=== PATIENT | female | born 1955 | race Caucasian/White ===

== ENCOUNTER 2016-03-05 13:23 | Observation (INO) | payer OTHER ==
[2016-03-05] VITALS (10 sets, daily range): BP systolic 104–128; BP diastolic 64–79; PULSE 105–120; RESP 16–25; TEMP 96.6–98.2; O2SAT 78–98
[~2016-03-05 13:23] MED LIST: ADVA250A INH; ALBU.5I NEB; ALBUAER3 INH; PRED10 PO; SPIRCAP INH; ZITHTAB PO
[2016-03-05] MEDS ORDERED: MAGNESIUM SULFATE 1 GM PREMIX 100 ML IV STA (13:33)
--- NOTE | 2016-03-05 13:37 | PD ---
HPI Chief Complaint: Respiratory Distress Time Seen by Provider: 13:37 Travel History International Travel<30 days: No Contact w/Intl Traveler<30days: No History of Present Illness HPI Patient comes in a COPD exacerbation. Patient struggling to speak and H&P is primary obtained through her . reports that patient began having difficulty breathing last night however did not want to come to the hospital awoke today noted she was struggling more with her breathing and decided to bring her to the emergency department. did try giving a dose nebulizer treatment prior to coming to the emergency department. PFSH Past Medical History Arthritis: No Asthma: Yes Autoimmune Disease: No Anxiety: Yes Depression: No Heart Rhythm Problems: No Cancer: No Cardiovascular Problems: No High Cholesterol: No Chest Pain: No Congestive Heart Failure: No COPD: Yes Cerebrovascular Accident: No Coronary Artery Disease: No Diabetes: No Diminished Hearing: No Endocrine: No Gastrointestinal Disorders: Yes GERD: No Genitourinary: No Headaches: No Hiatal Hernia: No Hypertension: No Immune Disorder: No Implanted Vascular Access Dvce: No Kidney Stones: No Musculoskeletal: Yes Neurologic: Yes Psychiatric: Yes (PTSD) Reproductive: No Respiratory: Yes (copd) Immunizations Current: Yes Renal Failure: No Seizures: Yes Sleep Apnea: No Thyroid Disease: No Ulcer: No Menopausal: Yes : 2 Para: 2 Past Surgical History Abdominal Surgery: Yes () Section: Yes (X1) Thoracic Surgery: Yes (BILATERAL BREAST BIOPSY) Other Surgery: Yes Social History Alcohol Use: Yes (1-2 BEERS/DAY) Tobacco Use: Yes (1/2-1 PPD) Substance Use: Yes (MARIJUANA OCCASIONALLY) Allergies-Medications (Allergen,Severity, Reaction): Coded Allergies: Penicillin (Verified Allergy, Severe, CHILDHOOD, 12/16/15) Reported Meds & Prescriptions Reported Meds & Active Scripts Active Prednisone 10 Mg Tab 10 Mg PO DIRECTED Take 4 tablets daily for 1 week Didn't take 3 tablets daily for 1 week And take 2 tablets daily for 1 week And take 1 tablet daily for one week Zithromax Z-Lake (Azithromycin) 250 Mg Dspk 250 Mg PO DIRECTED 500 MG (2 tabs) day 1, then 1 tab days 2-5. Proair Hfa 8.5 GM Inh (Albuterol Sulfate) 90 Mcg/Act Aer 2 Puff INH Q6H PRN 108 mcg/actuation Advair Diskus Inh (Fluticasone-Salmeterol Inh) 250-50 Mcg/Blist Aer 1 Puff INH BID Rinse mouth after use. Prednisone 10 Mg Tab 10 Mg PO DIRECTED Take 4 tablets daily for 1 week, 3 tablets daily for 1 week, 2 tablets daily for 1 week, 1 tablet daily for one week. Albuterol Neb (Albuterol Sulfate) 2.5 Mg/0.5 Ml Neb 2.5 Mg NEB QID NEB Note: The Albuterol Sulfate Inhalation Solution is concentrated and must be diluted. Read complete instructions carefully before using. Spiriva Handihaler (Tiotropium Inh) 18 Mcg Cap 18 Mcg INH DAILY 1 capsule = 18 mcg Review of Systems Except as stated in HPI: all other systems reviewed are Neg Physical Exam Narrative GENERAL: Well-developed, under nourished, in respiratory distress, and non-ill appearing. SKIN: Warm and dry. HEAD: Atraumatic. Normocephalic. EYES: Pupils equal and round. EOMI. No scleral icterus. No injection or drainage. ENT: No nasal bleeding or discharge. Mucous membranes pink and moist. NECK: Trachea midline. Supple. No nuclear rigidity. CARDIOVASCULAR: Tachycardia rate and regular rhythm. No murmur appreciated. RESPIRATORY: Accessory muscle use. Respiratory distress. Decreased breath sounds throughout and wheezing noted. Not able speak in full sentences. MUSCULOSKELETAL: No obvious deformities. No clubbing. No cyanosis. No edema. Full range of motion. NEUROLOGICAL: Awake and alert. No obvious cranial nerve deficits. Motor grossly within normal limits. PSYCHIATRIC: Appropriate mood and affect; insight and judgment normal. Data Data Last Documented VS Vital Signs Date Time Temp Pulse Resp B/P Pulse Ox O2 Delivery O2 Flow Rate FiO2 03/05/16 13:49 98 45 03/05/16 13:42 25 Nasal Cannula 6 03/05/16 13:32 98.2 105 118/68 Orders Complete Blood Count With Diff (03/05/16 13:32) Comprehensive Metabolic Panel (03/05/16 13:32) Magnesium (Mg) (03/05/16 13:32) Ckmb (Isoenzyme) Profile (03/05/16 13:32) Troponin I (03/05/16 13:32) Iv Access Insert/Monitor (03/05/16 13:32) Electrocardiogram (03/05/16 13:32) Ecg Monitoring (03/05/16 13:32) Oximetry (03/05/16 13:32) Oxygen Administration (03/05/16 13:32) Chest, Single Ap (03/05/16 13:32) Sodium Chloride 0.9% Flush (Ns Flush) (03/05/16 13:45) Methylprednisolone So Succ Inj (Solumedr (03/05/16 13:45) Albuterol-Ipratropium Neb (Duoneb Neb) (03/05/16 13:45) Magnesium Sulfate 1 Gm Premix (Magnesium (03/05/16 13:33) Lactic Acid (03/05/16 13:33) Arterial Blood Gas (Abg) (03/05/16 13:45) Resp Bipap / Cpap Non Invas Vt (03/05/16 13:45) CKMB (03/05/16 13:14) CKMB% (03/05/16 13:14) Sodium Chlor 0.9% 1000 Ml Inj (Ns 1000 M (03/05/16 14:45) Lorazepam Inj (Ativan Inj) (03/05/16 16:30) Admit Order (Ed Use Only) (03/05/16 16:48) Labs Laboratory Tests Test 03/05/16 03/05/16 03/05/16 13:14 13:54 13:55 White Blood Count 7.6 TH/MM3 Red Blood Count 2.93 MIL/MM3 Hemoglobin 9.5 GM/DL Hematocrit 28.2 % Mean Corpuscular Volume 96.0 FL Mean Corpuscular Hemoglobin 32.5 PG Mean Corpuscular Hemoglobin 33.9 % Concent Red Cell Distribution Width 19.2 % Platelet Count 369 TH/MM3 Mean Platelet Volume 7.6 FL Neutrophils (%) (Auto) 74.5 % Lymphocytes (%) (Auto) 13.2 % Monocytes (%) (Auto) 9.0 % Eosinophils (%) (Auto) 2.2 % Basophils (%) (Auto) 1.1 % Neutrophils # (Auto) 5.7 TH/MM3 Lymphocytes # (Auto) 1.0 TH/MM3 Monocytes # (Auto) 0.7 TH/MM3 Eosinophils # (Auto) 0.2 TH/MM3 Basophils # (Auto) 0.1 TH/MM3 CBC Comment DIFF FINAL Differential Comment Sodium Level 131 MEQ/L Potassium Level 4.6 MEQ/L Chloride Level 85 MEQ/L Carbon Dioxide Level 34.5 MEQ/L Anion Gap 12 MEQ/L Blood Urea Nitrogen 4 MG/DL Creatinine 0.31 MG/DL Estimat Glomerular Filtration 218 ML/MIN Rate Random Glucose 130 MG/DL Calcium Level 7.8 MG/DL Magnesium Level 1.7 MG/DL Total Bilirubin 0.3 MG/DL Aspartate Amino Transf 61 U/L (AST/SGOT) Alanine Aminotransferase 36 U/L (ALT/SGPT) Alkaline Phosphatase 142 U/L Total Creatine Kinase 106 U/L Creatine Kinase MB 1.9 NG/ML Troponin I LESS THAN 0.02 NG/ML Total Protein 6.7 GM/DL Albumin 3.3 GM/DL Blood Gas Puncture Site LT RADIAL Blood Gas Patient Temperature 98.6 Blood Gas HCO3 38 mmol/L Blood Gas Base Excess 12.6 mmol/L Blood Gas Oxygen Saturation 90 % Arterial Blood pH 7.42 Arterial Blood Partial 59 mmHg Pressure CO2 Arterial Blood Partial 86 mmHG Pressure O2 Arterial Blood Oxygen Content 11.2 Vol % Arterial Blood 6.4 % Carboxyhemoglobin Arterial Blood Methemoglobin 1.7 % Blood Gas Hemoglobin 8.8 G/DL Oxygen Delivery Device BIPAP Blood Gas Ventilator Setting IPAP 10/EPAP 5 Blood Gas Inspired Oxygen 30 % Lactic Acid Level 3.5 mmol/L MDM Medical Decision Making Medical Screen Exam Complete: Yes Emergency Medical Condition: Yes Interpretation(s) EKG reviewed by Dr. Pena shows sinus tachycardia ventricular rate of 104. No STEMI. Differential Diagnosis COPD exacerbation, pneumonia, respiratory acidosis, respiratory alkalosis, acute respiratory failure, chronic respiratory failure, other Narrative Course 1400 patient appears to be improving on BiPAP. Patient reports she's feeling little bit better since being on BiPAP. 1423 patient continues to improve on BiPAP. No longer using accessory muscle use. Speaking in full sentences. Reports continued improvement of symptoms. 1500 patient on the BiPAP feeling better requesting something to eat. Patient is agreeable for admission. 1615 patient reassessed. Mr. be tremulous. Patient reports she last drank this morning around 8:00 had one beer. Physician Communication Physician Communication [address] Norris, who is agreeable to admit patient. Diagnosis Primary Impression: COPD exacerbation Additional Impression: Alcohol abuse Zen Thorne Mar 05, 2016 13:37
[2016-03-05] MEDS ORDERED: methylPREDNISolone SOD SUCC 125 MG/2 ML VIAL IVP ONE (13:45)
[2016-03-05] MEDS ORDERED: SODIUM CHLORIDE 0.9% FLUSH 5 ML FLUSH IVF PRN ×2 (13:45→17:30)
[2016-03-05] MEDS: RESP: ALBUTEROL 2.5 MG/IPRATROPIUM 0.5 MG NEB (SCH) INH ×4 (13:48→23:45)
[2016-03-05 13:56] LABS: AUTOMATED NEUTROPHIL # 5.7 TH/MM3 (1.8-7.7); BASOPHIL # 0.1 TH/MM3 (0-0.2); BASOPHIL % 1.1 % (0.0-2.0); EOSINOPHIL # 0.2 TH/MM3 (0-0.4); EOSINOPHIL % 2.2 % (0.0-4.0); HEMATOCRIT 28.2 % (35.0-46.0); HEMO FLAGS DIFF FINAL; LYMPH % 13.2 % (9.0-44.0); MEAN CORPUSCULAR HEMOGLOBIN 32.5 PG (27.0-34.0); MEAN CORPUSCULAR HGB CONC 33.9 % (32.0-36.0); NEUT % 74.5 % (16.0-70.0); PLATELET COUNT 369 TH/MM3 (150-450); RED BLOOD COUNT 2.93 MIL/MM3 (4.00-5.30); RED CELL DISTRIBUTION WIDTH 19.2 % (11.6-17.2); WHITE BLOOD COUNT 7.6 TH/MM3 (4.0-11.0)
[2016-03-05 14:10] LABS: BLOOD GAS BASE EXCESS 12.6 mmol/L (-2-2); BLOOD GAS CARBOXYHEMOGLOBIN 6.4 % (0-4); BLOOD GAS HCO3 38 mmol/L (22-26); BLOOD GAS METHEMOGLOBIN 1.7 % (0-2); BLOOD GAS O2 HGB SATURATION 90 % (90-100); BLOOD GAS OXYGEN CONTENT 11.2 Vol % (12.0-20.0); BLOOD GAS PCO2 59 mmHg (38-42); BLOOD GAS PO2 86 mmHG (61-120); BLOOD GAS TOTAL HGB 8.8 G/DL (12.0-16.0); TEMP CORR TO 98.6
[2016-03-05 14:11] LABS: CRITICAL VALUE YES; DRAW SITE LT RADIAL; FIO2 30 %; NUMBER OF ARTERIAL PUNCTURES 1; OXYGEN DEVICE BIPAP; STAT YES; ULNAR PULSE PRESENT; VENT SETTINGS IPAP 10/EPAP 5
[2016-03-05 14:29] LABS: ALKALINE PHOSPHATASE 142 U/L (45-117); ALT (GPT) 36 U/L (10-53); ANION GAP 12 MEQ/L (5-15); BICARBONATE 34.5 MEQ/L (21.0-32.0); BLOOD UREA NITROGEN 4 MG/DL (7-18); CHLORIDE 85 MEQ/L (98-107); CREATINE KINASE 106 U/L (26-192); GLOMERULAR FILTRATION RATE 218 ML/MIN (>89); MAGNESIUM 1.7 MG/DL (1.5-2.5); SODIUM (NA) 131 MEQ/L (136-145); TOTAL BILIRUBIN ADULT 0.3 MG/DL (0.2-1.0)
[2016-03-05 14:33] LABS: AST (GOT) 61 U/L (15-37); POTASSIUM 4.6 MEQ/L (3.5-5.1)
[2016-03-05] MEDS ORDERED: SODIUM CHLOR 0.9% 1000 ML INJ 1,000 ML IV ONE (14:45)
[2016-03-05 14:47] LABS: CKMB 1.9 NG/ML (0.5-3.6)
--- NOTE | 2016-03-05 14:59 | RADRPT ---
EXAM DATE/TIME: 03/05/2016 13:50 [facility] COMPARISON: CHEST SINGLE AP, February 07, 2016, 9:11. INDICATIONS : Short of breath MEDICAL HISTORY : Chronic obstructive pulmonary disease. SURGICAL HISTORY : None. ENCOUNTER: Initial ACUITY: 1 day PAIN SCORE: Non-responsive. LOCATION: Bilateral chest FINDINGS: Lungs are hyperinflated. Significant peripheral of edematous changes are identified. There is no loss of acute airspace disease, suspicious metastases or effusions. Heart and mediastinal structures are stable. CONCLUSION: COPD No evidence of acute airspace disease or congestion. Mario Choudhary MD on March 05, 2016 at 14:56 Board Certified Radiologist. This report was verified electronically.
[2016-03-05] MEDS ORDERED: LORazepam 2 MG/ML VIAL IV PUSH ONE (16:30)
--- NOTE | 2016-03-05 17:19 | PD ---
Data Data Last Documented VS Vital Signs Date Time Temp Pulse Resp B/P Pulse Ox O2 Delivery O2 Flow Rate FiO2 03/05/16 13:49 98 45 03/05/16 13:42 25 Nasal Cannula 6 03/05/16 13:32 98.2 105 118/68 Orders Complete Blood Count With Diff (03/05/16 13:32) Comprehensive Metabolic Panel (03/05/16 13:32) Magnesium (Mg) (03/05/16 13:32) Ckmb (Isoenzyme) Profile (03/05/16 13:32) Troponin I (03/05/16 13:32) Iv Access Insert/Monitor (03/05/16 13:32) Electrocardiogram (03/05/16 13:32) Ecg Monitoring (03/05/16 13:32) Oximetry (03/05/16 13:32) Oxygen Administration (03/05/16 13:32) Chest, Single Ap (03/05/16 13:32) Sodium Chloride 0.9% Flush (Ns Flush) (03/05/16 13:45) Methylprednisolone So Succ Inj (Solumedr (03/05/16 13:45) Albuterol-Ipratropium Neb (Duoneb Neb) (03/05/16 13:45) Magnesium Sulfate 1 Gm Premix (Magnesium (03/05/16 13:33) Lactic Acid (03/05/16 13:33) Arterial Blood Gas (Abg) (03/05/16 13:45) Resp Bipap / Cpap Non Invas Vt (03/05/16 13:45) CKMB (03/05/16 13:14) CKMB% (03/05/16 13:14) Sodium Chlor 0.9% 1000 Ml Inj (Ns 1000 M (03/05/16 14:45) Lorazepam Inj (Ativan Inj) (03/05/16 16:30) Admit Order (Ed Use Only) (03/05/16 16:48) Labs Laboratory Tests Test 03/05/16 03/05/16 03/05/16 13:14 13:54 13:55 White Blood Count 7.6 TH/MM3 Red Blood Count 2.93 MIL/MM3 Hemoglobin 9.5 GM/DL Hematocrit 28.2 % Mean Corpuscular Volume 96.0 FL Mean Corpuscular Hemoglobin 32.5 PG Mean Corpuscular Hemoglobin 33.9 % Concent Red Cell Distribution Width 19.2 % Platelet Count 369 TH/MM3 Mean Platelet Volume 7.6 FL Neutrophils (%) (Auto) 74.5 % Lymphocytes (%) (Auto) 13.2 % Monocytes (%) (Auto) 9.0 % Eosinophils (%) (Auto) 2.2 % Basophils (%) (Auto) 1.1 % Neutrophils # (Auto) 5.7 TH/MM3 Lymphocytes # (Auto) 1.0 TH/MM3 Monocytes # (Auto) 0.7 TH/MM3 Eosinophils # (Auto) 0.2 TH/MM3 Basophils # (Auto) 0.1 TH/MM3 CBC Comment DIFF FINAL Differential Comment Sodium Level 131 MEQ/L Potassium Level 4.6 MEQ/L Chloride Level 85 MEQ/L Carbon Dioxide Level 34.5 MEQ/L Anion Gap 12 MEQ/L Blood Urea Nitrogen 4 MG/DL Creatinine 0.31 MG/DL Estimat Glomerular Filtration 218 ML/MIN Rate Random Glucose 130 MG/DL Calcium Level 7.8 MG/DL Magnesium Level 1.7 MG/DL Total Bilirubin 0.3 MG/DL Aspartate Amino Transf 61 U/L (AST/SGOT) Alanine Aminotransferase 36 U/L (ALT/SGPT) Alkaline Phosphatase 142 U/L Total Creatine Kinase 106 U/L Creatine Kinase MB 1.9 NG/ML Troponin I LESS THAN 0.02 NG/ML Total Protein 6.7 GM/DL Albumin 3.3 GM/DL Blood Gas Puncture Site LT RADIAL Blood Gas Patient Temperature 98.6 Blood Gas HCO3 38 mmol/L Blood Gas Base Excess 12.6 mmol/L Blood Gas Oxygen Saturation 90 % Arterial Blood pH 7.42 Arterial Blood Partial 59 mmHg Pressure CO2 Arterial Blood Partial 86 mmHG Pressure O2 Arterial Blood Oxygen Content 11.2 Vol % Arterial Blood 6.4 % Carboxyhemoglobin Arterial Blood Methemoglobin 1.7 % Blood Gas Hemoglobin 8.8 G/DL Oxygen Delivery Device BIPAP Blood Gas Ventilator Setting IPAP 10/EPAP 5 Blood Gas Inspired Oxygen 30 % Lactic Acid Level 3.5 mmol/L [facility] Supervised Visit with ADY: Yes Narrative Course The history, exam, and medical decision-making in the associated mid-level provider note were completed with my assistance. I reviewed and agree with the findings presented. I attest that I had a [id number] encounter with the patient on the same day, and personally performed and documented my assessment and findings in the medical record. *My assessment and Findings: 6-year-old woman, COPD exacerbation, history of severe COPD. She has a lot of medication noncompliance, doesn't take any of her controlled medications, still smokes. She's improved after BiPAP treatments and steroids. She didn't really want to stay but I encouraged her to stay overnight. Respiratory family and they're in encourage her to quit smoking and take her medications as prescribed. Much improved. Diagnosis Primary Impression: COPD exacerbation Additional Impression: Alcohol abuse Manuel Pena MD Mar 05, 2016 17:19
[2016-03-05] MEDS ORDERED: LORazepam 1 MG TAB PO PRN (17:30)
[2016-03-05] MEDS ORDERED: LORazepam 2 MG/ML VIAL IV PUSH PRN ×3 (17:30)
[2016-03-05] MEDS ORDERED: RESP: ALBUTEROL 2.5 MG/3 ML NEB (PRN) INH (17:30)
[2016-03-05] MEDS ORDERED: FLUMAZENIL 0.5 MG/5 ML VIAL IV PUSH PRN (17:30)
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
[2016-03-05] MEDS: REMOVE OLD NICODERM (NICOTINE) PATCH TD SCH (18:00)
[2016-03-05] MEDS: THIAMINE HCL 100 MG TAB PO SCH (18:38)
[2016-03-05] MEDS: PANTOPRAZOLE SOD 40 MG DELAYED RELEASE TAB PO SCH (18:38)
[2016-03-05] MEDS: SODIUM CHLOR 0.9% 1000 ML INJ 1,000 ML IV SCH (18:39)
[2016-03-05] MEDS: NICOTINE 21 MG/24 HR PATCH TD SCH (18:39)
[2016-03-05] MEDS: MULTIVITAMIN TAB PO SCH (18:39)
[2016-03-05] MEDS: LORazepam 2 MG/ML VIAL IV PUSH PRN (19:45)
[2016-03-05] MEDS: BUDESONIDE-FORMOTEROL 160/4.5 MCG INHALER INH SCH (21:00)
[2016-03-05] MEDS ORDERED: NON-FORMULARY DRUG (Fluticasone-Salmeterol Inh (Advair Diskus Inh) 1 PUFF) INH SCH (21:00)
[2016-03-05] MEDS: SODIUM CHLORIDE 0.9% FLUSH 5 ML FLUSH IVF SCH (21:38)
[2016-03-05] MEDS: LORazepam 2 MG TAB PO PRN (21:38)
[2016-03-05] MEDS: methylPREDNISolone SOD SUCC 40 MG/1 ML VIAL IV PUSH SCH (21:39)
[2016-03-06] VITALS (10 sets, daily range): BP systolic 116–144; BP diastolic 66–79; PULSE 98–116; RESP 16–20; TEMP 96–98.8; O2SAT 95–100
[2016-03-06] MEDS: methylPREDNISolone SOD SUCC 40 MG/1 ML VIAL IV PUSH SCH ×4 (01:25→17:53)
[2016-03-06] MEDS: LORazepam 2 MG/ML VIAL IV PUSH PRN (01:26)
[2016-03-06] MEDS: RESP: ALBUTEROL 2.5 MG/IPRATROPIUM 0.5 MG NEB (SCH) INH ×5 (03:35→20:13)
[2016-03-06 06:02] LABS: AUTOMATED NEUTROPHIL # 3.4 TH/MM3 (1.8-7.7); BASOPHIL % 0.3 % (0.0-2.0); HEMATOCRIT 23.4 % (35.0-46.0); HEMO FLAGS DIFF FINAL; LYMPH % 5.8 % (9.0-44.0); LYMPHOCYTE # 0.2 TH/MM3 (1.0-4.8); MEAN CELL VOLUME 96.9 FL (80.0-100.0); MEAN CORPUSCULAR HEMOGLOBIN 32.4 PG (27.0-34.0); MEAN CORPUSCULAR HGB CONC 33.5 % (32.0-36.0); MONO % 3.3 % (0.0-8.0); NEUT % 90.6 % (16.0-70.0); PLATELET COUNT 242 TH/MM3 (150-450); RED BLOOD COUNT 2.42 MIL/MM3 (4.00-5.30); RED CELL DISTRIBUTION WIDTH 19.4 % (11.6-17.2); WHITE BLOOD COUNT 3.7 TH/MM3 (4.0-11.0)
[2016-03-06] MEDS: PANTOPRAZOLE SOD 40 MG DELAYED RELEASE TAB PO SCH (06:21)
[2016-03-06 06:45] LABS: POTASSIUM 3.4 MEQ/L (3.5-5.1)
[2016-03-06] MEDS: SODIUM CHLORIDE 0.9% FLUSH 5 ML FLUSH IVF SCH ×2 (08:40→20:43)
[2016-03-06] MEDS: BUDESONIDE-FORMOTEROL 160/4.5 MCG INHALER INH SCH ×2 (08:40→20:42)
[2016-03-06] MEDS: THIAMINE HCL 100 MG TAB PO SCH (08:42)
[2016-03-06] MEDS: MULTIVITAMIN TAB PO SCH (08:42)
[2016-03-06] MEDS: FOLIC ACID 1 MG TAB PO SCH (08:42)
[2016-03-06] MEDS: NICOTINE 21 MG/24 HR PATCH TD SCH (08:44)
[2016-03-06] MEDS: REMOVE OLD NICODERM (NICOTINE) PATCH TD SCH (09:00)
--- NOTE | 2016-03-06 10:23 | PD.PN.STU ---
Subjective Remarks This morning, pt reports feeling a generalized sense of weakness, wonders if she 's "getting worse." Denies increase in shortness of breath, chest pain, focal weakness. On 3 L nasal cannula. Objective Vitals Vital Signs Date Time Temp Pulse Resp B/P Pulse Ox O2 Delivery O2 Flow Rate FiO2 03/06/16 07:34 99 Nasal Cannula 3.00 03/06/16 07:27 98.1 103 18 116/75 99 03/06/16 04:38 97.8 99 20 125/66 100 03/06/16 00:05 96.0 116 16 129/75 98 03/05/16 21:16 96.6 120 16 127/78 96 03/05/16 20:55 96 Nasal Cannula 3.00 03/05/16 19:48 112 22 116/71 96 Nasal Cannula 2 03/05/16 19:16 115 24 122/70 95 Nasal Cannula 2 03/05/16 18:46 114 22 128/79 96 Nasal Cannula 6 03/05/16 16:30 96 Nasal Cannula 2.00 03/05/16 13:49 98 45 03/05/16 13:42 25 96 Nasal Cannula 6 03/05/16 13:42 96 Nasal Cannula 6 03/05/16 13:32 25 73 Room Air 03/05/16 13:32 98.2 105 25 118/68 96 Nasal Cannula 6 03/05/16 13:26 98.1 110 22 104/64 78 Room Air Result Diagram: 03/06/16 0531 03/06/16 0531 Other Results Laboratory Tests Test 03/05/16 03/05/16 03/05/16 03/06/16 13:14 13:54 13:55 05:31 White Blood Count 7.6 TH/MM3 3.7 TH/MM3 Red Blood Count 2.93 MIL/MM3 2.42 MIL/MM3 Hemoglobin 9.5 GM/DL 7.8 GM/DL Hematocrit 28.2 % 23.4 % Mean Corpuscular Volume 96.0 FL 96.9 FL Mean Corpuscular Hemoglobin 32.5 PG 32.4 PG Mean Corpuscular Hemoglobin 33.9 % 33.5 % Concent Red Cell Distribution Width 19.2 % 19.4 % Platelet Count 369 TH/MM3 242 TH/MM3 Mean Platelet Volume 7.6 FL 6.9 FL Neutrophils (%) (Auto) 74.5 % 90.6 % Lymphocytes (%) (Auto) 13.2 % 5.8 % Monocytes (%) (Auto) 9.0 % 3.3 % Eosinophils (%) (Auto) 2.2 % 0.0 % Basophils (%) (Auto) 1.1 % 0.3 % Neutrophils # (Auto) 5.7 TH/MM3 3.4 TH/MM3 Lymphocytes # (Auto) 1.0 TH/MM3 0.2 TH/MM3 Monocytes # (Auto) 0.7 TH/MM3 0.1 TH/MM3 Eosinophils # (Auto) 0.2 TH/MM3 0.0 TH/MM3 Basophils # (Auto) 0.1 TH/MM3 0.0 TH/MM3 CBC Comment DIFF FINAL DIFF FINAL Differential Comment Sodium Level 131 MEQ/L 135 MEQ/L Potassium Level 4.6 MEQ/L 3.4 MEQ/L Chloride Level 85 MEQ/L 93 MEQ/L Carbon Dioxide Level 34.5 MEQ/L 36.0 MEQ/L Anion Gap 12 MEQ/L 6 MEQ/L Blood Urea Nitrogen 4 MG/DL 5 MG/DL Creatinine 0.31 MG/DL 0.22 MG/DL Estimat Glomerular Filtration 218 ML/MIN 325 ML/MIN Rate Random Glucose 130 MG/DL 177 MG/DL Calcium Level 7.8 MG/DL 7.9 MG/DL Magnesium Level 1.7 MG/DL Total Bilirubin 0.3 MG/DL Aspartate Amino Transf 61 U/L (AST/SGOT) Alanine Aminotransferase 36 U/L (ALT/SGPT) Alkaline Phosphatase 142 U/L Total Creatine Kinase 106 U/L Creatine Kinase MB 1.9 NG/ML Troponin I LESS THAN 0.02 NG/ML Total Protein 6.7 GM/DL Albumin 3.3 GM/DL Blood Gas Puncture Site LT RADIAL Blood Gas Patient Temperature 98.6 Blood Gas HCO3 38 mmol/L Blood Gas Base Excess 12.6 mmol/L Blood Gas Oxygen Saturation 90 % Arterial Blood pH 7.42 Arterial Blood Partial 59 mmHg Pressure CO2 Arterial Blood Partial 86 mmHG Pressure O2 Arterial Blood Oxygen Content 11.2 Vol % Arterial Blood 6.4 % Carboxyhemoglobin Arterial Blood Methemoglobin 1.7 % Blood Gas Hemoglobin 8.8 G/DL Oxygen Delivery Device BIPAP Blood Gas Ventilator Setting IPAP 10/EPAP 5 Blood Gas Inspired Oxygen 30 % Lactic Acid Level 3.5 mmol/L Imaging Last 24 hours Impressions Chest X-Ray 03/05/16 5632 Signed Impressions: Service Date/Time: Saturday, March 05, 2016 13:50 - CONCLUSION: COPD No evidence of acute airspace disease or congestion. Mario Choudhary MD Objective Remarks GENERAL: Sitting upright in bed eating breakfast, conversant, noticeable tremor in hands SKIN: Warm and dry. HEAD: Normocephalic. EYES: No scleral icterus. No injection or drainage. NECK: Supple, trachea midline. No JVD or lymphadenopathy. CARDIOVASCULAR: Regular rate and rhythm without murmurs, gallops, or rubs. RESPIRATORY: Poor air movement bilaterally, faint wheezing on expiration GASTROINTESTINAL: Abdomen soft, non-tender, nondistended. MUSCULOSKELETAL: No cyanosis, or edema. Medications and IVs Administered Medications Medications (Trade) Dose Ordered Sig/Lemuel Route PRN Reason Start Time Stop Time Status Last Admin Dose Admin Sodium Chloride (NS 1000 ml Inj) 1,000 ml @ 75 mls/hr [id number] IV 03/05/16 18:00 03/05/16 18:39 IV Flush (NS Flush) 2 ml BID IVF 03/05/16 21:00 03/06/16 08:40 Nicotine (Habitrol 21 Mg Patch.24 Hr) 1 patch DAILY TD 03/05/16 18:00 03/06/16 08:44 Lorazepam (Ativan Inj) 1 mg Q4H PRN IV PUSH CIWA 8 - 10 03/05/16 17:30 03/06/16 01:26 Lorazepam (Ativan) 2 mg Q2H PRN PO CIWA 11-14 03/05/16 17:30 03/05/16 21:38 Methylprednisolone Sodium Succinate (SoluMEDROL INJ) 40 mg Q6HR IV PUSH 03/05/16 22:00 03/06/16 06:21 Miscellaneous Information 1 DAILY TD 03/05/16 18:00 03/05/16 18:00 Budesonide/ Formoterol Fumarate (Symbicort 160-4.5 Inh) 2 puff BID INH 03/05/16 21:00 03/06/16 08:40 Pantoprazole Sodium (Protonix) 40 mg DAILY@06 PO 03/05/16 17:49 03/06/16 06:21 Thiamine HCl (Vitamin B1) 100 mg DAILY PO 03/05/16 17:53 1/18/17 08:42 Folic Acid (Folate) 1 mg DAILY PO 03/06/16 09:00 03/06/16 08:42 Multivitamins (Theragran) 1 tab DAILY PO 03/05/16 17:55 03/06/16 08:42 A/P Assessment and Plan 60 yo F w/long-time tobacco use presenting with COPD exacerbation - COPD Exacerbation - secondary to long time tobacco use, counseled on smoking cessation. Nicotine patch - On 3L n/c, O2 sat 99% - IV solumedrol 40mg Q6h, symbicort BID, Duoneb Q4h - Albuterol Q2h PRN - Alcohol dependence - monitor closely, tremor noted this morning - CIWA protocol, thiamine, folic acid, IVF - counseled to cease alcohol use, consider inpatient rehabilitation - PTSD - Psych consulted, was coming to see patient as I left the room - Hypovolemia - Tachycardia improving, now in low 100's initially 110's - continue nl saline IVF, 75ml/hr - Hyponatremia: resolving - likely due to alcohol/beer intake-->beer potomania - 131-->135, improving with IVF. Goal to correct <10 mEq/L in 24h - Anemia - Hgb initially 9.5, now 7.8 - likely dilutional decrease due to IVF administration Discharge Planning Consulting CM for possible rehabilitation for alcohol dependence. Evangelina Myers M3 Mar 06, 2016 10:23
[2016-03-06] MEDS: LORazepam 2 MG TAB PO PRN ×2 (11:24→16:34)
[2016-03-06] MEDS: SODIUM CHLOR 0.9% 1000 ML INJ 1,000 ML IV SCH (11:48)
[2016-03-06] MEDS ORDERED: ONDANSETRON HCL 4 MG/2 ML VIAL IV PRN (12:00)
[2016-03-06] MEDS ORDERED: POTASSIUM CHLORIDE 10 MEQ CONTROLLED RELEASE TAB PO ONE (12:00)
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
--- NOTE | 2016-03-06 13:45 | HHI.PR ---
Subjective Remarks Patient endorsed generalized weakness with difficulty walking. Unsteady gait. Breathing is okay. Patient is still visibly shaky. Objective Vitals Vital Signs Date Time Temp Pulse Resp B/P Pulse Ox O2 Delivery O2 Flow Rate FiO2 03/06/16 11:08 98.1 114 18 144/79 100 03/06/16 07:34 99 Nasal Cannula 3.00 03/06/16 07:27 98.1 103 18 116/75 99 03/06/16 04:38 97.8 99 20 125/66 100 03/06/16 00:05 96.0 116 16 129/75 98 03/05/16 21:16 96.6 120 16 127/78 96 03/05/16 20:55 96 Nasal Cannula 3.00 03/05/16 19:48 112 22 116/71 96 Nasal Cannula 2 03/05/16 19:16 115 24 122/70 95 Nasal Cannula 2 03/05/16 18:46 114 22 128/79 96 Nasal Cannula 6 03/05/16 16:30 96 Nasal Cannula 2.00 03/05/16 13:49 98 45 Result Diagram: 03/06/16 0531 03/06/16 0531 Imaging Last Impressions Chest X-Ray 03/05/16 1332 Signed Impressions: Service Date/Time: Saturday, March 05, 2016 13:50 - CONCLUSION: COPD No evidence of acute airspace disease or congestion. Mario Choudhary MD Objective Remarks GENERAL: Frail and cachectic female patient. Very shaky. SKIN: Multiple bruises over bilateral upper and lower extremities. CARDIOVASCULAR: Normal rate and regular rhythm without murmurs, gallops, or rubs. RESPIRATORY: Poor air movement. Faint expiratory wheezing. GASTROINTESTINAL: Abdomen soft, non-tender, non-distended. Normal active bowel sounds MUSCULOSKELETAL: Extremities without cyanosis, or edema. Generally weak. NEURO: Patient is very tremulous PSYCH: Appropriate mood and affect. A/P Assessment and Plan 60-year-old female noncompliant patient with severe oxygen dependent COPD/ emphysema being admitted for COPD exacerbation: COPD exacerbation: Unfortunately patient is noncompliant, ongoing alcohol dependence. Does not follow-up. Chest x-ray image reviewed. No evidence of an infectious process at this point. She continues to smoke at least 15 cigarettes a day. - Treated with IV Solu-Medrol. Scheduled breathing treatments, continue Advair. Alcohol dependence/withdrawal: Patient continues to drink heavily despite the detrimental effects on her health. Her is very concerned about her health and hope she would go to inpatient rehabilitation. However the patient is reluctant. She was counseled in a direct way and it was made clear to her that she will continue to go downhill if she does not quit drinking alcohol and was strongly counseled to seek inpatient rehabilitation. - CIWA protocol - Rally pack - Scheduled Librium added per psychiatry. Unsteady gait: Probably related to above. Will ask PT to evaluate. PTSD and Anxiety: Symptoms are more pronounced in the setting of ongoing alcohol abuse. - Appreciate psychiatrist's assistance. Also advised inpatient detox and long- term in patient alcohol rehabilitation. - Patient on scheduled Librium as above. Tobacco abuse: Patient again counseled on the detrimental effects of tobacco on her health. She states that she is trying to quit. She was advised about complete cessation. Hyponatremia: Mild. Secondary to chronic alcohol use. IVF. GI prophylaxis: PPI. Stool softener PRN constipation. DVT PPx: SCDs Discharge Planning Ideally patient should be discharged to an inpatient detox unit. However she is reluctant. She does not even appear to be strong enough to walk on her own. In addition she is oxygen dependent which may complicate placement to detox facility if she agrees to go to one. Will ask physical therapy to evaluate. Case management consulted for assistance with placement. Meggan Norris MD Mar 06, 2016 13:45
[2016-03-06] MEDS: chlordiazePOXIDE 25 MG CAP PO SCH ×2 (14:27→20:42)
[2016-03-06] MEDS: D5-1/2 NS + KCL 20 MEQ INJ 1,000 ML IV SCH (15:40)
--- NOTE | 2016-03-06 20:40 | EKG ---
Date Performed: 03/05/2016 Time Performed: 13:56:04 PTAGE: 60 years EKG: SINUS TACHYCARDIA RIGHT ATRIAL ENLARGEMENT ABNORMAL ECG PREVIOUS TRACING : 02/07/2016 08.57 Compared to prior tracing no significant change DOCTOR: Santi Barr Interpretating Date/Time 03/06/2016 20:39:25
[2016-03-07] VITALS (7 sets, daily range): BP systolic 92–130; BP diastolic 57–73; PULSE 66–102; RESP 16–24; TEMP 97.6–98.4; O2SAT 99–100
[2016-03-07] MEDS: RESP: ALBUTEROL 2.5 MG/IPRATROPIUM 0.5 MG NEB (SCH) INH ×5 (00:09→15:41)
[2016-03-07] MEDS: LORazepam 2 MG TAB PO PRN ×2 (00:36→16:13)
[2016-03-07] MEDS: methylPREDNISolone SOD SUCC 40 MG/1 ML VIAL IV PUSH SCH ×2 (00:36→06:09)
[2016-03-07] MEDS: D5-1/2 NS + KCL 20 MEQ INJ 1,000 ML IV SCH (03:25)
[2016-03-07] MEDS: PANTOPRAZOLE SOD 40 MG DELAYED RELEASE TAB PO SCH (06:09)
[2016-03-07] MEDS: chlordiazePOXIDE 25 MG CAP PO SCH ×2 (06:09→14:08)
[2016-03-07 08:23] LABS: HEMATOCRIT 22.2 % (35.0-46.0); MEAN CELL VOLUME 98.2 FL (80.0-100.0); MEAN CORPUSCULAR HEMOGLOBIN 32.4 PG (27.0-34.0); PLATELET COUNT 228 TH/MM3 (150-450); RED BLOOD COUNT 2.26 MIL/MM3 (4.00-5.30); RED CELL DISTRIBUTION WIDTH 20.3 % (11.6-17.2); REVIEW FLAG FINAL; WHITE BLOOD COUNT 7.7 TH/MM3 (4.0-11.0)
[2016-03-07] MEDS: BUDESONIDE-FORMOTEROL 160/4.5 MCG INHALER INH SCH (08:51)
[2016-03-07] MEDS: SODIUM CHLORIDE 0.9% FLUSH 5 ML FLUSH IVF SCH (08:51)
[2016-03-07] MEDS: THIAMINE HCL 100 MG TAB PO SCH (08:52)
[2016-03-07] MEDS: MULTIVITAMIN TAB PO SCH (08:52)
[2016-03-07] MEDS: FOLIC ACID 1 MG TAB PO SCH (08:52)
[2016-03-07 08:53] LABS: BICARBONATE 34.5 MEQ/L (21.0-32.0); MAGNESIUM 1.8 MG/DL (1.5-2.5); POTASSIUM 4.5 MEQ/L (3.5-5.1)
[2016-03-07] MEDS: NICOTINE 21 MG/24 HR PATCH TD SCH (08:54)
[2016-03-07] MEDS: REMOVE OLD NICODERM (NICOTINE) PATCH TD SCH (08:54)
--- NOTE | 2016-03-07 09:25 | HHI.PR ---
Subjective Remarks Follow up for COPD exacerbation, alcohol dependence/withdrawal. The patient reports her breathing is back to normal, denies any worsening SOB. O2 sat stable at 100% on 3L NC. Patient wears 2-3L at home. She currently has a tremor but she states this is because she is upset from being in the hospital. She wants to be discharged. Denies any worsening withdrawal. Significant other Claude at bedside, plans to care for the patient at home if unable to get her to alcohol rehab at [facility]. The patient only has a cane at home, no walker. Objective Vitals Vital Signs Date Time Temp Pulse Resp B/P Pulse Ox O2 Delivery O2 Flow Rate FiO2 03/07/16 07:37 97.6 66 16 92/62 100 03/07/16 07:30 96 03/07/16 04:25 98.3 94 20 94/57 99 03/07/16 00:32 98.4 99 20 110/59 100 03/07/16 00:10 99 Nasal Cannula 3.00 03/06/16 22:21 104 03/06/16 20:14 95 Nasal Cannula 4.00 03/06/16 19:59 97.6 109 20 123/76 100 03/06/16 15:20 98.8 98 18 128/72 98 03/06/16 11:08 98.1 114 18 144/79 100 Result Diagram: 03/07/16 0812 03/07/16 0812 Imaging Last Impressions Chest X-Ray 03/05/16 1332 Signed Impressions: Service Date/Time: Saturday, March 05, 2016 13:50 - CONCLUSION: COPD No evidence of acute airspace disease or congestion. Mario Choudhary MD Objective Remarks GENERAL: Well-nourished, well-developed thin female patient in [facility]. SKIN: Warm and dry. No rash. HEAD: Normocephalic. Atraumatic. EYES: Pupils equal and round. No scleral icterus. No injection or drainage. ENT: No nasal bleeding or discharge. Mucous membranes pink and moist. NECK: Supple. Trachea midline. CARDIOVASCULAR: Regular rate and rhythm. S1, S2 noted. No murmur appreciated. RESPIRATORY: No accessory muscle use. Decreased breath sounds bilaterally, otherwise clear to auscultation. Breath sounds equal bilaterally. GASTROINTESTINAL: Abdomen soft, non-tender, nondistended. Normoactive bowel sounds x4. MUSCULOSKELETAL: No obvious deformities. Extremities without clubbing, cyanosis , or edema. NEUROLOGICAL: AAOx4. No obvious cranial nerve deficits. Motor grossly within normal limits. Generalized weakness with upper extremity tremor/shaking. Normal speech. PSYCHIATRIC: Anxious mood; insight and judgment normal. Medications and IVs Current Medications Medications (Trade) Dose Ordered Sig/Lemuel Route Start Time Stop Time Status Last Admin (NS Flush) 2 ml BID IVF 03/05/16 21:00 03/06/16 20:43 (NS Flush) 2 ml UNSCH PRN IVF 03/05/16 17:30 (Habitrol 21 Mg Patch.24 Hr) 1 patch DAILY TD 03/05/16 18:00 03/07/16 08:54 (Ativan) 1 mg Q4H PRN PO 03/05/16 17:30 (Ativan Inj) 1 mg Q4H PRN IV PUSH 03/05/16 17:30 03/06/16 01:26 (Ativan) 2 mg Q2H PRN PO 03/05/16 17:30 03/07/16 00:36 (Ativan Inj) 2 mg Q2H PRN IV PUSH 03/05/16 17:30 03/06/16 20:42 (Ativan Inj) 2 mg Q1H PRN IV PUSH 03/05/16 17:30 (Ativan Inj) 2 mg Q15M PRN IV PUSH 03/05/16 17:30 Miscellaneous Information 1 DAILY TD 03/05/16 18:00 03/07/16 08:54 (Symbicort 160-4.5 Inh) 2 puff BID INH 03/05/16 21:00 03/07/16 08:51 (Protonix) 40 mg DAILY@06 PO 03/05/16 17:49 03/07/16 06:09 (Vitamin B1) 100 mg DAILY PO 03/05/16 17:53 03/07/16 08:52 (Folate) 1 mg DAILY PO 03/06/16 09:00 03/07/16 08:52 (Theragran) 1 tab DAILY PO 03/05/16 17:55 03/07/16 08:52 (Zofran Inj) 4 mg Q6H PRN IV 03/06/16 12:00 03/06/16 11:49 (Librium) 50 mg Q8HR PO 03/06/16 14:00 03/07/16 06:09 (Deltasone) 40 mg Q12H PO 03/07/16 18:00 Urinary Catheter: No Vascular Central Line Catheter: No A/P Problem List: (1) COPD exacerbation ICD Code: J44.1 Status: Acute (2) Alcohol abuse ICD Code: F10.10 Status: Acute (3) Hyponatremia ICD Code: E87.1 Status: Resolved Assessment and Plan 60-year-old female noncompliant patient with severe oxygen dependent COPD/ emphysema being admitted for COPD exacerbation: Acute on Chronic Respiratory Failure secondary to COPD exacerbation, O2 dependent: Unfortunately patient is noncompliant, ongoing alcohol dependence, does not follow-up. CXR image reviewed, consistent with COPD. No evidence of an infectious process. Continues to smoke at least 15 cigarettes a day. Treated with IV Solu-Medrol. Scheduled breathing treatments, continue Advair. Taper steroids to prednisone 40mg bid. Alcohol dependence/withdrawal: Patient continues to drink heavily despite the detrimental effects on her health. Her is very concerned about her health and hope she would go to inpatient rehabilitation. However the patient is reluctant. She was counseled in a direct way and it was made clear to her that she will continue to go downhill if she does not quit drinking alcohol and was strongly counseled to seek inpatient rehabilitation. [place] protocol. Rally pack. Scheduled Librium added per psychiatry. Unsteady gait: Probably related to above. Asked PT to evaluate, recommends HHC and walker. Case management to assist with arrangements. PTSD and Anxiety: Symptoms are more pronounced in the setting of ongoing alcohol abuse. Appreciate psychiatrist's assistance. Also advised inpatient detox and long-term in patient alcohol rehabilitation. Patient on scheduled Librium as above. Tobacco abuse: Patient again counseled on the detrimental effects of tobacco on her health. She states that she is trying to quit. She was advised about complete cessation. Hyponatremia: Mild. Secondary to chronic alcohol use. IVF given, Na 136 now. D/ c IVF. Normocytic Anemia: Hgb 7.3 today, previously 9.5 on admission. Likely chronic anemia and dilutional secondary to being on IVF during hospitalization. Check stool hemoccult and iron studies/ferritin. Repeat H&H this afternoon. Glucose intolerance secondary to steroids. Monitor fingerstick with sliding scale coverage. Obtain A1c. GI prophylaxis: PPI. Stool softener PRN constipation. DVT PPx: SCDs Written by Lory Rudolph, acting as scribe for Dr. Roberts on 03/07/16 at 09: 20. The documentation accurately reflects the work performed [id number] by me on at 0920 Discharge Planning Work up anemia and repeat H&H this afternoon, if stable, then likely discharge today after arrangements made by case management. Lory Rudolph PA-C Mar 07, 2016 09:25 Bertrand Roberts MD Mar 07, 2016 15:16
[2016-03-07] MEDS ORDERED: WALKER WHEELS/F1 MIS (10:26)
[2016-03-07] MEDS ORDERED: CHLO25CA2 PO (10:56)
[2016-03-07] MEDS: LORazepam 2 MG/ML VIAL IV PUSH PRN (12:31)
[2016-03-07 15:00] LABS: HEMATOCRIT 26.8 % (35.0-46.0); REVIEW FLAG FINAL
[2016-03-07] MEDS ORDERED: DEXTROSE 50% IN WATER 50 ML VIAL(D50) IV PUSH PRN (15:15)
[2016-03-07] MEDS ORDERED: GLUCAGON 1 MG/ML VIAL OTHER PRN (15:15)
[2016-03-07 15:23] LABS: TRANSFERRIN IRON PROFILE 258 MG/DL (200-360)
[2016-03-07 15:25] LABS: FERRITIN 43 NG/ML (8-252)
[2016-03-07] MEDS ORDERED: INSULIN ASPART SUPPLEMENTAL SCALE SQ SCH (16:00)
[2016-03-07] MEDS ORDERED: VITA100T2 PO (17:36)
[2016-03-07] MEDS ORDERED: PRED20 PO (17:36)
[2016-03-07] MEDS ORDERED: PANT40TA3 PO (17:36)
[2016-03-07] MEDS ORDERED: FERR325T PO (17:36)
--- NOTE | 2016-03-07 17:37 | HHI.FF ---
Face to Face Verification Diagnosis: (1) COPD exacerbation (2) Generalized weakness (3) Alcohol abuse Physical Therapy Order: Evaluate and Treat, Improve ambulation, Strength and gait training Home Health Nursing Order: Medical education Signs/symptoms of disease process Medication education-adverse effect Nursing assessment with vital signs I have seen patient Chelly Latif on 03/07/16. My clinical findings support the need for the requested home health care services because: Patient has SOB I certify that my clinical findings support that this patient is homebound because: Hx COPD- exertion dyspnea/weakness Bertrand Roberts MD Mar 07, 2016 17:37
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
[2016-03-07] MEDS ORDERED: predniSONE 20 MG TAB PO SCH (18:00)
[2016-03-07] MEDS ORDERED: FERROUS SULFATE 325 MG (65 MG ELEMENTAL IRON) TAB PO SCH (21:00)
[2016-03-08] MEDS ORDERED: predniSONE 20 MG TAB PO SCH (09:00)
== END 2016-03-07 18:41 | disposition left against medical advice (07) ==
LOC: NEPE 13:23 → NEDA 16:55 → NEPHCDU 21:13
PROVIDERS: ADMIT Internal Medicine; ATTEND Internal Medicine
DX: J44.1 Chronic obstructive pulmonary disease with (acute) exacerbation (principal); F10.20 Alcohol dependence, uncomplicated; E87.1 Hypo-osmolality and hyponatremia; F17.210 Nicotine dependence, cigarettes, uncomplicated; J45.909 Unspecified asthma, uncomplicated; J43.9 Emphysema, unspecified; F41.9 Anxiety disorder, unspecified; F43.10 Post-traumatic stress disorder, unspecified; G25.2 Other specified forms of tremor; R53.1 Weakness; R06.02 Shortness of breath; Z91.81 History of falling; Z91.14 Patient's other noncompliance with medication regimen; Z99.81 Dependence on supplemental oxygen
CPT/HCPCS: 36600; 71010; 80048; 80053; 82550; 82552; 82728; 82805; 83540; 83550; 83605; 83735; 84100; 84484; 85014; 85018; 85025; 85027; 93005; 94002; 94150; 94640; 94664; 96374; 96375; 97162; 99285; G0378; G8987; G8988; J2060; J2405; J2920; J2930; J3475; J3480; J7030

== ENCOUNTER 2016-03-28 20:46 | Inpatient (IN) | payer OTHER ==
[~2016-03-28] VITALS: Ht 170.2 cm; Wt 47.3 kg
[~2016-03-28 20:46] MED LIST changes: +CHLO25CA2 PO; +FERR325T PO; +PANT40TA3 PO; +PRED20 PO; +VITA100T2 PO; +WALKER WHEELS/F1 MIS
[2016-03-28] MEDS ORDERED: methylPREDNISolone SOD SUCC 125 MG/2 ML VIAL IVP ONE (21:00)
[2016-03-28] MEDS ORDERED: SODIUM CHLOR 0.9% 1000 ML INJ 1,000 ML IV SCH ×2 (21:04→22:30)
[2016-03-28 21:12] VITALS: PULSE 108; RESP 26; TEMP 98.9; O2SAT 99
[2016-03-28 21:13] VITALS: BP 93/63; PULSE 110; RESP 26; TEMP 98.9; O2SAT 98
[2016-03-28] MEDS ORDERED: THIAMINE INJ 100 MG in SODIUM CHLORIDE 0.9% INJ 100 ML IV ONE (21:15)
--- NOTE | 2016-03-28 21:34 | PD ---
HPI Chief Complaint: Respiratory Symptoms Time Seen by Provider: 21:17 Travel History International Travel<30 days: No Contact w/Intl Traveler<30days: No Traveled to known affect area: No History of Present Illness HPI 60-year-old female that presents to the ED for evaluation of shortness of breath. Patient was brought here by ambulance for this. Patient does have a chronic history of COPD and smoking as well as alcohol abuse. Patient apparently is noncompliant with medications and has been here multiple times and was just admitted just a week ago. Patient uses oxygen at home and she's been doing well with oxygen but for the past 3 weeks she's been feeling bad. Per patient and significant other she's also been having multiple falls secondary to her chronic alcohol abuse. Per ambulance report patient drinks heavily every day and per medical records as well. She states that she ran of social breath but denies any chest pain. She does have multiple bruises on her arms and legs. Per patient she injured her left foot and is possibly broken. Patient does have an Star wrap on it has swelling and bruising on the toes. She denies any other medical, this time. History somewhat limited from the patient as she does appear to be heavily intoxicated at this time. Most of the history is obtained from the ambulance as well as the family. PFSH Past Medical History Arthritis: No Asthma: Yes Autoimmune Disease: No Anxiety: Yes Depression: Yes Heart Rhythm Problems: No Cancer: No Cardiovascular Problems: No High Cholesterol: No Chest Pain: No Congestive Heart Failure: No COPD: Yes Cerebrovascular Accident: No Coronary Artery Disease: No Diabetes: No Diminished Hearing: No Endocrine: No Gastrointestinal Disorders: Yes GERD: No Genitourinary: No Headaches: No Hiatal Hernia: No Hypertension: No Immune Disorder: No Implanted Vascular Access Dvce: No Kidney Stones: No Musculoskeletal: Yes Neurologic: Yes Psychiatric: Yes (PTSD) Reproductive: No Respiratory: Yes (copd) Immunizations Current: Yes Renal Failure: No Seizures: Yes Sleep Apnea: No Thyroid Disease: No Ulcer: No ?: Not Menopausal: Yes : 2 Para: 2 Past Surgical History Abdominal Surgery: Yes () Section: Yes (X1) Thoracic Surgery: Yes (BILATERAL BREAST BIOPSY) Other Surgery: Yes Social History Alcohol Use: Yes (4 BEERS/DAY) Tobacco Use: Yes (1/2-1 PPD) Substance Use: Yes (MARIJUANA OCCASIONALLY) Allergies-Medications (Allergen,Severity, Reaction): Coded Allergies: Penicillin (Verified Allergy, Severe, CHILDHOOD, 03/28/16) Reported Meds & Prescriptions Reported Meds & Active Scripts Active Chlordiazepoxide (Chlordiazepoxide HCl) 25 Mg Cap 50 Mg PO TID PRN Take 2 pills 3 times a day for 3 days then 1 pill 3 times a day for 3 days then 1 pill twice a day for 3 days then 1 pill daily for 3 days then stop Walker with Front Wheels (Device) 1 Mis Mis 1 Ea .ROUTE DIRECTED Proair Hfa 8.5 GM Inh (Albuterol Sulfate) 90 Mcg/Act Aer 2 Puff INH Q6H PRN 108 mcg/actuation Advair Diskus Inh (Fluticasone-Salmeterol Inh) 250-50 Mcg/Blist Aer 1 Puff INH BID Rinse mouth after use. Albuterol Neb (Albuterol Sulfate) 2.5 Mg/0.5 Ml Neb 2.5 Mg NEB QID NEB Note: The Albuterol Sulfate Inhalation Solution is concentrated and must be diluted. Read complete instructions carefully before using. Spiriva Handihaler (Tiotropium Inh) 18 Mcg Cap 18 Mcg INH DAILY 1 capsule = 18 mcg Review of Systems ROS Limitations: Intoxication General / Constitutional: No: Fever, Chills, Weight Gain, Weight Loss, Other Eyes: No: Diploplia, Blurred Vision, Photophobia, Drainage, Redness, Foreign Body Sensation, Pain, Tearing, Blind Spots, Visual changes, Blindness, Other HENT: No: Headaches, Vertigo, Lightheadedness, Sore Throat, Rhinitis, Rhinorrhea, Congestion, Nosebleed, Neck Stiffness, Neck Pain, Masses, Gingival Bleeding, Dental Difficulties, Ear Discharge, Earache, Other Cardiovascular: No: Chest Pain or Discomfort, Palpitations, Irregular Rhythm, Tachycardia, Diaphoresis, Syncope, Dyspnea on exertion, Varicosities, Edema, Cyanosis, Varicosities, Phlebitis, Claudication, Other Respiratory: Positive: Cough, Shortness of Breath, Wheezing Gastrointestinal: No: Nausea, Vomiting, Diarrhea, Abdominal Pain, Hematemesis, Hematochezia, Constipation, Changes in Bowel Habits, Indigestion, Dysphagia, Loss of Appetite, Other Genitourinary: No: Urgency, Frequency, Dysuria, Nocturia, Hematuria, Decreased Urinary Output, Oliguria, Hesitancy, Dribbling, Incontinence, Pelvic Pain, Flank Pain, Dyspareunia, Discharge, Dysmenorrhea, Menorrhagia, Metorrhagia, Vaginal Bleeding, Other Musculoskeletal: No: Myalgias, Arthralgias, Limited ROM, Weakness, Cramping, Edema, Pain, Atrophy, Other Skin: Positive Lesions, No Rash, No Itching, No Dryness, No Lumps, No Hives, No Change in Pigmentation, No Change in nails, No Alopecia, No Breast Lumps, No Breast Tenderness, No Breast Swelling, No Other Neurologic: No: Weakness, Dizziness, Syncope, Focal Abnormalities, Coordination Problem, Tremor, Ataxia, Headache, Change in Mentation, Slurred Speech, Paresthesia, Incontinence, Seizures, Sensory Disturbance, Other Psychiatric: No: Anxiety, Depression, Suicidal Ideations, Disorder of Thought, Mood Disorder, Substance Abuse, Homicidal Ideation, Other Endocrine: No: Heat Intolerance, Cold Intolerance, Polyuria, Polydipsia, Other Hematologic/Lymphatic: Positive: Easy Bruising, No: Lymph Node Enlargement, Other Physical Exam Exam Limitations: Intoxication Narrative GENERAL: SKIN: Warm and dry. HEAD: Atraumatic. Normocephalic. EYES: Pupils equal and round. No scleral icterus. No injection or drainage. ENT: No nasal bleeding or discharge. Mucous membranes pink and moist. Tongue is midline. No blood deviation. NECK: Trachea midline. No JVD. CARDIOVASCULAR: Regular rate and rhythm. No murmurs, S3, S4. RESPIRATORY: No accessory muscle use. Wheezings heard in all lung roberts. Breath sounds equal bilaterally. GASTROINTESTINAL: Abdomen soft, non-tender, nondistended. Hepatic and splenic margins not palpable. MUSCULOSKELETAL: Extremities without clubbing, cyanosis, or edema. No obvious deformities. Full range of motion of the upper and lower extremities bilaterally. 2+ pulses bilaterally. NEUROLOGICAL: Awake and alert. No obvious cranial nerve deficits. Motor grossly within normal limits. Five out of 5 muscle strength in the arms and legs. Normal speech. PSYCHIATRIC: Appropriate mood and affect; insight and judgment normal. Data Data Last Documented VS Vital Signs Date Time Temp Pulse Resp B/P Pulse Ox O2 Delivery O2 Flow Rate FiO2 03/28/16 21:13 98.9 110 26 93/63 98 03/28/16 21:12 Simple Mask 5 Orders Complete Blood Count With Diff (03/28/16 20:51) Chest, Single Ap (03/28/16 20:51) Ecg Monitoring (03/28/16 20:51) Iv Access Insert/Monitor (03/28/16 20:51) Oximetry (03/28/16 20:51) Methylprednisolone So Succ Inj (Solumedr (03/28/16 21:00) Alcohol (Ethanol) (03/28/16 20:53) Foot, Complete (Hrc9oth) (03/28/16 ) Ankle, Complete ([id number]) (03/28/16 ) Ct Brain W/O Iv Contrast(Rout) (03/28/16 ) Sodium Chlor 0.9% 1000 Ml Inj (Ns 1000 M (03/28/16 21:04) Thiamine Inj (Thiamine Inj) (03/28/16 21:15) Alcohol Withdrawal Asmt-Ciwa ONCE (03/28/16 22:20) Ondansetron Inj (Zofran Inj) (03/28/16 22:30) Flumazenil Inj (Romazicon Inj) (03/28/16 22:30) Lorazepam (Ativan) (03/28/16 22:30) Lorazepam Inj (Ativan Inj) (03/28/16 22:30) Lorazepam (Ativan) (03/28/16 22:30) Lorazepam Inj (Ativan Inj) (03/28/16 22:30) Lorazepam Inj (Ativan Inj) (03/28/16 22:30) Lorazepam Inj (Ativan Inj) (03/28/16 22:30) Albuterol Neb (Albuterol Neb) (03/28/16 22:30) Resp Bipap / Cpap Non Invas Vt (03/28/16 ) Sodium Chlor 0.9% 1000 Ml Inj (Ns 1000 M (03/28/16 22:30) Comprehensive Metabolic Panel (03/28/16 22:25) Blood Culture (03/28/16 22:25) Urinalysis - C+S If Indicated (03/28/16 22:25) Lactic Acid (03/28/16 22:25) Arterial Blood Gas (Abg) (03/28/16 ) Labs Laboratory Tests Test 03/28/16 22:00 White Blood Count 22.6 TH/MM3 Red Blood Count 2.32 MIL/MM3 Hemoglobin 7.1 GM/DL Hematocrit 21.7 % Mean Corpuscular Volume 93.3 FL Mean Corpuscular Hemoglobin 30.7 PG Mean Corpuscular Hemoglobin 32.9 % Concent Red Cell Distribution Width 19.7 % Platelet Count 216 TH/MM3 Mean Platelet Volume 6.8 FL Neutrophils (%) (Auto) 93.8 % Lymphocytes (%) (Auto) 3.0 % Monocytes (%) (Auto) 3.0 % Eosinophils (%) (Auto) 0.0 % Basophils (%) (Auto) 0.2 % Neutrophils # (Auto) 21.2 TH/MM3 Lymphocytes # (Auto) 0.7 TH/MM3 Monocytes # (Auto) 0.7 TH/MM3 Eosinophils # (Auto) 0.0 TH/MM3 Basophils # (Auto) 0.0 TH/MM3 CBC Comment DIFF FINAL Differential Comment MDM Medical Decision Making Medical Screen Exam Complete: Yes Emergency Medical Condition: Yes Medical Record Reviewed: Yes Interpretation(s) Last Impressions Chest X-Ray 03/28/162050 Signed Impressions: Service Date/Time: March 21:03 - CONCLUSION: 1. Basilar lung consolidation, left greater than right most characteristic of bronchopneumonia. There is also underlying emphysema. Dutch Fernandez MD Head CT 03/28/16 0000 Signed Impressions: Service Date/Time: March 21:35 - CONCLUSION: Normal examination for a patient of this age. No significant change has occurred. Dutch Fernandez MD Foot X-Ray 03/28/16 0000 Signed Impressions: Service Date/Time: March 21:23 - CONCLUSION: 1. Osteopenia. No acute fracture identified. Dutch Fernandez MD CBC Diagram 03/28/16 22:00 Differential Diagnosis COPD exacerbation versus asthma versus respiratory distress versus alcohol abuse versus false versus fractures versus acute on chronic fracture versus chronic fracture versus noncompliance Narrative Course 60-year-old female that presents to the ED for evaluation of COPD exacerbation. Patient was properly examined and was found to have signs and symptoms consistent with alcoholism and COPD exacerbation. Patient does have multiple bruises noted. Recommendation at this time is for labs and imaging. Patient was given IV Solu-Medrol. Patient was given breathing treatments here. Case discussed in my attending Dr. Mitchell who evaluated the patient and recommends sepsis workup as well. Patient was put on a BiPAP. Patient will be signed out to my attending pending lab report and likely admission. Zelalem Pino Mar 28, 2016 21:34
[2016-03-28 22:00] VITALS: BP 124/67; PULSE 110; RESP 24; O2SAT 98
--- NOTE | 2016-03-28 22:07 | RADRPT ---
EXAM DATE/TIME: 03/28/2016 21:35 [facility] COMPARISON: CT BRAIN W/O CONTRAST, February 25, 2015, 12:19. INDICATIONS : Altered mental status; possible fall. RADIATION DOSE: 36.24 CTDIvol (mGy) MEDICAL HISTORY : Seizures. SURGICAL HISTORY : None. ENCOUNTER: Initial ACUITY: 1 day PAIN SCALE: Non-responsive LOCATION: cranial TECHNIQUE: Multiple contiguous axial images were obtained of the head. Using automated exposure control and adj ustment of the mA and/or kV according to patient size, radiation dose was kept as low as reasonably a chievable to obtain optimal diagnostic quality images. FINDINGS: CEREBRUM: The ventricles are normal for age. No evidence of midline shift, mass lesion, hemorrhage or acute in farction. No extra-axial fluid collections are seen. POSTERIOR FOSSA: The cerebellum and brainstem are intact. The 4th ventricle is midline. The cerebellopontine angle i s unremarkable. EXTRACRANIAL: The visualized portion of the orbits is intact. SKULL: The calvaria is intact. No evidence of skull fracture. CONCLUSION: Normal examination for a patient of this age. No significant change has occurred. Dutch Fernandez MD on March 28, 2016 at 22:05 Board Certified Radiologist. This report was verified electronically.
[2016-03-28] MEDS ORDERED: LORazepam 2 MG/ML VIAL IV PUSH PRN ×4 (22:30)
[2016-03-28] MEDS ORDERED: FLUMAZENIL 0.5 MG/5 ML VIAL IV PUSH PRN (22:30)
[2016-03-28] MEDS ORDERED: ONDANSETRON HCL 4 MG/2 ML VIAL IV PUSH PRN (22:30)
[2016-03-28] MEDS ORDERED: LORazepam 1 MG TAB PO PRN (22:30)
[2016-03-28 22:31] LABS: AUTOMATED NEUTROPHIL # 21.2 TH/MM3 (1.8-7.7); BASOPHIL % 0.2 % (0.0-2.0); HEMATOCRIT 21.7 % (35.0-46.0); HEMO FLAGS DIFF FINAL; LYMPHOCYTE # 0.7 TH/MM3 (1.0-4.8); MEAN CELL VOLUME 93.3 FL (80.0-100.0); MEAN CORPUSCULAR HEMOGLOBIN 30.7 PG (27.0-34.0); MEAN CORPUSCULAR HGB CONC 32.9 % (32.0-36.0); NEUT % 93.8 % (16.0-70.0); PLATELET COUNT 216 TH/MM3 (150-450); RED BLOOD COUNT 2.32 MIL/MM3 (4.00-5.30); RED CELL DISTRIBUTION WIDTH 19.7 % (11.6-17.2); WHITE BLOOD COUNT 22.6 TH/MM3 (4.0-11.0)
--- NOTE | 2016-03-28 22:33 | RADRPT ---
EXAM DATE/TIME: 03/28/2016 21:03 [facility] COMPARISON: CHEST SINGLE AP, March 05, 2016, 13:50. INDICATIONS : Wheezing MEDICAL HISTORY : Chronic obstructive pulmonary disease. SURGICAL HISTORY : None. ENCOUNTER: Initial ACUITY: 1 day PAIN SCORE: 0/10 LOCATION: Bilateral chest FINDINGS: A single view of the chest demonstrates development of basilar lung consolidation, left greater than right most characteristic of bronchopneumonia. No significant effusion. No pneumothorax. Heart size n ormal. Emphysema. CONCLUSION: 1. Basilar lung consolidation, left greater than right most characteristic of bronchopneumonia. There is also underlying emphysema. Dutch Fernandez MD on March 28, 2016 at 22:30 Board Certified Radiologist. This report was verified electronically.
--- NOTE | 2016-03-28 22:39 | RADRPT ---
EXAM DATE/TIME: 03/28/2016 21:23 [facility] COMPARISON: FOOT LEFT COMPLETE ([id number]), July 24, 2015, 21:36. INDICATIONS : Left foot pain, fell MEDICAL HISTORY : Chronic obstructive pulmonary disease. SURGICAL HISTORY : None. ENCOUNTER: Initial ACUITY: 1 day PAIN SCORE: 10/10 LOCATION: Left Foot FINDINGS: The bones are osteopenic. No displaced fracture is identified. No dislocation. CONCLUSION: 1. Osteopenia. No acute fracture identified. Dutch Fernandez MD on March 28, 2016 at 22:34 Board Certified Radiologist. This report was verified electronically.
[2016-03-28 22:40] VITALS: O2SAT 97
--- NOTE | 2016-03-28 22:41 | RADRPT ---
EXAM DATE/TIME: 03/28/2016 21:25 [facility] COMPARISON: No previous studies available for comparison. INDICATIONS : Left ankle pain MEDICAL HISTORY : Chronic obstructive pulmonary disease. SURGICAL HISTORY : None. ENCOUNTER: Initial ACUITY: 1 day PAIN SCORE: 10/10 LOCATION: Left Foot FINDINGS: Three view exam was performed of the left ankle. The bony structures are in normal alignment. No ev idence of fracture, dislocation, or soft tissue swelling. The ankle mortise is intact. No radiopaqu e foreign bodies are seen. Bony mineralization is decreased. CONCLUSION: 1. Osteopenia. No acute findings. Dutch Fernandez MD on March 28, 2016 at 22:37 Board Certified Radiologist. This report was verified electronically.
[2016-03-28] MEDS: RESP: ALBUTEROL 2.5 MG/3 ML NEB (SCH) INH ×3 (22:42→23:59)
[2016-03-28 23:00] VITALS: BP 116/87; PULSE 114; RESP 22; O2SAT 100
[2016-03-28] MEDS ORDERED: AZITHROMYCIN INJ 500 MG in SODIUM CHLOR 0.9% 250 ML INJ 250 ML IV ONE (23:00)
[2016-03-28] MEDS ORDERED: SODIUM CHLORIDE 0.9% FLUSH 5 ML FLUSH IVF PRN (23:00)
[2016-03-28] MEDS ORDERED: CEFEPIME INJ 2,000 MG in SODIUM CHLORIDE 0.9% INJ 100 ML IV ONE (23:00)
[2016-03-28] MEDS: LORazepam 2 MG TAB PO PRN (23:02)
[2016-03-28 23:11] LABS: BLOOD GAS BASE EXCESS 8.7 mmol/L (-2-2); BLOOD GAS CARBOXYHEMOGLOBIN 4.6 % (0-4); BLOOD GAS HCO3 33 mmol/L (22-26); BLOOD GAS METHEMOGLOBIN 1.5 % (0-2); BLOOD GAS O2 HGB SATURATION 93 % (90-100); BLOOD GAS OXYGEN CONTENT 9.9 Vol % (12.0-20.0); BLOOD GAS PCO2 50 mmHg (38-42); BLOOD GAS PO2 110 mmHG (61-120); BLOOD GAS TOTAL HGB 7.5 G/DL (12.0-16.0); CRITICAL VALUE NO; DRAW SITE RT RADIAL; FIO2 40 %; NUMBER OF ARTERIAL PUNCTURES 1; OXYGEN DEVICE BiPAP; STAT YES; TEMP CORR TO 98.6; ULNAR PULSE PRESENT; VENT SETTINGS 10IPAP/5EPAP
[2016-03-28 23:16] LABS: ALKALINE PHOSPHATASE 205 U/L (45-117); ALT (GPT) 21 U/L (10-53); ANION GAP 10 MEQ/L (5-15); AST (GOT) 40 U/L (15-37); BICARBONATE 34.1 MEQ/L (21.0-32.0); BLOOD UREA NITROGEN 9 MG/DL (7-18); CHLORIDE 80 MEQ/L (98-107); GLOMERULAR FILTRATION RATE 362 ML/MIN (>89); POTASSIUM 4.7 MEQ/L (3.5-5.1); TOTAL BILIRUBIN ADULT 0.3 MG/DL (0.2-1.0)
[2016-03-28 23:33] LABS: SODIUM (NA) 124 MEQ/L (136-145)
--- NOTE | 2016-03-28 23:44 | HHI.HP ---
[facility] Service Critical Care Medicine Primary Care Physician Padmini Chapa MD Admission Diagnosis Diagnosis: (1) Alcohol abuse Diagnosis: Principal (2) COPD exacerbation Diagnosis: Principal (3) Severe chronic obstructive pulmonary disease Diagnosis: Principal (4) Chronic respiratory failure Diagnosis: Principal (5) Lactic acidosis Diagnosis: Principal (6) Anemia Diagnosis: Principal (7) Leukocytosis Diagnosis: Principal (8) Pneumonia Diagnosis: Principal (9) Acute hypoxemic respiratory failure Diagnosis: Principal (10) Severe sepsis Diagnosis: Principal (11) Hyponatremia Diagnosis: Principal (12) Generalized weakness Diagnosis: Principal (13) Acute alcohol intoxication Diagnosis: Principal Chief Complaint: Shortness of breath Travel History International Travel<30 Days: No Contact w/Intl Traveler <30 Da: No Traveled to Known Affected Are: No Sepsis Criteria SIRS Criteria (2 or more): RR > 20 or PaCO2 < 32, WBC > 38856, < 4000 or > 10 % bands Sepsis Criteria (SIRS+source): Infect source susp/known Severe Sepsis (+one): Lactate >2 Criteria Outcome: Meets severe sepsis criteria History of Present Illness 60-year-old female. Date of admission 03/28/2016. Past medical history includes EtOH, THC. Originally from [place]. She has been hospitalized 9 times since January 2015 mostly for COPD exacerbations. She presents to [facility] after receiving been discharged from the hospital week ago with shortness of breath she's had multiple falls including multiple bruises the bilateral upper lobe series. Per ambulance report patient drinks heavily every day and per medical records as well. She states that she ran of social breath but denies any chest pain. She does have multiple bruises on her arms and legs. Per patient she injured her left foot and is possibly broken. Patient does have an Star wrap on it has swelling and bruising on the toes. History somewhat limited from the patient is an elevated EtOH level of 200. She received a 2 L normal saline bolus in ED. Chest x-ray revealed bilateral pulmonary infiltrate. She has a leukocytosis of 22,000, and anemia 7. Sodium is 124 which is close to her baseline and low chloride of 80.. She received 3 albuterol nebulizers in the ED, 125 mg Solu- Medrol IV and 2 g of cefepime 500 mg azithromycin. She has been pancultured. She is placed on BiPAP in the ED. We are asked to admit. She states she is less dyspneic at the resident time. Review of Systems Constitutional: COMPLAINS OF: Fatigue, DENIES: Fever, Weight gain Endocrine: DENIES: Heat/cold intolerance Eyes: DENIES: Blurred vision, Double Vision Ears, nose, mouth, throat: DENIES: Tinnitus Respiratory: COMPLAINS OF: Wheezing, Sputum production, Shortness of breath, DENIES: Apneas, Hemoptysis Cardiovascular: DENIES: Chest pain, Claudication Gastrointestinal: DENIES: Abdominal pain, Nausea, Vomiting Musculoskeletal: DENIES: Joint pain Integumentary: DENIES: Abnormal pigmentation Hematologic/lymphatic: DENIES: Bruising Immunologic/allergic: DENIES: Eczema Neurologic: DENIES: Headache Psychiatric: COMPLAINS OF: Confusion Past Family Social History Allergies: Coded Allergies: Penicillin (Verified Allergy, Severe, CHILDHOOD, 03/28/16) Past Medical History EtOH COPD home O2 Seizure disorder Posttraumatic stress disorder Past Surgical History Breast biopsy bilaterally Reported Medications Spiriva 18 mg inhalation daily Active Ordered Medications Reviewed in EMR Family History Father with COPD. Social History 1 pack per day tobacco 20 years 4 beers daily Denies IV drug use Physical Exam Vital Signs Vital Signs Date Time Temp Pulse Resp B/P Pulse Ox O2 Delivery O2 Flow Rate FiO2 03/28/16 22:40 97 40 03/28/16 21:13 98.9 110 26 93/63 98 03/28/16 21:12 98.9 108 26 99 Simple Mask 5 Physical Exam GENERAL: 60-year-old female, critically ill currently resting in bed in mild respiratory distress SKIN: Warm and dry. Multiple ecchymoses bilateral upper x-rays. Ecchymoses below eyes bilaterally. HEAD: Atraumatic. Normocephalic. EYES: Pupils equal and round about 3 mm bilaterally and reactive. No scleral icterus. No injection or drainage. ENT: No nasal bleeding or discharge. Mucous membranes pink and moist. NECK: Trachea midline. No JVD. CARDIOVASCULAR: Tachycardic, RR. S1, S2. No S4. Without murmur RESPIRATORY: Miss breath sounds bilateral. Positive expiratory wheeze. Crackles appreciated the bases. Breath sounds equal bilaterally. GASTROINTESTINAL: Abdomen soft, non-tender, nondistended. Hypoactive bowel sounds MUSCULOSKELETAL: Extremities without drift and peripheral edema. No obvious deformities. NEUROLOGICAL: Awake and alert. No obvious cranial nerve deficits. Motor grossly within normal limits. Five out of 5 muscle strength in the arms and legs. Slurred speech. Laboratory Laboratory Tests Test 03/28/16 03/28/16 22:00 23:00 White Blood Count 22.6 Red Blood Count 2.32 Hemoglobin 7.1 Hematocrit 21.7 Mean Corpuscular Volume 93.3 Mean Corpuscular Hemoglobin 30.7 Mean Corpuscular Hemoglobin 32.9 Concent Red Cell Distribution Width 19.7 Platelet Count 216 Mean Platelet Volume 6.8 Neutrophils (%) (Auto) 93.8 Lymphocytes (%) (Auto) 3.0 Monocytes (%) (Auto) 3.0 Eosinophils (%) (Auto) 0.0 Basophils (%) (Auto) 0.2 Neutrophils # (Auto) 21.2 Lymphocytes # (Auto) 0.7 Monocytes # (Auto) 0.7 Eosinophils # (Auto) 0.0 Basophils # (Auto) 0.0 CBC Comment DIFF FINAL Differential Comment Sodium Level 124 Potassium Level 4.7 Chloride Level 80 Carbon Dioxide Level 34.1 Anion Gap 10 Blood Urea Nitrogen 9 Creatinine 0.20 Estimat Glomerular Filtration 362 Rate Random Glucose 103 Calcium Level 7.9 Total Bilirubin 0.3 Aspartate Amino Transf 40 (AST/SGOT) Alanine Aminotransferase 21 (ALT/SGPT) Alkaline Phosphatase 205 Total Protein 5.6 Albumin 2.5 Ethyl Alcohol Level 201 Blood Gas Puncture Site RT RADIAL Blood Gas Patient Temperature 98.6 Blood Gas HCO3 33 Blood Gas Base Excess 8.7 Blood Gas Oxygen Saturation 93 Arterial Blood pH 7.44 Arterial Blood Partial 50 Pressure CO2 Arterial Blood Partial 110 Pressure O2 Arterial Blood Oxygen Content 9.9 Arterial Blood 4.6 Carboxyhemoglobin Arterial Blood Methemoglobin 1.5 Blood Gas Hemoglobin 7.5 Oxygen Delivery Device BiPAP Blood Gas Ventilator Setting 10IPAP/5EPAP Blood Gas Inspired Oxygen 40 Date/Time Procedure Status Source Growth 03/28/16 22:44 Aerobic Blood Culture Received Blood Peripheral Pending 03/28/16 22:44 Anaerobic Blood Culture Received Blood Peripheral Pending Result Diagram: 03/28/16219903/28/162199 Imaging Last Impressions Chest X-Ray 03/28/162050 Signed Impressions: Service Date/Time: March 21:03 - CONCLUSION: 1. Basilar lung consolidation, left greater than right most characteristic of bronchopneumonia. There is also underlying emphysema. Dutch Fernandez MD Head CT 03/28/16 0000 Signed Impressions: Service Date/Time: March 21:35 - CONCLUSION: Normal examination for a patient of this age. No significant change has occurred. Dutch Fernandez MD Foot X-Ray 03/28/16 0000 Signed Impressions: Service Date/Time: March 21:23 - CONCLUSION: 1. Osteopenia. No acute fracture identified. Dutch Fernandez MD Ankle X-Ray 03/28/16 Signed Impressions: Service Date/Time: March 21:25 - CONCLUSION: 1. Osteopenia. No acute findings. Dutch eFrnandez MD Assessment and Plan Assessment and Plan Neuro/Psych: EtOH Seizures with EtOH withdrawal Posttraumatic stress disorder Toxic metabolic encephalopathy Currently not on any medications for seizures or posttraumatic stress disorder. Thiamine, folate and multivitamin daily for EtOH. Monitor for DTs CT head on admission revealed no acute intracranial findings CIWA protocol initiated CV: Sinus tachycardia Lactic acidosis Patient currently is on normal saline at 84 cc an hour. Currently not requiring vasopressors and/or anti-hypertensives. Status post 2 L normal saline. Recheck lactate in a.m. Monitor until cleared Resp: Acute on chronic hypoxemic respiratory failure Community-acquired pneumonia COPD/2 L O2 dependent at home Nasal cannula to maintain saturations greater than equal to 92% Incentive spirometry while awake Be able to wean off BiPAP currently 10/5 and 40% Duo nebs every 4 hours and as needed Currently on Symbicort 160/4.5 twice a day Strict pulmonary dose Solu-Medrol 40 IV every 8. At home on Advair 250/50 one inhalation twice a day and Spiriva 1818 daily and albuterol nebs 4 times a day Follow-up checks x-ray in a.m. GI: Patient is on regular diet with ensure 3 times a day Protonix for GI prophylaxis Colace/as needed Senokot for bowel regimen : Diop if indicated for accurate I's and O's in a critically ill patient Endo: Sliding-scale insulin with Accu-Cheks to maintain euglycemia. While on steroids Renal: Creatinine currently 0.2. Accurate I's and O's Monitor urine output Heme: Leukocytosis Normocytic anemia Will transfuse 1 unit of PRBCs Monitor CBC/coags. Follow trends ID: Pneumonia Day #1 cefepime/azithromycin for community-acquired pneumonia Blood cultures 2, sputum, urine, Legionella and pneumococcal urinary antigens and influenza ordered FEN: Hyponatremia Hypochloremia Repeat sodium in a.m. Currently normal saline at 84 cc an hour. Extensive workup past hospitalizations. We'll repeat if sodium remains low MSK: Left foot pain negative x-ray imaging of left ankle and foot. Osteopenia. PT evaluate and treat. Check CT of pain persists. Access - Utilize peripheral IV. Central line if indicated Prophylaxis - GI - Protonix - DVT - SCD/heparin Critical Care: The total critical care time was 55 minutes. Time to perform other separately billable procedures was not included in the critical care time. Code Status Full code Discussed Condition With Patient and . Care plan discussed and all questions answered Problem Qualifiers (1) Chronic respiratory failure: Qualified Code: J96.11 - Chronic respiratory failure with hypoxia (2) Anemia: Qualified Code: D64.9 - Anemia, unspecified type (3) Leukocytosis: Qualified Code: D72.829 - Leukocytosis, unspecified type (4) Pneumonia: Qualified Code: J18.9 - Pneumonia of both lungs due to infectious organism, unspecified part of lung (5) Acute alcohol intoxication: Qualified Code: F10.121 - Acute alcohol intoxication, with delirium Miguel Lazcano MD Mar 28, 2016 23:44
[2016-03-29] VITALS (16 sets, daily range): BP systolic 118–152; BP diastolic 67–101; PULSE 102–125; RESP 22–36; TEMP 97.6–100.5; O2SAT 92–98
[2016-03-29] MEDS ORDERED: SODIUM CHLOR 0.9% 1000 ML INJ 1,000 ML IV SCH (00:02)
[2016-03-29] MEDS ORDERED: MISCELLANEOUS NURSING INFORMATION XX SCH (00:15)
[2016-03-29] MEDS ORDERED: SODIUM CHLORIDE 0.9% FLUSH 5 ML FLUSH IV FLUSH PRN (00:15)
[2016-03-29] MEDS ORDERED: CHLORHEXIDINE GLUCONATE 2 % 1 PACK (2 CLOTHS) TOP PRN (00:15)
[2016-03-29] MEDS ORDERED: ACETAMINOPHEN 325 MG TAB PO PRN (00:15)
[2016-03-29] MEDS ORDERED: SENNOSIDES 8.6 MG TAB PO PRN (00:15)
[2016-03-29] MEDS ORDERED: MORPHINE SULFATE 4 MG/ML INJ IV PRN (00:15)
[2016-03-29] MEDS ORDERED: ONDANSETRON HCL 4 MG/2 ML VIAL IV PRN (00:15)
[2016-03-29] MEDS ORDERED: DEXTROSE 50% IN WATER 50 ML VIAL(D50) IV PUSH PRN ×2 (00:30→04:45)
[2016-03-29] MEDS ORDERED: GLUCAGON 1 MG/ML VIAL OTHER PRN ×2 (00:30→04:45)
[2016-03-29] MEDS: LORazepam 2 MG TAB PO PRN ×2 (01:33→04:54)
--- NOTE | 2016-03-29 02:13 | PD ---
HPI Chief Complaint: Respiratory Symptoms Time Seen by Provider: 20:54 Travel History International Travel<30 days: No Contact w/Intl Traveler<30days: No Traveled to known affect area: No History of Present Illness HPI This is a 60-year-old female who has a history of alcoholism and COPD who presents the emergency department with increasing shortness of breath, constant , worsening over the past several days, moderate severity. She also reports that she fell 2 weeks ago and ever since then she's had pain in her left ankle and foot. Patient does drink alcohol. Last drink she had was at 8 PM. PFSH Past Medical History Arthritis: No Asthma: Yes Autoimmune Disease: No Anxiety: Yes Depression: Yes Heart Rhythm Problems: No Cancer: No Cardiovascular Problems: No High Cholesterol: No Chest Pain: No Congestive Heart Failure: No COPD: Yes Cerebrovascular Accident: No Coronary Artery Disease: No Diabetes: No Diminished Hearing: No Endocrine: No Gastrointestinal Disorders: Yes GERD: No Genitourinary: No Headaches: No Hiatal Hernia: No Hypertension: No Immune Disorder: No Implanted Vascular Access Dvce: No Kidney Stones: No Musculoskeletal: Yes Neurologic: Yes Psychiatric: Yes (PTSD) Reproductive: No Respiratory: Yes (copd) Immunizations Current: Yes Renal Failure: No Seizures: Yes Sleep Apnea: No Thyroid Disease: No Ulcer: No ?: Not Menopausal: Yes : 2 Para: 2 Past Surgical History Abdominal Surgery: Yes () Section: Yes (X1) Thoracic Surgery: Yes (BILATERAL BREAST BIOPSY) Other Surgery: Yes Social History Alcohol Use: Yes (4 BEERS/DAY) Tobacco Use: Yes (1/2-1 PPD) Substance Use: Yes (MARIJUANA OCCASIONALLY) Allergies-Medications (Allergen,Severity, Reaction): Coded Allergies: Penicillin (Verified Allergy, Severe, CHILDHOOD, 03/28/16) Reported Meds & Prescriptions Reported Meds & Active Scripts Active Chlordiazepoxide (Chlordiazepoxide HCl) 25 Mg Cap 50 Mg PO TID PRN Take 2 pills 3 times a day for 3 days then 1 pill 3 times a day for 3 days then 1 pill twice a day for 3 days then 1 pill daily for 3 days then stop Walker with Front Wheels (Device) 1 Mis Mis 1 Ea .ROUTE DIRECTED Proair Hfa 8.5 GM Inh (Albuterol Sulfate) 90 Mcg/Act Aer 2 Puff INH Q6H PRN 108 mcg/actuation Advair Diskus Inh (Fluticasone-Salmeterol Inh) 250-50 Mcg/Blist Aer 1 Puff INH BID Rinse mouth after use. Albuterol Neb (Albuterol Sulfate) 2.5 Mg/0.5 Ml Neb 2.5 Mg NEB QID NEB Note: The Albuterol Sulfate Inhalation Solution is concentrated and must be diluted. Read complete instructions carefully before using. Spiriva Handihaler (Tiotropium Inh) 18 Mcg Cap 18 Mcg INH DAILY 1 capsule = 18 mcg Review of Systems Except as stated in HPI: all other systems reviewed are Neg Physical Exam Narrative GENERAL: Unwell-appearing, anxious SKIN: Old periorbital ecchymoses. Old ecchymoses along the posterior aspect of the left ankle HEAD: Atraumatic. Normocephalic. EYES: Pupils equal and round. No injection or drainage. ENT: Moist mucous membranes NECK: Trachea midline. CARDIOVASCULAR: Tachycardic No murmur appreciated. RESPIRATORY: Poor air movement with diffuse wheezing, tachypnea, increased work of breathing with accessory muscle use GASTROINTESTINAL: Abdomen soft, non-tender, nondistended. MUSCULOSKELETAL: No obvious deformities. Tender to palpation over the left lateral malleolus with some swelling. NEUROLOGICAL: Awake and alert. No obvious cranial nerve deficits. Moving all extremities. PSYCHIATRIC: Appropriate mood and affect; insight and judgment normal. Data Data Last Documented VS Vital Signs Date Time Temp Pulse Resp B/P Pulse Ox O2 Delivery O2 Flow Rate FiO2 03/28/16 23:00 114 22 116/87 100 BiPAP 100 03/28/16 22:00 5 03/28/16 21:13 98.9 Orders Complete Blood Count With Diff (03/28/16 20:51) Chest, Single Ap (03/28/16 20:51) Ecg Monitoring (03/28/16 20:51) Iv Access Insert/Monitor (03/28/16 20:51) Oximetry (03/28/16 20:51) Methylprednisolone So Succ Inj (Solumedr (03/28/16 21:00) Alcohol (Ethanol) (03/28/16 20:53) Foot, Complete ([id number]) (03/28/16 ) Ankle, Complete ([id number]) (03/28/16 ) Ct Brain W/O Iv Contrast(Rout) (03/28/16 ) Sodium Chlor 0.9% 1000 Ml Inj (Ns 1000 M (03/28/16 21:04) Thiamine Inj (Thiamine Inj) (03/28/16 21:15) Alcohol Withdrawal Asmt-Ciwa ONCE (03/28/16 22:20) Ondansetron Inj (Zofran Inj) (03/28/16 22:30) Flumazenil Inj (Romazicon Inj) (03/28/16 22:30) Lorazepam (Ativan) (03/28/16 22:30) Lorazepam Inj (Ativan Inj) (03/28/16 22:30) Lorazepam (Ativan) (03/28/16 22:30) Lorazepam Inj (Ativan Inj) (03/28/16 22:30) Lorazepam Inj (Ativan Inj) (03/28/16 22:30) Lorazepam Inj (Ativan Inj) (03/28/16 22:30) Albuterol Neb (Albuterol Neb) (03/28/16 22:30) Resp Bipap / Cpap Non Invas Vt (03/28/16 ) Sodium Chlor 0.9% 1000 Ml Inj (Ns 1000 M (03/28/16 22:30) Comprehensive Metabolic Panel (03/28/16 22:25) Blood Culture (03/28/16 22:25) Urinalysis - C+S If Indicated (03/28/16 22:25) Lactic Acid (03/28/16 22:25) Arterial Blood Gas (Abg) (03/28/16 ) Sodium Chloride 0.9% Flush (Ns Flush) (03/28/16 23:00) Cefepime Inj (Maxipime Inj) (03/28/16 23:00) Azithromycin Inj (Zithromax Inj) (03/28/16 23:00) Admit Order (Ed Use Only) (03/28/16 23:43) Albuterol Neb (Albuterol Neb) (03/28/16 23:45) Labs Laboratory Tests Test 03/28/16 03/28/16 03/28/16 22:00 22:45 23:00 White Blood Count 22.6 TH/MM3 Red Blood Count 2.32 MIL/MM3 Hemoglobin 7.1 GM/DL Hematocrit 21.7 % Mean Corpuscular Volume 93.3 FL Mean Corpuscular Hemoglobin 30.7 PG Mean Corpuscular Hemoglobin 32.9 % Concent Red Cell Distribution Width 19.7 % Platelet Count 216 TH/MM3 Mean Platelet Volume 6.8 FL Neutrophils (%) (Auto) 93.8 % Lymphocytes (%) (Auto) 3.0 % Monocytes (%) (Auto) 3.0 % Eosinophils (%) (Auto) 0.0 % Basophils (%) (Auto) 0.2 % Neutrophils # (Auto) 21.2 TH/MM3 Lymphocytes # (Auto) 0.7 TH/MM3 Monocytes # (Auto) 0.7 TH/MM3 Eosinophils # (Auto) 0.0 TH/MM3 Basophils # (Auto) 0.0 TH/MM3 CBC Comment DIFF FINAL Differential Comment Sodium Level 124 MEQ/L Potassium Level 4.7 MEQ/L Chloride Level 80 MEQ/L Carbon Dioxide Level 34.1 MEQ/L Anion Gap 10 MEQ/L Blood Urea Nitrogen 9 MG/DL Creatinine 0.20 MG/DL Estimat Glomerular Filtration 362 ML/MIN Rate Random Glucose 103 MG/DL Calcium Level 7.9 MG/DL Total Bilirubin 0.3 MG/DL Aspartate Amino Transf 40 U/L (AST/SGOT) Alanine Aminotransferase 21 U/L (ALT/SGPT) Alkaline Phosphatase 205 U/L Total Protein 5.6 GM/DL Albumin 2.5 GM/DL Ethyl Alcohol Level 201 MG/DL Lactic Acid Level 2.9 mmol/L Blood Gas Puncture Site RT RADIAL Blood Gas Patient Temperature 98.6 Blood Gas HCO3 33 mmol/L Blood Gas Base Excess 8.7 mmol/L Blood Gas Oxygen Saturation 93 % Arterial Blood pH 7.44 Arterial Blood Partial 50 mmHg Pressure CO2 Arterial Blood Partial 110 mmHG Pressure O2 Arterial Blood Oxygen Content 9.9 Vol % Arterial Blood 4.6 % Carboxyhemoglobin Arterial Blood Methemoglobin 1.5 % Blood Gas Hemoglobin 7.5 G/DL Oxygen Delivery Device BiPAP Blood Gas Ventilator Setting 10IPAP/5EPAP Blood Gas Inspired Oxygen 40 % [facility] Medical Decision Making Medical Screen Exam Complete: Yes Emergency Medical Condition: Yes Interpretation(s) Afebrile, tachycardic, tachypneic, blood pressure is low Leukocytosis with left shift Hyponatremia Lactic acid is 2.9 Alcohols 201 Last 24 hours Impressions Chest X-Ray 03/28/162050 Signed Impressions: Service Date/Time: March 21:03 - CONCLUSION: 1. Basilar lung consolidation, left greater than right most characteristic of bronchopneumonia. There is also underlying emphysema. Dutch Fernandez MD Head CT 03/28/16 Signed Impressions: Service Date/Time: March 21:35 - CONCLUSION: Normal examination for a patient of this age. No significant change has occurred. Dutch Fernandez MD Foot X-Ray 03/28/16 Signed Impressions: Service Date/Time: March 21:23 - CONCLUSION: 1. Osteopenia. No acute fracture identified. Dutch Fernandez MD Ankle X-Ray 03/28/16 Signed Impressions: Service Date/Time: March 21:25 - CONCLUSION: 1. Osteopenia. No acute findings. Dutch Fernandez MD Differential Diagnosis COPD exacerbation, acute alcohol withdrawal, pneumonia, sepsis Narrative Course This is a 60-year-old female who is an alcoholic and has a history of bad COPD who presents to the emergency department with shortness of breath. She is placed on a monitor and an IV was established. She was in respiratory distress upon arrival and placed on BiPAP. She was given methylprednisolone and serial bronchodilator treatments. She was tachycardic and tremulous so she was started on IV Ativan and placed on a CIWA protocol for acute alcohol withdrawal. Patient had a white count of 22 and probable pneumonia on chest x- ray. She was covered empirically with cefepime and azithromycin in the setting of sepsis. She'll be admitted to the intensive care unit for further management. Critical Care Narrative Aggregate critical care time was 50 minutes. Time to perform other separately billable procedures was not included in the critical care time. My time did not include minutes spent treating any other patients simultaneously or on activities that did not directly contribute to the patient's treatment. The services I provided to this patient were to treat and/or prevent clinically significant deterioration that could result in: Disability, I provided critical care services requiring my management, as noted below: Chart data review, documentation time, medication orders and management, vital sign assessments/reviewing monitor data, ordering and reviewing lab tests, ordering and interpreting/reviewing x-rays and diagnostic studies, care of the patient and discussion of the patient with the admitting physicians. Diagnosis Primary Impression: Sepsis due to pneumonia Admitting Information Admitting Physician Requests: it Radha Mitchell MD Mar 29, 2016 02:13
[2016-03-29] MEDS: RESP: ALBUTEROL 2.5 MG/IPRATROPIUM 0.5 MG NEB (SCH) INH ×6 (03:46→23:14)
[2016-03-29] MEDS: CHLORHEXIDINE GLUCONATE 2 % 1 PACK (2 CLOTHS) TOP SCH (04:00)
[2016-03-29] MEDS ORDERED: LORazepam 2 MG/ML VIAL IV PUSH PRN (04:30)
[2016-03-29] MEDS ORDERED: FLUMAZENIL 0.5 MG/5 ML VIAL IV PUSH PRN (04:30)
[2016-03-29 06:00] LABS: HEMATOCRIT 25.8 % (35.0-46.0); MEAN CELL VOLUME 94.1 FL (80.0-100.0); MEAN CORPUSCULAR HEMOGLOBIN 31.1 PG (27.0-34.0); PLATELET COUNT 231 TH/MM3 (150-450); RED BLOOD COUNT 2.75 MIL/MM3 (4.00-5.30); RED CELL DISTRIBUTION WIDTH 20.4 % (11.6-17.2); REVIEW FLAG FINAL; WHITE BLOOD COUNT 13.8 TH/MM3 (4.0-11.0)
[2016-03-29 06:16] LABS: APTT (PATIENT) 35.4 SEC (24.3-30.1); INTERNATIONAL NORMALIZED RATIO 0.9 RATIO; PROTHROMBIN TIME - PATIENT 9.5 SEC (9.8-11.6)
[2016-03-29] MEDS: methylPREDNISolone SOD SUCC 40 MG/1 ML VIAL IV PUSH SCH ×3 (06:22→22:00)
[2016-03-29 06:33] LABS: BICARBONATE 32.5 MEQ/L (21.0-32.0); MAGNESIUM 1.5 MG/DL (1.5-2.5); POTASSIUM 4.3 MEQ/L (3.5-5.1)
[2016-03-29] MEDS: INSULIN NovoLIN REGULAR SUPPLEMENTAL SCALE SQ SCH ×4 (07:00→20:56)
[2016-03-29] MEDS ORDERED: INSULIN NovoLIN REGULAR SUPPLEMENTAL SCALE SQ SCH (07:00)
[2016-03-29] MEDS: LORazepam 2 MG/ML VIAL IV PUSH PRN ×4 (08:20→23:22)
[2016-03-29] MEDS: DOCUSATE SODIUM 100 MG CAP PO SCH ×2 (08:21→20:55)
[2016-03-29] MEDS: ARTIFICIAL TEARS OPTH SOLN 15 ML BTL EACH EYE SCH ×3 (08:21→17:46)
[2016-03-29] MEDS: PANTOPRAZOLE SODIUM 40 MG VIAL IV SCH (08:21)
[2016-03-29] MEDS: TIOTROPIUM BROMIDE 18 MCG INH INH SCH (08:21)
[2016-03-29] MEDS: HEPARIN SODIUM - SQ 10,000 UNITS/ML VIAL SQ SCH ×2 (08:21→20:55)
[2016-03-29] MEDS: CEFEPIME INJ 2,000 MG in SODIUM CHLORIDE 0.9% INJ 100 ML IV SCH ×2 (08:22→14:40)
[2016-03-29] MEDS: NICOTINE 14 MG/24 HR PATCH TD SCH (08:22)
--- NOTE | 2016-03-29 08:41 | HHI.CCPN ---
Subjective Remarks/Hospital Course 60-year-old female. Date of admission 03/28/2016. Past medical history includes EtOH, THC. Originally from [place]. She has been hospitalized 9 times since January 2015 mostly for COPD exacerbations. She presents to [place] ED after receiving been discharged from the hospital week ago with shortness of breath she's had multiple falls including multiple bruises the bilateral upper lobe series. Per ambulance report patient drinks heavily every day and per medical records as well. She states that she ran of social breath but denies any chest pain. She does have multiple bruises on her arms and legs. Per patient she injured her left foot and is possibly broken. Patient does have an Star wrap on it has swelling and bruising on the toes. History somewhat limited from the patient is an elevated EtOH level of 200. She received a 2 L normal saline bolus in ED. Chest x-ray revealed bilateral pulmonary infiltrate. She has a leukocytosis of 22,000, and anemia 7. Sodium is 124 which is close to her baseline and low chloride of 80.. She received 3 albuterol nebulizers in the ED, 125 mg Solu- Medrol IV and 2 g of cefepime 500 mg azithromycin. She has been pancultured. She is placed on BiPAP in the ED. We are asked to admit. She states she is less dyspneic at the resident time. 03/29 Patient is on 4L oxygen with good sats. Afebrile. Objective Vital Signs Date Time Temp Pulse Resp B/P Pulse Ox O2 Delivery O2 Flow Rate FiO2 03/29/16 06:00 114 03/29/16 04:00 97.8 22 135/72 96 03/29/16 00:38 Nasal Cannula 4.00 03/28/16 23:00 100 Result Diagram: 03/29/16 0504 03/29/16 0504 Other Results Laboratory Tests Test 03/28/16 03/28/16 03/28/16 03/29/16 22:00 22:45 23:00 02:00 White Blood Count 22.6 TH/MM3 Red Blood Count 2.32 MIL/MM3 Hemoglobin 7.1 GM/DL Hematocrit 21.7 % Mean Corpuscular Volume 93.3 FL Mean Corpuscular Hemoglobin 30.7 PG Mean Corpuscular Hemoglobin 32.9 % Concent Red Cell Distribution Width 19.7 % Platelet Count 216 TH/MM3 Mean Platelet Volume 6.8 FL Neutrophils (%) (Auto) 93.8 % Lymphocytes (%) (Auto) 3.0 % Monocytes (%) (Auto) 3.0 % Eosinophils (%) (Auto) 0.0 % Basophils (%) (Auto) 0.2 % Neutrophils # (Auto) 21.2 TH/MM3 Lymphocytes # (Auto) 0.7 TH/MM3 Monocytes # (Auto) 0.7 TH/MM3 Eosinophils # (Auto) 0.0 TH/MM3 Basophils # (Auto) 0.0 TH/MM3 CBC Comment DIFF FINAL Differential Comment Sodium Level 124 MEQ/L Potassium Level 4.7 MEQ/L Chloride Level 80 MEQ/L Carbon Dioxide Level 34.1 MEQ/L Anion Gap 10 MEQ/L Blood Urea Nitrogen 9 MG/DL Creatinine 0.20 MG/DL Estimat Glomerular Filtration 362 ML/MIN Rate Random Glucose 103 MG/DL Calcium Level 7.9 MG/DL Total Bilirubin 0.3 MG/DL Aspartate Amino Transf 40 U/L (AST/SGOT) Alanine Aminotransferase 21 U/L (ALT/SGPT) Alkaline Phosphatase 205 U/L Total Protein 5.6 GM/DL Albumin 2.5 GM/DL Ethyl Alcohol Level 201 MG/DL Lactic Acid Level 2.9 mmol/L Blood Gas Puncture Site RT RADIAL Blood Gas Patient Temperature 98.6 Blood Gas HCO3 33 mmol/L Blood Gas Base Excess 8.7 mmol/L Blood Gas Oxygen Saturation 93 % Arterial Blood pH 7.44 Arterial Blood Partial 50 mmHg Pressure CO2 Arterial Blood Partial 110 mmHG Pressure O2 Arterial Blood Oxygen Content 9.9 Vol % Arterial Blood 4.6 % Carboxyhemoglobin Arterial Blood Methemoglobin 1.5 % Blood Gas Hemoglobin 7.5 G/DL Oxygen Delivery Device BiPAP Blood Gas Ventilator Setting 10IPAP/5EPAP Blood Gas Inspired Oxygen 40 % Nasal Screen MRSA (PCR) NEGATIVE Test 03/29/16 03/29/16 03/29/16 04:00 05:04 06:04 Blood Type A POSITIVE A POSITIVE Antibody Screen NEGATIVE Crossmatch Leukocyte-Reduced Red Blood Cells Blood Bank Comment White Blood Count 13.8 TH/MM3 Red Blood Count 2.75 MIL/MM3 Hemoglobin 8.5 GM/DL Hematocrit 25.8 % Mean Corpuscular Volume 94.1 FL Mean Corpuscular Hemoglobin 31.1 PG Mean Corpuscular Hemoglobin 33.0 % Concent Red Cell Distribution Width 20.4 % Platelet Count 231 TH/MM3 Mean Platelet Volume 7.6 FL Prothrombin Time 9.5 SEC Prothromb Time International 0.9 RATIO Ratio Activated Partial 35.4 SEC Thromboplast Time Fibrinogen 560 mg/dL Sodium Level 131 MEQ/L Potassium Level 4.3 MEQ/L Chloride Level 88 MEQ/L Carbon Dioxide Level 32.5 MEQ/L Anion Gap 11 MEQ/L Blood Urea Nitrogen 6 MG/DL Creatinine 0.19 MG/DL Estimat Glomerular Filtration 384 ML/MIN Rate Random Glucose 94 MG/DL Calcium Level 7.9 MG/DL Phosphorus Level 2.8 MG/DL Magnesium Level 1.5 MG/DL Troponin I 0.02 NG/ML Thyroid Stimulating Hormone 0.589 uIU/ML 3rd Gen Lactic Acid Level 1.1 mmol/L Ammonia LESS THAN 10 MCMOL/L Imaging Last Impressions Chest X-Ray 03/28/162050 Signed Impressions: Service Date/Time: March 21:03 - CONCLUSION: 1. Basilar lung consolidation, left greater than right most characteristic of bronchopneumonia. There is also underlying emphysema. Dutch Fernandez MD Head CT 03/28/16 Signed Impressions: Service Date/Time: March 21:35 - CONCLUSION: Normal examination for a patient of this age. No significant change has occurred. Dutch Fernandez MD Foot X-Ray 03/28/16 Signed Impressions: Service Date/Time: March 21:23 - CONCLUSION: 1. Osteopenia. No acute fracture identified. Dutch Fernandez MD Ankle X-Ray 03/28/16 Signed Impressions: Service Date/Time: March 21:25 - CONCLUSION: 1. Osteopenia. No acute findings. Dutch Fernandez MD Objective Remarks GENERAL: 60-year-old female, critically ill currently resting in bed in mild respiratory distress SKIN: Warm and dry. Multiple ecchymoses bilateral upper x-rays. Ecchymoses below eyes bilaterally. HEAD: Atraumatic. Normocephalic. EYES: Pupils equal and round about 3 mm bilaterally and reactive. No scleral icterus. No injection or drainage. ENT: No nasal bleeding or discharge. Mucous membranes pink and moist. NECK: Trachea midline. No JVD. CARDIOVASCULAR: Tachycardic, RR. S1, S2. No S4. Without murmur RESPIRATORY: Miss breath sounds bilateral. Positive expiratory wheeze. Crackles appreciated the bases. Breath sounds equal bilaterally. GASTROINTESTINAL: Abdomen soft, non-tender, nondistended. Hypoactive bowel sounds MUSCULOSKELETAL: Extremities without drift and peripheral edema. No obvious deformities. NEUROLOGICAL: Awake and alert. No obvious cranial nerve deficits. Motor grossly within normal limits. Five out of 5 muscle strength in the arms and legs. Slurred speech. A/P Assessment and Plan Neuro/Psych: EtOH Seizures with EtOH withdrawal Posttraumatic stress disorder Toxic metabolic encephalopathy Monitor neuro status. Thiamine, folate and multivitamin daily for EtOH. Monitor for DTs CT head on admission revealed no acute intracranial findings CIME protocol CV: Sinus tachycardia Lactic acidosis- resolved Monitor HR and BP keep MAP>65mmHg Status post 2 L normal saline. Resp: Acute on chronic hypoxemic respiratory failure Community-acquired pneumonia COPD/2 L O2 dependent at home Wean down oxygen as cassie keep sat > 92% Incentive spirometry while awake Duo nebs every 4 hours and as needed Currently on Symbicort 160/4.5 twice a day Solu-Medrol 40 IV every 8. NIPPV PRN for resp. distress At home on Advair 250/50 one inhalation twice a day and Spiriva 1818 daily and albuterol nebs 4 times a day GI: Speech eval diet per speech Protonix for GI prophylaxis Colace/as needed Senokot for bowel regimen : Monitor renal function, I/O's, electrolytes replacement as needed d/c IVF, monitor sodium level. Endo: Sliding-scale insulin with Accu-Cheks to maintain euglycemia while on steroids Heme: Leukocytosis.. trending down Normocytic anemia s/p transfuse 1 unit of PRBCs 03/28 Monitor CBC/coags. ID: Pneumonia Continue abx(cefepime/azithromycin) for community-acquired pneumonia Blood cultures 2, sputum, urine, Legionella and pneumococcal urinary antigens ordered Nasal washing for Influenza Negative. MSK: Left foot pain negative x-ray imaging of left ankle and foot. Osteopenia. PT evaluate and treat. Access - Utilize peripheral IV. Central line if indicated Prophylaxis - GI - Protonix - DVT - SCD/heparin Level 3 Marisol Bunch MD Mar 29, 2016 08:40
[2016-03-29 08:50] LABS: BLOOD, URINE NEG (NEG); GLUCOSE,URINE NEG (NEG); KETONE, URINE 10 mg/dL (NEG); NITRITE,URINE NEG (NEG); PH, URINE 6.5 (5.0-8.5); SQUAMOUS EPITHELIAL CELL URINE 1 /hpf (0-5); URINE COLOR LIGHT-YELLOW (YELLW/STRAW)
[2016-03-29 08:52] LABS: COMMENT (UR) CULT NOT INDICATED; CULTURE IF INDICATED CULT NOT INDICATED
[2016-03-29] MEDS: MULTIVITAMIN TAB PO SCH (09:00)
[2016-03-29] MEDS: FOLIC ACID 1 MG TAB PO SCH (09:00)
[2016-03-29] MEDS: THIAMINE HCL 100 MG TAB PO SCH (09:00)
[2016-03-29] MEDS: SODIUM CHLORIDE 0.9% FLUSH 5 ML FLUSH IV FLUSH SCH ×2 (09:00→20:55)
[2016-03-29] MEDS: ACETAMINOPHEN/HYDROcodone 325 MG/5 MG TAB PO PRN (13:40)
[2016-03-29] MEDS: AZITHROMYCIN INJ 500 MG in SODIUM CHLOR 0.9% 250 ML INJ 250 ML IV SCH (22:01)
[2016-03-30] VITALS (12 sets, daily range): BP systolic 115–133; BP diastolic 64–74; PULSE 94–125; RESP 20–26; TEMP 98.2–98.9; O2SAT 92–100
[2016-03-30] MEDS: CEFEPIME INJ 2,000 MG in SODIUM CHLORIDE 0.9% INJ 100 ML IV SCH ×4 (01:09→23:56)
[2016-03-30] MEDS: LORazepam 2 MG/ML VIAL IV PUSH PRN ×5 (01:10→20:39)
[2016-03-30] MEDS: RESP: ALBUTEROL 2.5 MG/IPRATROPIUM 0.5 MG NEB (SCH) INH ×6 (03:30→23:49)
[2016-03-30] MEDS: CHLORHEXIDINE GLUCONATE 2 % 1 PACK (2 CLOTHS) TOP SCH (04:00)
[2016-03-30 04:29] LABS: AUTOMATED NEUTROPHIL # 4.2 TH/MM3 (1.8-7.7); BASOPHIL % 0.2 % (0.0-2.0); LYMPH % 2.7 % (9.0-44.0); LYMPHOCYTE # 0.1 TH/MM3 (1.0-4.8); MEAN CELL VOLUME 94.6 FL (80.0-100.0); MEAN CORPUSCULAR HGB CONC 32.7 % (32.0-36.0); MONO % 7.1 % (0.0-8.0); PLATELET COUNT 174 TH/MM3 (150-450); RED BLOOD COUNT 2.16 MIL/MM3 (4.00-5.30); WHITE BLOOD COUNT 4.7 TH/MM3 (4.0-11.0)
--- NOTE | 2016-03-30 04:32 | RADRPT ---
EXAM DATE/TIME: 03/30/2016 02:26 [facility] COMPARISON: CHEST SINGLE AP, March 28, 2016, 21:03. INDICATIONS : Shortness of breath, possible pulmonary disease. MEDICAL HISTORY : Chronic obstructive pulmonary disease. SURGICAL HISTORY : None. ENCOUNTER: Subsequent ACUITY: 3 days PAIN SCORE: 0/10 LOCATION: Bilateral chest FINDINGS: Left greater than right basilar infiltrate again noted not significantly changed. No large effusion s een. No pneumothorax. Heart size stable, within normal limits. CONCLUSION: Left greater than right bibasilar consolidation not significantly changed. Rhett Dye MD on March 30, 2016 at 4:30 Board Certified Radiologist. This report was verified electronically.
[2016-03-30 04:38] LABS: APTT (PATIENT) 33.3 SEC (24.3-30.1); INTERNATIONAL NORMALIZED RATIO 0.9 RATIO
[2016-03-30 04:41] LABS: HEMATOCRIT 20.4 % (35.0-46.0); HEMO FLAGS DIFF FINAL
[2016-03-30 04:52] LABS: ALKALINE PHOSPHATASE 199 U/L (45-117); ALT (GPT) 25 U/L (10-53); ANION GAP 8 MEQ/L (5-15); AST (GOT) 33 U/L (15-37); BICARBONATE 31.3 MEQ/L (21.0-32.0); BLOOD UREA NITROGEN 8 MG/DL (7-18); CHLORIDE 96 MEQ/L (98-107); GLOMERULAR FILTRATION RATE 505 ML/MIN (>89); MAGNESIUM 1.6 MG/DL (1.5-2.5); POTASSIUM 3.8 MEQ/L (3.5-5.1); SODIUM (NA) 135 MEQ/L (136-145); TOTAL BILIRUBIN ADULT 0.2 MG/DL (0.2-1.0)
[2016-03-30] MEDS: methylPREDNISolone SOD SUCC 40 MG/1 ML VIAL IV PUSH SCH ×3 (05:24→20:29)
[2016-03-30] MEDS: INSULIN NovoLIN REGULAR SUPPLEMENTAL SCALE SQ SCH ×4 (07:00→20:38)
[2016-03-30] MEDS: NICOTINE 14 MG/24 HR PATCH TD SCH (08:29)
[2016-03-30] MEDS: HEPARIN SODIUM - SQ 10,000 UNITS/ML VIAL SQ SCH (08:38)
[2016-03-30] MEDS: DOCUSATE SODIUM 100 MG CAP PO SCH ×2 (08:38→20:30)
[2016-03-30] MEDS: FOLIC ACID 1 MG TAB PO SCH (08:38)
[2016-03-30] MEDS: MULTIVITAMIN TAB PO SCH (08:38)
[2016-03-30] MEDS: THIAMINE HCL 100 MG TAB PO SCH (08:38)
[2016-03-30] MEDS: PANTOPRAZOLE SODIUM 40 MG VIAL IV SCH ×2 (09:00→20:29)
[2016-03-30] MEDS ORDERED: FUROSEMIDE 20 MG/2 ML VIAL IV PUSH ONE (10:45)
[2016-03-30] MEDS: BUDESONIDE-FORMOTEROL 160/4.5 MCG INHALER INH SCH ×2 (11:14→20:29)
[2016-03-30] MEDS: TIOTROPIUM BROMIDE 18 MCG INH INH SCH (11:14)
[2016-03-30] MEDS: LORazepam 2 MG TAB PO PRN (11:14)
[2016-03-30] MEDS: ARTIFICIAL TEARS OPTH SOLN 15 ML BTL EACH EYE SCH ×3 (11:14→18:23)
[2016-03-30] MEDS: SODIUM CHLORIDE 0.9% FLUSH 5 ML FLUSH IV FLUSH SCH ×2 (11:15→20:30)
--- NOTE | 2016-03-30 16:34 | HHI.CCPN ---
Subjective Remarks/Hospital Course 60-year-old female. Date of admission 03/28/2016. Past medical history includes EtOH, THC. Originally from [place]. She has been hospitalized 9 times since January 2015 mostly for COPD exacerbations. She presents to [place] ED after receiving been discharged from the hospital week ago with shortness of breath she's had multiple falls including multiple bruises the bilateral upper lobe series. Per ambulance report patient drinks heavily every day and per medical records as well. She states that she ran of social breath but denies any chest pain. She does have multiple bruises on her arms and legs. Per patient she injured her left foot and is possibly broken. Patient does have an Star wrap on it has swelling and bruising on the toes. History somewhat limited from the patient is an elevated EtOH level of 200. She received a 2 L normal saline bolus in ED. Chest x-ray revealed bilateral pulmonary infiltrate. She has a leukocytosis of 22,000, and anemia 7. Sodium is 124 which is close to her baseline and low chloride of 80.. She received 3 albuterol nebulizers in the ED, 125 mg Solu- Medrol IV and 2 g of cefepime 500 mg azithromycin. She has been pancultured. She is placed on BiPAP in the ED. We are asked to admit. She states she is less dyspneic at the resident time. 03/29 Patient is on 4L oxygen with good sats. Afebrile. Subjective 03/30: Afebrile. On 3 L nasal cannula. Quite tremulous. Continues to complain of pain with her left foot. Drinking ensure. 4 BMs. Objective Vital Signs Date Time Temp Pulse Resp B/P Pulse Ox O2 Delivery O2 Flow Rate FiO2 03/30/16 11:55 98.2 03/30/16 08:47 100 Nasal Cannula 3.00 03/30/16 06:00 94 03/30/16 04:00 20 120/74 03/28/16 23:00 100 Intake and Output 03/29/16 03/29/16 03/30/16 08:00 16:00 00:00 Intake Total 430 ml 488 ml 10 ml Output Total 350 ml 800 ml 150 ml Balance 80 ml -312 ml -140 ml Result Diagram: 03/30/16 0409 03/30/16 0409 Other Results Microbiology Date/Time Procedure Status Source Growth 03/29/16 06:15 Legionella Antigen - Final Complete Urine Catheterized Urine PRESUMPTIVE NEGATIVE FOR LEGIONELLA P... 03/29/16 06:15 Streptococcus pneumoniae Antigen (M - Final Complete Urine Catheterized Urine PRESUMPTIVE NEGATIVE FOR STREPTOCOCCU... 03/29/16 00:50 Influenza Types A,B Antigen (DARSHANA) - Final Complete Nasal Aspirate NEGATIVE FOR FLU A AND B ANTIGEN.... 03/29/16 00:10 Gram Stain - Final Resulted Sputum Expectorated Sputum 03/29/16 00:10 Sputum Culture - Preliminary Resulted Sputum Expectorated Sputum HEAVY GROWTH NORMAL RESPIRATORY RUKHSANA... 03/28/16 22:44 Aerobic Blood Culture - Preliminary Resulted Blood Peripheral NO GROWTH IN 2 DAYS 03/28/16 22:44 Anaerobic Blood Culture - Preliminary Resulted Blood Peripheral NO GROWTH IN 2 DAYS Imaging Last Impressions Chest X-Ray 03/30/16 0600 Signed Impressions: Service Date/Time: Wednesday, March 30, 2016 02:26 - CONCLUSION: Left greater than right bibasilar consolidation not significantly changed. Rhett Dye MD Head CT 03/28/16 0000 Signed Impressions: Service Date/Time: March 21:35 - CONCLUSION: Normal examination for a patient of this age. No significant change has occurred. Dutch Fernandez MD Foot X-Ray 03/28/16 0000 Signed Impressions: Service Date/Time: March 21:23 - CONCLUSION: 1. Osteopenia. No acute fracture identified. Dutch Fernandez MD Ankle X-Ray 03/28/16 0000 Signed Impressions: Service Date/Time: March 21:25 - CONCLUSION: 1. Osteopenia. No acute findings. Dutch Fernandez MD Objective Remarks GENERAL: 60-year-old female, critically ill currently resting in bed in mild respiratory distress SKIN: Warm and dry. Multiple ecchymoses bilateral upper extremities. Evolving Ecchymoses below eyes bilaterally. HEAD: Atraumatic. Normocephalic. EYES: Pupils equal and round about 3 mm bilaterally and reactive. No scleral icterus. No injection or drainage. ENT: No nasal bleeding or discharge. Mucous membranes pink and moist. NECK: Trachea midline. No JVD. CARDIOVASCULAR: Tachycardic, RR. S1, S2. No S4. Without murmur RESPIRATORY: Diminished breath sounds bilateral. Positive expiratory wheeze. Crackles appreciated the bases. Breath sounds equal bilaterally. GASTROINTESTINAL: Abdomen soft, non-tender, nondistended. Hypoactive bowel sounds MUSCULOSKELETAL: Extremities without significant peripheral edema. No obvious deformities. Decreased range of motion left ankle. NEUROLOGICAL: Awake and alert. No obvious cranial nerve deficits. Motor grossly within normal limits. Five out of 5 muscle strength in the arms and legs. Improved but still slurred speech. A/P Assessment and Plan Neuro/Psych: EtOH Seizures with EtOH withdrawal Posttraumatic stress disorder Toxic metabolic encephalopathy Monitor neuro status. Thiamine, folate and multivitamin daily for EtOH. Monitor for DTs CT head on admission revealed no acute intracranial findings CIWA protocol. 12 mg Ativan given past 24 hours. Will start Librium 20 mg 3 times a day CV: Sinus tachycardia Lactic acidosis- resolved Monitor HR and BP keep MAP>65mmHg Status post 2 L normal saline. Currently not requiring vasopressors and/or anti-hypertensives Resp: Acute on chronic hypoxemic respiratory failure Community-acquired pneumonia COPD/2 L O2 dependent at home Wean down oxygen as cassie keep sat > 92% currently on 3 L Incentive spirometry while awake Duo nebs every 4 hours and as needed Currently on Symbicort 160/4.5 twice a day Solu-Medrol 40 IV every 8. NIPPV PRN for resp. distress At home on Advair 250/50 one inhalation twice a day and Spiriva 1818 daily and albuterol nebs 4 times a day GI: Speech eval diet per speech is currently drinking ensure Protonix for GI prophylaxis Colace/as needed Senokot for bowel regimen Renal/: Monitor renal function, I/O's, electrolytes replacement as needed Given 2 g mag sulfate and 15 mmol K-Phos. Recheck in a.m. d/c IVF, monitor sodium level. Endo: Sliding-scale insulin with Accu-Cheks to maintain euglycemia while on steroids and low regimen Heme: Leukocytosis.. trending down Normocytic anemia s/p transfuse 1 unit of PRBCs 03/28. Transfuse 2 units 03/30 Monitor CBC/coags. Hemoccult stool 3 On Protonix 40 mg IV twice a day. GI consult ID: Pneumonia Continue abx(cefepime/azithromycin) for community-acquired pneumonia Blood cultures 2, sputum, urine, Legionella and pneumococcal urinary antigens all no growth to date Nasal washing for Influenza Negative. MSK: Left foot pain negative x-ray imaging of left ankle and foot. Osteopenia. Will check MRI foot PT evaluate and treat. Access - Utilize peripheral IV. Central line if indicated Prophylaxis - GI - Protonix - DVT - SCD/heparin to be held with anemia Critical Care: The total critical care time was 35 minutes. Time to perform other separately billable procedures was not included in the critical care time. Miguel Lazcano MD Mar 30, 2016 16:34
[2016-03-30] MEDS: MAGNESIUM SULFATE 1 GM PREMIX 100 ML IV SCH ×2 (17:09→18:23)
[2016-03-30] MEDS ORDERED: POTASSIUM PHOSPHATE INJ 15 MMOL in SODIUM CHLORIDE 0.9% INJ 150 ML IV ONE (18:00)
[2016-03-30 18:33] LABS: HEMATOCRIT 33.4 % (35.0-46.0); MEAN CELL VOLUME 90.8 FL (80.0-100.0); MEAN CORPUSCULAR HEMOGLOBIN 30.7 PG (27.0-34.0); MEAN CORPUSCULAR HGB CONC 33.8 % (32.0-36.0); PLATELET COUNT 196 TH/MM3 (150-450); RED BLOOD COUNT 3.68 MIL/MM3 (4.00-5.30); RED CELL DISTRIBUTION WIDTH 18.8 % (11.6-17.2); REVIEW FLAG FINAL; WHITE BLOOD COUNT 5.8 TH/MM3 (4.0-11.0)
[2016-03-30] MEDS: AZITHROMYCIN INJ 500 MG in SODIUM CHLOR 0.9% 250 ML INJ 250 ML IV SCH (22:58)
[2016-03-31] VITALS (8 sets, daily range): BP systolic 130–141; BP diastolic 85–90; PULSE 87–107; RESP 17–24; TEMP 98.2–98.7; O2SAT 94–96
[2016-03-31] MEDS: LORazepam 2 MG/ML VIAL IV PUSH PRN ×8 (00:02→23:07)
[2016-03-31] MEDS: RESP: ALBUTEROL 2.5 MG/IPRATROPIUM 0.5 MG NEB (SCH) INH ×6 (03:55→23:08)
[2016-03-31] MEDS: CHLORHEXIDINE GLUCONATE 2 % 1 PACK (2 CLOTHS) TOP SCH (04:00)
--- NOTE | 2016-03-31 04:43 | RADRPT ---
EXAM DATE/TIME: 03/31/2016 02:48 [facility] COMPARISON: CHEST SINGLE AP, March 30, 2016, 2:26. INDICATIONS : Shortness of breath, possible pulmonary disease. MEDICAL HISTORY : Chronic obstructive pulmonary disease. SURGICAL HISTORY : None. ENCOUNTER: Subsequent ACUITY: 4 - 6 days PAIN SCORE: 0/10 LOCATION: Bilateral chest FINDINGS: Worsening bibasilar consolidation and small effusions. No pneumothorax seen. Heart size stable, upper limits of normal. CONCLUSION: Bibasilar consolidation and small effusions slightly worse than yesterday. Rhett Dye MD on March 31, 2016 at 4:41 Board Certified Radiologist. This report was verified electronically.
[2016-03-31 05:55] LABS: AUTOMATED NEUTROPHIL # 5.9 TH/MM3 (1.8-7.7); BASOPHIL % 0.2 % (0.0-2.0); EOSINOPHIL % 0.1 % (0.0-4.0); HEMATOCRIT 35.6 % (35.0-46.0); HEMO FLAGS DIFF FINAL; LYMPH % 3.9 % (9.0-44.0); LYMPHOCYTE # 0.3 TH/MM3 (1.0-4.8); MEAN CORPUSCULAR HEMOGLOBIN 30.6 PG (27.0-34.0); MONO % 7.3 % (0.0-8.0); NEUT % 88.5 % (16.0-70.0); PLATELET COUNT 186 TH/MM3 (150-450); RED BLOOD COUNT 3.95 MIL/MM3 (4.00-5.30); RED CELL DISTRIBUTION WIDTH 18.9 % (11.6-17.2); WHITE BLOOD COUNT 6.6 TH/MM3 (4.0-11.0)
[2016-03-31] MEDS: methylPREDNISolone SOD SUCC 40 MG/1 ML VIAL IV PUSH SCH ×3 (06:09→21:16)
[2016-03-31 06:21] LABS: ANION GAP 7 MEQ/L (5-15); AST (GOT) 16 U/L (15-37); BICARBONATE 33.1 MEQ/L (21.0-32.0); BLOOD UREA NITROGEN 17 MG/DL (7-18); CHLORIDE 96 MEQ/L (98-107); GLOMERULAR FILTRATION RATE 308 ML/MIN (>89); MAGNESIUM 2.1 MG/DL (1.5-2.5); POTASSIUM 4.3 MEQ/L (3.5-5.1); SODIUM (NA) 136 MEQ/L (136-145)
[2016-03-31 06:24] LABS: ALKALINE PHOSPHATASE 194 U/L (45-117); ALT (GPT) 22 U/L (10-53); TOTAL BILIRUBIN ADULT 0.3 MG/DL (0.2-1.0)
[2016-03-31] MEDS: INSULIN NovoLIN REGULAR SUPPLEMENTAL SCALE SQ SCH ×3 (06:24→20:05)
[2016-03-31] MEDS: DOCUSATE SODIUM 100 MG CAP PO SCH ×2 (08:04→19:59)
[2016-03-31] MEDS: FOLIC ACID 1 MG TAB PO SCH (08:04)
[2016-03-31] MEDS: NICOTINE 14 MG/24 HR PATCH TD SCH (08:04)
[2016-03-31] MEDS: MULTIVITAMIN TAB PO SCH (08:04)
[2016-03-31] MEDS: PANTOPRAZOLE SODIUM 40 MG VIAL IV SCH ×2 (08:05→19:59)
[2016-03-31] MEDS: TIOTROPIUM BROMIDE 18 MCG INH INH SCH (08:06)
[2016-03-31] MEDS: CEFEPIME INJ 2,000 MG in SODIUM CHLORIDE 0.9% INJ 100 ML IV SCH ×2 (08:06→14:42)
[2016-03-31] MEDS: BUDESONIDE-FORMOTEROL 160/4.5 MCG INHALER INH SCH ×2 (08:06→19:58)
[2016-03-31] MEDS: ARTIFICIAL TEARS OPTH SOLN 15 ML BTL EACH EYE SCH ×3 (08:06→19:58)
[2016-03-31] MEDS: SODIUM CHLORIDE 0.9% FLUSH 5 ML FLUSH IV FLUSH SCH ×2 (08:07→19:59)
[2016-03-31] MEDS: THIAMINE HCL 100 MG TAB PO SCH (08:07)
[2016-03-31] MEDS: LORazepam 1 MG TAB PO PRN (08:08)
--- NOTE | 2016-03-31 09:34 | PD.CONS ---
HPI History of Present Illness This is a 60 year old female who presented to the ER for shortness of breath. She is a poor historian. Patient was recently discharged from hospital 1 week ago for similar symptoms. Has a history of COPD, multiple falls, seizure disorder, and PTSD. Also has a history of heavy ETOH abuse. She denies blood per rectum or abdominal pain. Nurse reports that patients stool yesterday was dark. Hemoccult stool tests have been ordered, but have not been completed. Patient reports she has never had colonoscopy or EGD. Denies heartburn or reflux. (Luann Duron) PFSH Past Medical History COPD Seizure disorder PTSD Multiple falls ETOH abuse Past Surgical History Breast biopsy, bilateral C section (Luann Duron) Coded Allergies: Penicillin (Verified Allergy, Severe, CHILDHOOD, 03/28/16) Medications Current Medications Medications (Trade) Dose Ordered Sig/Lemuel Route PRN Reason Start Time Stop Time Status Last Admin Dose Admin Tiotropium [place] (Spiriva Inh) 18 mcg DAILY INH 03/29/16 09:00 03/31/16 08:06 Budesonide/ Formoterol Fumarate (Symbicort 160-4.5 Inh) 1 puff BID INH 03/30/16 09:00 03/31/16 08:06 IV Flush (NS Flush) 2 ml UNSCH PRN IV FLUSH FLUSH AFTER USING IV ACCESS 03/29/16 00:15 IV Flush (NS Flush) 2 ml BID IV FLUSH 03/29/16 09:00 03/31/16 08:07 Acetaminophen (Tylenol) 650 mg Q6H PRN PO PAIN 1-10 AND/OR FEVER >101F 03/29/16 00:15 Acetaminophen/ Hydrocodone Bitart ([place] 5-325 Mg) 1 tab Q4H PRN PO PAIN SCALE 1 TO 5 03/29/16 00:15 03/29/16 13:40 Morphine Sulfate (Morphine Inj) 2 mg Q2H PRN IV PAIN SCALE 6 TO 10 03/29/16 00:15 Artificial Tears (Tears Naturale Opth Soln) 1 drop TID EACH EYE 03/29/16 09:00 03/31/16 08:06 Ondansetron HCl (Zofran Inj) 4 mg Q6H PRN IV NAUSEA OR VOMITING 03/29/16 00:15 Docusate Sodium (Colace) 100 mg BID PO 03/29/16 09:00 03/31/16 08:04 Sennosides (Senokot) 17.2 mg Q12H PRN PO CONSTIPATION 03/29/16 00:15 Heparin Sodium (Porcine) (Heparin Inj) 5,000 units Q12H SQ 03/29/16 09:00 Hold 03/30/16 08:38 Miscellaneous Information 1 Q361D XX 03/29/16 00:15 Chlorhexidine Gluconate (Chlorhexidine 2% Cloth) 3 pack Taper DAILY@04 TOP 03/29/16 04:00 03/25/17 03:59 03/31/16 04:00 Chlorhexidine Gluconate 3 pack 3 pack UNSCH PRN TOP HYGIENIC CARE 03/29/16 00:15 Cefepime HCl 2000 mg/Sodium Chloride 100 ml @ 200 mls/hr Q8H IV 03/29/16 08:00 03/31/16 08:06 Azithromycin/ Sodium Chloride (Zithromax Inj/ NS 250 ml Inj) 250 ml @ 250 mls/hr Q24H IV 03/29/16 23:00 03/30/16 22:58 Methylprednisolone Sodium Succinate (SoluMEDROL INJ) 40 mg Q8HR IV PUSH 03/29/16 06:00 03/31/16 06:09 Flumazenil (Romazicon Inj) 0.2 mg Q1M PRN IV PUSH SEE LABEL COMMENTS 03/29/16 04:30 Lorazepam (Ativan) 1 mg Q4H PRN PO CIWA 8 - 10 03/29/16 04:30 03/31/16 08:08 Lorazepam (Ativan Inj) 1 mg Q4H PRN IV PUSH CIWA 8 - 10 03/29/16 04:30 03/31/16 04:29 Lorazepam (Ativan) 2 mg Q2H PRN PO CIWA 11-14 03/29/16 04:30 03/30/16 11:14 Lorazepam (Ativan Inj) 2 mg Q2H PRN IV PUSH CIWA 11-14 03/29/16 04:30 03/30/16 18:22 Lorazepam (Ativan Inj) 2 mg Q1H PRN IV PUSH CIWA 15-20 03/29/16 04:30 03/30/16 01:10 Lorazepam (Ativan Inj) 2 mg Q15M PRN IV PUSH CIWA > 20 03/29/16 04:30 Nicotine (Habitrol 14 Mg Patch.24 Hr) 1 patch DAILY TD 03/29/16 09:00 03/31/16 08:04 Dextrose (D50w (Vial) Inj) 25 ml UNSCH PRN IV PUSH HYPOGLYCEMIA-SEE COMMENTS 03/29/16 04:45 Glucagon (Glucagon Inj) 1 mg UNSCH PRN OTHER HYPOGLYCEMIA-SEE COMMENTS 03/29/16 04:45 Thiamine HCl (Vitamin B1) 100 mg DAILY PO 03/29/16 09:00 03/31/16 08:07 Folic Acid (Folate) 1 mg DAILY PO 03/29/16 09:00 03/31/16 08:04 Multivitamins (Theragran) 1 tab DAILY PO 03/29/16 09:00 03/31/16 08:04 Chlordiazepoxide (Librium) 20 mg Q8HR PO 03/30/16 22:00 03/31/16 06:09 Pantoprazole Sodium (Protonix Inj) 40 mg BID IV 03/30/16 21:00 03/31/16 08:05 Family History No family history of colon cancer. Social History Tobacco--1 PPD ETOH--4 beer daily Denies IV drug use (Luann Duron) Review of Systems Constitutional: DENIES: Diaphoretic episodes, Fatigue, Fever, Weight gain, Weight loss, Chills, Dizziness, Change in appetite, Night Sweats Endocrine: DENIES: Polydipsia, Polyuria Eyes: DENIES: Blurred vision, Photosensitivity, Double Vision Ears, nose, mouth, throat: DENIES: Hearing loss, Vertigo, Oral lesions, Throat pain, Hoarseness Respiratory: COMPLAINS OF: Wheezing, Shortness of breath Cardiovascular: DENIES: Chest pain, Palpitations, Syncope, Lower Extremity Edema, Orthopnea, Claudication Gastrointestinal: COMPLAINS OF: Black stools (per nurse), DENIES: Constipation , Diarrhea, Nausea, Vomiting, Difficulty Swallowing, Swelling of Abdomen, Heartburn, Hematemesis Genitourinary: DENIES: Urinary frequency, Urinary incontinence, Urgency, Hematuria, Dysuria, Nocturia Musculoskeletal: COMPLAINS OF: Joint pain (L foot, L hip) Integumentary: DENIES: Abnormal pigmentation, Nail changes, Pruritus, Rash, Jaundice Hematologic/lymphatic: COMPLAINS OF: Bruising (Ecchymosis present at bilateral arms and below eyes) Immunologic/allergic: DENIES: Eczema, Urticaria Neurologic: DENIES: Abnormal gait, Headache, Localized weakness, Paresthesias ( Luann Duron) GI Exam Vitals I&O Vital Signs Date Time Temp Pulse Resp B/P Pulse Ox O2 Delivery O2 Flow Rate FiO2 03/31/16 08:32 94 Nasal Cannula 2.00 03/31/16 07:15 98 Nasal Cannula 2.00 03/31/16 06:00 87 03/31/16 04:00 98.2 100 24 137/90 94 03/31/16 04:00 100 03/31/16 02:00 91 03/31/16 00:00 98.4 107 17 130/86 96 03/31/16 00:00 107 03/30/16 22:00 100 03/30/16 20:09 98 Nasal Cannula 2.00 03/30/16 20:00 96 03/30/16 20:00 98.7 96 26 115/71 98 03/30/16 20:00 98 Nasal Cannula 4.00 03/30/16 16:00 98.5 03/30/16 12:00 98.6 03/30/16 11:55 98.2 I/O 03/30/16 03/30/16 03/30/16 03/31/16 03/31/16 03/31/16 07:00 15:00 23:00 07:00 15:00 23:00 Intake Total 210 ml 480 ml 1794 ml 650 ml Output Total 200 ml 400 ml 1000 ml 250 ml Balance 10 ml 80 ml 794 ml 400 ml Intake Oral 480 ml 500 ml 150 ml IV Total 210 ml 794 ml 500 ml Packed Cells 500 ml Output Urine Total 200 ml 400 ml 1000 ml 250 ml # Bowel Movements 0 1 0 1 Imaging Last Impressions Chest X-Ray 03/31/16 0600 Signed Impressions: Service Date/Time: Thursday, March 31, 2016 02:48 - CONCLUSION: Bibasilar consolidation and small effusions slightly worse than yesterday. Rhett Dye MD Head CT 03/28/16 0000 Signed Impressions: Service Date/Time: March 21:35 - CONCLUSION: Normal examination for a patient of this age. No significant change has occurred. Dutch Fernandez MD Foot X-Ray 03/28/16 0000 Signed Impressions: Service Date/Time: March 21:23 - CONCLUSION: 1. Osteopenia. No acute fracture identified. Dutch Fernandez MD Ankle X-Ray 03/28/16 0000 Signed Impressions: Service Date/Time: March 21:25 - CONCLUSION: 1. Osteopenia. No acute findings. Dutch Fernandez MD Laboratory Test 03/30/16 03/30/16 03/31/16 10:35 18:01 04:33 Blood Type A POSITIVE Crossmatch Leukocyte-Reduced Red Blood Cells Blood Bank Comment White Blood Count 5.8 TH/MM3 6.6 TH/MM3 Red Blood Count 3.68 MIL/MM3 3.95 MIL/MM3 Hemoglobin 11.3 GM/DL 12.1 GM/DL Hematocrit 33.4 % 35.6 % Mean Corpuscular Volume 90.8 FL 90.0 FL Mean Corpuscular Hemoglobin 30.7 PG 30.6 PG Mean Corpuscular Hemoglobin 33.8 % 34.0 % Concent Red Cell Distribution Width 18.8 % 18.9 % Platelet Count 196 TH/MM3 186 TH/MM3 Mean Platelet Volume 7.3 FL 7.7 FL Neutrophils (%) (Auto) 88.5 % Lymphocytes (%) (Auto) 3.9 % Monocytes (%) (Auto) 7.3 % Eosinophils (%) (Auto) 0.1 % Basophils (%) (Auto) 0.2 % Neutrophils # (Auto) 5.9 TH/MM3 Lymphocytes # (Auto) 0.3 TH/MM3 Monocytes # (Auto) 0.5 TH/MM3 Eosinophils # (Auto) 0.0 TH/MM3 Basophils # (Auto) 0.0 TH/MM3 CBC Comment DIFF FINAL Differential Comment Sodium Level 136 MEQ/L Potassium Level 4.3 MEQ/L Chloride Level 96 MEQ/L Carbon Dioxide Level 33.1 MEQ/L Anion Gap 7 MEQ/L Blood Urea Nitrogen 17 MG/DL Creatinine 0.23 MG/DL Estimat Glomerular Filtration 308 ML/MIN Rate Random Glucose 130 MG/DL Calcium Level 8.9 MG/DL Phosphorus Level 3.2 MG/DL Magnesium Level 2.1 MG/DL Total Bilirubin 0.3 MG/DL Aspartate Amino Transf 16 U/L (AST/SGOT) Alanine Aminotransferase 22 U/L (ALT/SGPT) Alkaline Phosphatase 194 U/L Total Protein 5.7 GM/DL Albumin 2.5 GM/DL Date/Time Procedure Status Source Growth 03/29/16 06:15 Legionella Antigen - Final Complete Urine Catheterized Urine PRESUMPTIVE NEGATIVE FOR LEGIONELLA P... 03/29/16 06:15 Streptococcus pneumoniae Antigen (M - Final Complete Urine Catheterized Urine PRESUMPTIVE NEGATIVE FOR STREPTOCOCCU... 03/29/16 00:50 Influenza Types A,B Antigen (DARSHANA) - Final Complete Nasal Aspirate NEGATIVE FOR FLU A AND B ANTIGEN.... 03/29/16 00:10 Gram Stain - Final Resulted Sputum Expectorated Sputum 03/29/16 00:10 Sputum Culture - Preliminary Resulted Sputum Expectorated Sputum HEAVY GROWTH NORMAL RESPIRATORY RUKHSANA... 03/28/16 22:44 Aerobic Blood Culture - Preliminary Resulted Blood Peripheral NO GROWTH IN 2 DAYS 03/28/16 22:44 Anaerobic Blood Culture - Preliminary Resulted Blood Peripheral NO GROWTH IN 2 DAYS Physical Examination HEENT: PERRLA, no jaundice. Ecchymosis below eyes. NECK: Neck is supple,no lymphadenopathy, trachea midline CHEST: CTA. CARDIAC: RRR ABDOMEN: Soft, flat, no tenderness. Bowel sounds present in all 4 quadrants. EXTREMITIES: No edema. SKIN: Ecchymosis visible at bilateral arms and below eyes. CARTON LINER: Alert and oriented x 3, poor historian. (Luann Duron) Assessment and Plan Assessment: (1) Melena Plan: -Colonoscopy/EGD -Obtain consents -NPO after MN Friday -Clear liquids Friday (2) Anemia Plan GIB? Melena. EGD/Colonoscopy as above. Patient has never had colonoscopy or EGD in past. Hgb 12.1 and Hct 35.6 today. PT 10, INR 0.9. Patient examined and evaluated by myself and Dr. Herrera and this note is written on his behalf. (Luann Duron) Physician Comments Seen and examined with [facility], no active bleeding. Not wanting to do colonoscopy, ok with EGD. Will schedule for tomorrow. Monitor labs. Thank you (Preet Herrera MD) Problem Qualifiers (1) Anemia: Qualified Code: D64.9 - Anemia, unspecified type Luann Duron Mar 31, 2016 09:34 Preet Herrera MD Mar 31, 2016 12:04
--- NOTE | 2016-03-31 12:17 | RADRPT ---
EXAM DATE/TIME: 03/31/2016 11:17 [facility] COMPARISON: FOOT LEFT COMPLETE ([id number]), March 28, 2016, 21:23. INDICATIONS : Left foot pain. MEDICAL HISTORY : Chronic obstructive pulmonary disease. SURGICAL HISTORY : section. ENCOUNTER: Initial ACUITY: 1 day PAIN SCORE: 5/10 LOCATION: Left foot pain. TECHNIQUE: Multiplanar, multisequence MRI examination was performed without contrast. FINDINGS: BONE/CARTILAGE: There is evidence of nondisplaced fractures of the base of the first, second and fourth metatarsals. There is some associated bone marrow edema with a fractures. This may be related to trauma or these c ould be stress fractures. There are primary bony degenerative changes at the first metatarsal-phalang eal joint. The rest of the bony structures appear to be intact. There is nonspecific edema in the sub cutaneous soft tissues. No evidence of joint dislocation. TENDONS: All of the visualized tendons are intact. MISCELLANEOUS: The visualized Plantar aponeurosis is intact. CONCLUSION: 1. Nondisplaced fractures at the base of the first, second and fourth metatarsals. 2. Primary degenerative changes at the first metatarsophalangeal joint.. 3. Nonspecific edema in the soft tissues. Rylan Morris MD on March 31, 2016 at 12:09 Board Certified Radiologist. This report was verified electronically.
--- NOTE | 2016-03-31 17:37 | HHI.CCPN ---
Subjective Remarks/Hospital Course 60-year-old female. Date of admission 03/28/2016. Past medical history includes EtOH, THC. Originally from [place]. She has been hospitalized 9 times since January 2015 mostly for COPD exacerbations. She presents to [place] ED after receiving been discharged from the hospital week ago with shortness of breath she's had multiple falls including multiple bruises the bilateral upper lobe series. Per ambulance report patient drinks heavily every day and per medical records as well. She states that she ran of social breath but denies any chest pain. She does have multiple bruises on her arms and legs. Per patient she injured her left foot and is possibly broken. Patient does have an Star wrap on it has swelling and bruising on the toes. History somewhat limited from the patient is an elevated EtOH level of 200. She received a 2 L normal saline bolus in ED. Chest x-ray revealed bilateral pulmonary infiltrate. She has a leukocytosis of 22,000, and anemia 7. Sodium is 124 which is close to her baseline and low chloride of 80.. She received 3 albuterol nebulizers in the ED, 125 mg Solu- Medrol IV and 2 g of cefepime 500 mg azithromycin. She has been pancultured. She is placed on BiPAP in the ED. We are asked to admit. She states she is less dyspneic at the resident time. 03/29 Patient is on 4L oxygen with good sats. Afebrile. Subjective 03/30: Afebrile. On 3 L nasal cannula. Quite tremulous. Continues to complain of pain with her left foot. Drinking ensure. 4 BMs. 03/31 Afebrile. O2 sat 93% on 3 L nasal cannula. Patient's tolerating a clear liquid diet. MRI performed today showing nondisplaced fractures. Objective Vital Signs Date Time Temp Pulse Resp B/P Pulse Ox O2 Delivery O2 Flow Rate FiO2 03/31/16 08:32 94 Nasal Cannula 2.00 03/31/16 06:00 87 03/31/16 04:00 98.2 24 137/90 03/28/16 23:00 100 Intake and Output 03/30/16 03/30/16 03/31/16 08:00 16:00 00:00 Intake Total 210 ml 480 ml 1794 ml Output Total 200 ml 400 ml 1000 ml Balance 10 ml 80 ml 794 ml Result Diagram: 03/31/16 0433 03/31/16 0433 Other Results Microbiology Date/Time Procedure Status Source Growth 03/29/16 00:10 Gram Stain - Final Complete Sputum Expectorated Sputum 03/29/16 00:10 Sputum Culture - Final Complete Sputum Expectorated Sputum HEAVY GROWTH NORMAL RESPIRATORY RUKHSANA 03/29/16 00:50 Influenza Types A,B Antigen (DARSHANA) - Final Complete Nasal Aspirate NEGATIVE FOR FLU A AND B ANTIGEN.... 03/29/16 06:15 Legionella Antigen - Final Complete Urine Catheterized Urine PRESUMPTIVE NEGATIVE FOR LEGIONELLA P... 03/29/16 06:15 Streptococcus pneumoniae Antigen (M - Final Complete Urine Catheterized Urine PRESUMPTIVE NEGATIVE FOR STREPTOCOCCU... Imaging Last Impressions Chest X-Ray 03/30/16 0600 Signed Impressions: Service Date/Time: Wednesday, March 30, 2016 02:26 - CONCLUSION: Left greater than right bibasilar consolidation not significantly changed. Rhett Dye MD Head CT 03/28/16 0000 Signed Impressions: Service Date/Time: March 21:35 - CONCLUSION: Normal examination for a patient of this age. No significant change has occurred. Dutch Fernandez MD Foot X-Ray 03/28/16 0000 Signed Impressions: Service Date/Time: March 21:23 - CONCLUSION: 1. Osteopenia. No acute fracture identified. Dutch Fernandez MD Ankle X-Ray 03/28/16 0000 Signed Impressions: Service Date/Time: March 21:25 - CONCLUSION: 1. Osteopenia. No acute findings. Dutch Fernandez MD Objective Remarks GENERAL: 60-year-old female, critically ill currently resting in bed SKIN: Warm and dry. Multiple ecchymotic bruises bilateral upper extremities. Evolving Ecchymoses below eyes bilaterally. HEAD: Atraumatic. Normocephalic. EYES: Pupils equal and round about 3 mm bilaterally and reactive. No scleral icterus. No injection or drainage. ENT: No nasal bleeding or discharge. Mucous membranes pink and moist. NECK: Trachea midline. No JVD. CARDIOVASCULAR: Tachycardic, RR. S1, S2. No S4. Without murmur RESPIRATORY: Diminished breath sounds bilateral. Positive expiratory wheeze. Crackles appreciated the bases. Breath sounds equal bilaterally. GASTROINTESTINAL: Abdomen soft, non-tender, nondistended. Hypoactive bowel sounds MUSCULOSKELETAL: Extremities without significant peripheral edema. No obvious deformities. Decreased range of motion left ankle. Pulses palpated NEUROLOGICAL: Awake and alert. No obvious cranial nerve deficits. Motor grossly within normal limits 5/5 motor strength in the arms and legs. Improved but still slurred speech. A/P Assessment and Plan Neuro/Psych: EtOH Seizures with EtOH withdrawal Posttraumatic stress disorder Toxic metabolic encephalopathy Monitor neuro status. Thiamine, folate and multivitamin daily for EtOH. Monitor for DTs CT head on admission revealed no acute intracranial findings [facility] protocol. 12 mg Ativan given past 24 hours. Librium 20 mg 3 times a day CV: Sinus tachycardia Lactic acidosis- resolved Monitor HR and BP keep MAP>65mmHg Status post 2 L normal saline. Currently not requiring vasopressors and/or anti-hypertensives Resp: Acute on chronic hypoxemic respiratory failure Community-acquired pneumonia COPD/2 L O2 dependent at home Wean down oxygen as cassie keep sat > 92% currently on 3 L Incentive spirometry while awake Duo nebs every 4 hours scheduled and as needed Currently on Symbicort 160/4.5 twice a day Solu-Medrol 40 IV every 8. NIPPV PRN for resp. distress Encourage incentive spirometry every hour while awake At home on Advair 250/50 one inhalation twice a day and Spiriva 1818 daily and albuterol nebs 4 times a day GI: Clear liquid diet GI consulted , scheduled for EGD in am Protonix for GI prophylaxis Colace/as needed Senokot for bowel regimen Renal/: Monitor renal function, I/O's Electrolyte replacement per ICU protocol d/c IVF, monitor sodium level. Endo: Sliding-scale insulin with Accu-Cheks to maintain euglycemia while on steroids and low regimen Heme: Leukocytosis.. trending down-resolved Normocytic anemia s/p transfuse 1 unit of PRBCs 03/28. Transfuse 2 units 03/30 Monitor CBC/coags. Hemoccult stool 3 On Protonix 40 mg IV twice a day. EGD planned in am ID: Pneumonia Continue abx(cefepime/azithromycin) for community-acquired pneumonia Blood cultures 2, sputum, urine, Legionella and pneumococcal urinary antigens all no growth to date Nasal washing for Influenza Negative. MSK: Left foot pain negative x-ray imaging of left ankle and foot. Osteopenia. MRI left foot-nondisplaced fractures base of 1, 2, 4 metatarsals PT evaluate and treat. Access - Utilize peripheral IV. Central line if indicated Prophylaxis - GI - Protonix - DVT - SCD/nonpharmacological DVT prophylaxis secondary to anemia/bleed Critical Care: Level 3 Physician Elva Peters MD Mar 31, 2016 17:37
[2016-03-31] MEDS: AZITHROMYCIN INJ 500 MG in SODIUM CHLOR 0.9% 250 ML INJ 250 ML IV SCH (21:17)
[2016-04-01] VITALS (11 sets, daily range): BP systolic 121–133; BP diastolic 74–87; PULSE 84–93; RESP 24–28; TEMP 97.2–99; O2SAT 92–98
[2016-04-01] MEDS: CHLORHEXIDINE GLUCONATE 2 % 1 PACK (2 CLOTHS) TOP SCH (00:32)
[2016-04-01] MEDS: CEFEPIME INJ 2,000 MG in SODIUM CHLORIDE 0.9% INJ 100 ML IV SCH ×4 (00:32→23:51)
[2016-04-01 04:34] LABS: HEMATOCRIT 32.9 % (35.0-46.0); MEAN CELL VOLUME 92.4 FL (80.0-100.0); MEAN CORPUSCULAR HEMOGLOBIN 30.1 PG (27.0-34.0); MEAN CORPUSCULAR HGB CONC 32.6 % (32.0-36.0); PLATELET COUNT 190 TH/MM3 (150-450); RED BLOOD COUNT 3.56 MIL/MM3 (4.00-5.30); RED CELL DISTRIBUTION WIDTH 18.6 % (11.6-17.2); REVIEW FLAG FINAL; WHITE BLOOD COUNT 5.2 TH/MM3 (4.0-11.0)
[2016-04-01] MEDS: RESP: ALBUTEROL 2.5 MG/IPRATROPIUM 0.5 MG NEB (SCH) INH ×5 (04:34→20:23)
[2016-04-01 04:59] LABS: BICARBONATE 33.4 MEQ/L (21.0-32.0); MAGNESIUM 1.7 MG/DL (1.5-2.5); POTASSIUM 4.2 MEQ/L (3.5-5.1)
[2016-04-01] MEDS: methylPREDNISolone SOD SUCC 40 MG/1 ML VIAL IV PUSH SCH ×3 (06:06→21:09)
[2016-04-01] MEDS: INSULIN NovoLIN REGULAR SUPPLEMENTAL SCALE SQ SCH ×3 (06:07→21:26)
[2016-04-01] MEDS: DOCUSATE SODIUM 100 MG CAP PO SCH ×2 (08:52→21:09)
[2016-04-01] MEDS: NICOTINE 14 MG/24 HR PATCH TD SCH (08:52)
[2016-04-01] MEDS: THIAMINE HCL 100 MG TAB PO SCH (08:52)
[2016-04-01] MEDS: PANTOPRAZOLE SODIUM 40 MG VIAL IV SCH ×2 (08:52→21:09)
[2016-04-01] MEDS: MULTIVITAMIN TAB PO SCH (08:52)
[2016-04-01] MEDS: FOLIC ACID 1 MG TAB PO SCH (08:52)
[2016-04-01] MEDS: ARTIFICIAL TEARS OPTH SOLN 15 ML BTL EACH EYE SCH ×3 (08:53→17:10)
[2016-04-01] MEDS: TIOTROPIUM BROMIDE 18 MCG INH INH SCH (08:53)
[2016-04-01] MEDS: BUDESONIDE-FORMOTEROL 160/4.5 MCG INHALER INH SCH ×2 (08:53→21:09)
[2016-04-01] MEDS: SODIUM CHLORIDE 0.9% FLUSH 5 ML FLUSH IV FLUSH SCH ×2 (09:00→21:09)
[2016-04-01] MEDS ORDERED: PROPOFOL 200 MG/20 ML AMP IV ONE (11:54)
[2016-04-01] MEDS ORDERED: DO NOT ADM ANY ANTICOAGULANT DRUGS XX PRN (13:00)
[2016-04-01] MEDS ORDERED: PEG (High)/E-LYTE SOLN 4000 ML BTL PO ONE (16:00)
[2016-04-01] MEDS: LORazepam 1 MG TAB PO PRN (17:09)
--- NOTE | 2016-04-01 17:41 | HHI.CCPN ---
Subjective Remarks/Hospital Course 60-year-old female. Date of admission 03/28/2016. Past medical history includes EtOH, THC. Originally from [place]. She has been hospitalized 9 times since January 2015 mostly for COPD exacerbations. She presents to [place] ED after receiving been discharged from the hospital week ago with shortness of breath she's had multiple falls including multiple bruises the bilateral upper lobe series. Per ambulance report patient drinks heavily every day and per medical records as well. She states that she ran of social breath but denies any chest pain. She does have multiple bruises on her arms and legs. Per patient she injured her left foot and is possibly broken. Patient does have an Star wrap on it has swelling and bruising on the toes. History somewhat limited from the patient is an elevated EtOH level of 200. She received a 2 L normal saline bolus in ED. Chest x-ray revealed bilateral pulmonary infiltrate. She has a leukocytosis of 22,000, and anemia 7. Sodium is 124 which is close to her baseline and low chloride of 80.. She received 3 albuterol nebulizers in the ED, 125 mg Solu- Medrol IV and 2 g of cefepime 500 mg azithromycin. She has been pancultured. She is placed on BiPAP in the ED. We are asked to admit. She states she is less dyspneic at the resident time. 03/29 Patient is on 4L oxygen with good sats. Afebrile. Subjective 03/30: Afebrile. On 3 L nasal cannula. Quite tremulous. Continues to complain of pain with her left foot. Drinking ensure. 4 BMs. 03/31 Afebrile. O2 sat 93% on 3 L nasal cannula. Patient's tolerating a clear liquid diet. MRI performed today showing nondisplaced fractures. 04/01: Patient seen by oil house attendant today, nonoperative management of nondisplaced fractures left foot. Patient underwent EGD today, tolerating clear liquid diet Objective Vital Signs Date Time Temp Pulse Resp B/P Pulse Ox O2 Delivery O2 Flow Rate FiO2 04/01/16 12:30 82 16 123/84 99 Nasal Cannula 3 04/01/16 12:05 98.0 03/28/16 23:00 100 Intake and Output 03/31/16 03/31/16 04/01/16 08:00 16:00 00:00 Intake Total 650 ml 500 ml Output Total 250 ml 700 ml Balance 400 ml -200 ml Result Diagram: 04/01/1640404/01/16404 Imaging Last Impressions Chest X-Ray 03/30/16 0600 Signed Impressions: Service Date/Time: Wednesday, March 30, 2016 02:26 - CONCLUSION: Left greater than right bibasilar consolidation not significantly changed. Rhett Dye MD Head CT 03/28/16 0000 Signed Impressions: Service Date/Time: March 21:35 - CONCLUSION: Normal examination for a patient of this age. No significant change has occurred. Dutch Fernandez MD Foot X-Ray 03/28/16 0000 Signed Impressions: Service Date/Time: March 21:23 - CONCLUSION: 1. Osteopenia. No acute fracture identified. Dutch Fernandez MD Ankle X-Ray 03/28/16 0000 Signed Impressions: Service Date/Time: March 21:25 - CONCLUSION: 1. Osteopenia. No acute findings. Dutch Fernandze MD Objective Remarks GENERAL: 60-year-old female, critically ill currently resting in bed SKIN: Warm and dry. Multiple ecchymotic bruises bilateral upper extremities. Evolving Ecchymoses below eyes bilaterally. HEAD: Atraumatic. Normocephalic. EYES: Pupils equal and round about 3 mm bilaterally and reactive. No scleral icterus. No injection or drainage. ENT: No nasal bleeding or discharge. Mucous membranes pink and moist. NECK: Trachea midline. No JVD. CARDIOVASCULAR: Tachycardic, RR. S1, S2. No S4. Without murmur RESPIRATORY: Diminished breath sounds bilateral. Minimal expiratory wheezing noted today. Breath sounds equal bilaterally. GASTROINTESTINAL: Abdomen soft, non-tender, nondistended. Hypoactive bowel sounds MUSCULOSKELETAL: Extremities without significant peripheral edema. No obvious deformities. Decreased range of motion left ankle. Pulses palpated NEUROLOGICAL: Awake and alert. Cranial nerve II-XII grossly intact. Motor grossly within normal limits 5/5 motor strength in the arms and legs. Procedures EGD today A/P Assessment and Plan Neuro/Psych: EtOH Seizures with EtOH withdrawal Posttraumatic stress disorder Toxic metabolic encephalopathy Monitor neuro status. Thiamine, folate and multivitamin daily for EtOH. Monitor for DTs CT head on admission revealed no acute intracranial findings [facility] protocol Librium 20 mg 3 times a day Patient complaining of insomnia, melatonin 10 mg daily at bedtime when necessary CV: Sinus tachycardia-resolved Lactic acidosis- resolved Monitor HR and BP keep MAP>65mmHg Normotensive Currently not requiring vasopressors and/or anti-hypertensives Resp: Acute on chronic hypoxemic respiratory failure Community-acquired pneumonia COPD/2 L O2 dependent at home Wean down oxygen as cassie keep sat > 92% currently on 3 L Incentive spirometry while awake Duo nebs every 4 hours scheduled and as needed Currently on Symbicort 160/4.5 twice a day Solu-Medrol 40 IV every 8. NIPPV PRN for resp. distress Encourage incentive spirometry every hour while awake At home on Advair 250/50 one inhalation twice a day and Spiriva 1818 daily and albuterol nebs 4 times a day GI: Clear liquid diet GI following. EGD performed today, awaiting report Protonix for GI prophylaxis Colace/as needed Senokot for bowel regimen Renal/: Monitor renal function, I/O's Electrolyte replacement per ICU protocol d/c IVF, monitor sodium level. Endo: Sliding-scale insulin with Accu-Cheks to maintain euglycemia while on steroids and low regimen Heme: Leukocytosis.. trending down-resolved Normocytic anemia s/p transfuse 1 unit of PRBCs 03/28. Transfuse 2 units 03/30 Monitor CBC/coags. Hemoccult stool 3 On Protonix 40 mg IV twice a day. ID: Pneumonia Continue abx(cefepime/azithromycin) for community-acquired pneumonia Blood cultures 2, sputum, urine, Legionella and pneumococcal urinary antigens all no growth to date Nasal washing for Influenza Negative. MSK: Left foot pain negative x-ray imaging of left ankle and foot. Osteopenia. MRI left foot-nondisplaced fractures base of 1, 2, 4 metatarsals Podiatry consulted-nonoperative management PT evaluate and treat. Access - Utilize peripheral IV. Central line if indicated Prophylaxis - GI - Protonix - DVT - SCD/nonpharmacological DVT prophylaxis secondary to anemia/bleed Critical Care: Level 2 Dispo: Transfer to [facility]. Physician Elva Peters MD Apr 01, 2016 17:41
--- NOTE | 2016-04-01 18:27 | PD.CONS ---
History of Present Illness Service Podiatry Consult Requested By ICU Reason for Consult Left foot multiple met fractures Primary Care Physician Padmini Chapa MD Diagnoses: (1) Metatarsal bone fracture History of Present Illness LEft foot pain for about a month with worsening pain left foot with recent inversion plantarflexion fall. Past Family Social History Allergies: Coded Allergies: Penicillin (Verified Allergy, Severe, CHILDHOOD, 03/28/16) Physical Exam Vital Signs Vital Signs Date Time Temp Pulse Resp B/P Pulse Ox O2 Delivery O2 Flow Rate FiO2 04/01/16 12:30 82 16 123/84 99 Nasal Cannula 3 04/01/16 12:15 88 16 127/84 99 Nasal Cannula 3 04/01/16 12:05 98.0 86 16 102/60 99 Nasal Cannula 3 04/01/16 10:36 98 Nasal Cannula 2.00 04/01/16 06:00 87 04/01/16 04:00 98.9 85 24 129/77 93 04/01/16 04:00 85 04/01/16 02:00 84 04/01/16 00:00 93 04/01/16 00:00 99.0 93 28 128/74 92 03/31/16 22:00 102 03/31/16 20:00 102 03/31/16 20:00 98.7 102 17 141/85 96 03/31/16 19:48 95 Nasal Cannula 2.00 03/31/16 19:00 96 Nasal Cannula 4.00 Physical Exam GENERAL: This is a well-nourished, well-developed patient, in no apparent distress. SKIN: No rashes, ecchymoses or lesions. Cool and dry. HEAD: Atraumatic. Normocephalic. No temporal or scalp tenderness. EYES: Pupils equal round and reactive. Extraocular motions intact. No scleral icterus. No injection or drainage. ENT: Nose without bleeding, purulent drainage or septal hematoma. Throat without erythema, tonsillar hypertrophy or exudate. Uvula midline. Airway patent. NECK: Trachea midline. No JVD or lymphadenopathy. Supple, nontender, no meningeal signs. CARDIOVASCULAR: Regular rate and rhythm without murmurs, gallops, or rubs. RESPIRATORY: Clear to auscultation. Breath sounds equal bilaterally. No wheezes , rales, or rhonchi. GASTROINTESTINAL: Abdomen soft, non-tender, nondistended. No hepato-splenomegaly , or palpable masses. No guarding. MUSCULOSKELETAL: Extremities without clubbing, cyanosis, or edema. No joint tenderness, effusion, or edema noted. No calf tenderness. Negative Homans sign bilaterally. NEUROLOGICAL: Awake and alert. Cranial nerves II through XII intact. Motor and sensory grossly within normal limits. Five out of 5 muscle strength in all muscle groups. Normal speech. Laboratory Laboratory Tests Test 04/01/16 04:05 White Blood Count 5.2 Red Blood Count 3.56 Hemoglobin 10.7 Hematocrit 32.9 Mean Corpuscular Volume 92.4 Mean Corpuscular Hemoglobin 30.1 Mean Corpuscular Hemoglobin 32.6 Concent Red Cell Distribution Width 18.6 Platelet Count 190 Mean Platelet Volume 7.6 Sodium Level 136 Potassium Level 4.2 Chloride Level 98 Carbon Dioxide Level 33.4 Anion Gap 5 Blood Urea Nitrogen 12 Creatinine 0.15 Estimat Glomerular Filtration 505 Rate Random Glucose 158 Calcium Level 8.2 Phosphorus Level 3.1 Magnesium Level 1.7 Date/Time Procedure Status Source Growth 03/29/16 06:15 Legionella Antigen - Final Complete Urine Catheterized Urine PRESUMPTIVE NEGATIVE FOR LEGIONELLA P... 03/29/16 06:15 Streptococcus pneumoniae Antigen (M - Final Complete Urine Catheterized Urine PRESUMPTIVE NEGATIVE FOR STREPTOCOCCU... 03/29/16 00:50 Influenza Types A,B Antigen (DARSHANA) - Final Complete Nasal Aspirate NEGATIVE FOR FLU A AND B ANTIGEN.... 03/29/16 00:10 Gram Stain - Final Complete Sputum Expectorated Sputum 03/29/16 00:10 Sputum Culture - Final Complete Sputum Expectorated Sputum HEAVY GROWTH NORMAL RESPIRATORY RUKHSANA 03/28/16 22:44 Aerobic Blood Culture - Preliminary Resulted Blood Peripheral NO GROWTH IN 4 DAYS 03/28/16 22:44 Anaerobic Blood Culture - Preliminary Resulted Blood Peripheral NO GROWTH IN 4 DAYS Result Diagram: 04/01/1640404/01/16404 Imaging MRI Left nondisplaced [facility] fracture 1,2,4 with no displacement or subluxation Course Left foot no edema Pulses palpable Sensation intact Tenderness along lis franc complex left foot Equines contracture left ankle 0 degrees DF Assessment and Plan Assessment and Plan Closed 1,2,4 [facility] -Plan is CAM boot WBAT with emphasis on heel strike. The Lis Franc complex is inherently unstable when fractures occur and lingering nature of pain at [facility] after TMT injury -WBAT in boot for 4-6 weeks and transition into shoe gear -Plan is f/u with Dr. Stewart on discharge in 6weeks Problem Qualifiers (1) Metatarsal bone fracture: Martín Stewart DPM Apr 01, 2016 18:27
[2016-04-01] MEDS: AZITHROMYCIN INJ 500 MG in SODIUM CHLOR 0.9% 250 ML INJ 250 ML IV SCH (21:10)
[2016-04-01] MEDS: RESP: ALBUTEROL 2.5 MG/IPRATROPIUM 0.5 MG NEB (PRN) INH (22:08)
[2016-04-01] MEDS: MELATONIN 5 MG TAB PO PRN (23:51)
[2016-04-02] VITALS (12 sets, daily range): BP systolic 115–146; BP diastolic 71–90; PULSE 79–106; RESP 17–24; TEMP 96.8–98.7; O2SAT 94–100
[2016-04-02] MEDS: RESP: ALBUTEROL 2.5 MG/IPRATROPIUM 0.5 MG NEB (SCH) INH ×2 (00:07→03:57)
[2016-04-02] MEDS: CHLORHEXIDINE GLUCONATE 2 % 1 PACK (2 CLOTHS) TOP SCH (04:46)
[2016-04-02] MEDS: methylPREDNISolone SOD SUCC 40 MG/1 ML VIAL IV PUSH SCH ×3 (06:21→21:14)
[2016-04-02] MEDS: INSULIN NovoLIN REGULAR SUPPLEMENTAL SCALE SQ SCH ×4 (07:00→21:00)
[2016-04-02] MEDS: NICOTINE 14 MG/24 HR PATCH TD SCH (08:23)
[2016-04-02] MEDS: FOLIC ACID 1 MG TAB PO SCH (08:24)
[2016-04-02] MEDS: CEFEPIME INJ 2,000 MG in SODIUM CHLORIDE 0.9% INJ 100 ML IV SCH (08:24)
[2016-04-02] MEDS: THIAMINE HCL 100 MG TAB PO SCH (08:24)
[2016-04-02] MEDS: PANTOPRAZOLE SODIUM 40 MG VIAL IV SCH (08:24)
[2016-04-02] MEDS: MULTIVITAMIN TAB PO SCH (08:24)
[2016-04-02] MEDS: DOCUSATE SODIUM 100 MG CAP PO SCH ×2 (08:24→21:13)
[2016-04-02] MEDS: SODIUM CHLORIDE 0.9% FLUSH 5 ML FLUSH IV FLUSH SCH ×2 (08:24→21:14)
[2016-04-02] MEDS: BUDESONIDE-FORMOTEROL 160/4.5 MCG INHALER INH SCH ×2 (08:25→21:00)
[2016-04-02] MEDS: ARTIFICIAL TEARS OPTH SOLN 15 ML BTL EACH EYE SCH ×3 (08:25→17:25)
[2016-04-02] MEDS: TIOTROPIUM BROMIDE 18 MCG INH INH SCH (08:25)
[2016-04-02 08:31] LABS: HEMATOCRIT 32.2 % (35.0-46.0); MEAN CELL VOLUME 91.4 FL (80.0-100.0); MEAN CORPUSCULAR HEMOGLOBIN 30.6 PG (27.0-34.0); MEAN CORPUSCULAR HGB CONC 33.5 % (32.0-36.0); PLATELET COUNT 206 TH/MM3 (150-450); RED BLOOD COUNT 3.53 MIL/MM3 (4.00-5.30); RED CELL DISTRIBUTION WIDTH 18.1 % (11.6-17.2); REVIEW FLAG FINAL; WHITE BLOOD COUNT 4.3 TH/MM3 (4.0-11.0)
[2016-04-02 08:35] LABS: INTERNATIONAL NORMALIZED RATIO 1.1 RATIO; PROTHROMBIN TIME - PATIENT 11.9 SEC (9.8-11.6)
[2016-04-02 09:04] LABS: BICARBONATE 35.8 MEQ/L (21.0-32.0); POTASSIUM 3.3 MEQ/L (3.5-5.1)
[2016-04-02] MEDS: LORazepam 2 MG TAB PO PRN ×2 (09:31→19:17)
--- NOTE | 2016-04-02 10:16 | HHI.PR ---
Subjective Remarks in no acute distress. denies sob. no fever. d/w the RN and no acute issues over night. Objective Vitals Vital Signs Date Time Temp Pulse Resp B/P Pulse Ox O2 Delivery O2 Flow Rate FiO2 04/02/16 06:00 79 04/02/16 04:00 98.7 81 18 119/71 96 04/02/16 04:00 81 04/02/16 02:00 88 04/02/16 00:00 98.4 88 24 121/90 94 04/02/16 00:00 88 04/01/16 22:00 89 04/01/16 20:23 93 Nasal Cannula 3.00 04/01/16 20:00 98.5 93 27 133/83 95 04/01/16 20:00 93 04/01/16 19:00 95 Nasal Cannula 4.00 04/01/16 17:00 121/87 04/01/16 16:00 97.6 93 24 04/01/16 12:30 82 16 123/84 99 Nasal Cannula 3 04/01/16 12:15 88 16 127/84 99 Nasal Cannula 3 04/01/16 12:05 98.0 86 16 102/60 99 Nasal Cannula 3 04/01/16 12:00 Nasal Cannula 4.00 04/01/16 10:36 98 Nasal Cannula 2.00 I/O 04/01/16 04/01/16 04/01/16 04/02/16 04/02/16 04/02/16 07:00 15:00 23:00 07:00 15:00 23:00 Intake Total 353 ml 20 ml 594 ml 460 ml Output Total 900 ml 250 ml 350 ml 500 ml Balance -547 ml -230 ml 244 ml -40 ml Intake Oral 50 ml 250 ml 200 ml IV Total 303 ml 20 ml 344 ml 260 ml Output Urine Total 900 ml 250 ml 350 ml 500 ml # Bowel Movements 0 0 0 0 Result Diagram: 04/02/16 0736 04/02/16 0736 Imaging Last Impressions Chest X-Ray 03/31/16 0600 Signed Impressions: Service Date/Time: Thursday, March 31, 2016 02:48 - CONCLUSION: Bibasilar consolidation and small effusions slightly worse than yesterday. Rhett Dye MD Foot MRI 03/31/16 0000 Signed Impressions: Service Date/Time: Thursday, March 31, 2016 11:17 - CONCLUSION: 1. Nondisplaced fractures at the base of the first, second and fourth metatarsals. 2. Primary degenerative changes at the first metatarsophalangeal joint.. 3. Nonspecific edema in the soft tissues. Rylan Morris MD Head CT 03/28/16 0000 Signed Impressions: Service Date/Time: March 21:35 - CONCLUSION: Normal examination for a patient of this age. No significant change has occurred. Dutch Fernandez MD Foot X-Ray 03/28/16 Signed Impressions: Service Date/Time: March 21:23 - CONCLUSION: 1. Osteopenia. No acute fracture identified. Dutch Fernandez MD Ankle X-Ray 03/28/16 Signed Impressions: Service Date/Time: March 21:25 - CONCLUSION: 1. Osteopenia. No acute findings. Dutch Fernandez MD Objective Remarks GENERAL: in no apparent distress. CARDIOVASCULAR: Regular rate and regular rhythm without murmurs, gallops, or rubs. RESPIRATORY: Clear to auscultation. Breath sounds equal bilaterally. No wheezes , rales, or rhonchi. GASTROINTESTINAL: Abdomen soft, non-tender, nondistended. Normal, active bowel sounds MUSCULOSKELETAL: Extremities without clubbing, cyanosis, or edema. NEURO: Alert & Oriented x4 to person, place, time, situation. Moves all ext x4 Procedures EGD Medications and IVs Current Medications Methylprednisolone Sodium Succinate 125 mg 125 mg ONCE ONCE IVP Last administered on 03/28/16 23:01; Start 03/28/16 at 21:00; Stop 03/28/16 at 21:01; Status DC Sodium Chloride 1,000 ml @ 1,000 mls/hr Q1H IV Last administered on 03/28/16 23:00; Start 03/28/16 at 21:04; Stop 03/28/16 at 22:03; Status DC Thiamine HCl/ Sodium Chloride (Thiamine Inj/NS Inj) 101 ml @ 101 mls/hr ONCE ONCE IV Last administered on 03/28/16 23:01; Start 03/28/16 at 21:15; Stop at 22:14; Status DC Ondansetron HCl (Zofran Inj) 4 mg Q8H PRN IV PUSH NAUSEA OR VOMITING; Start 03/28/16 at 22:30; Stop 03/29/16 at 00:15; Status DC Flumazenil (Romazicon Inj) 0.2 mg Q1M PRN IV PUSH SEE LABEL COMMENTS; Start 03/28/16 at 22:30; Stop 03/29/16 at 04:57; Status DC Lorazepam (Ativan) 1 mg Q4H PRN PO CIWA 8 - 10; Start 03/28/16 at 22:30; Stop at 04:57; Status DC Lorazepam (Ativan Inj) 1 mg Q4H PRN IV PUSH CIWA 8 - 10; Start 03/28/16 at 22:30 ; Stop 03/29/16 at 04:57; Status DC Lorazepam (Ativan) 2 mg Q2H PRN PO CIWA 11-14 Last administered on 03/29/16 04 :54; Start 03/28/16 at 22:30; Stop 03/29/16 at 04:57; Status DC Lorazepam (Ativan Inj) 2 mg Q2H PRN IV PUSH CIWA 11-14; Start 03/28/16 at 22:30 ; Stop 03/29/16 at 04:57; Status DC Lorazepam (Ativan Inj) 2 mg Q1H PRN IV PUSH CIWA 15-20; Start 03/28/16 at 22:30 ; Stop 03/29/16 at 04:57; Status DC Lorazepam (Ativan Inj) 2 mg Q15M PRN IV PUSH CIWA > 20; Start 03/28/16 at 22:30 ; Stop 03/29/16 at 04:57; Status DC Albuterol Sulfate 2.5 mg 2.5 mg Q15M INH Last administered on 03/28/16 22:42; Start 03/28/16 at 22:30; Stop 03/28/16 at 22:46; Status DC Sodium Chloride (NS 1000 ml Inj) 1,000 ml @ 999 mls/hr Q1H1M IV Last administered on 03/28/16 23:17; Start 03/28/16 at 22:30; Stop 03/28/16 at 23:30; Status DC IV Flush 2 ml 2 ml UNSCH PRN IVF FLUSH AFTER USING IV ACCESS; Start 03/28/16 at 23:00; Stop 03/29/16 at 00:15; Status DC Cefepime HCl 2000 mg/Sodium Chloride 100 ml @ 200 mls/hr ONCE ONCE IV Last administered on 03/28/16 23:50; Start 03/28/16 at 23:00; Stop 03/28/16 at 23:29; Status DC Azithromycin/ Sodium Chloride (Zithromax Inj/ NS 250 ml Inj) 250 ml @ 250 mls/ hr ONCE ONCE IV Last administered on 03/28/16 23:13; Start 03/28/16 at 23:00; Stop 03/28/16 at 23:59; Status DC Albuterol Sulfate (Albuterol Neb) 2.5 mg Q15M INH Last administered on 23:59; Start 03/28/16 at 23:45; Stop 03/29/16 at 00:16; Status DC Tiotropium [place] (Spiriva Inh) 18 mcg DAILY INH Last administered on 08:25; Start 03/29/16 at 09:00 Budesonide/ Formoterol Fumarate 1 puff 1 puff BID INH Last administered on 04/02 08:25; Start 03/30/16 at 09:00 Sodium Chloride (NS 1000 ml Inj) 1,000 ml @ 84 mls/hr [id number] IV Last administered on 03/29/16 01:34; Start 03/29/16 at 00:02; Stop 03/29/16 at 08:35 ; Status DC IV Flush (NS Flush) 2 ml UNSCH PRN IV FLUSH FLUSH AFTER USING IV ACCESS; Start 03/29/16 at 00:15 IV Flush (NS Flush) 2 ml BID IV FLUSH Last administered on 04/02/16 08:24; Start 03/29/16 at 09:00 Acetaminophen (Tylenol) 650 mg Q6H PRN PO PAIN 1-10 AND/OR FEVER >101F; Start 03/29/16 at 00:15 Acetaminophen/ Hydrocodone Bitart ([place] 5-325 Mg) 1 tab Q4H PRN PO PAIN SCALE 1 TO 5 Last administered on 03/29/16 13:40; Start 03/29/16 at 00:15 Morphine Sulfate (Morphine Inj) 2 mg Q2H PRN IV PAIN SCALE 6 TO 10; Start 03/29 at 00:15 Pantoprazole Sodium (Protonix Inj) 40 mg DAILY IV Last administered on 09:00; Start 03/29/16 at 09:00; Stop 03/30/16 at 16:39; Status DC Artificial Tears (Tears Naturale Opth Soln) 1 drop TID EACH EYE Last administered on 04/02/16 08:25; Start 03/29/16 at 09:00 Ondansetron HCl (Zofran Inj) 4 mg Q6H PRN IV NAUSEA OR VOMITING; Start at 00:15 Docusate Sodium (Colace) 100 mg BID PO Last administered on 04/02/16 08:24; Start 03/29/16 at 09:00 Sennosides (Senokot) 17.2 mg Q12H PRN PO CONSTIPATION; Start 03/29/16 at 00:15 Albuterol/ Ipratropium (Duoneb Neb) 1 ampule Q4HR NEB INH Last administered on 04/02/16 03:57; Start 03/29/16 at 04:00; Stop 04/02/16 at 04:00; Status DC Albuterol/ Ipratropium (Duoneb Neb) 1 ampule Q2HR NEB PRN INH WHEEZING Last administered on 04/01/16 22:08; Start 03/29/16 at 00:15 Heparin Sodium (Porcine) (Heparin Inj) 5,000 units Q12H SQ Last administered on 03/30/16 08:38; Start 03/29/16 at 09:00; Status Hold Miscellaneous Information 1 [id number] ; Start 03/29/16 at 00:15 Chlorhexidine Gluconate (Chlorhexidine 2% Cloth) 3 pack Taper DAILY@04 TOP Last administered on 04/02/16 04:46; Start 03/29/16 at 04:00; Stop 03/25/17 at 03:59 Chlorhexidine Gluconate 3 pack 3 pack UNSCH PRN TOP HYGIENIC CARE; Start at 00:15 Cefepime HCl 2000 mg/Sodium Chloride 100 ml @ 200 mls/hr Q8H IV Last administered on 04/02/16 08:24; Start 03/29/16 at 08:00 Azithromycin/ Sodium Chloride (Zithromax Inj/ NS 250 ml Inj) 250 ml @ 250 mls/ hr Q24H IV Last administered on 04/01/16 21:10; Start 03/29/16 at 23:00 Methylprednisolone Sodium Succinate (SoluMEDROL INJ) 40 mg Q8HR IV PUSH Last administered on 04/02/16 06:21; Start 03/29/16 at 06:00 Dextrose (D50w (Vial) Inj) 25 ml UNSCH PRN IV PUSH HYPOGLYCEMIA-SEE COMMENTS; Start 03/29/16 at 00:30; Stop 03/29/16 at 04:53; Status DC Glucagon (Glucagon Inj) 1 mg UNSCH PRN OTHER HYPOGLYCEMIA-SEE COMMENTS; Start 03/29/16 at 00:30; Stop 03/29/16 at 04:53; Status DC Insulin Human Regular (NovoLIN R SUPPLEMENTAL SCALE) 1 ACHS SLIDING SCALE SQ ; Start 03/29/16 at 07:00; Stop 03/29/16 at 07:00; Status DC Flumazenil (Romazicon Inj) 0.2 mg Q1M PRN IV PUSH SEE LABEL COMMENTS; Start 12/03 at 04:30 Lorazepam (Ativan) 1 mg Q4H PRN PO CIWA 8 - 10 Last administered on 04/01/16 17:09; Start 03/29/16 at 04:30 Lorazepam (Ativan Inj) 1 mg Q4H PRN IV PUSH CIWA 8 - 10 Last administered on 04:29; Start 03/29/16 at 04:30 Lorazepam (Ativan) 2 mg Q2H PRN PO CIWA 11-14 Last administered on 04/02/16 09 :31; Start 03/29/16 at 04:30 Lorazepam (Ativan Inj) 2 mg Q2H PRN IV PUSH CIWA 11-14 Last administered on 22:00; Start 03/29/16 at 04:30 Lorazepam (Ativan Inj) 2 mg Q1H PRN IV PUSH CIWA 15-20 Last administered on 23:07; Start 03/29/16 at 04:30 Lorazepam (Ativan Inj) 2 mg Q15M PRN IV PUSH CIWA > 20; Start 03/29/16 at 04:30 Nicotine (Habitrol 14 Mg Patch.24 Hr) 1 patch DAILY TD Last administered on 08:23; Start 03/29/16 at 09:00 Dextrose (D50w (Vial) Inj) 25 ml UNSCH PRN IV PUSH HYPOGLYCEMIA-SEE COMMENTS; Start 03/29/16 at 04:45 Glucagon (Glucagon Inj) 1 mg UNSCH PRN OTHER HYPOGLYCEMIA-SEE COMMENTS; Start 03/29/16 at 04:45 Insulin Human Regular (NovoLIN R SUPPLEMENTAL SCALE) 1 ACHS SLIDING SCALE SQ Last administered on 04/01/16 21:26; Start 03/29/16 at 07:00 Thiamine HCl (Vitamin B1) 100 mg DAILY PO Last administered on 04/02/16 08:24 ; Start 03/29/16 at 09:00 Folic Acid (Folate) 1 mg DAILY PO Last administered on 04/02/16 08:24; Start 03/29/16 at 09:00 Multivitamins (Theragran) 1 tab DAILY PO Last administered on 04/02/16 08:24; Start 03/29/16 at 09:00 Furosemide (Lasix Inj) 20 mg ONCE ONCE IV PUSH Last administered on 03/30/16 13:30; Start 03/30/16 at 10:45; Stop 03/30/16 at 10:46; Status DC Chlordiazepoxide (Librium) 20 mg Q8HR PO Last administered on 04/02/16 06:21; Start 03/30/16 at 22:00 Pantoprazole Sodium 40 mg 40 mg BID IV Last administered on 04/02/16 08:24; Start 03/30/16 at 21:00 Magnesium Sulfate/ Dextrose 100 ml @ 100 mls/hr Q1H IV Last administered on 18:23; Start 03/30/16 at 17:00; Stop 03/30/16 at 18:59; Status DC Potassium Phosphate/Sodium Chloride (Potassium Phosphate Inj/NS Inj) 155 ml @ 38.75 mls/ hr ONCE ONCE IV Last administered on 03/30/16 20:28; Start at 18:00; Stop 03/30/16 at 21:59; Status DC Polyethylene Glycol/ Electrolytes (Colyte Liq) 4,000 ml ONCE ONCE PO ; Start at 16:00; Stop 04/01/16 at 16:00; Status DC Miscellaneous Information ALL NURSING DEPARTME... UNSCH PRN XX SEE LABEL COMMENTS; Start 04/01/16 at 13:00; Stop 04/02/16 at 12:59 Propofol (Diprivan 200 Mg/20 ml Inj) 100 mg STK-MED ONCE IV ; Start 04/01/16 at 11:54; Stop 04/01/16 at 13:15; Status DC Melatonin (Melatonin) 5 mg HS PRN PO INSOMNIA Last administered on 04/01/16t 23 :51; Start 04/01/16 at 17:45 A/P Assessment and Plan A/P EtOH Seizures with EtOH withdrawal Posttraumatic stress disorder Toxic metabolic encephalopathy Monitor neuro status. Thiamine, folate and multivitamin daily for EtOH. Monitor for DTs CT head on admission revealed no acute intracranial findings [facility] protocol start to taper down librium Patient complaining of insomnia, melatonin 10 mg daily at bedtime when necessary Sinus tachycardia-resolved Lactic acidosis- resolved Monitor HR and BP keep MAP>65mmHg Normotensive Currently not requiring vasopressors and/or anti-hypertensives Acute on chronic hypoxemic respiratory failure Community-acquired pneumonia COPD/2 L O2 dependent at home Wean down oxygen as cassie keep sat > 92% currently on 3 L Incentive spirometry while awake Duo nebs every 4 hours scheduled and as needed Currently on Symbicort 160/4.5 twice a day start to taper down Solu-Medrol . Encouraged incentive spirometry every hour while awake At home on Advair 250/50 one inhalation twice a day and Spiriva 1818 daily and albuterol nebs 4 times a day -GI bleed Clear liquid diet GI following. EGD performed with gastritis/ duodenitis and duodenal bulb ulcer continue Protonix Colace/as needed Senokot for bowel regimen Sliding-scale insulin with Accu-Cheks to maintain euglycemia while on steroids and low regimen Leukocytosis.. trending down-resolved Normocytic anemia s/p transfuse 1 unit of PRBCs 03/28. Transfused 2 units 03/30 Monitor CBC/coags. Hemoccult stool 3 On Protonix Pneumonia change to levaquin CXR in am Blood cultures 2, sputum, urine, Legionella and pneumococcal urinary antigens all no growth to date Nasal washing for Influenza Negative. Left foot pain negative x-ray imaging of left ankle and foot. Osteopenia. MRI left foot-nondisplaced fractures base of 1, 2, 4 metatarsals Podiatry consulted-nonoperative management- f/u as outpatient PT evaluate and treat. transfer to telemetry soon. Jonah Soni MD Apr 02, 2016 10:16
[2016-04-02] MEDS: RESP: ALBUTEROL 2.5 MG/IPRATROPIUM 0.5 MG NEB (PRN) INH ×2 (12:17→17:34)
[2016-04-02] MEDS: LEVOFLOXACIN 500 MG TAB PO SCH (12:44)
[2016-04-02] MEDS: ACETAMINOPHEN/HYDROcodone 325 MG/5 MG TAB PO PRN (13:26)
[2016-04-02] MEDS: LORazepam 2 MG/ML VIAL IV PUSH PRN (14:14)
--- NOTE | 2016-04-02 15:57 | HHI.GIFU ---
Subjective Remarks REsting in bed. Upset because she did not get anything to eat until this afternoon. No n/v. No abdominal pain. States no further bleeding. (Mima Thomson) Objective Vitals I&O Vital Signs Date Time Temp Pulse Resp B/P Pulse Ox O2 Delivery O2 Flow Rate FiO2 04/02/16 12:18 94 Nasal Cannula 2.00 04/02/16 12:00 86 04/02/16 12:00 98.7 86 22 146/82 96 04/02/16 10:00 85 04/02/16 08:00 80 04/02/16 08:00 98.3 79 17 131/76 96 04/02/16 07:00 95 Nasal Cannula 4.00 04/02/16 06:00 79 04/02/16 04:00 98.7 81 18 119/71 96 04/02/16 04:00 81 04/02/16 02:00 88 04/02/16 00:00 98.4 88 24 121/90 94 04/02/16 00:00 88 04/01/16 22:00 89 04/01/16 20:23 93 Nasal Cannula 3.00 04/01/16 20:00 98.5 93 27 133/83 95 04/01/16 20:00 93 04/01/16 19:00 95 Nasal Cannula 4.00 04/01/16 17:00 121/87 04/01/16 16:00 97.6 93 24 I/O 04/01/16 04/01/16 04/01/16 04/02/16 04/02/16 04/02/16 07:00 15:00 23:00 07:00 15:00 23:00 Intake Total 353 ml 20 ml 594 ml 460 ml 250 ml Output Total 900 ml 250 ml 350 ml 500 ml 550 ml Balance -547 ml -230 ml 244 ml -40 ml -300 ml Intake Oral 50 ml 250 ml 200 ml 100 ml IV Total 303 ml 20 ml 344 ml 260 ml 150 ml Output Urine Total 900 ml 250 ml 350 ml 500 ml 550 ml # Bowel Movements 0 0 0 0 0 Laboratory Laboratory Tests Test 04/02/16 07:36 White Blood Count 4.3 Red Blood Count 3.53 Hemoglobin 10.8 Hematocrit 32.2 Mean Corpuscular Volume 91.4 Mean Corpuscular Hemoglobin 30.6 Mean Corpuscular Hemoglobin 33.5 Concent Red Cell Distribution Width 18.1 Platelet Count 206 Mean Platelet Volume 7.4 Prothrombin Time 11.9 Prothromb Time International 1.1 Ratio Sodium Level 138 Potassium Level 3.3 Chloride Level 96 Carbon Dioxide Level 35.8 Anion Gap 6 Blood Urea Nitrogen 9 Creatinine 0.15 Estimat Glomerular Filtration 505 Rate Random Glucose 101 Calcium Level 8.2 Date/Time Procedure Status Source Growth 03/29/16 06:15 Legionella Antigen - Final Complete Urine Catheterized Urine PRESUMPTIVE NEGATIVE FOR LEGIONELLA P... 03/29/16 06:15 Streptococcus pneumoniae Antigen (M - Final Complete Urine Catheterized Urine PRESUMPTIVE NEGATIVE FOR STREPTOCOCCU... 03/29/16 00:50 Influenza Types A,B Antigen (DARSHANA) - Final Complete Nasal Aspirate NEGATIVE FOR FLU A AND B ANTIGEN.... 03/29/16 00:10 Gram Stain - Final Complete Sputum Expectorated Sputum 03/29/16 00:10 Sputum Culture - Final Complete Sputum Expectorated Sputum HEAVY GROWTH NORMAL RESPIRATORY RUKHSANA 03/28/16 22:44 Aerobic Blood Culture - Final Complete Blood Peripheral NO GROWTH IN 5 DAYS 03/28/16 22:44 Anaerobic Blood Culture - Final Complete Blood Peripheral NO GROWTH IN 5 DAYS Imaging Last Impressions Chest X-Ray 03/31/16 0600 Signed Impressions: Service Date/Time: Thursday, March 31, 2016 02:48 - CONCLUSION: Bibasilar consolidation and small effusions slightly worse than yesterday. Rhett Dye MD Foot MRI 03/31/16 0000 Signed Impressions: Service Date/Time: Thursday, March 31, 2016 11:17 - CONCLUSION: 1. Nondisplaced fractures at the base of the first, second and fourth metatarsals. 2. Primary degenerative changes at the first metatarsophalangeal joint.. 3. Nonspecific edema in the soft tissues. Rylan Morris MD Head CT 03/28/16 0000 Signed Impressions: Service Date/Time: March 21:35 - CONCLUSION: Normal examination for a patient of this age. No significant change has occurred. Dutch Fernandez MD Foot X-Ray 03/28/16 0000 Signed Impressions: Service Date/Time: March 21:23 - CONCLUSION: 1. Osteopenia. No acute fracture identified. Dutch Fernandez MD Ankle X-Ray 03/28/16 0000 Signed Impressions: Service Date/Time: March 21:25 - CONCLUSION: 1. Osteopenia. No acute findings. Dutch Fernandez MD Physical Exam HEENT: Normocephalic; atraumatic; no jaundice CHEST: CTA CARDIAC: RRR ABDOMEN: Soft, nondistended, nontender; no hepatosplenomegaly; bowel sounds are present in all four quadrants. EXTREMITIES: No clubbing, cyanosis, or edema. SKIN: Multiple ecchymotic areas [employer]EW[employer]ADER: No focal deficits; alert and oriented times three. (Mima Thomson) Assessment and Plan Plan ASSESSMENT: - Melena. S/P EGD (04/01/16)---> duodenitis, gastritis, duodenal bulb ulcer, hiatal hernia. Pathology pending. .2. PPI - Anemia, acute blood loss. S/P 2 units PRBC. 32.2. - AMS, Encephalopathy, IMPROVED. Alert/Oriented x 3 - Acute on chronic respiratory failure. Per pulmonary - Hypokalemia, replacement per primary PLAN: - ANASTASIIA, ensure per patient request - Await pathology - Change protonix to po - Monitor HH - No NSAIDs, No ETOH - FU DENI 2 weeks - GI will sign off, please reconsult as needed - Pt seen and examined by Dr. Ledezma and myself and this note is written on his behalf (Mima Thomson) Physician Comments seen, examined agree with above we will consider colonoscopy op at the time of repeat egd, unless indicated otherwise (Jerica Ledezma MD) Mima Thomson Apr 02, 2016 15:57 Jerica Ledezma MD Apr 02, 2016 17:24
[2016-04-02] MEDS: PANTOPRAZOLE SOD 40 MG DELAYED RELEASE TAB PO SCH (21:13)
[2016-04-02] MEDS: MELATONIN 5 MG TAB PO PRN (21:15)
[2016-04-03] VITALS: BP 117/75; PULSE 100; RESP 16; TEMP 97.8; O2SAT 94
[2016-04-03] MEDS: LORazepam 2 MG TAB PO PRN (00:35)
[2016-04-03] MEDS: CHLORHEXIDINE GLUCONATE 2 % 1 PACK (2 CLOTHS) TOP SCH (03:47)
[2016-04-03 04:00] VITALS: BP 108/67; PULSE 92; RESP 16; TEMP 96.3; O2SAT 95
--- NOTE | 2016-04-03 05:08 | RADRPT ---
EXAM DATE/TIME: 04/03/2016 04:21 [place] COMPARISON: CHEST SINGLE AP, March 31, 2016, 2:48. INDICATIONS : Shortness of breath, possible pulmonary disease. MEDICAL HISTORY : Chronic obstructive pulmonary disease. SURGICAL HISTORY : None. ENCOUNTER: Subsequent ACUITY: 1 week PAIN SCORE: 0/10 LOCATION: Bilateral chest FINDINGS: The cardiac silhouette is normal in transverse diameter. There is prominence of the central pulmonary vasculature with indistinct vascular margins compatible with vascular congestion but no evidence of overt failure. The findings are improved when compared with the prior exam. Moderate size bilateral p leural effusions are present left greater than right. CONCLUSION: 1. Cardiomegaly and findings of vascular congestion without overt failure. The findings have improved when compared with the prior exam. 2. Bilateral pleural effusions Jarocho Cruz MD on April 03, 2016 at 5:06 Board Certified Radiologist. This report was verified electronically.
[2016-04-03] MEDS: methylPREDNISolone SOD SUCC 40 MG/1 ML VIAL IV PUSH SCH (05:15)
[2016-04-03] MEDS: INSULIN NovoLIN REGULAR SUPPLEMENTAL SCALE SQ SCH (06:03)
[2016-04-03 07:50] VITALS: BP 128/83; PULSE 96; RESP 20; TEMP 97.3; O2SAT 94
[2016-04-03 08:30] VITALS: O2SAT 93
[2016-04-03] MEDS: DOCUSATE SODIUM 100 MG CAP PO SCH (09:12)
[2016-04-03] MEDS: FOLIC ACID 1 MG TAB PO SCH (09:12)
[2016-04-03] MEDS: MULTIVITAMIN TAB PO SCH (09:12)
[2016-04-03] MEDS: PANTOPRAZOLE SOD 40 MG DELAYED RELEASE TAB PO SCH (09:12)
[2016-04-03] MEDS: THIAMINE HCL 100 MG TAB PO SCH (09:12)
--- NOTE | 2016-04-03 09:16 | HHI.PR ---
Subjective Remarks resting comfortably with no distress. afebrile. d/w the RN and no acute issues over night. Objective Vitals Vital Signs Date Time Temp Pulse Resp B/P Pulse Ox O2 Delivery O2 Flow Rate FiO2 04/03/16 07:50 97.3 96 20 128/83 94 04/03/16 04:00 96.3 92 16 108/67 95 04/03/16 00:00 97.8 100 16 117/75 94 04/02/16 21:00 95 Nasal Cannula 2.00 04/02/16 20:00 96.8 106 18 115/73 95 04/02/16 17:34 100 Nasal Cannula 2.00 04/02/16 16:00 97.8 98 20 117/78 98 04/02/16 15:00 95 04/02/16 12:18 94 Nasal Cannula 2.00 04/02/16 12:00 86 04/02/16 12:00 98.7 86 22 146/82 96 04/02/16 10:00 85 I/O 04/02/16 04/02/16 04/02/16 04/03/16 04/03/16 04/03/16 07:00 15:00 23:00 07:00 15:00 23:00 Intake Total 460 ml 250 ml 1200 ml 450 ml Output Total 500 ml 550 ml 1000 ml 300 ml Balance -40 ml -300 ml 200 ml 150 ml Intake Oral 200 ml 100 ml 1200 ml 450 ml IV Total 260 ml 150 ml Output Urine Total 500 ml 550 ml 1000 ml 300 ml # Bowel Movements 0 0 0 0 Result Diagram: 04/02/16 0736 04/02/16 0736 Imaging Last Impressions Chest X-Ray 04/03/16 0600 Signed Impressions: Service Date/Time: Sunday, April 03, 2016 04:21 - CONCLUSION: 1. Cardiomegaly and findings of vascular congestion without overt failure. The findings have improved when compared with the prior exam. 2. Bilateral pleural effusions Jarocho Cruz MD Foot MRI 03/31/16 0000 Signed Impressions: Service Date/Time: Thursday, March 31, 2016 11:17 - CONCLUSION: 1. Nondisplaced fractures at the base of the first, second and fourth metatarsals. 2. Primary degenerative changes at the first metatarsophalangeal joint.. 3. Nonspecific edema in the soft tissues. Rylan Morris MD Head CT 03/28/16 0000 Signed Impressions: Service Date/Time: March 21:35 - CONCLUSION: Normal examination for a patient of this age. No significant change has occurred. Dutch Fernandez MD Foot X-Ray 03/28/16 0000 Signed Impressions: Service Date/Time: March 21:23 - CONCLUSION: 1. Osteopenia. No acute fracture identified. Dutch Fernandez MD Ankle X-Ray 03/28/16 0000 Signed Impressions: Service Date/Time: March 21:25 - CONCLUSION: 1. Osteopenia. No acute findings. Dutch Fernandez MD Objective Remarks GENERAL: in no apparent distress. CARDIOVASCULAR: Regular rate and regular rhythm without murmurs, gallops, or rubs. RESPIRATORY: Clear to auscultation. Breath sounds equal bilaterally. No wheezes , rales, or rhonchi. GASTROINTESTINAL: Abdomen soft, non-tender, nondistended. Normal, active bowel sounds MUSCULOSKELETAL: Extremities without clubbing, cyanosis, or edema. NEURO: Alert & Oriented x4 to person, place, time, situation. Moves all ext x4 Procedures EGD Medications and IVs Current Medications Methylprednisolone Sodium Succinate 125 mg 125 mg ONCE ONCE IVP Last administered on 03/28/16 23:01; Start 03/28/16 at 21:00; Stop 03/28/16 at 21:01; Status DC Sodium Chloride 1,000 ml @ 1,000 mls/hr Q1H IV Last administered on 03/28/16 23:00; Start 03/28/16 at 21:04; Stop 03/28/16 at 22:03; Status DC Thiamine HCl/ Sodium Chloride (Thiamine Inj/NS Inj) 101 ml @ 101 mls/hr ONCE ONCE IV Last administered on 03/28/16 23:01; Start 03/28/16 at 21:15; Stop at 22:14; Status DC Ondansetron HCl (Zofran Inj) 4 mg Q8H PRN IV PUSH NAUSEA OR VOMITING; Start 03/28/16 at 22:30; Stop 03/29/16 at 00:15; Status DC Flumazenil (Romazicon Inj) 0.2 mg Q1M PRN IV PUSH SEE LABEL COMMENTS; Start 03/28/16 at 22:30; Stop 03/29/16 at 04:57; Status DC Lorazepam (Ativan) 1 mg Q4H PRN PO CIWA 8 - 10; Start 03/28/16 at 22:30; Stop at 04:57; Status DC Lorazepam (Ativan Inj) 1 mg Q4H PRN IV PUSH CIWA 8 - 10; Start 03/28/16 at 22:30 ; Stop 03/29/16 at 04:57; Status DC Lorazepam (Ativan) 2 mg Q2H PRN PO CIWA 11-14 Last administered on 03/29/16 04 :54; Start 03/28/16 at 22:30; Stop 03/29/16 at 04:57; Status DC Lorazepam (Ativan Inj) 2 mg Q2H PRN IV PUSH CIWA 11-14; Start 03/28/16 at 22:30 ; Stop 03/29/16 at 04:57; Status DC Lorazepam (Ativan Inj) 2 mg Q1H PRN IV PUSH CIWA 15-20; Start 03/28/16 at 22:30 ; Stop 03/29/16 at 04:57; Status DC Lorazepam (Ativan Inj) 2 mg Q15M PRN IV PUSH CIWA > 20; Start 03/28/16 at 22:30 ; Stop 03/29/16 at 04:57; Status DC Albuterol Sulfate 2.5 mg 2.5 mg Q15M INH Last administered on 03/28/16 22:42; Start 03/28/16 at 22:30; Stop 03/28/16 at 22:46; Status DC Sodium Chloride (NS 1000 ml Inj) 1,000 ml @ 999 mls/hr Q1H1M IV Last administered on 03/28/16 23:17; Start 03/28/16 at 22:30; Stop 03/28/16 at 23:30; Status DC IV Flush 2 ml 2 ml UNSCH PRN IVF FLUSH AFTER USING IV ACCESS; Start 03/28/16 at 23:00; Stop 03/29/16 at 00:15; Status DC Cefepime HCl 2000 mg/Sodium Chloride 100 ml @ 200 mls/hr ONCE ONCE IV Last administered on 03/28/16 23:50; Start 03/28/16 at 23:00; Stop 03/28/16 at 23:29; Status DC Azithromycin/ Sodium Chloride (Zithromax Inj/ NS 250 ml Inj) 250 ml @ 250 mls/ hr ONCE ONCE IV Last administered on 03/28/16 23:13; Start 03/28/16 at 23:00; Stop 03/28/16 at 23:59; Status DC Albuterol Sulfate (Albuterol Neb) 2.5 mg Q15M INH Last administered on 23:59; Start 03/28/16 at 23:45; Stop 03/29/16 at 00:16; Status DC Tiotropium [place] (Spiriva Inh) 18 mcg DAILY INH Last administered on 08:25; Start 03/29/16 at 09:00 Budesonide/ Formoterol Fumarate 1 puff 1 puff BID INH Last administered on 04/02 21:00; Start 03/30/16 at 09:00 Sodium Chloride (NS 1000 ml Inj) 1,000 ml @ 84 mls/hr [id number] IV Last administered on 03/29/16 01:34; Start 03/29/16 at 00:02; Stop 03/29/16 at 08:35 ; Status DC IV Flush (NS Flush) 2 ml UNSCH PRN IV FLUSH FLUSH AFTER USING IV ACCESS; Start 03/29/16 at 00:15 IV Flush (NS Flush) 2 ml BID IV FLUSH Last administered on 04/02/16 21:14; Start 03/29/16 at 09:00 Acetaminophen (Tylenol) 650 mg Q6H PRN PO PAIN 1-10 AND/OR FEVER >101F; Start 03/29/16 at 00:15 Acetaminophen/ Hydrocodone Bitart ([place] 5-325 Mg) 1 tab Q4H PRN PO PAIN SCALE 1 TO 5 Last administered on 04/02/16 13:26; Start 03/29/16 at 00:15 Morphine Sulfate (Morphine Inj) 2 mg Q2H PRN IV PAIN SCALE 6 TO 10; Start 03/29 at 00:15 Pantoprazole Sodium (Protonix Inj) 40 mg DAILY IV Last administered on 09:00; Start 03/29/16 at 09:00; Stop 03/30/16 at 16:39; Status DC Artificial Tears (Tears Naturale Opth Soln) 1 drop TID EACH EYE Last administered on 04/02/16 17:25; Start 03/29/16 at 09:00 Ondansetron HCl (Zofran Inj) 4 mg Q6H PRN IV NAUSEA OR VOMITING; Start at 00:15 Docusate Sodium (Colace) 100 mg BID PO Last administered on 04/02/16 21:13; Start 03/29/16 at 09:00 Sennosides (Senokot) 17.2 mg Q12H PRN PO CONSTIPATION; Start 03/29/16 at 00:15 Albuterol/ Ipratropium (Duoneb Neb) 1 ampule Q4HR NEB INH Last administered on 04/02/16 03:57; Start 03/29/16 at 04:00; Stop 04/02/16 at 04:00; Status DC Albuterol/ Ipratropium (Duoneb Neb) 1 ampule Q2HR NEB PRN INH WHEEZING Last administered on 04/02/16 17:34; Start 03/29/16 at 00:15 Heparin Sodium (Porcine) (Heparin Inj) 5,000 units Q12H SQ Last administered on 03/30/16 08:38; Start 03/29/16 at 09:00; Status Hold Miscellaneous Information 1 Q361D XX ; Start 03/29/16 at 00:15 Chlorhexidine Gluconate (Chlorhexidine 2% Cloth) Taper DAILY@04 TOP Last administered on 04/02/16 04:46; Start 03/29/16 at 04:00; Stop 03/25/17 at 03:59 Chlorhexidine Gluconate 3 pack 3 pack UNSCH PRN TOP HYGIENIC CARE; Start at 00:15 Cefepime HCl 2000 mg/Sodium Chloride 100 ml @ 200 mls/hr Q8H IV Last administered on 04/02/16 08:24; Start 03/29/16 at 08:00; Stop 04/02/16 at 10:12 ; Status DC Azithromycin/ Sodium Chloride (Zithromax Inj/ NS 250 ml Inj) 250 ml @ 250 mls/ hr Q24H IV Last administered on 04/01/16 21:10; Start 03/29/16 at 23:00; Stop 04/02/16 at 10:12; Status DC Methylprednisolone Sodium Succinate (SoluMEDROL INJ) 40 mg Q8HR IV PUSH Last administered on 04/02/16 06:21; Start 03/29/16 at 06:00; Stop 04/02/16 at 10:12 ; Status DC Dextrose (D50w (Vial) Inj) 25 ml UNSCH PRN IV PUSH HYPOGLYCEMIA-SEE COMMENTS; Start 03/29/16 at 00:30; Stop 03/29/16 at 04:53; Status DC Glucagon (Glucagon Inj) 1 mg UNSCH PRN OTHER HYPOGLYCEMIA-SEE COMMENTS; Start 03/29/16 at 00:30; Stop 03/29/16 at 04:53; Status DC Insulin Human Regular (NovoLIN R SUPPLEMENTAL SCALE) 1 ACHS SLIDING SCALE SQ ; Start 03/29/16 at 07:00; Stop 03/29/16 at 07:00; Status DC Flumazenil (Romazicon Inj) 0.2 mg Q1M PRN IV PUSH SEE LABEL COMMENTS; Start 12/03 at 04:30 Lorazepam (Ativan) 1 mg Q4H PRN PO CIWA 8 - 10 Last administered on 04/01/16 17:09; Start 03/29/16 at 04:30 Lorazepam (Ativan Inj) 1 mg Q4H PRN IV PUSH CIWA 8 - 10 Last administered on 04:29; Start 03/29/16 at 04:30 Lorazepam (Ativan) 2 mg Q2H PRN PO CIWA 11-14 Last administered on 04/03/16 00 :35; Start 03/29/16 at 04:30 Lorazepam (Ativan Inj) 2 mg Q2H PRN IV PUSH CIWA 11-14 Last administered on 14:14; Start 03/29/16 at 04:30 Lorazepam (Ativan Inj) 2 mg Q1H PRN IV PUSH CIWA 15-20 Last administered on 23:07; Start 03/29/16 at 04:30 Lorazepam (Ativan Inj) 2 mg Q15M PRN IV PUSH CIWA > 20; Start 03/29/16 at 04:30 Nicotine (Habitrol 14 Mg Patch.24 Hr) 1 patch DAILY TD Last administered on 08:23; Start 03/29/16 at 09:00 Dextrose (D50w (Vial) Inj) 25 ml UNSCH PRN IV PUSH HYPOGLYCEMIA-SEE COMMENTS; Start 03/29/16 at 04:45 Glucagon (Glucagon Inj) 1 mg UNSCH PRN OTHER HYPOGLYCEMIA-SEE COMMENTS; Start 03/29/16 at 04:45 Insulin Human Regular (NovoLIN R SUPPLEMENTAL SCALE) 1 ACHS SLIDING SCALE SQ Last administered on 04/01/16 21:26; Start 03/29/16 at 07:00 Thiamine HCl (Vitamin B1) 100 mg DAILY PO Last administered on 04/02/16 08:24 ; Start 03/29/16 at 09:00 Folic Acid (Folate) 1 mg DAILY PO Last administered on 04/02/16 08:24; Start 03/29/16 at 09:00 Multivitamins (Theragran) 1 tab DAILY PO Last administered on 04/02/16 08:24; Start 03/29/16 at 09:00 Furosemide (Lasix Inj) 20 mg ONCE ONCE IV PUSH Last administered on 03/30/16 13:30; Start 03/30/16 at 10:45; Stop 03/30/16 at 10:46; Status DC Chlordiazepoxide (Librium) 20 mg Q8HR PO Last administered on 04/02/16 06:21; Start 03/30/16 at 22:00; Stop 04/02/16 at 10:13; Status DC Pantoprazole Sodium 40 mg 40 mg BID IV Last administered on 04/02/16 08:24; Start 03/30/16 at 21:00; Stop 04/02/16 at 15:58; Status DC Magnesium Sulfate/ Dextrose 100 ml @ 100 mls/hr Q1H IV Last administered on 18:23; Start 03/30/16 at 17:00; Stop 03/30/16 at 18:59; Status DC Potassium Phosphate/Sodium Chloride (Potassium Phosphate Inj/NS Inj) 155 ml @ 38.75 mls/ hr ONCE ONCE IV Last administered on 03/30/16 20:28; Start at 18:00; Stop 03/30/16 at 21:59; Status DC Polyethylene Glycol/ Electrolytes (Colyte Liq) 4,000 ml ONCE ONCE PO ; Start at 16:00; Stop 04/01/16 at 16:00; Status DC Miscellaneous Information ALL NURSING DEPARTME... UNSCH PRN XX SEE LABEL COMMENTS; Start 04/01/16 at 13:00; Stop 04/02/16 at 12:59; Status DC Propofol (Diprivan 200 Mg/20 ml Inj) 100 mg STK-MED ONCE IV ; Start 04/01/16 at 11:54; Stop 04/01/16 at 13:15; Status DC Melatonin (Melatonin) 5 mg HS PRN PO INSOMNIA Last administered on 04/02/16 21 :15; Start 04/01/16 at 17:45 Chlordiazepoxide (Librium) 15 mg Q8HR PO Last administered on 04/03/16 05:15; Start 04/02/16 at 14:00 Methylprednisolone Sodium Succinate (SoluMEDROL INJ) 20 mg Q8HR IV PUSH Last administered on 04/03/16 05:15; Start 04/02/16 at 14:00 Levofloxacin (Levaquin) 500 mg Q24H PO Last administered on 04/02/16 12:44; Start 04/02/16 at 11:00 Pantoprazole Sodium (Protonix) 40 mg Q12HR PO Last administered on 04/02/16 21 :13; Start 04/02/16 at 21:00 A/P Assessment and Plan A/P EtOH Seizures with EtOH withdrawal Posttraumatic stress disorder Toxic metabolic encephalopathy Thiamine, folate and multivitamin daily for EtOH. CT head on admission revealed no acute intracranial findings continue to taper down librium Sinus tachycardia-resolved Lactic acidosis- resolved Acute on chronic hypoxemic respiratory failure- improved. Community-acquired pneumonia COPD/2 L O2 dependent at home Currently on Symbicort 160/4.5 twice a day switch to po prednisone Encouraged incentive spirometry every hour while awake At home on Advair 250/50 one inhalation twice a day and Spiriva 1818 daily and albuterol nebs 4 times a day -GI bleed Clear liquid diet GI following. EGD performed with gastritis/ duodenitis and duodenal bulb ulcer and hiatal hernia continue Protonix GI signed off- f/u as outpatient. Sliding-scale insulin with Accu-Cheks to maintain euglycemia while on steroids and low regimen Leukocytosis.. trending down-resolved Normocytic anemia s/p transfuse 1 unit of PRBCs 03/28. Transfused 2 units 03/30 On Protonix Pneumonia changed to levaquin CXR today with overall improvement. Blood cultures 2, sputum, urine, Legionella and pneumococcal urinary antigens all no growth to date Nasal washing for Influenza Negative. Left foot pain negative x-ray imaging of left ankle and foot. Osteopenia. MRI left foot-nondisplaced fractures base of 1, 2, 4 metatarsals Podiatry consulted-nonoperative management- f/u as outpatient PT evaluate and treat. Discharge Planning rehab was offered but the patient wants to go home. dc home with [facility] today. see med list. f/u with pcp, GI and podiatry. d/w the patient and RN. time spent 35 min. Joanh Soni MD Apr 03, 2016 09:16
[2016-04-03] MEDS ORDERED: LEVA500T PO (09:23)
[2016-04-03] MEDS ORDERED: SPIRCAP INH (09:23)
[2016-04-03] MEDS ORDERED: VITA100T2 PO (09:23)
[2016-04-03] MEDS ORDERED: PRED5TAB PO (09:23)
[2016-04-03] MEDS ORDERED: THERTAB15 PO (09:23)
[2016-04-03] MEDS ORDERED: CHLO5CAP3 PO (09:23)
[2016-04-03] MEDS ORDERED: PANT40TA3 PO (09:23)
[2016-04-03] MEDS ORDERED: FOLI1TAB4 PO (09:23)
[2016-04-03] MEDS ORDERED: SYMB160A INH (09:23)
--- NOTE | 2016-04-03 09:24 | HHI.DCPOC ---
Discharge Care Plan Diagnosis: (1) Alcohol withdrawal (2) COPD exacerbation (3) Melena Your Health Problems Are: Anxiety Bleeding Tendency Shortness of Breath Goals to Promote Your Health * To prevent worsening of your condition and complications * To maintain your health at the optimal level Directions to Meet Your Goals Take your medications as prescribed Follow your dietary instruction Follow activity as directed Keep your appointments as scheduled Take your immunizations and boosters as scheduled If your symptoms worsen call your PCP, if no PCP go to Urgent Care Center or Emergency Room Smoking is Dangerous to Your Health. Avoid second hand smoke Call the 24-hour hour crisis hotline for domestic abuse at Jonah Soni MD Apr 03, 2016 09:24
--- NOTE | 2016-04-03 09:25 | HHI.DS ---
Discharge Summary Admission Date Mar 28, 2016 at 23:45 Discharge Date: Apr 03, 2016 Admitting Diagnosis copd exacerbation/ pneumonia (1) Alcohol abuse ICD Code: F10.10 Diagnosis: Principal (2) COPD exacerbation ICD Code: J44.1 Diagnosis: Principal (3) Severe chronic obstructive pulmonary disease ICD Code: J44.9 Diagnosis: Principal (4) Chronic respiratory failure ICD Code: J96.10 Diagnosis: Principal (5) Lactic acidosis ICD Code: E87.2 Diagnosis: Principal (6) Anemia ICD Code: D64.9 Diagnosis: Principal (7) Leukocytosis ICD Code: D72.829 Diagnosis: Principal (8) Pneumonia ICD Code: J18.9 Diagnosis: Principal (9) Acute hypoxemic respiratory failure ICD Code: J96.01 Diagnosis: Principal (10) Severe sepsis ICD Code: A41.9 Diagnosis: Principal (11) Hyponatremia ICD Code: E87.1 Diagnosis: Principal (12) Generalized weakness ICD Code: R53.1 Diagnosis: Principal (13) Acute alcohol intoxication ICD Code: F10.129 Diagnosis: Principal Procedures EGD Brief History - From Admission 60-year-old female. Date of admission 03/28/2016. Past medical history includes EtOH, THC. Originally from [place]. She has been hospitalized 9 times since January 2015 mostly for COPD exacerbations. She presents to [facility] after receiving been discharged from the hospital week ago with shortness of breath she's had multiple falls including multiple bruises the bilateral upper lobe series. Per ambulance report patient drinks heavily every day and per medical records as well. She states that she ran of social breath but denies any chest pain. She does have multiple bruises on her arms and legs. Per patient she injured her left foot and is possibly broken. Patient does have an Star wrap on it has swelling and bruising on the toes. History somewhat limited from the patient is an elevated EtOH level of 200. She received a 2 L normal saline bolus in ED. Chest x-ray revealed bilateral pulmonary infiltrate. She has a leukocytosis of 22,000, and anemia 7. Sodium is 124 which is close to her baseline and low chloride of 80.. She received 3 albuterol nebulizers in the ED, 125 mg Solu- Medrol IV and 2 g of cefepime 500 mg azithromycin. She has been pancultured. She is placed on BiPAP in the ED. We are asked to admit. She states she is less dyspneic at the resident time. CBC/BMP: 04/02/16 0736 04/02/16 0736 Significant Findings Laboratory Tests Test 04/01/16 04/02/16 04:05 07:36 Red Blood Count 3.56 MIL/MM3 3.53 MIL/MM3 (4.00-5.30) (4.00-5.30) Hemoglobin 10.7 GM/DL 10.8 GM/DL (11.6-15.3) (11.6-15.3) Hematocrit 32.9 % 32.2 % (35.0-46.0) (35.0-46.0) Red Cell Distribution Width 18.6 % 18.1 % (11.6-17.2) (11.6-17.2) Carbon Dioxide Level 33.4 MEQ/L 35.8 MEQ/L (21.0-32.0) (21.0-32.0) Creatinine 0.15 MG/DL 0.15 MG/DL (0.50-1.00) (0.50-1.00) Random Glucose 158 MG/DL (74-106) Calcium Level 8.2 MG/DL 8.2 MG/DL (8.5-10.1) (8.5-10.1) Prothrombin Time 11.9 SEC (9.8-11.6) Potassium Level 3.3 MEQ/L (3.5-5.1) Chloride Level 96 MEQ/L (98-107) Imaging Last Impressions Chest X-Ray 04/03/16 0600 Signed Impressions: Service Date/Time: Sunday, April 03, 2016 04:21 - CONCLUSION: 1. Cardiomegaly and findings of vascular congestion without overt failure. The findings have improved when compared with the prior exam. 2. Bilateral pleural effusions Jarocho Cruz MD Foot MRI 03/31/16 0000 Signed Impressions: Service Date/Time: Thursday, March 31, 2016 11:17 - CONCLUSION: 1. Nondisplaced fractures at the base of the first, second and fourth metatarsals. 2. Primary degenerative changes at the first metatarsophalangeal joint.. 3. Nonspecific edema in the soft tissues. Rylan Morris MD Head CT 03/28/16 0000 Signed Impressions: Service Date/Time: March 21:35 - CONCLUSION: Normal examination for a patient of this age. No significant change has occurred. Dutch Fernandez MD Foot X-Ray 03/28/16 0000 Signed Impressions: Service Date/Time: March 21:23 - CONCLUSION: 1. Osteopenia. No acute fracture identified. Dutch Fernandez MD Ankle X-Ray 03/28/16 0000 Signed Impressions: Service Date/Time: March 21:25 - CONCLUSION: 1. Osteopenia. No acute findings. Dutch Fernandez MD PE at Discharge GENERAL: in no apparent distress. CARDIOVASCULAR: Regular rate and regular rhythm without murmurs, gallops, or rubs. RESPIRATORY: Clear to auscultation. Breath sounds equal bilaterally. No wheezes , rales, or rhonchi. GASTROINTESTINAL: Abdomen soft, non-tender, nondistended. Normal, active bowel sounds MUSCULOSKELETAL: Extremities without clubbing, cyanosis, or edema. NEURO: Alert & Oriented x4 to person, place, time, situation. Moves all ext x4 Hospital Course EtOH Seizures with EtOH withdrawal Posttraumatic stress disorder Toxic metabolic encephalopathy Thiamine, folate and multivitamin daily for EtOH. CT head on admission revealed no acute intracranial findings continue to taper down librium Sinus tachycardia-resolved Lactic acidosis- resolved Acute on chronic hypoxemic respiratory failure- improved. Community-acquired pneumonia COPD/2 L O2 dependent at home Currently on Symbicort 160/4.5 twice a day switch to po prednisone Encouraged incentive spirometry every hour while awake At home on Advair 250/50 one inhalation twice a day and Spiriva 1818 daily and albuterol nebs 4 times a day -GI bleed Clear liquid diet GI following. EGD performed with gastritis/ duodenitis and duodenal bulb ulcer and hiatal hernia continue Protonix GI signed off- f/u as outpatient. Sliding-scale insulin with Accu-Cheks to maintain euglycemia while on steroids and low regimen Leukocytosis.. trending down-resolved Normocytic anemia s/p transfuse 1 unit of PRBCs 03/28. Transfused 2 units 03/30 On Protonix Pneumonia changed to levaquin CXR today with overall improvement. Blood cultures 2, sputum, urine, Legionella and pneumococcal urinary antigens all no growth to date Nasal washing for Influenza Negative. Left foot pain negative x-ray imaging of left ankle and foot. Osteopenia. MRI left foot-nondisplaced fractures base of 1, 2, 4 metatarsals Podiatry consulted-nonoperative management- f/u as outpatient PT evaluate and treat. Pt Condition on Discharge: Fair Discharge Disposition: Disch w/ Home Health Serv Discharge Time: > 30 minutes Discharge Instructions DIET: Follow Instructions for: Heart Healthy Diet Speech Therapy-Diet Recommends: Mechanical Soft Activities you can perform: Regular-No Restrictions Follow up Referrals: Gastroenterology - 2 Weeks @ [facility] PCP Follow-up Podiatry New Medications: Chlordiazepoxide (Chlordiazepoxide) 5 Mg Cap 5 MG PO DIRECTED 10 mg po twice daily for one day then 5 mg po twice daily for one day then 5 mg po daily for one day then stop. PRN Anxiety Days 3 Ref 0 CAP Prednisone (Prednisone) 5 Mg Tab 5 MG PO DIRECTED 40 mg po daily for two days then 30 mg po daily for two days then 20 mg po daily for two days the 10 mg po daily for two days then 5 mg po daily for two days then stop. copd Days 10 Ref 0 TAB Budesonide-Formoterol Inh (Symbicort Inh) 160-4.5 Mcg/Act Aero 1 PUFF INH BID copd #1 Ref 0 INHALER Folic Acid (Folate) 1 Mg Tab 1 MG PO DAILY vitamin Days 30 Ref 0 TAB Levofloxacin (Levaquin) 500 Mg Tab 500 MG PO Q24H pneumonia Days 5 Ref 0 TAB Multiple Vitamin (Thera/Beta-Carotene) 1 Tab Tab 1 TAB PO DAILY vitamin Days 30 Ref 0 TAB Pantoprazole (Pantoprazole) 40 Mg Tab 40 MG PO Q12HR ppi Days 30 Ref 0 TAB Thiamine (Vitamin B-1) 100 Mg Tab 100 MG PO DAILY vitamin Days 30 Ref 0 TAB Continued Medications: Albuterol 8.5 GM Inh (Proair Hfa 8.5 GM Inh) 90 Mcg/Act Aer 2 PUFF INH Q6H 108 mcg/actuation PRN SHORTNESS OF BREATH #1 Ref 0 INHALER Albuterol Neb (Albuterol Neb) 2.5 Mg/0.5 Ml Neb 2.5 MG NEB QID NEB Note: The Albuterol Sulfate Inhalation Solution is concentrated and must be diluted. Read complete instructions carefully before using. Breathing Treatment #120 Ref 0 NEBULE Tiotropium Inh (Spiriva Handihaler) 18 Mcg Cap 18 MCG INH DAILY 1 capsule = 18 mcg COPD #1 Ref 0 CAP (This prescription has been renewed) Discontinued Medications: Chlordiazepoxide (Chlordiazepoxide) 25 Mg Cap 50 MG PO TID Take 2 pills 3 times a day for 3 days then 1 pill 3 times a day for 3 days then 1 pill twice a day for 3 days then 1 pill daily for 3 days then stop PRN Anxiety #36 Ref 0 CAP Fluticasone-Salmeterol Inh (Advair Diskus Inh) 250-50 Mcg/Blist Aer 1 PUFF INH BID Rinse mouth after use. #1 Ref 0 INHALER Jonah Soni MD Apr 03, 2016 09:25
--- NOTE | 2016-04-03 09:26 | HHI.FF ---
Face to Face Verification Diagnosis: (1) COPD exacerbation Physical Therapy Order: Evaluate and Treat Home Health Nursing Order: Medical education Signs/symptoms of disease process Nursing assessment with vital signs I have seen patient Chelly Latif on 04/03/16. My clinical findings support the need for the requested home health care services because: Ltd mobility - disease progression Patient has SOB I certify that my clinical findings support that this patient is homebound because: Hx COPD- exertion dyspnea/weakness Jonah Soni MD Apr 03, 2016 09:26
[2016-04-03] MEDS: NICOTINE 14 MG/24 HR PATCH TD SCH (09:27)
[2016-04-03] MEDS: TIOTROPIUM BROMIDE 18 MCG INH INH SCH (09:31)
[2016-04-03] MEDS: ARTIFICIAL TEARS OPTH SOLN 15 ML BTL EACH EYE SCH (09:31)
[2016-04-03] MEDS: LEVOFLOXACIN 500 MG TAB PO SCH (09:31)
[2016-04-03] MEDS: BUDESONIDE-FORMOTEROL 160/4.5 MCG INHALER INH SCH (09:32)
[2016-04-03] MEDS: SODIUM CHLORIDE 0.9% FLUSH 5 ML FLUSH IV FLUSH SCH (09:35)
[2016-04-03 11:46] VITALS: PULSE 102
[2016-04-04 03:53] LABS: IGA SERUM 248 mg/dL (81-463); TISSUE TRANSGLUTAMINASE AB IGG ND U/mL (())
[2016-04-04 13:55] LABS: ENDOMYSIAL AB TITER ND (<1:5); TISSUE TRANSGLUTAMINASE AB LESS THAN 1 U/mL (())
== END 2016-04-03 11:48 | disposition home health service (06) | DRG 871 ==
LOC: NEPE 20:46 → NEDA 23:45 → HIME 03-29 01:45 → HOCB 04-02 13:41
PROVIDERS: ADMIT Internal Medicine; ATTEND Internal Medicine
PROC: 5A09357 Assistance with Respiratory Ventilation, Less than 24 Consecutive Hours, Continuous Positive Airway Pressure (ICD-10-PCS; principal; 2016-03-28)
PROC: 30233N1 Transfusion of Nonautologous Red Blood Cells into Peripheral Vein, Percutaneous Approach (ICD-10-PCS; 2016-03-30)
PROC: 0DB98ZX Excision of Duodenum, Via Natural or Artificial Opening Endoscopic, Diagnostic (ICD-10-PCS; 2016-04-01)
PROC: 0DB68ZX Excision of Stomach, Via Natural or Artificial Opening Endoscopic, Diagnostic (ICD-10-PCS; 2016-04-01)
DX: A41.9 Sepsis, unspecified organism (principal); R65.20 Severe sepsis without septic shock; J44.0 Chronic obstructive pulmonary disease with (acute) lower respiratory infection; J18.9 Pneumonia, unspecified organism; J96.21 Acute and chronic respiratory failure with hypoxia; G92 Toxic encephalopathy; E87.2 Acidosis; J44.1 Chronic obstructive pulmonary disease with (acute) exacerbation; K26.9 Duodenal ulcer, unspecified as acute or chronic, without hemorrhage or perforation; E87.1 Hypo-osmolality and hyponatremia; D62 Acute posthemorrhagic anemia; F10.239 Alcohol dependence with withdrawal, unspecified; K92.1 Melena; Y90.7 Blood alcohol level of 200-239 mg/100 ml; F17.210 Nicotine dependence, cigarettes, uncomplicated; F43.10 Post-traumatic stress disorder, unspecified; Z99.81 Dependence on supplemental oxygen; E87.8 Other disorders of electrolyte and fluid balance, not elsewhere classified; G40.909 Epilepsy, unspecified, not intractable, without status epilepticus; K29.70 Gastritis, unspecified, without bleeding; K44.9 Diaphragmatic hernia without obstruction or gangrene; M85.80 Other specified disorders of bone density and structure, unspecified site; R29.6 Repeated falls; Z91.14 Patient's other noncompliance with medication regimen; S92.315A Nondisplaced fracture of first metatarsal bone, left foot, initial encounter for closed fracture; S92.325A Nondisplaced fracture of second metatarsal bone, left foot, initial encounter for closed fracture; S92.345A Nondisplaced fracture of fourth metatarsal bone, left foot, initial encounter for closed fracture; W19.XXXA Unspecified fall, initial encounter; G47.00 Insomnia, unspecified; E87.6 Hypokalemia
CPT/HCPCS: 36430; 36600; 70450; 71010; 73610; 73630; 73718; 76937; 80048; 80053; 80320; 81001; 82140; 82784; 82805; 82948; 83516; 83605; 83735; 84100; 84443; 84484; 85025; 85027; 85384; 85610; 85730; 86850; 86900; 86901; 86920; 87040; 87070; 87205; 87449; 87641; 87804; 88305; 88312; 94002; 94150; 94640; 94664; 96365; 96368; 96375; C9113; J0456; J0692; J1644; J1940; J2060; J2920; J2930; J3411; J3475; J7030; J7050; J7613; L2114; P9016

== ENCOUNTER 2016-04-07 05:36 | Inpatient (IN) | payer OTHER ==
[2016-04-07] VITALS (23 sets, daily range): BP systolic 94–183; BP diastolic 41–126; PULSE 81–118; RESP 13–30; TEMP 97.8–100; O2SAT 94–100
[~2016-04-07] VITALS: Ht 162.6 cm; Wt 60.5 kg
[~2016-04-07 05:36] MED LIST changes: -ADVA250A INH; -CHLO25CA2 PO; +CHLO5CAP3 PO; -FERR325T PO; +FOLI1TAB4 PO; +LEVA500T PO; -PRED10 PO; -PRED20 PO; +PRED5TAB PO; +SYMB160A INH; +THERTAB15 PO; -ZITHTAB PO
[2016-04-07] MEDS ORDERED: LORazepam 2 MG/ML VIAL ONE ×2 (05:54→08:37)
[2016-04-07] MEDS ORDERED: SODIUM CHLORIDE 0.9% FLUSH 5 ML FLUSH IVF PRN (06:00)
--- NOTE | 2016-04-07 06:05 | PD ---
HPI . Seizure Chief Complaint: Seizure Time Seen by Provider: 05:45 Travel History International Travel<30 days: No Contact w/Intl Traveler<30days: No Traveled to known affect area: No History of Present Illness HPI Patient is brought in by EMS for seizure. Patient does not have a history of seizure disorder. states that she was just discharged from the hospital a couple days ago. She has a bedside commode. He had gotten her up to the bedside commode when she had a seizure. EMS was called to the hospital. She has had a second seizure here which lasted approximately 30 seconds. It was a global tonic clonic seizure. PFSH Past Medical History Arthritis: No Asthma: Yes Autoimmune Disease: No Anxiety: Yes Depression: Yes Heart Rhythm Problems: No Cancer: No Cardiovascular Problems: No High Cholesterol: No Chest Pain: No Congestive Heart Failure: No COPD: Yes Cerebrovascular Accident: No Coronary Artery Disease: No Diabetes: No Diminished Hearing: No Endocrine: No Gastrointestinal Disorders: Yes GERD: No Genitourinary: No Headaches: No Hiatal Hernia: No Hypertension: No Immune Disorder: No Implanted Vascular Access Dvce: No Kidney Stones: No Musculoskeletal: Yes Neurologic: Yes Psychiatric: Yes (PTSD) Reproductive: No Respiratory: Yes (COPD) Immunizations Current: Yes Renal Failure: No Seizures: Yes Sleep Apnea: No Thyroid Disease: No Ulcer: No Menopausal: Yes : 2 Para: 2 Past Surgical History Abdominal Surgery: Yes () Section: Yes (X1) Thoracic Surgery: Yes (BILATERAL BREAST BIOPSY) Other Surgery: Yes Social History Alcohol Use: Yes (4 BEERS/DAY) Tobacco Use: Yes (1/2-1 PPD) Substance Use: Yes (MARIJUANA OCCASIONALLY) Allergies-Medications (Allergen,Severity, Reaction): Coded Allergies: Penicillin (Verified Allergy, Severe, CHILDHOOD, 04/07/16) Reported Meds & Prescriptions Reported Meds & Active Scripts Active Chlordiazepoxide (Chlordiazepoxide HCl) 5 Mg Cap 5 Mg PO DIRECTED PRN 3 Days 10 mg po twice daily for one day then 5 mg po twice daily for one day then 5 mg po daily for one day then stop. Prednisone 5 Mg Tab 5 Mg PO DIRECTED 10 Days 40 mg po daily for two days then 30 mg po daily for two days then 20 mg po daily for two days the 10 mg po daily for two days then 5 mg po daily for two days then stop. Vitamin B-1 (Thiamine HCl) 100 Mg Tab 100 Mg PO DAILY 30 Days Pantoprazole (Pantoprazole Sodium) 40 Mg Tab 40 Mg PO Q12HR 30 Days Thera/Beta-Carotene (Multiple Vitamin) 1 Tab Tab 1 Tab PO DAILY 30 Days Levaquin (Levofloxacin) 500 Mg Tab 500 Mg PO Q24H 5 Days Folate (Folic Acid) 1 Mg Tab 1 Mg PO DAILY 30 Days Symbicort Inh (Budesonide/Formoterol Fumarate) 160-4.5 Mcg/Act Aero 1 Puff INH BID Spiriva Handihaler (Tiotropium Inh) 18 Mcg Cap 18 Mcg INH DAILY 1 capsule = 18 mcg Proair Hfa 8.5 GM Inh (Albuterol Sulfate) 90 Mcg/Act Aer 2 Puff INH Q6H PRN 108 mcg/actuation Albuterol Neb (Albuterol Sulfate) 2.5 Mg/0.5 Ml Neb 2.5 Mg NEB QID NEB Note: The Albuterol Sulfate Inhalation Solution is concentrated and must be diluted. Read complete instructions carefully before using. Review of Systems Except as stated in HPI: all other systems reviewed are Neg Respiratory: Positive: Shortness of Breath (chronic shortness of breath secondary to COPD) Musculoskeletal: Positive: Arthralgias (left foot secondary to fracture) Psychiatric: Positive: Substance Abuse ( reports that she drinks daily) Hematologic/Lymphatic: Positive: Easy Bruising Physical Exam Narrative GENERAL: This is a thin, chronically ill-appearing woman. SKIN: Warm and dry. Multiple bruises. HEAD: Atraumatic. Normocephalic. EYES: Pupils equal and round. Extraocular movement is intact. ENT: No nasal bleeding or discharge. Mucous membranes pink and moist. NECK: Trachea midline. Neck is supple. CARDIOVASCULAR: Regular rate and rhythm. Heart sounds are normal. RESPIRATORY: No accessory muscle use. She has "guppy" respirations. Sats are 98%. GASTROINTESTINAL: Abdomen soft, non-tender, nondistended. MUSCULOSKELETAL: No obvious deformities. No edema. Multiple extremity bruises. NEUROLOGICAL: Awake and alert. No obvious cranial nerve deficits. Motor grossly within normal limits. She has not spoken in my presence. PSYCHIATRIC: Appropriate mood and affect; insight and judgment normal. Data Data Last Documented VS Vital Signs Date Time Temp Pulse Resp B/P Pulse Ox O2 Delivery O2 Flow Rate FiO2 04/07/16 09:00 105 20 126/83 100 Non-Rebreather 15 Orders Electrocardiogram (04/07/16 05:50) Ammonia (04/07/16 05:50) Complete Blood Count With Diff (04/07/16 05:50) Comprehensive Metabolic Panel (04/07/16 05:50) Creatine Kinase (Cpk) (04/07/16 05:50) Prothrombin Time / Inr (Pt) (04/07/16 05:50) Act Partial Throm Time (Ptt) (04/07/16 05:50) Troponin I (04/07/16 05:50) Lactic Acid Sepsis Protocol (04/07/16 05:50) Urinalysis - C+S If Indicated (04/07/16 05:50) Blood Culture (04/07/16 05:50) Chest, Single Ap (04/07/16 05:50) Ct Brain W/O Iv Contrast(Rout) (04/07/16 05:50) Blood Glucose (04/07/16 05:50) Ecg Monitoring (04/07/16 05:50) Iv Access Insert/Monitor (04/07/16 05:50) Cath For Specimen (04/07/16 05:50) Oximetry (04/07/16 05:50) Sodium Chloride 0.9% Flush (Ns Flush) (04/07/16 06:00) Drug Screen, Random Urine (04/07/16 05:50) Alcohol (Ethanol) (04/07/16 05:50) Lorazepam Inj (Ativan Inj) (04/07/16 05:54) Urine Culture (04/07/16 06:15) Lorazepam Inj (Ativan Inj) (04/07/16 08:37) Lorazepam Inj (Ativan Inj) (04/07/16 08:45) Dexmedetomidine Inj (Precedex Inj) (04/07/16 08:45) Admit Order (Ed Use Only) (04/07/16 08:58) Labs Laboratory Tests Test 04/07/16 04/07/16 04/07/16 04/07/16 06:00 06:05 06:15 08:44 White Blood Count 10.9 TH/MM3 Red Blood Count 4.19 MIL/MM3 Hemoglobin 12.9 GM/DL Hematocrit 38.6 % Mean Corpuscular Volume 92.0 FL Mean Corpuscular Hemoglobin 30.8 PG Mean Corpuscular Hemoglobin 33.4 % Concent Red Cell Distribution Width 18.9 % Platelet Count 636 TH/MM3 Mean Platelet Volume 7.2 FL Neutrophils (%) (Auto) 67.9 % Lymphocytes (%) (Auto) 16.6 % Monocytes (%) (Auto) 13.9 % Eosinophils (%) (Auto) 0.7 % Basophils (%) (Auto) 0.9 % Neutrophils # (Auto) 7.4 TH/MM3 Lymphocytes # (Auto) 1.8 TH/MM3 Monocytes # (Auto) 1.5 TH/MM3 Eosinophils # (Auto) 0.1 TH/MM3 Basophils # (Auto) 0.1 TH/MM3 CBC Comment AUTO DIFF Differential Total Cells 100 Counted Neutrophils % (Manual) 59 % Band Neutrophils % 4 % Lymphocytes % 20 % Monocytes % 16 % Neutrophils # (Manual) 7.0 TH/MM3 Metamyelocytes % Myelocytes 1 % Differential Comment FINAL DIFF MANUAL Platelet Estimate HIGH Platelet Morphology Comment NORMAL Prothrombin Time 10.6 SEC Prothromb Time International 1.0 RATIO Ratio Activated Partial 24.6 SEC Thromboplast Time Sodium Level 139 MEQ/L Potassium Level 3.4 MEQ/L Chloride Level 98 MEQ/L Carbon Dioxide Level 29.6 MEQ/L Anion Gap 11 MEQ/L Blood Urea Nitrogen 5 MG/DL Creatinine 0.30 MG/DL Estimat Glomerular Filtration 227 ML/MIN Rate Random Glucose 87 MG/DL Calcium Level 7.9 MG/DL Phosphorus Level 3.5 MG/DL Total Bilirubin 0.3 MG/DL Aspartate Amino Transf 47 U/L (AST/SGOT) Alanine Aminotransferase 30 U/L (ALT/SGPT) Alkaline Phosphatase 140 U/L Total Creatine Kinase 62 U/L Troponin I 0.05 NG/ML Total Protein 5.8 GM/DL Albumin 2.9 GM/DL Ethyl Alcohol Level 14 MG/DL Lactic Acid Level 5.3 mmol/L Urine Color YELLOW Urine Turbidity HAZY Urine pH 6.5 Urine Specific [place] 1.010 Urine Protein 30 mg/dL Urine Glucose (UA) NEG mg/dL Urine Ketones NEG mg/dL Urine Occult Blood NEG Urine Nitrite NEG Urine Bilirubin NEG Urine Urobilinogen LESS THAN 2.0 MG/DL Urine Leukocyte Esterase NEG Urine RBC 6 /hpf Urine WBC 3 /hpf Urine Squamous Epithelial <1 /hpf Cells Urine Amorphous Sediment RARE Urine Bacteria RARE /hpf Urine Hyaline Casts 1 /lpf Urine White Blood Cell Casts 2 /lpf Urine Mucus FEW /lpf Microscopic Urinalysis Comment CATH-CULTURE IND Urine Opiates Screen NEG Urine Barbiturates Screen NEG Urine Amphetamines Screen POS Urine Benzodiazepines Screen POS Urine Cocaine Screen NEG Urine Cannabinoids Screen NEG Ammonia 56 MCMOL/L MDM Medical Decision Making Medical Screen Exam Complete: Yes Emergency Medical Condition: Yes Medical Record Reviewed: Yes (patient was hospitalized here from March 28 through the for respiratory failure, COPD, pneumonia, sepsis) Differential Diagnosis Differential diagnosis of seizure includes but is not limited to epilepsy, electrolyte abnormality, previous stroke, closed head injury Narrative Course Patient presents by [facility] exposed to seizure at home. She had a subsequent seizure here. Records from her recent hospitalization report alcohol withdrawal seizures. She was treated in the hospital with Librium. Patient has been treated with Ativan. Her lab and CT evaluation has been initiated. Her care will be turned over to the oncoming physician. Critical Care Narrative Aggregate critical care time was 30 minutes. Time to perform other separately billable procedures was not included in the critical care time. My time did not include minutes spent treating any other patients simultaneously or on activities that did not directly contribute to the patient's treatment. The services I provided to this patient were to treat and/or prevent clinically significant deterioration due to brain damage due to ongoing seizure activity I provided critical care services requiring my management, as noted below: Chart data review, documentation time, medication orders and management, vital sign assessments/reviewing monitor data, ordering and reviewing lab tests, ordering and interpreting/reviewing x-rays and diagnostic studies, care of the patient and discussion of the patient with the admitting physicians Diagnosis Primary Impression: Seizure Ashlee Waters MD Apr 07, 2016 06:05
[2016-04-07 06:25] LABS: AUTOMATED NEUTROPHIL # 7.4 TH/MM3 (1.8-7.7); BASOPHIL # 0.1 TH/MM3 (0-0.2); BASOPHIL % 0.9 % (0.0-2.0); EOSINOPHIL # 0.1 TH/MM3 (0-0.4); EOSINOPHIL % 0.7 % (0.0-4.0); HEMATOCRIT 38.6 % (35.0-46.0); LYMPH % 16.6 % (9.0-44.0); LYMPHOCYTE # 1.8 TH/MM3 (1.0-4.8); MEAN CORPUSCULAR HEMOGLOBIN 30.8 PG (27.0-34.0); MEAN CORPUSCULAR HGB CONC 33.4 % (32.0-36.0); MONO % 13.9 % (0.0-8.0); NEUT % 67.9 % (16.0-70.0); PLATELET COUNT 636 TH/MM3 (150-450); RED BLOOD COUNT 4.19 MIL/MM3 (4.00-5.30); RED CELL DISTRIBUTION WIDTH 18.9 % (11.6-17.2); WHITE BLOOD COUNT 10.9 TH/MM3 (4.0-11.0)
--- NOTE | 2016-04-07 06:28 | RADRPT ---
EXAM DATE/TIME: 04/07/2016 05:51 [facility] COMPARISON: CHEST SINGLE AP, April 03, 2016, 4:21. INDICATIONS : Shortness of breath, possible pulmonary disease. MEDICAL HISTORY : Chronic obstructive pulmonary disease. SURGICAL HISTORY : None. ENCOUNTER: Initial ACUITY: 1 day PAIN SCORE: Non-responsive. LOCATION: Bilateral chest FINDINGS: The cardiac silhouette is normal in transverse diameter. There is resolving pulmonary edema and bilat eral effusions. Small left effusion remains. CONCLUSION: 1. Near-complete resolution of the previously seen pulmonary edema and effusions Jarocho Cruz MD on April 07, 2016 at 6:25 Board Certified Radiologist. This report was verified electronically.
[2016-04-07 06:33] LABS: HEMO FLAGS AUTO DIFF
[2016-04-07 06:42] LABS: APTT (PATIENT) 24.6 SEC (24.3-30.1); PROTHROMBIN TIME - PATIENT 10.6 SEC (9.8-11.6)
[2016-04-07 06:43] LABS: BACTERIA, URINE RARE /hpf; BLOOD, URINE NEG (NEG); GLUCOSE,URINE NEG (NEG); HYALINE CAST, URINE 1 /lpf (RARE); KETONE, URINE NEG (NEG); MUCUS URINE FEW /lpf (OCC); NITRITE,URINE NEG (NEG); PH, URINE 6.5 (5.0-8.5); SQUAMOUS EPITHELIAL CELL URINE <1 /hpf (0-5); URINE COLOR YELLOW (YELLW/STRAW); WHITE BLOOD CELL CAST, URINE 2 /lpf
--- NOTE | 2016-04-07 06:43 | RADRPT ---
EXAM DATE/TIME: 04/07/2016 06:26 [facility] COMPARISON: CT BRAIN W/O CONTRAST, March 28, 2016, 21:35. INDICATIONS : Altered mental status. RADIATION DOSE: 36.57 CTDIvol (mGy) MEDICAL HISTORY : Chronic obstructive pulmonary disease. Seizures. Asthma SURGICAL HISTORY : section. ENCOUNTER: Initial ACUITY: 1 day PAIN SCALE: 5/10 LOCATION: cranial TECHNIQUE: Multiple contiguous axial images were obtained of the head. Using automated exposure control and adj ustment of the mA and/or kV according to patient size, radiation dose was kept as low as reasonably a chievable to obtain optimal diagnostic quality images. FINDINGS: CEREBRUM: The ventricles are normal for age. No evidence of midline shift, mass lesion, hemorrhage or acute in farction. No extra-axial fluid collections are seen. POSTERIOR FOSSA: The cerebellum and brainstem are intact. The 4th ventricle is midline. The cerebellopontine angle i s unremarkable. EXTRACRANIAL: The visualized portion of the orbits is intact. SKULL: The calvaria is intact. No evidence of skull fracture. CONCLUSION: 1. No evidence of acute intracranial pathology. No masses are identified. Jarocho Cruz MD on April 07, 2016 at 6:41 Board Certified Radiologist. This report was verified electronically.
[2016-04-07 06:44] LABS: COMMENT (UR) CATH-CULTURE IND; CULTURE IF INDICATED CATH CULTURE IND
[2016-04-07 06:45] LABS: AMPHETAMINE, URINE POS (NEG); BARBITURATES, URINE NEG (NEG); COCAINE, URINE NEG (NEG)
[2016-04-07 07:08] LABS: ALKALINE PHOSPHATASE 140 U/L (45-117); ALT (GPT) 30 U/L (10-53); ANION GAP 11 MEQ/L (5-15); AST (GOT) 47 U/L (15-37); BICARBONATE 29.6 MEQ/L (21.0-32.0); BLOOD UREA NITROGEN 5 MG/DL (7-18); CHLORIDE 98 MEQ/L (98-107); GLOMERULAR FILTRATION RATE 227 ML/MIN (>89); POTASSIUM 3.4 MEQ/L (3.5-5.1); SODIUM (NA) 139 MEQ/L (136-145); TOTAL BILIRUBIN ADULT 0.3 MG/DL (0.2-1.0)
[2016-04-07 07:10] LABS: BANDS 4 % (0-6); POLYS (SEG NEUTROPHILS) 59 % (16-70); WBC DIFF SAMPLE 100
[2016-04-07 07:11] LABS: CREATINE KINASE 62 U/L (26-192); MYELOCYTES 1 % (0-0); PLATELET ESTIMATE SMEAR HIGH (NORMAL); PLATELET MORPHOLOGY NORMAL (NORMAL); SCAN/DIFF FINAL DIFF MANUAL
[2016-04-07 08:18] LABS: LACTIC ACID GHOST NOT REPORTABLE
[2016-04-07] MEDS ORDERED: LORazepam 2 MG/ML VIAL IV PUSH ONE ×2 (08:45→11:00)
[2016-04-07] MEDS ORDERED: DEXMEDETOMIDINE INJ 200 MCG in SODIUM CHLORIDE 0.9% INJ 48 ML IV SCH (08:45)
--- NOTE | 2016-04-07 09:24 | PD ---
Data Data Last Documented VS Vital Signs Date Time Temp Pulse Resp B/P Pulse Ox O2 Delivery O2 Flow Rate FiO2 04/07/16 07:40 19 100 Non-Rebreather 15 04/07/16 07:15 98 109/76 Orders Electrocardiogram (04/07/16 05:50) Ammonia (04/07/16 05:50) Complete Blood Count With Diff (04/07/16 05:50) Comprehensive Metabolic Panel (04/07/16 05:50) Creatine Kinase (Cpk) (04/07/16 05:50) Prothrombin Time / Inr (Pt) (04/07/16 05:50) Act Partial Throm Time (Ptt) (04/07/16 05:50) Troponin I (04/07/16 05:50) Lactic Acid Sepsis Protocol (04/07/16 05:50) Urinalysis - C+S If Indicated (04/07/16 05:50) Blood Culture (04/07/16 05:50) Chest, Single Ap (04/07/16 05:50) Ct Brain W/O Iv Contrast(Rout) (04/07/16 05:50) Blood Glucose (04/07/16 05:50) Ecg Monitoring (04/07/16 05:50) Iv Access Insert/Monitor (04/07/16 05:50) Cath For Specimen (04/07/16 05:50) Oximetry (04/07/16 05:50) Sodium Chloride 0.9% Flush (Ns Flush) (04/07/16 06:00) Drug Screen, Random Urine (04/07/16 05:50) Alcohol (Ethanol) (04/07/16 05:50) Lorazepam Inj (Ativan Inj) (04/07/16 05:54) Urine Culture (04/07/16 06:15) Lorazepam Inj (Ativan Inj) (04/07/16 08:37) Lorazepam Inj (Ativan Inj) (04/07/16 08:45) Dexmedetomidine Inj (Precedex Inj) (04/07/16 08:45) Admit Order (Ed Use Only) (04/07/16 08:58) Labs Laboratory Tests Test 04/07/16 04/07/16 04/07/16 04/07/16 06:00 06:05 06:15 08:44 White Blood Count 10.9 TH/MM3 Red Blood Count 4.19 MIL/MM3 Hemoglobin 12.9 GM/DL Hematocrit 38.6 % Mean Corpuscular Volume 92.0 FL Mean Corpuscular Hemoglobin 30.8 PG Mean Corpuscular Hemoglobin 33.4 % Concent Red Cell Distribution Width 18.9 % Platelet Count 636 TH/MM3 Mean Platelet Volume 7.2 FL Neutrophils (%) (Auto) 67.9 % Lymphocytes (%) (Auto) 16.6 % Monocytes (%) (Auto) 13.9 % Eosinophils (%) (Auto) 0.7 % Basophils (%) (Auto) 0.9 % Neutrophils # (Auto) 7.4 TH/MM3 Lymphocytes # (Auto) 1.8 TH/MM3 Monocytes # (Auto) 1.5 TH/MM3 Eosinophils # (Auto) 0.1 TH/MM3 Basophils # (Auto) 0.1 TH/MM3 CBC Comment AUTO DIFF Differential Total Cells 100 Counted Neutrophils % (Manual) 59 % Band Neutrophils % 4 % Lymphocytes % 20 % Monocytes % 16 % Neutrophils # (Manual) 7.0 TH/MM3 Metamyelocytes % Myelocytes 1 % Differential Comment FINAL DIFF MANUAL Platelet Estimate HIGH Platelet Morphology Comment NORMAL Prothrombin Time 10.6 SEC Prothromb Time International 1.0 RATIO Ratio Activated Partial 24.6 SEC Thromboplast Time Sodium Level 139 MEQ/L Potassium Level 3.4 MEQ/L Chloride Level 98 MEQ/L Carbon Dioxide Level 29.6 MEQ/L Anion Gap 11 MEQ/L Blood Urea Nitrogen 5 MG/DL Creatinine 0.30 MG/DL Estimat Glomerular Filtration 227 ML/MIN Rate Random Glucose 87 MG/DL Calcium Level 7.9 MG/DL Total Bilirubin 0.3 MG/DL Aspartate Amino Transf 47 U/L (AST/SGOT) Alanine Aminotransferase 30 U/L (ALT/SGPT) Alkaline Phosphatase 140 U/L Total Creatine Kinase 62 U/L Troponin I 0.05 NG/ML Total Protein 5.8 GM/DL Albumin 2.9 GM/DL Ethyl Alcohol Level 14 MG/DL Lactic Acid Level 5.3 mmol/L Urine Color YELLOW Urine Turbidity HAZY Urine pH 6.5 Urine Specific [place] 1.010 Urine Protein 30 mg/dL Urine Glucose (UA) NEG mg/dL Urine Ketones NEG mg/dL Urine Occult Blood NEG Urine Nitrite NEG Urine Bilirubin NEG Urine Urobilinogen LESS THAN 2.0 MG/DL Urine Leukocyte Esterase NEG Urine RBC 6 /hpf Urine WBC 3 /hpf Urine Squamous Epithelial <1 /hpf Cells Urine Amorphous Sediment RARE Urine Bacteria RARE /hpf Urine Hyaline Casts 1 /lpf Urine White Blood Cell Casts 2 /lpf Urine Mucus FEW /lpf Microscopic Urinalysis Comment CATH-CULTURE IND Urine Opiates Screen NEG Urine Barbiturates Screen NEG Urine Amphetamines Screen POS Urine Benzodiazepines Screen POS Urine Cocaine Screen NEG Urine Cannabinoids Screen NEG Ammonia 56 MCMOL/L MDM Supervised Visit with ADY: No Narrative Course Patient sinus me by previous provider. Please see associated no for further details. In short patient is a 60-year-old female alcoholic who presents emergency Department with seizure.History of seizure disorder but history of alcohol withdrawal. She apparently got up this morning and had a witnessed seizure lasting approximately 1 minute, generalized tonic-clonic. She had a second seizure witnessed here lasting approximately 30 seconds. Patient has been given multiple doses of benzodiazepines. Signed out to any laboratory workup for ultimate admission for alcohol withdrawal. In the interim patient still remained slightly tachycardic, tremulous and had a third seizure witnessed by myself. Given Ativan and placed on Precedex drip. Laboratory workup notable for lactate of 5.3 which I believe is due to her seizures and not underlying sepsis. She does not have any infectious source, urinalysis, chest x-ray is negative and her pneumonia from her previous hospitalization has resolved. Blood alcohol level 14, positive amphetamine and benzodiazepines. Patient will be admitted to [facility] for further management. Critical Care Narrative Aggregate critical care time was 45 minutes. Time to perform other separately billable procedures was not included in the critical care time. My time did not include minutes spent treating any other patients simultaneously or on activities that did not directly contribute to the patient's treatment. The services I provided to this patient were to treat and/or prevent clinically significant deterioration that could result in: Neurologic decompensation, , disability I provided critical care services requiring my management, as noted below: Chart data review, documentation time, medication orders and management, vital sign assessments/reviewing monitor data, ordering and reviewing lab tests, ordering and interpreting/reviewing x-rays and diagnostic studies, care of the patient and discussion of the patient with the admitting physicians. Diagnosis Primary Impression: Delirium tremens Additional Impressions: Alcohol withdrawal Qualified Code: F10.231 - Alcohol withdrawal, with delirium Lactic acidosis Seizure Admitting Information Admitting Physician Requests: Admit Cassandra Terry MD Apr 07, 2016 09:24
[2016-04-07] MEDS: DEXMEDETOMIDINE INJ 50 ML IV SCH ×2 (09:35→10:06)
[2016-04-07] MEDS ORDERED: ROCURONIUM INJ 50 MG/5 ML VIAL ONE (10:58)
[2016-04-07] MEDS ORDERED: ETOMIDATE 20 MG/10 ML VIAL ONE (10:58)
[2016-04-07] MEDS ORDERED: POTASSIUM PHOSPHATE INJ 30 MMOL in SODIUM CHLOR 0.9% 250 ML INJ 250 ML IV PRN (11:00)
[2016-04-07] MEDS ORDERED: MAGNESIUM SULFATE INJ 4 GM in SODIUM CHLORIDE 0.9% INJ 92 ML IV PRN (11:00)
[2016-04-07] MEDS ORDERED: ONDANSETRON HCL 4 MG/2 ML VIAL IV PRN (11:00)
[2016-04-07] MEDS ORDERED: POTASSIUM CHLOR 20 MEQ PREMIX 100 ML IV PRN ×2 (11:00)
[2016-04-07] MEDS: DOCUSATE SODIUM 100 MG/10 ML UDC G-TUBE SCH (11:00)
[2016-04-07] MEDS ORDERED: MISCELLANEOUS NURSING INFORMATION XX SCH (11:00)
[2016-04-07] MEDS ORDERED: SODIUM CHLORIDE 0.9% FLUSH 5 ML FLUSH IV FLUSH PRN (11:00)
[2016-04-07] MEDS ORDERED: CHLORHEXIDINE GLUCONATE 2 % 1 PACK (2 CLOTHS) TOP PRN (11:00)
[2016-04-07] MEDS ORDERED: SODIUM PHOSPHATE INJ 30 MMOL in SODIUM CHLOR 0.9% 250 ML INJ 240 ML IV PRN (11:00)
[2016-04-07] MEDS ORDERED: POTASSIUM PHOSPHATE MONOBASIC 500 MG TAB PO PRN (11:00)
[2016-04-07] MEDS ORDERED: POTASSIUM CL 40 MEQ/30 ML LIQ UDC PO/TUBE PRN ×2 (11:00)
[2016-04-07] MEDS ORDERED: MAGNESIUM SULFATE INJ 2 GM in SODIUM CHLORIDE 0.9% INJ 96 ML IV PRN (11:00)
[2016-04-07] MEDS ORDERED: SENNOSIDES 8.6 MG TAB PO PRN (11:00)
[2016-04-07] MEDS ORDERED: POTASSIUM PHOSPHATE MONOBASIC 500 MG TAB PO/TUBE PRN (11:00)
[2016-04-07] MEDS ORDERED: POTASSIUM CHLOR 40 MEQ PREMIX 100 ML IV PRN ×2 (11:00)
[2016-04-07] MEDS ORDERED: MAGNESIUM OXIDE 400 MG TAB PO PRN (11:00)
[2016-04-07] MEDS: SODIUM CHLOR 0.9% 1000 ML INJ 1,000 ML IV SCH ×3 (11:20→16:41)
[2016-04-07 12:07] LABS: BLOOD GAS CARBOXYHEMOGLOBIN 2.5 % (0-4); BLOOD GAS HCO3 30 mmol/L (22-26); BLOOD GAS METHEMOGLOBIN 1.9 % (0-2); BLOOD GAS O2 HGB SATURATION 87 % (90-100); BLOOD GAS OXYGEN CONTENT 14.1 Vol % (12.0-20.0); BLOOD GAS PCO2 57 mmHg (38-42); BLOOD GAS PO2 62 mmHG (61-120); BLOOD GAS TOTAL HGB 11.4 G/DL (12.0-16.0); TEMP CORR TO 98.6
[2016-04-07 12:08] LABS: CRITICAL VALUE YES; DRAW SITE RT FEMORAL; FIO2 40 %; NUMBER OF ARTERIAL PUNCTURES 1; OXYGEN DEVICE VENTILATOR; VENT SETTINGS AC14/450/5PEEP
[2016-04-07 12:09] LABS: STAT NO
--- NOTE | 2016-04-07 12:21 | RADRPT ---
EXAM DATE/TIME: 04/07/2016 11:29 [facility] COMPARISON: CHEST SINGLE AP, April 07, 2016, 5:51. INDICATIONS : Post Procedure, Intubation and OG Tube placement, Short of Breath. MEDICAL HISTORY : Chronic obstructive pulmonary disease. Seizures. Asthma. Hiatal Hernia. SURGICAL HISTORY : section. ENCOUNTER: Initial ACUITY: 1 day PAIN SCORE: 0/10 LOCATION: Bilateral chest FINDINGS: Single AP view of the chest. Endotracheal tube is in place with the tip 6 cm above the alfie. Nasoga stric tube is in place with the tip in the distal stomach. Right lower lobe atelectasis versus consol idation. No evidence of pleural effusion or pneumothorax. CONCLUSION: Endotracheal tube and nasogastric tube in place. Moderate sized right lower lobe atelectasis versus c onsolidation. Ramon Saab MD on April 07, 2016 at 12:18 Board Certified Radiologist. This report was verified electronically.
--- NOTE | 2016-04-07 13:30 | RADRPT ---
EXAM DATE/TIME: 04/07/2016 12:25 [facility] COMPARISON: No previous studies available for comparison. INDICATIONS : Seizures. MEDICAL HISTORY : ETOH withdrawl with seizure SURGICAL HISTORY : section. ENCOUNTER: Initial ACUITY: 1 day PAIN SCORE: 0/10 LOCATION: cranial TECHNIQUE: Multiplanar, multisequence MRI of the brain was performed without contrast. FINDINGS: CEREBRUM: The ventricles are normal for age. No evidence of midline shift, mass lesion, hemorrhage or acute in farction. No extraaxial fluid collections are seen. The pituitary gland and suprasellar cistern are normal in configuration. WHITE MATTER: No significant signal abnormalities are seen in the white matter. POSTERIOR FOSSA: The cerebellum and brainstem are intact. The 4th ventricle is midline. The cerebellopontine angle is unremarkable. The cerebellar tonsils are normal in position. DIFFUSION IMAGING: No focal areas of restricted diffusion are seen. No evidence of acute infarction. EXTRACRANIAL: The visualized portions of the orbits and paranasal sinuses are unremarkable. CONCLUSION: Brain MRI within normal limits. Ramon Saab MD on April 07, 2016 at 13:28 Board Certified Radiologist. This report was verified electronically.
--- NOTE | 2016-04-07 13:41 | HHI.HP ---
[facility] Service Critical Care Medicine Primary Care Physician Padmini Chapa MD Admission Diagnosis delirium tremens, alcohol withdrawal with seizure Diagnosis: Travel History International Travel<30 Days: No Contact w/Intl Traveler <30 Da: No Traveled to Known Affected Are: No History of Present Illness The patient was brought in by EMS for seizure. The patient does not have a history of seizure disorder. The patient was recently hospitalized COPD exacerbation, pneumonia, GI bleed and EtOH abuse. Reported by the , the patient got up to use the bedside commode and had a seizure lasting approximately 1 minute. She was transported reported to the hospital. Upon admission to the ED, she has had a second seizure here which lasted approximately 30 seconds. It was a global tonic clonic seizure. The patient had a third seizure, The patient received Ativan IV in repeated doses, and placed on a Precedex infusion. Laboratory and imaging studies were obtained. The patient was noted to have a lactate level 5.3. CT brain imaging no evidence of acute intracranial pathology. Upon my arrival to the ED, the patient was on a nonrebreather mask and nasal cannula, with O2 sat of 100%, lying supine with RASS -3,omn Precdex infusion. The HOB was elevated to 45 degrees. The patient subsequently had another seizure and received additional Ativan IV. Due to the patient's lethargic state recurrent seizure activity, and hiatal hernia, I intubated the patient with RSI and cricoid pressure for airway protection, utilizing Glidescope, no visualization of gastric contents in oropharynx. Repeat chest x-ray, post intubation, was noted to now have right lower lobe consolidation, not previously on initial x-ray upon admission. This most likely represents aspiration. Critical care medicine was consulted for treatment and management. PFSH Past Medical History Arthritis: No Asthma: Yes Autoimmune Disease: No Anxiety: Yes Depression: Yes Heart Rhythm Problems: No Cancer: No Cardiovascular Problems: No High Cholesterol: No Chest Pain: No Congestive Heart Failure: No COPD: Yes Cerebrovascular Accident: No Coronary Artery Disease: No Diabetes: No Diminished Hearing: No Endocrine: No Gastrointestinal Disorders: Yes GERD: No Genitourinary: No Headaches: No Hiatal Hernia: No Hypertension: No Immune Disorder: No Implanted Vascular Access Dvce: No Kidney Stones: No Musculoskeletal: Yes Neurologic: Yes Psychiatric: Yes (PTSD) Reproductive: No Respiratory: Yes (COPD) Immunizations Current: Yes Renal Failure: No Seizures: Yes Sleep Apnea: No Thyroid Disease: No Ulcer: No Menopausal: Yes : 2 Para: 2 Past Surgical History Abdominal Surgery: Yes () Section: Yes (X1) Thoracic Surgery: Yes (BILATERAL BREAST BIOPSY) Other Surgery: Yes Social History Alcohol Use: Yes (4 BEERS/DAY) Tobacco Use: Yes (1/2-1 PPD) Substance Use: Yes (MARIJUANA OCCASIONALLY) Allergies-Medications (Allergen,Severity, Reaction): Coded Allergies: Penicillin (Verified Allergy, Severe, CHILDHOOD, 04/07/16) Reported Meds & Prescriptions Reported Meds & Active Scripts Active Chlordiazepoxide (Chlordiazepoxide HCl) 5 Mg Cap 5 Mg PO DIRECTED PRN 3 Days 10 mg po twice daily for one day then 5 mg po twice daily for one day then 5 mg po daily for one day then stop. Prednisone 5 Mg Tab 5 Mg PO DIRECTED 10 Days 40 mg po daily for two days then 30 mg po daily for two days then 20 mg po daily for two days the 10 mg po daily for two days then 5 mg po daily for two days then stop. Vitamin B-1 (Thiamine HCl) 100 Mg Tab 100 Mg PO DAILY 30 Days Pantoprazole (Pantoprazole Sodium) 40 Mg Tab 40 Mg PO Q12HR 30 Days Thera/Beta-Carotene (Multiple Vitamin) 1 Tab Tab 1 Tab PO DAILY 30 Days Levaquin (Levofloxacin) 500 Mg Tab 500 Mg PO Q24H 5 Days Folate (Folic Acid) 1 Mg Tab 1 Mg PO DAILY 30 Days Symbicort Inh (Budesonide/Formoterol Fumarate) 160-4.5 Mcg/Act Aero 1 Puff INH BID Spiriva Handihaler (Tiotropium Inh) 18 Mcg Cap 18 Mcg INH DAILY 1 capsule = 18 mcg Walker with Front Wheels (Device) 1 Mis Mis 1 Ea .ROUTE DIRECTED Proair Hfa 8.5 GM Inh (Albuterol Sulfate) 90 Mcg/Act Aer 2 Puff INH Q6H PRN 108 mcg/actuation Albuterol Neb (Albuterol Sulfate) 2.5 Mg/0.5 Ml Neb 2.5 Mg NEB QID NEB Note: The Albuterol Sulfate Inhalation Solution is concentrated and must be diluted. Read complete instructions carefully before using. Physical Exam Vital Signs Vital Signs Date Time Temp Pulse Resp B/P Pulse Ox O2 Delivery O2 Flow Rate FiO2 04/07/16 12:02 86 106/77 100 Ventilator 04/07/16 11:56 90 118/86 100 Ventilator 04/07/16 11:32 99 14 127/92 100 Ventilator 04/07/16 11:11 97 18 119/79 100 Nasal Cannula 04/07/16 11:10 96 40 04/07/16 11:10 40 04/07/16 11:10 95 Ventilator 40 04/07/16 10:47 88 20 108/60 100 04/07/16 10:08 100 18 99/68 100 Non-Rebreather 04/07/16 09:50 103 18 109/69 100 Non-Rebreather 04/07/16 09:45 104 18 126/83 100 Non-Rebreather 04/07/16 09:00 105 20 126/83 100 Non-Rebreather 15 04/07/16 07:40 19 100 Non-Rebreather 15 04/07/16 07:15 98 22 109/76 100 Non-Rebreather 15 04/07/16 05:54 99 Non-Rebreather 15 04/07/16 05:38 118 30 183/126 98 Physical Exam GENERAL: Critically ill appearing cachectic female, lying semi-recumbent, sedated on Precedex. SKIN: Warm and dry. Multiple ecchymotic bruising bilateral arms and bilateral eyes HEAD: Atraumatic. Normocephalic. EYES: Pupils equal and round. No scleral icterus. No injection or drainage. ENT: No nasal bleeding or discharge. Mucous membranes pink and moist. NECK: Trachea midline. No JVD. CARDIOVASCULAR: Normal rate, regular rhythm. RESPIRATORY: Slightly obstructive breathing pattern. Coarse breath sounds B/L to auscultation. Breath sounds equal bilaterally. GASTROINTESTINAL: Abdomen soft, non-tender, nondistended. MUSCULOSKELETAL: Extremities without clubbing, cyanosis, or edema. No obvious deformities. Bruising NEUROLOGICAL: Sedated, Precedex infusion. RASS -3. No obvious seizure activity at this moment. Laboratory Laboratory Tests Test 04/07/16 04/07/16 04/07/16 04/07/16 06:00 06:05 06:15 08:44 White Blood Count 10.9 Red Blood Count 4.19 Hemoglobin 12.9 Hematocrit 38.6 Mean Corpuscular Volume 92.0 Mean Corpuscular Hemoglobin 30.8 Mean Corpuscular Hemoglobin 33.4 Concent Red Cell Distribution Width 18.9 Platelet Count 636 Mean Platelet Volume 7.2 Neutrophils (%) (Auto) 67.9 Lymphocytes (%) (Auto) 16.6 Monocytes (%) (Auto) 13.9 Eosinophils (%) (Auto) 0.7 Basophils (%) (Auto) 0.9 Neutrophils # (Auto) 7.4 Lymphocytes # (Auto) 1.8 Monocytes # (Auto) 1.5 Eosinophils # (Auto) 0.1 Basophils # (Auto) 0.1 CBC Comment AUTO DIFF Differential Total Cells 100 Counted Neutrophils % (Manual) 59 Band Neutrophils % 4 Lymphocytes % 20 Monocytes % 16 Neutrophils # (Manual) 7.0 Metamyelocytes Myelocytes 1 Differential Comment FINAL DIFF MANUAL Platelet Estimate HIGH Platelet Morphology Comment NORMAL Prothrombin Time 10.6 Prothromb Time International 1.0 Ratio Activated Partial 24.6 Thromboplast Time Sodium Level 139 Potassium Level 3.4 Chloride Level 98 Carbon Dioxide Level 29.6 Anion Gap 11 Blood Urea Nitrogen 5 Creatinine 0.30 Estimat Glomerular Filtration 227 Rate Random Glucose 87 Calcium Level 7.9 Phosphorus Level 3.5 Total Bilirubin 0.3 Aspartate Amino Transf 47 (AST/SGOT) Alanine Aminotransferase 30 (ALT/SGPT) Alkaline Phosphatase 140 Total Creatine Kinase 62 Troponin I 0.05 Total Protein 5.8 Albumin 2.9 Ethyl Alcohol Level 14 Lactic Acid Level 5.3 Urine Color YELLOW Urine Turbidity HAZY Urine pH 6.5 Urine Specific [place] 1.010 Urine Protein 30 Urine Glucose (UA) NEG Urine Ketones NEG Urine Occult Blood NEG Urine Nitrite NEG Urine Bilirubin NEG Urine Urobilinogen LESS THAN 2.0 Urine Leukocyte Esterase NEG Urine RBC 6 Urine WBC 3 Urine Squamous Epithelial <1 Cells Urine Amorphous Sediment RARE Urine Bacteria RARE Urine Hyaline Casts 1 Urine White Blood Cell Casts 2 Urine Mucus FEW Microscopic Urinalysis Comment CATH-CULTURE IND Urine Opiates Screen NEG Urine Barbiturates Screen NEG Urine Amphetamines Screen POS Urine Benzodiazepines Screen POS Urine Cocaine Screen NEG Urine Cannabinoids Screen NEG Ammonia 56 Test 04/07/16 04/07/16 10:34 11:55 Lactic Acid Level 0.7 Blood Gas Puncture Site RT FEMORAL Blood Gas Patient Temperature 98.6 Blood Gas HCO3 30 Blood Gas Base Excess 5.0 Blood Gas Oxygen Saturation 87 Arterial Blood pH 7.35 Arterial Blood Partial 57 Pressure CO2 Arterial Blood Partial 62 Pressure O2 Arterial Blood Oxygen Content 14.1 Arterial Blood 2.5 Carboxyhemoglobin Arterial Blood Methemoglobin 1.9 Blood Gas Hemoglobin 11.4 Oxygen Delivery Device VENTILATOR Blood Gas Ventilator Setting AC14/450/5PEEP Blood Gas Inspired Oxygen 40 Date/Time Procedure Status Source Growth 04/07/16 06:15 Urine Culture Received Urine Catheterized Urine Pending 04/07/16 06:05 Aerobic Blood Culture Received Blood Peripheral Pending 04/07/16 06:05 Anaerobic Blood Culture Received Blood Peripheral Pending Result Diagram: 04/07/16 0600 04/07/16 0600 Imaging Last [address] 04/07/16 0550 Signed Impressions: Service Date/Time: Thursday, April 07, 2016 06:26 - CONCLUSION: 1. No evidence of acute intracranial pathology. No masses are identified. Jarocho Cruz MD Chest X-Ray 04/07/16 0550 Signed Impressions: Service Date/Time: Thursday, April 07, 2016 05:51 - CONCLUSION: 1. Near-complete resolution of the previously seen pulmonary edema and effusions Jarocho Cruz MD Chest X-Ray 04/07/16 0000 Signed Impressions: Service Date/Time: Thursday, April 07, 2016 11:29 - CONCLUSION: Endotracheal tube and nasogastric tube in place. Moderate sized right lower lobe atelectasis versus consolidation. Ramon Saab MD Septic Shock Reassessment Heart: Regular rate and rhythm Lungs: Course Skin: Warm Peripheral Pulses: Bounding Right Radial Bounding Left Radial Capillary Refill: Brisk Assessment and Plan Assessment and Plan This is a 65-year-old female with new onset seizure activity, generalized tonic- clonic with greater than 9 recent hospitalizations since 01/2015 for COPD exacerbation, recently pneumonia discharged 4 days ago. The patient has a significant history for alcohol use, seizure activity possibly due to alcohol withdrawal. Lactate level is also elevated, in conjunction with right lower lobe consolidation, is concerning for pneumonia given her recent discharge for pneumonia and sepsis. Plan by systems: Neurologic: Toxic encephalopathy versus metabolic encephalopathy Seizures Possible alcohol withdrawal PTSD Sedation vacation per ICU protocol. Currently Precedex infusion, discontinued. 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 7.5 ETT 20 cm at the lip Mechanical ventilation settings before meals/14/450/0.40/5 Obtain ABGs Chest xray- right lower lobe consolidation versus atelectasis Recently discharged Dx: pneumonia 04/03/16 Bronchodilators every 6 hours, every 2 hours when necessary Nicotine medium dose Solu-Medrol 40 mg every 8 hours CPAP trials when clinically indicated Ventilator bundle Maintain head of bed 30 Cardiovascular: NSTEMI vs. ACS 2/2 amphetamine use Hypotension Maintain MAP>65mmHg Follow-up troponin levels- initial 0.05 in ED-->repeat 0.12 Obtain echo -F/U results no previous imaging form previous hospitalization ASA 325 mg x1 dose Atorvastatin 80 mg/daily SBP 80's not a candidate for B-Blker at this time Will not start Heparin at this time 2/2 recent GI bleed (hospital admission 3 days ago) Repeat EKG upon arrival to ICU 04/07 anterolateral ischemia Cardiology consulted Obtain lipid panel Renal: Insert Diop, monitor hourly urine output -- Strict I/Os FEN/GI: History of recent GI bleed Hiatal hernia Duodenal bulb ulcer Hypokalemia Bolused 1 L normal saline Normal saline@75/hr Maintain NPO status-insert OGT to LIWS Bowel regimen-lactulose, senna, Colace Electrolyte replacement per ICU protocol Obtain LFT-alkaline phosphatase elevated consider gallbladder ultrasound Dietary consult Heme/ID: Lactic acidosis Monitor CBC WBC count 10.9 Lactate 5.3, follow up serial lactate levels Empiric antibiotics Obtain blood, urine, sputum culture Endocrine: Euglycemic Glucose monitoring per ICU protocol -- SSI Prophylaxis: GI Prophylaxis Protonix IV DVT Prophylaxis -- SCDs Heparin 5000 subcutaneous twice a day Lines: Peripheral IVs 2. Central line if indicated Dispo: This patient remains critically ill with one or more organ systems which are or may become a threat to life. I have spent in excess of 60 minutes discontinuously in the care and management of this patient. This time is exclusive of procedures, and includes, but is not limited to, evaluation of the patient, review of the medical record, discussions with family, consultants, nursing staff, or respiratory therapy, and documentation in the medical record. Code Status Full Discussed Condition With and MANAGER SOCIAL at bedside Elva Giron MD Apr 07, 2016 13:41
[2016-04-07 15:05] LABS: BLOOD GAS CARBOXYHEMOGLOBIN 2.1 % (0-4); BLOOD GAS HCO3 30 mmol/L (22-26); BLOOD GAS METHEMOGLOBIN 1.2 % (0-2); BLOOD GAS O2 HGB SATURATION 93 % (90-100); BLOOD GAS OXYGEN CONTENT 14.1 Vol % (12.0-20.0); BLOOD GAS PCO2 46 mmHg (38-42); BLOOD GAS PO2 75 mmHg (61-120); BLOOD GAS TOTAL HGB 10.8 G/DL (12.0-16.0); TEMP CORR TO 98.6
[2016-04-07] MEDS: chlordiazePOXIDE 25 MG CAP PO SCH ×2 (15:05→22:03)
[2016-04-07] MEDS: methylPREDNISolone SOD SUCC 40 MG/1 ML VIAL IV PUSH SCH ×2 (15:05→22:03)
[2016-04-07 15:06] LABS: CRITICAL VALUE NO; DRAW SITE LT RADIAL; FIO2 40 %; NUMBER OF ARTERIAL PUNCTURES 1; OXYGEN DEVICE VENTILATOR; STAT YES; ULNAR PULSE PRESENT; VENT SETTINGS 450/14/5PEEP
--- NOTE | 2016-04-07 15:08 | PD.PROCEDR ---
Procedure Note Procedure Endotracheal Intubation Diagnosis: Hypercapnic respiratory failure, seizure disorder Indications: Same Consent: /emergent Anesthesia:see MAR Description of the Procedure: The patient was positioned in the sniffing position. Pre-oxygenation was performed using a contains ventilations from patient,BVM. Anesthesia was induced via rapid sequence, with cricoid pressure. A glidescope 3 was used for laryngoscopy and a Grade 1 view was obtained. No gastric contents were visualized around the posterior oropharynx. A 7.5 cuffed endotracheal tube was inserted atraumatically through the vocal cords. Confirmation of correct endotracheal tube placement was made by equal and bilateral breath sounds and colorimetric CO2 detection. The endotracheal tube was secured at 20 cm at the teeth. There were no immediate complications noted. The patient remained hemodynamically stable throughout the procedure. A chest x-ray has been ordered. I personally performed the procedure. Elva Giron MD Apr 07, 2016 15:08
[2016-04-07] MEDS: LACTULOSE SYRUP 20 GM/30 ML CUP PO SCH (15:18)
[2016-04-07] MEDS: RESP: ALBUTEROL 2.5 MG/3 ML NEB (SCH) INH ×2 (15:26→20:26)
[2016-04-07] MEDS: AZITHROMYCIN INJ 500 MG in SODIUM CHLOR 0.9% 250 ML INJ 250 ML IV SCH (16:00)
[2016-04-07] MEDS ORDERED: THIAMINE INJ 100 MG in SODIUM CHLORIDE 0.9% INJ 100 ML IV SCH (16:00)
[2016-04-07] MEDS ORDERED: ASPIRIN 325 MG TAB PO ONE (16:30)
[2016-04-07] MEDS: metroNIDAZOLE 500 MG INJ 100 ML IV SCH (16:37)
[2016-04-07] MEDS: AZTREONAM INJ 2,000 MG in SODIUM CHLORIDE 0.9% INJ 100 ML IV SCH (16:38)
[2016-04-07] MEDS ORDERED: MULTIVITAMIN INJ 10 ML, FOLIC ACID INJ 1 MG in SODIUM CHLORID 0.9% 500 ML INJ 500 ML IV SCH (17:00)
--- NOTE | 2016-04-07 18:51 | MG ---
cc: MARY MATOS M.D. Lab No: [id number] Date: 04/07/2016 Age: Sex: F Race: TECHNIQUE: 17 channel EEG. DESCRIPTION: The background rhythm reveals mild slowing in the theta range. Sleep spindles are identified as well in a fairly symmetrical fashion. There is some muscle artifact identified. Also there are no lateralizing features. No epileptiform features are present. INTERPRETATION: A mildly abnormal study consistent with a mild encephalopathy. There is some normal sleep activity as well. No seizure focus identified. MD MAE Desouza/ALEJANDRA /6:44 PM /6:50 PM
[2016-04-07] MEDS: CHLORHEXIDINE 0.12% (ORAL KIT) 15 ML CUP MT SCH (20:00)
[2016-04-07] MEDS: ATORVASTATIN 80 MG TAB PO SCH (22:03)
[2016-04-07] MEDS: SODIUM CHLORIDE 0.9% FLUSH 5 ML FLUSH IV FLUSH SCH (22:04)
[2016-04-07 23:32] LABS: AMPHETAMINE, URINE NEG (NEG); BARBITURATES, URINE NEG (NEG); COCAINE, URINE NEG (NEG)
[2016-04-08] VITALS (18 sets, daily range): BP systolic 98–134; BP diastolic 57–69; PULSE 79–95; RESP 12–18; TEMP 97.8–98.8; O2SAT 88–100
[2016-04-08] MEDS: PROPOFOL 1000 MG/100 ML INJ 100 ML IV SCH ×2 (00:05→18:18)
[2016-04-08] MEDS: HEPARIN SODIUM - SQ 10,000 UNITS/ML VIAL SQ SCH ×2 (00:06→12:27)
[2016-04-08] MEDS: AZTREONAM INJ 2,000 MG in SODIUM CHLORIDE 0.9% INJ 100 ML IV SCH ×3 (00:06→17:20)
[2016-04-08] MEDS: SODIUM CHLOR 0.9% 1000 ML INJ 1,000 ML IV SCH (00:29)
[2016-04-08] MEDS: chlordiazePOXIDE 25 MG CAP PO SCH ×4 (02:20→20:32)
[2016-04-08] MEDS: metroNIDAZOLE 500 MG INJ 100 ML IV SCH ×3 (02:20→17:23)
[2016-04-08] MEDS: RESP: ALBUTEROL 2.5 MG/3 ML NEB (SCH) INH ×4 (03:56→20:08)
--- NOTE | 2016-04-08 05:10 | RADRPT ---
EXAM DATE/TIME: 04/08/2016 04:00 [facility] COMPARISON: CHEST SINGLE AP, April 07, 2016, 11:29. INDICATIONS : Shortness of breath, possible pulmonary disease. MEDICAL HISTORY : Chronic obstructive pulmonary disease. SURGICAL HISTORY : None. ENCOUNTER: Subsequent ACUITY: 2 days PAIN SCORE: Non-responsive. LOCATION: Bilateral chest FINDINGS: ET tube and NG tube are well placed. Heart is normal. There is mild increased density at the bases bi laterally being worse on the right. CONCLUSION: Bibasilar areas of consolidation or atelectasis. Rhett Ojeda MD on April 08, 2016 at 5:08 Board Certified Radiologist. This report was verified electronically.
[2016-04-08] MEDS: CHLORHEXIDINE GLUCONATE 2 % 1 PACK (2 CLOTHS) TOP SCH (05:28)
[2016-04-08] MEDS: methylPREDNISolone SOD SUCC 40 MG/1 ML VIAL IV PUSH SCH ×2 (06:55→15:09)
[2016-04-08] MEDS: LACTULOSE SYRUP 20 GM/30 ML CUP PO SCH (09:17)
[2016-04-08] MEDS: PANTOPRAZOLE SODIUM 40 MG VIAL IV SCH (09:17)
[2016-04-08] MEDS: SODIUM CHLORIDE 0.9% FLUSH 5 ML FLUSH IV FLUSH SCH ×2 (09:18→20:32)
[2016-04-08] MEDS: NICOTINE 14 MG/24 HR PATCH TD SCH (09:18)
[2016-04-08] MEDS: CHLORHEXIDINE 0.12% (ORAL KIT) 15 ML CUP MT SCH ×2 (09:29→20:32)
[2016-04-08 09:46] LABS: BICARBONATE 25.7 MEQ/L (21.0-32.0); MAGNESIUM 1.7 MG/DL (1.5-2.5); POTASSIUM 3.9 MEQ/L (3.5-5.1)
[2016-04-08 09:52] LABS: HDL CHOLESTEROL 109.5 MG/DL (40.0-60.0); INDIRECT BILIRUBIN 0.3 MG/DL (0.0-0.8); TOTAL BILIRUBIN ADULT 0.5 MG/DL (0.2-1.0)
--- NOTE | 2016-04-08 12:19 | MB ---
cc: DE FLANAGAN DATE OF CONSULTATION: 04/08/2016 DATE OF : 1955 REASON FOR CONSULTATION Elevated troponins. HISTORY OF PRESENT ILLNESS 60-year-old female with past medical history significant for COPD, GI bleeding, ETOH abuse and amphetamine who came to the emergency department after an episode of seizure. The seizure lasted about a minute, however, she had repeated episodes of seizures in the emergency department. According to reports seizures were tonic-clonic. The patient was lethargic and for airway protection she was intubated. Head imaging studies have been unremarkable and EEG done is mildly abnormal. Cardiology has been consulted given her blood work revealed mildly elevated troponin's of 0.12, 0.07 and 0.02. The history is taken from the chart because the patient is intubated. REVIEW OF SYSTEMS Unobtainable. PAST MEDICAL HISTORY 1. COPD. 2. Pneumonia. 3. GI bleeding. 4. ETOH abuse. 5. Delirium tremens. 6. PTSD. MEDICATIONS Home medications reviewed. PAST SURGICAL HISTORY Unobtainable. FAMILY HISTORY Unobtainable. SOCIAL HISTORY She drinks alcohol daily as well as tobacco and uses marijuana occasionally. ALLERGIES PENICILLIN. PHYSICAL EXAMINATION VITAL SIGNS: Temperature 97.8, respiratory rate 12, pulse 85, blood pressure 98 /60. She is satting 100% on FIO2 of 0.35. GENERAL: She is intubated. NECK: No JVD. No carotid bruits. HEART: Regular rate and rhythm. No murmurs, rubs or gallops. LUNGS: Vented respiratory effort. ABDOMEN: Soft, nontender, nondistended. Positive bowel sounds. EXTREMITIES: No cyanosis. No edema. Pulses throughout. DATA CBC: Hemoglobin 12, hematocrit 38, platelet count 636. INR 1. Chemistries: Sodium 139, potassium 3.9, BUN 8, creatinine 0.20. Troponin 0.12, 0.07, 0.02. Ammonia 56. Triglycerides 134, cholesterol 225, LDL 89, HDL 109. Toxicology positive for urine amphetamines and benzodiazepines. Ethyl alcohol 14. INR is 1. Microbiology still pending. Brain MRI unremarkable. Head CT: No acute evidence of intracranial pathology. Chest x-ray: Consolidation versus atelectases. EKG: Normal sinus rhythm with significant T-wave inversions from V2-V5. ASSESSMENT AND PLAN 60-year-old female with a history of ETOH abuse, COPD, GI bleeding consulted to Cardiology for minimally elevated troponin's and EKG changes in the setting of new onset seizures. She remains sedated, intubated, hemodynamically stable. She does have some changes in her EKG to suggest ischemia, however, her troponin 's are minimally elevated and most likely this is secondary to her seizures. Those EKG changes can also be seen with neurologic pathology. At this time I will continue medical management. Recommendations: 1. Echocardiogram to assess LV systolic function 2. Ischemic evaluation before leaving the hospital with a Lexiscan stress test. 3. Continue aggressive medical management for CAD. 4. Supportive management per Pressing Machine Operator and Neurology Thank you for the opportunity to take part in the care of this patient. Will be available on a p.r.n. basis for further questions or concerns. MD JB Hernandez/ZEKE /11:34 AM /12:03 PM MTDJose L
--- NOTE | 2016-04-08 13:02 | HHI.CCPN ---
Subjective Remarks/Hospital Course The patient was brought in by EMS for seizure. The patient does not have a history of seizure disorder. The patient was recently hospitalized COPD exacerbation, pneumonia, GI bleed and EtOH abuse. Reported by the , the patient got up to use the bedside commode and had a seizure lasting approximately 1 minute. She was transported reported to the hospital. Upon admission to the ED, she has had a second seizure here which lasted approximately 30 seconds. It was a global tonic clonic seizure. The patient had a third seizure, The patient received Ativan IV in repeated doses, and placed on a Precedex infusion. Laboratory and imaging studies were obtained. The patient was noted to have a lactate level 5.3. CT brain imaging no evidence of acute intracranial pathology. Upon my arrival to the ED, the patient was on a nonrebreather mask and nasal cannula, with O2 sat of 100%, lying supine with RASS -3,omn Precdex infusion. The HOB was elevated to 45 degrees. The patient subsequently had another seizure and received additional Ativan IV. Due to the patient's lethargic state recurrent seizure activity, and hiatal hernia, I intubated the patient with RSI and cricoid pressure for airway protection, utilizing Glidescope, no visualization of gastric contents in oropharynx. Repeat chest x-ray, post intubation, was noted to now have right lower lobe consolidation, not previously on initial x-ray upon admission. This most likely represents aspiration. Critical care medicine was consulted for treatment and management. Subjective 04/08: Afebrile. Currently awake and alert and following commands. Nods head yes when states okay to extubate. Tube feeding not yet initiated. Weeping from left upper extremity. No BM Objective Vital Signs Date Time Temp Pulse Resp B/P Pulse Ox O2 Delivery O2 Flow Rate FiO2 04/08/16 12:41 100 35 04/08/16 12:00 97.9 91 12 134/61 04/07/16 12:02 Ventilator 04/07/16 09:00 15 Intake and Output 04/07/16 04/07/16 04/08/16 08:00 16:00 00:00 Intake Total 650 ml 3340 ml Output Total 325 ml 2250 ml Balance 325 ml 1090 ml Result Diagram: 04/07/16 0600 04/08/16 0903 Other Results Microbiology Date/Time Procedure Status Source Growth 04/07/16 06:15 Urine Culture - Preliminary Resulted Urine Catheterized Urine NO GROWTH IN 24 HOURS. 04/07/16 06:05 Aerobic Blood Culture - Preliminary Resulted Blood Peripheral NO GROWTH IN 1 DAY 04/07/16 06:05 Anaerobic Blood Culture - Preliminary Resulted Blood Peripheral NO GROWTH IN 1 DAY Imaging Last Impressions Chest X-Ray 04/08/16 0600 Signed Impressions: Service Date/Time: Friday, April 08, 2016 04:00 - CONCLUSION: Bibasilar areas of consolidation or atelectasis. Rhett Ojeda MD Head CT 04/07/16 0550 Signed Impressions: Service Date/Time: Thursday, April 07, 2016 06:26 - CONCLUSION: 1. No evidence of acute intracranial pathology. No masses are identified. Jarocho Cruz MD Brain MRI 04/07/16 0000 Signed Impressions: Service Date/Time: Thursday, April 07, 2016 12:25 - CONCLUSION: Brain MRI within normal limits. Ramon Saab MD Objective Remarks GENERAL: 60-year-old Critically ill appearing cachectic female, lying in bed orotracheally intubated SKIN: Warm and dry. Multiple ecchymotic bruising bilateral arms and bilateral eyes HEAD: Atraumatic. Normocephalic. EYES: Pupils equal and round around 3 mm bilaterally and reactive. No scleral icterus. No injection or drainage. ENT: No nasal bleeding or discharge. Mucous membranes pink and moist. NECK: Trachea midline. No JVD. CARDIOVASCULAR: Normal rate, regular rhythm. S1, S2. No S4. Without murmur RESPIRATORY: Slightly obstructive breathing pattern. Coarse breath sounds B/L to auscultation. Breath sounds equal bilaterally. GASTROINTESTINAL: Abdomen soft, non-tender, nondistended. MUSCULOSKELETAL: Extremities 1+ left upper extremity wheezing NEUROLOGICAL: Cranial nerves II through XII grossly intact. Moves all 4 extremities spontaneously. Urinary Catheter: Yes Assessment to: Continue Diop insert reason: Prolonged Immobilization Vascular Central Line Catheter: No Assessment to: Continue A/P Assessment and Plan Neurologic/Psych: Toxic encephalopathy versus metabolic encephalopathy Seizures Possible alcohol withdrawal PTSD Currently on Diprivan at 20 mcg/kg/m for sedation while intubated Goal of RASS -2 Neurochecks per ICU protocol 04/07/16 CT brain-no evidence of acute intracranial pathology MRI brain revealed no acute intracranial findings Alcohol withdrawal, seizures previous admission 03/05 04/07 EEG-showed moderate encephalopathy no acute findings Ammonia level 56, alcohol level 14, Utox positive for amphetamines Ciwa initiated Librium 50 mg every 6hrs Daily sedation vacation Thiamine, folate and multivitamin for EtOH Respiratory: Acute respiratory failure secondary to AMS COPD/ 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 ACS 2/ amphetamine use Hypotension Maintain MAP>65mmHg Follow-up troponin levels- initial 0.05 in ED-->repeat 0.12 Obtain echo -F/U results no previous imaging form previous hospitalization ASA 325 mg x1 dose Atorvastatin 80 mg/daily for dyslipidemia Will not start Heparin at this time 03/21 recent GI bleed (hospital admission 3 days ago) Repeat EKG upon arrival to ICU 04/07 anterolateral ischemia Cardiology consulted. Recommended tachycardic event stress test prior to discharge Renal: Insert Diop, monitor hourly urine output -- Strict I/Os FEN/GI: History of recent GI bleed Hiatal hernia Duodenal bulb ulcer Hypokalemia Hyperammonia Normal saline@75/hr will be discontinued. Initiate tube feedings did not extubated Maintain NPO status-insert OGT to LIWS Bowel regimen-lactulose, senna, Colace Electrolyte replacement per ICU protocol Xifaxan 550 twice a day/lactulose 30 daily. Heme/ID: Lactic acidosis Thrombocytosis Monitor CBC WBC count 10.9 Lactate 5.3, until cleared Empiric antibiotics Obtain blood, urine, 04/07 no growth today. Pending sputum culture Currently on aztreonam, azithromycin and Flagyl day #2 Endocrine: Euglycemic Glucose monitoring per ICU protocol -- SSI Prophylaxis: GI Prophylaxis Protonix IV DVT Prophylaxis -- SCDs Heparin 5000 subcutaneous twice a day Lines: Peripheral IVs 2. Central line if indicated Critical Care: The total critical care time was 35 minutes. Time to perform other separately billable procedures was not included in the critical care time. Miguel Lazcano MD Apr 08, 2016 13:02 Miguel Lazcano MD Apr 08, 2016 13:02
[2016-04-08] MEDS: DOCUSATE SODIUM 100 MG/10 ML UDC G-TUBE SCH ×2 (13:35→13:39)
[2016-04-08] MEDS: MAGNESIUM SULFATE 1 GM PREMIX 100 ML IV SCH ×2 (13:37→14:49)
[2016-04-08] MEDS ORDERED: FOLIC ACID 1 MG TAB PO ONE (14:00)
[2016-04-08] MEDS ORDERED: MULTIVITAMIN TAB PO ONE (14:00)
--- NOTE | 2016-04-08 14:35 | EKG ---
Date Performed: 04/07/2016 Time Performed: 13:54:27 PTAGE: 60 years EKG: Sinus rhythm POSSIBLE ANTERIOR MYOCARDIAL INFARCTION , OF INDETERMINATE AGE MODERATE T-WAVE ABNORMALITY, CONSIDER LATERAL ISCHEMIA ABNORMAL ECG PREVIOUS TRACING : 03/05/2016 13.56 DOCTOR: Bharathi Serrano Interpretating Date/Time 04/08/2016 14:30:57
[2016-04-08] MEDS ORDERED: THIAMINE INJ 100 MG in SODIUM CHLORIDE 0.9% INJ 100 ML IV ONE (15:00)
[2016-04-08] MEDS: AZITHROMYCIN INJ 500 MG in SODIUM CHLOR 0.9% 250 ML INJ 250 ML IV SCH (15:10)
[2016-04-08] MEDS: ALBUMIN HUMAN 25% 25 GM/100 ML BAGP IV SCH ×2 (15:18→20:32)
[2016-04-08] MEDS ORDERED: LORazepam 2 MG/ML VIAL IV PUSH PRN ×3 (18:45)
[2016-04-08] MEDS ORDERED: FLUMAZENIL 0.5 MG/5 ML VIAL IV PUSH PRN (18:45)
[2016-04-08] MEDS: RESP: BUDESONIDE 0.5 MG/2 ML NEB NEB SCH (20:08)
[2016-04-08] MEDS: ATORVASTATIN 80 MG TAB PO SCH (20:32)
[2016-04-08] MEDS: REMOVE OLD NICODERM (NICOTINE) PATCH TD SCH (20:32)
[2016-04-08] MEDS: RIFAXIMIN 550 MG TAB PO SCH (20:32)
[2016-04-09] VITALS (18 sets, daily range): BP systolic 95–120; BP diastolic 50–70; PULSE 68–93; RESP 14–22; TEMP 97.8–98.7; O2SAT 97–100
[2016-04-09] MEDS: SENNOSIDES 8.6 MG TAB PO SCH ×3 (01:35→23:00)
[2016-04-09] MEDS: DOCUSATE SODIUM 100 MG/10 ML UDC G-TUBE SCH ×3 (01:35→23:00)
[2016-04-09] MEDS: HEPARIN SODIUM - SQ 10,000 UNITS/ML VIAL SQ SCH ×3 (01:36→23:20)
[2016-04-09] MEDS: AZTREONAM INJ 2,000 MG in SODIUM CHLORIDE 0.9% INJ 100 ML IV SCH ×3 (01:36→16:59)
[2016-04-09] MEDS: methylPREDNISolone SOD SUCC 40 MG/1 ML VIAL IV PUSH SCH ×4 (01:36→23:20)
[2016-04-09] MEDS: LORazepam 2 MG/ML VIAL IV PUSH PRN (01:37)
[2016-04-09] MEDS: RESP: ALBUTEROL 2.5 MG/3 ML NEB (SCH) INH ×4 (02:35→20:40)
[2016-04-09] MEDS: metroNIDAZOLE 500 MG INJ 100 ML IV SCH ×3 (02:46→17:13)
[2016-04-09] MEDS: PROPOFOL 1000 MG/100 ML INJ 100 ML IV SCH ×2 (02:46→08:03)
[2016-04-09] MEDS: chlordiazePOXIDE 25 MG CAP PO SCH ×4 (02:46→20:38)
[2016-04-09] MEDS: ALBUMIN HUMAN 25% 25 GM/100 ML BAGP IV SCH ×2 (02:46→08:03)
[2016-04-09] MEDS: SODIUM CHLOR 0.9% 1000 ML INJ 1,000 ML IV SCH ×2 (02:47→16:20)
[2016-04-09] MEDS: CHLORHEXIDINE GLUCONATE 2 % 1 PACK (2 CLOTHS) TOP SCH (04:00)
[2016-04-09 06:27] LABS: AUTOMATED NEUTROPHIL # 12.7 TH/MM3 (1.8-7.7); BASOPHIL # 0.1 TH/MM3 (0-0.2); BASOPHIL % 0.8 % (0.0-2.0); HEMATOCRIT 33.2 % (35.0-46.0); HEMO FLAGS DIFF FINAL; LYMPH % 1.8 % (9.0-44.0); LYMPHOCYTE # 0.2 TH/MM3 (1.0-4.8); MEAN CELL VOLUME 91.9 FL (80.0-100.0); MEAN CORPUSCULAR HEMOGLOBIN 30.4 PG (27.0-34.0); MEAN CORPUSCULAR HGB CONC 33.1 % (32.0-36.0); MONO % 3.1 % (0.0-8.0); NEUT % 94.3 % (16.0-70.0); PLATELET COUNT 448 TH/MM3 (150-450); RED BLOOD COUNT 3.61 MIL/MM3 (4.00-5.30); RED CELL DISTRIBUTION WIDTH 19.1 % (11.6-17.2); WHITE BLOOD COUNT 13.5 TH/MM3 (4.0-11.0)
[2016-04-09 07:29] LABS: BLOOD UREA NITROGEN 10 MG/DL (7-18); GLOMERULAR FILTRATION RATE 158 ML/MIN (>89)
[2016-04-09 07:31] LABS: ALKALINE PHOSPHATASE 80 U/L (45-117); ALT (GPT) 17 U/L (10-53); ANION GAP 10 MEQ/L (5-15); AST (GOT) 12 U/L (15-37); BICARBONATE 25.1 MEQ/L (21.0-32.0); CHLORIDE 103 MEQ/L (98-107); POTASSIUM 3.3 MEQ/L (3.5-5.1); SODIUM (NA) 138 MEQ/L (136-145); TOTAL BILIRUBIN ADULT 0.3 MG/DL (0.2-1.0)
[2016-04-09] MEDS: RESP: BUDESONIDE 0.5 MG/2 ML NEB NEB SCH ×2 (07:39→20:40)
[2016-04-09] MEDS: CHLORHEXIDINE 0.12% (ORAL KIT) 15 ML CUP MT SCH ×2 (08:02→20:38)
[2016-04-09] MEDS: THIAMINE INJ 100 MG in SODIUM CHLORIDE 0.9% INJ 100 ML IV SCH (08:03)
[2016-04-09] MEDS: FOLIC ACID 1 MG TAB PO SCH (08:14)
[2016-04-09] MEDS: LACTULOSE SYRUP 20 GM/30 ML CUP PO SCH (08:14)
[2016-04-09] MEDS: PANTOPRAZOLE SODIUM 40 MG VIAL IV SCH (08:15)
[2016-04-09] MEDS: RIFAXIMIN 550 MG TAB PO SCH ×2 (08:15→20:38)
[2016-04-09] MEDS: NICOTINE 14 MG/24 HR PATCH TD SCH (08:15)
[2016-04-09] MEDS: SODIUM CHLORIDE 0.9% FLUSH 5 ML FLUSH IV FLUSH SCH ×2 (08:41→20:39)
[2016-04-09] MEDS ORDERED: MULTIVITAMIN TAB PO SCH (09:00)
--- NOTE | 2016-04-09 12:18 | EC ---
Study Study Date:04/08/2016 STUDY CONCLUSIONS SUMMARY - Left ventricle: The cavity size was normal. Wall thickness was normal. Systolic function was normal. The estimated ejection fraction was in the range of 55% to 60%. Wall motion was normal; there were no regional wall motion abnormalities. - Tricuspid valve: Mild regurgitation. If LV function is below 40, please consider prescribing an ACEI or ARB or document rationale for non-use. PROCEDURE DATA STUDY STATUS: Elective. Procedure: Transthoracic echocardiography. Image quality was good. Scanning was performed from the parasternal, apical, and subcostal acoustic windows. Study completion: The patient tolerated the procedure well. Transthoracic echocardiography. M-mode, complete 2D, complete spectral Doppler, and color Doppler. Patient status: Inpatient. CARDIAC ANATOMY LEFT VENTRICLE: The cavity size was normal. Wall thickness was normal. Systolic function was normal. The estimated ejection fraction was in the range of 55% to 60%. Wall motion was normal; there were no regional wall motion abnormalities. AORTIC VALVE: Trileaflet; normal thickness leaflets. Doppler: Transvalvular velocity was within the normal range. There was no stenosis. No regurgitation. Mean gradient: 3mm Hg (S). AORTA: Aortic root: The aortic root was normal in size. MITRAL VALVE: Structurally normal valve. Doppler: Transvalvular velocity was within the normal range. There was no evidence for stenosis. No regurgitation. LEFT ATRIUM: The atrium was normal in size. RIGHT VENTRICLE: The cavity size was normal. Wall thickness was normal. PULMONIC VALVE: Doppler: Transvalvular velocity was within the normal range. There was no evidence for stenosis. No regurgitation. TRICUSPID VALVE: Structurally normal valve. Doppler: Transvalvular velocity was within the normal range. Mild regurgitation. PULMONARY ARTERY: The main pulmonary artery was normal-sized. Systolic pressure was within the normal range. RIGHT ATRIUM: The atrium was normal in size. PERICARDIUM: There was no pericardial effusion. SYSTEMIC VEINS: Inferior vena cava: The vessel was normal in size. BASIC MEASUREMENTS ADULT Normal Left ventricle LV internal dimension, ED, chordal level, *32.2 mm 43-52 PLAX LV internal dimension, ES, chordal level, 24.3 mm 23-38 PLAX Fractional shortening, chordal level, PLAX *25 % >29 Left atrium Anterior-posterior dimension 29 mm Right ventricle RV internal dimension, ED, PLAX *18.2 mm 19-38 DOPPLER MEASUREMENTS ADULT Normal Main pulmonary artery Pressure, S 30 mm Hg =30 Aortic valve Peak velocity, S 128 cm/s Mean velocity, S 80.6 cm/s VTI, S 21.1 cm Mean gradient, S 3 mm Hg Tricuspid valve Regurgitant peak velocity 224 cm/s Peak RV-RA gradient, S 20 mm Hg Systemic veins Estimated CVP 10 mm Hg Right ventricle RV pressure, S *30 mm Hg <30 LEGEND: Mean values are shown as u=mean value. Asterisk (*) sandhu values outside specified normal range. Prepared and signed by Bharathi Serrano [id number]
--- NOTE | 2016-04-09 12:37 | HHI.CCPN ---
Subjective Remarks/Hospital Course The patient was brought in by EMS for seizure. The patient does not have a history of seizure disorder. The patient was recently hospitalized COPD exacerbation, pneumonia, GI bleed and EtOH abuse. Reported by the , the patient got up to use the bedside commode and had a seizure lasting approximately 1 minute. She was transported reported to the hospital. Upon admission to the ED, she has had a second seizure here which lasted approximately 30 seconds. It was a global tonic clonic seizure. The patient had a third seizure, The patient received Ativan IV in repeated doses, and placed on a Precedex infusion. Laboratory and imaging studies were obtained. The patient was noted to have a lactate level 5.3. CT brain imaging no evidence of acute intracranial pathology. Upon my arrival to the ED, the patient was on a nonrebreather mask and nasal cannula, with O2 sat of 100%, lying supine with RASS -3,omn Precdex infusion. The HOB was elevated to 45 degrees. The patient subsequently had another seizure and received additional Ativan IV. Due to the patient's lethargic state recurrent seizure activity, and hiatal hernia, I intubated the patient with RSI and cricoid pressure for airway protection, utilizing Glidescope, no visualization of gastric contents in oropharynx. Repeat chest x-ray, post intubation, was noted to now have right lower lobe consolidation, not previously on initial x-ray upon admission. This most likely represents aspiration. Critical care medicine was consulted for treatment and management. 04/08: Afebrile. Currently awake and alert and following commands. Nods head yes when states okay to extubate. Tube feeding not yet initiated. Weeping from left upper extremity. No BM Subjective 04/09: Afebrile. On 25 mcg/kg/m of Diprivan and currently on CPAP trial. No recurrent seizures noted. Positive BM. Noted decreased urine output. Objective Vital Signs Date Time Temp Pulse Resp B/P Pulse Ox O2 Delivery O2 Flow Rate FiO2 04/09/16 12:11 100 35 04/09/16 10:00 92 04/09/16 08:00 98.0 22 111/62 04/07/16 12:02 Ventilator 04/07/16 09:00 15 Intake and Output 04/08/16 04/08/16 04/09/16 08:00 16:00 00:00 Intake Total 593 ml 1079 ml 1749 ml Output Total 300 ml 345 ml 200 ml Balance 293 ml 734 ml 1549 ml Result Diagram: 04/09/16 0604/09/16 0605 Other Results Microbiology Date/Time Procedure Status Source Growth 04/07/16 06:15 Urine Culture - Preliminary Resulted Urine Catheterized Urine Yeast-Id To Follow 04/07/16 06:05 Aerobic Blood Culture - Preliminary Resulted Blood Peripheral NO GROWTH IN 2 DAYS 04/07/16 06:05 Anaerobic Blood Culture - Preliminary Resulted Blood Peripheral NO GROWTH IN 2 DAYS Imaging Last Impressions Chest X-Ray 04/08/16 0600 Signed Impressions: Service Date/Time: Friday, April 08, 2016 04:00 - CONCLUSION: Bibasilar areas of consolidation or atelectasis. Rhett Ojeda MD Head CT 04/07/16 0550 Signed Impressions: Service Date/Time: Thursday, April 07, 2016 06:26 - CONCLUSION: 1. No evidence of acute intracranial pathology. No masses are identified. Jarocho Cruz MD Brain MRI 04/07/16 0000 Signed Impressions: Service Date/Time: Thursday, April 07, 2016 12:25 - CONCLUSION: Brain MRI within normal limits. Ramon Saab MD Objective Remarks GENERAL: 60-year-old Critically ill appearing cachectic female, lying in bed orotracheally intubated SKIN: Warm and dry. Multiple ecchymotic bruising bilateral arms and bilateral eyes HEAD: Atraumatic. Normocephalic. EYES: Pupils equal and round around 3 mm bilaterally and reactive. No scleral icterus. No injection or drainage. ENT: No nasal bleeding or discharge. Mucous membranes pink and moist. NECK: Trachea midline. No JVD. CARDIOVASCULAR: Normal rate, regular rhythm. S1, S2. No S4. Without murmur RESPIRATORY: Slightly obstructive breathing pattern. Coarse breath sounds B/L to auscultation. Breath sounds equal bilaterally. GASTROINTESTINAL: Abdomen soft, non-tender, nondistended. MUSCULOSKELETAL: Extremities 1+ left upper extremity wheezing NEUROLOGICAL: Cranial nerves II through XII grossly intact. Moves all 4 extremities spontaneously. A/P Assessment and Plan Neurologic/Psych: Toxic encephalopathy versus metabolic encephalopathy Seizures Possible alcohol withdrawal PTSD Currently on Diprivan at 25 mcg/kg/m for sedation while intubated Goal of RASS -2 Neurochecks per ICU protocol 04/07/16 CT brain-no evidence of acute intracranial pathology MRI brain revealed no acute intracranial findings Alcohol withdrawal, seizures previous admission 03/05 04/07 EEG-showed moderate encephalopathy no acute findings Ammonia level 56 currently at 37, alcohol level 14, Utox positive for amphetamines Ciwa initiated Librium 25 mg every 6hrs Daily sedation vacation Thiamine, folate and multivitamin for EtOH Resume Precedex drip to assist in weaning from ventilator Respiratory: Acute respiratory failure secondary to AMS COPD/ O2 2L home dependency Tobacco abuse Pneumonia/community acquired ACV /40/5 -> CPAP 10/-40% Bronchodilator therapy every 6 hours and as needed Pulmicort twice a day Solu-Medrol 40 every 8 Chest xray- right lower lobe consolidation versus atelectasis Nicotine medium 40 mg daily dose CPAP trials when clinically indicated Ventilator bundle Maintain head of bed 30 Cardiovascular: NSTEMI vs. ACS 2/2 amphetamine use Hypotension Maintain MAP>65mmHg Follow-up troponin levels- initial 0.05 in ED-->repeat 0.12 Obtain echo -F/U results no previous imaging form previous hospitalization ASA 325 mg x1 dose Atorvastatin 80 mg/daily for dyslipidemia Will not start Heparin at this time 03/21 recent GI bleed (hospital admission 3 days ago) Repeat EKG upon arrival to ICU 04/07 anterolateral ischemia Cardiology consulted. Recommended nuclear medicine stress test prior to discharge Renal: Insert Diop, monitor hourly urine output -- Strict I/Os FEN/GI: History of recent GI bleed Hiatal hernia Duodenal bulb ulcer Hypokalemia Hyperammonia Normal saline@75/hr will be discontinued likely in a.m. initiate tube feedings did not extubated Tube feeds Jevity 1.5 goal 50 cc an hour Bowel regimen-lactulose, senna, Colace Electrolyte replacement per ICU protocol Xifaxan 550 twice a day/lactulose 30 daily. Heme/ID: Lactic acidosis Thrombocytosis Monitor CBC Empiric antibiotics Obtain blood 04/07 no growth to date. Yeast urine. Pending sputum culture Currently on aztreonam, azithromycin and Flagyl day # 3. 1 dose of Diflucan today. Endocrine: Euglycemic Glucose monitoring per ICU protocol -- SSI Prophylaxis: GI Prophylaxis Protonix IV DVT Prophylaxis -- SCDs Heparin 5000 subcutaneous twice a day Lines: Peripheral IVs 2. Central line if indicated Critical Care: The total critical care time was 35 minutes. Time to perform other separately billable procedures was not included in the critical care time. Miguel Lazcano MD Apr 09, 2016 12:37
[2016-04-09] MEDS ORDERED: FLUCONAZOLE 200 MG PREMIX BAG 100 ML IV ONE (13:00)
[2016-04-09] MEDS ORDERED: POTASSIUM CL 40 MEQ/30 ML LIQ UDC TUBE ONE (13:00)
[2016-04-09] MEDS ORDERED: FUROSEMIDE 20 MG/2 ML VIAL IV PUSH ONE (13:00)
[2016-04-09] MEDS: AZITHROMYCIN INJ 500 MG in SODIUM CHLOR 0.9% 250 ML INJ 250 ML IV SCH (16:49)
[2016-04-09] MEDS: DEXMEDETOMIDINE INJ 50 ML IV SCH ×3 (17:13→23:20)
[2016-04-09] MEDS: ATORVASTATIN 80 MG TAB PO SCH (20:38)
[2016-04-09] MEDS: REMOVE OLD NICODERM (NICOTINE) PATCH TD SCH (20:39)
[2016-04-09 21:52] LABS: POTASSIUM 3.7 MEQ/L (3.5-5.1)
[2016-04-10] VITALS (16 sets, daily range): BP systolic 96–153; BP diastolic 56–94; PULSE 55–102; RESP 14–24; TEMP 96.2–98.2; O2SAT 85–100
[2016-04-10] MEDS: AZTREONAM INJ 2,000 MG in SODIUM CHLORIDE 0.9% INJ 100 ML IV SCH ×2 (01:00→09:03)
[2016-04-10] MEDS: metroNIDAZOLE 500 MG INJ 100 ML IV SCH ×3 (01:41→21:32)
[2016-04-10] MEDS: chlordiazePOXIDE 25 MG CAP PO SCH ×4 (01:42→20:14)
[2016-04-10] MEDS: DEXMEDETOMIDINE INJ 50 ML IV SCH ×3 (02:19→10:29)
[2016-04-10] MEDS: CHLORHEXIDINE GLUCONATE 2 % 1 PACK (2 CLOTHS) TOP SCH (04:00)
[2016-04-10] MEDS: RESP: ALBUTEROL 2.5 MG/3 ML NEB (SCH) INH ×4 (04:16→20:49)
[2016-04-10] MEDS: SODIUM CHLOR 0.9% 1000 ML INJ 1,000 ML IV SCH ×2 (05:32→19:00)
[2016-04-10] MEDS: methylPREDNISolone SOD SUCC 40 MG/1 ML VIAL IV PUSH SCH ×3 (05:33→22:29)
--- NOTE | 2016-04-10 05:52 | RADRPT ---
EXAM DATE/TIME: 04/10/2016 04:50 [facility] COMPARISON: CHEST SINGLE AP, April 08, 2016, 4:00. INDICATIONS : Respiratory failure. MEDICAL HISTORY : Chronic obstructive pulmonary disease. SURGICAL HISTORY : None. ENCOUNTER: Subsequent ACUITY: 2 weeks PAIN SCORE: Non-responsive. LOCATION: Bilateral chest FINDINGS: ET tube and NG tube are well placed. The heart is of normal. There is increased density at the mid an d lower lungs bilaterally with silhouette of the hemidiaphragms. CONCLUSION: Bilateral areas of consolidation. Some degree of effusion needs to be considered. Rhett Ojeda MD on April 10, 2016 at 5:50 Board Certified Radiologist. This report was verified electronically.
[2016-04-10 06:19] LABS: AUTOMATED NEUTROPHIL # 11.3 TH/MM3 (1.8-7.7); BASOPHIL % 0.1 % (0.0-2.0); EOSINOPHIL % 0.2 % (0.0-4.0); HEMATOCRIT 33.8 % (35.0-46.0); LYMPH % 2.1 % (9.0-44.0); LYMPHOCYTE # 0.3 TH/MM3 (1.0-4.8); MEAN CELL VOLUME 92.6 FL (80.0-100.0); MEAN CORPUSCULAR HGB CONC 32.4 % (32.0-36.0); MONO % 5.4 % (0.0-8.0); NEUT % 92.2 % (16.0-70.0); PLATELET COUNT 564 TH/MM3 (150-450); RED BLOOD COUNT 3.65 MIL/MM3 (4.00-5.30); RED CELL DISTRIBUTION WIDTH 18.4 % (11.6-17.2); WHITE BLOOD COUNT 12.3 TH/MM3 (4.0-11.0)
[2016-04-10 06:22] LABS: HEMO FLAGS AUTO DIFF
[2016-04-10 07:10] LABS: BICARBONATE 27.4 MEQ/L (21.0-32.0); MAGNESIUM 1.7 MG/DL (1.5-2.5); POTASSIUM 3.6 MEQ/L (3.5-5.1)
[2016-04-10 07:52] LABS: PLATELET ESTIMATE SMEAR HIGH (NORMAL); PLATELET MORPHOLOGY NORMAL (NORMAL); SCAN/DIFF AUTO DIFF CONFIRMED
[2016-04-10] MEDS ORDERED: THIAMINE HCL 100 MG TAB PO SCH (09:00)
[2016-04-10] MEDS: SODIUM CHLORIDE 0.9% FLUSH 5 ML FLUSH IV FLUSH SCH ×2 (09:03→20:35)
[2016-04-10] MEDS: LACTULOSE SYRUP 20 GM/30 ML CUP PO SCH (09:03)
[2016-04-10] MEDS: PANTOPRAZOLE SODIUM 40 MG VIAL IV SCH (09:04)
[2016-04-10] MEDS: FOLIC ACID 1 MG TAB PO SCH (09:04)
[2016-04-10] MEDS: NICOTINE 14 MG/24 HR PATCH TD SCH (09:04)
[2016-04-10] MEDS: THIAMINE INJ 100 MG in SODIUM CHLORIDE 0.9% INJ 100 ML IV SCH (09:04)
[2016-04-10] MEDS: RIFAXIMIN 550 MG TAB PO SCH ×2 (09:04→20:35)
[2016-04-10] MEDS: CHLORHEXIDINE 0.12% (ORAL KIT) 15 ML CUP MT SCH ×2 (09:05→20:37)
[2016-04-10] MEDS: DOCUSATE SODIUM 100 MG/10 ML UDC G-TUBE SCH ×2 (10:29→22:30)
[2016-04-10] MEDS: SENNOSIDES 8.6 MG TAB PO SCH ×2 (10:29→22:30)
[2016-04-10] MEDS: HEPARIN SODIUM - SQ 10,000 UNITS/ML VIAL SQ SCH ×2 (10:29→23:40)
[2016-04-10] MEDS: RESP: BUDESONIDE 0.5 MG/2 ML NEB NEB SCH ×2 (11:20→20:49)
--- NOTE | 2016-04-10 12:41 | HHI.CCPN ---
Subjective Remarks/Hospital Course The patient was brought in by EMS for seizure. The patient does not have a history of seizure disorder. The patient was recently hospitalized COPD exacerbation, pneumonia, GI bleed and EtOH abuse. Reported by the , the patient got up to use the bedside commode and had a seizure lasting approximately 1 minute. She was transported reported to the hospital. Upon admission to the ED, she has had a second seizure here which lasted approximately 30 seconds. It was a global tonic clonic seizure. The patient had a third seizure, The patient received Ativan IV in repeated doses, and placed on a Precedex infusion. Laboratory and imaging studies were obtained. The patient was noted to have a lactate level 5.3. CT brain imaging no evidence of acute intracranial pathology. Upon my arrival to the ED, the patient was on a nonrebreather mask and nasal cannula, with O2 sat of 100%, lying supine with RASS -3,omn Precdex infusion. The HOB was elevated to 45 degrees. The patient subsequently had another seizure and received additional Ativan IV. Due to the patient's lethargic state recurrent seizure activity, and hiatal hernia, I intubated the patient with RSI and cricoid pressure for airway protection, utilizing Glidescope, no visualization of gastric contents in oropharynx. Repeat chest x-ray, post intubation, was noted to now have right lower lobe consolidation, not previously on initial x-ray upon admission. This most likely represents aspiration. Critical care medicine was consulted for treatment and management. 04/08: Afebrile. Currently awake and alert and following commands. Nods head yes when states okay to extubate. Tube feeding not yet initiated. Weeping from left upper extremity. No BM 04/09: Afebrile. On 25 mcg/kg/m of Diprivan and currently on CPAP trial. No recurrent seizures noted. Positive BM. Noted decreased urine output. Subjective 04/10: Afebrile. Extubated today. Currently on Precedex low-dose. Currently Venturi mask. Will wean as tolerated. Quite vocal today. Objective Vital Signs Date Time Temp Pulse Resp B/P Pulse Ox O2 Delivery O2 Flow Rate FiO2 04/10/16 10:00 62 04/10/16 08:12 Nasal Cannula 92 35 04/10/16 08:00 96.2 16 153/94 99 04/07/16 09:00 15 Intake and Output 04/09/16 04/09/16 04/10/16 08:00 16:00 00:00 Intake Total 1201 ml 1617 ml 1966 ml Output Total 200 ml 1100 ml 575 ml Balance 1001 ml 517 ml 1391 ml Result Diagram: 04/10/16 0547 04/10/16 0547 Other Results Microbiology Date/Time Procedure Status Source Growth 04/07/16 06:15 Urine Culture - Preliminary Resulted Urine Catheterized Urine Yeast-Id To Follow 04/07/16 06:05 Aerobic Blood Culture - Preliminary Resulted Blood Peripheral NO GROWTH IN 3 DAYS 04/07/16 06:05 Anaerobic Blood Culture - Preliminary Resulted Blood Peripheral NO GROWTH IN 3 DAYS Imaging Last Impressions Chest X-Ray 04/10/16 0600 Signed Impressions: Service Date/Time: Sunday, April 10, 2016 04:50 - CONCLUSION: Bilateral areas of consolidation. Some degree of effusion needs to be considered. Rhett Ojeda MD Head CT 04/07/16 0550 Signed Impressions: Service Date/Time: Thursday, April 07, 2016 06:26 - CONCLUSION: 1. No evidence of acute intracranial pathology. No masses are identified. Jarocho Cruz MD Brain MRI 04/07/16 0000 Signed Impressions: Service Date/Time: Thursday, April 07, 2016 12:25 - CONCLUSION: Brain MRI within normal limits. Ramon Saab MD Objective Remarks GENERAL: 60-year-old Critically ill appearing cachectic female, lying in bed orotracheally intubated SKIN: Warm and dry. Multiple ecchymotic bruising bilateral arms and bilateral eyes HEAD: Atraumatic. Normocephalic. EYES: Pupils equal and round around 3 mm bilaterally and reactive. No scleral icterus. No injection or drainage. ENT: No nasal bleeding or discharge. Mucous membranes pink and moist. NECK: Trachea midline. No JVD. CARDIOVASCULAR: Normal rate, regular rhythm. S1, S2. No S4. Without murmur RESPIRATORY: Slightly obstructive breathing pattern. Coarse breath sounds B/L to auscultation. Breath sounds equal bilaterally. GASTROINTESTINAL: Abdomen soft, non-tender, nondistended. MUSCULOSKELETAL: Extremities 1+ left upper extremity wheezing NEUROLOGICAL: Cranial nerves II through XII grossly intact. Moves all 4 extremities spontaneously. Urinary Catheter: Yes Assessment to: Continue Diop insert reason: Prolonged Immobilization Vascular Central Line Catheter: No Assessment to: Continue A/P Assessment and Plan Neurologic/Psych: Toxic encephalopathy versus metabolic encephalopathy Seizures Possible alcohol withdrawal PTSD Currently on Precedex drip at 0.6 mcg/kg per minute for EtOH withdrawal Goal of RASS 0 Neurochecks per ICU protocol 04/07/16 CT brain-no evidence of acute intracranial pathology MRI brain revealed no acute intracranial findings Alcohol withdrawal, seizures previous admission 03/05 04/07 EEG-showed moderate encephalopathy no acute findings Ammonia level 56 currently at 37, alcohol level 14, Utox positive for amphetamines Ciwa initiated Librium 25 mg every 6hrs for EtOH resolved Daily sedation vacation Thiamine, folate and multivitamin for EtOH Respiratory: Acute respiratory failure secondary to AMS COPD/ O2 2L home dependency Tobacco abuse Pneumonia/community acquired Extubated taken Venturi mask. Bronchodilator therapy every 6 hours and as needed Pulmicort twice a day Solu-Medrol 40 every 8 Chest xray- right lower lobe consolidation versus atelectasis Nicotine patch 14 mg daily dose Cardiovascular: NSTEMI vs. ACS 2/2 amphetamine use Hypotension Maintain MAP>65mmHg Follow-up troponin levels- initial 0.05 in ED-->repeat 0.12 Obtain echo -F/U results no previous imaging form previous hospitalization ASA 325 mg x1 dose Atorvastatin 80 mg/daily for dyslipidemia Will not start Heparin at this time 2/2 recent GI bleed (hospital admission 3 days ago) Repeat EKG upon arrival to ICU 04/07 anterolateral ischemia Cardiology consulted. Recommended nuclear medicine stress test prior to discharge Echocardiogram reveals EF 55%. Trace TR. Renal: Insert Diop, monitor hourly urine output -- Strict I/Os FEN/GI: History of recent GI bleed Hiatal hernia Duodenal bulb ulcer Hypokalemia Hyperammonia Normal saline@75/hr will be discontinued likely in a.m. initiate tube feedings did not extubated Bowel regimen-lactulose, senna, Colace Electrolyte replacement per ICU protocol Xifaxan 550 twice a day/lactulose 30 daily for elevated ammonia. Swallow evaluation. Advance diet as tolerated Heme/ID: Lactic acidosis Thrombocytosis Monitor CBC Empiric antibiotics Obtain blood 04/07 no growth to date. Yeast urine. Pending sputum culture Currently on aztreonam, azithromycin and Flagyl day # 4. 1 dose of Diflucan Endocrine: Euglycemic Glucose monitoring per ICU protocol -- SSI Prophylaxis: GI Prophylaxis Protonix IV DVT Prophylaxis -- SCDs Heparin 5000 subcutaneous twice a day Lines: Peripheral IVs 2. Central line if indicated Critical Care: The total care time was 35 minutes. Time to perform other separately billable procedures was not included in the critical care time. Miguel Lazcano MD Apr 10, 2016 12:41
[2016-04-10] MEDS ORDERED: POTASSIUM PHOSPHATE INJ 30 MMOL in SODIUM CHLOR 0.9% 250 ML INJ 250 ML IV ONE (14:00)
[2016-04-10] MEDS: MAGNESIUM SULFATE 1 GM PREMIX 100 ML IV SCH ×2 (15:02→18:02)
[2016-04-10] MEDS: AZITHROMYCIN INJ 500 MG in SODIUM CHLOR 0.9% 250 ML INJ 250 ML IV SCH (18:02)
[2016-04-10] MEDS: ATORVASTATIN 80 MG TAB PO SCH (20:35)
[2016-04-10] MEDS: REMOVE OLD NICODERM (NICOTINE) PATCH TD SCH (20:37)
[2016-04-10] MEDS: LORazepam 1 MG TAB PO PRN (21:51)
[2016-04-10] MEDS: LORazepam 2 MG TAB PO PRN (23:40)
[2016-04-11] VITALS (16 sets, daily range): BP systolic 111–163; BP diastolic 60–94; PULSE 79–104; RESP 18–26; TEMP 97.4–98.6; O2SAT 94–100
[2016-04-11] MEDS: metroNIDAZOLE 500 MG INJ 100 ML IV SCH ×3 (01:43→18:38)
[2016-04-11] MEDS: AZTREONAM INJ 2,000 MG in SODIUM CHLORIDE 0.9% INJ 100 ML IV SCH ×3 (01:46→15:22)
[2016-04-11] MEDS: chlordiazePOXIDE 25 MG CAP PO SCH ×4 (01:46→20:00)
[2016-04-11] MEDS: RESP: ALBUTEROL 2.5 MG/3 ML NEB (SCH) INH ×3 (03:51→15:51)
[2016-04-11] MEDS: CHLORHEXIDINE GLUCONATE 2 % 1 PACK (2 CLOTHS) TOP SCH (04:00)
[2016-04-11] MEDS: LORazepam 2 MG TAB PO PRN ×2 (04:36→15:08)
[2016-04-11] MEDS: methylPREDNISolone SOD SUCC 40 MG/1 ML VIAL IV PUSH SCH ×3 (07:08→23:30)
[2016-04-11 08:02] LABS: HEMATOCRIT 30.2 % (35.0-46.0); MEAN CELL VOLUME 94.9 FL (80.0-100.0); MEAN CORPUSCULAR HEMOGLOBIN 30.1 PG (27.0-34.0); MEAN CORPUSCULAR HGB CONC 31.7 % (32.0-36.0); PLATELET COUNT 490 TH/MM3 (150-450); RED BLOOD COUNT 3.18 MIL/MM3 (4.00-5.30); RED CELL DISTRIBUTION WIDTH 18.8 % (11.6-17.2); REVIEW FLAG FINAL; WHITE BLOOD COUNT 13.4 TH/MM3 (4.0-11.0)
[2016-04-11 08:44] LABS: BICARBONATE 29.6 MEQ/L (21.0-32.0)
[2016-04-11 10:03] LABS: BATH SALTS (MDPV) UR NEG (NEG); OXYCODONE (PERCODAN) NEG (NEG)
[2016-04-11 10:05] LABS: ECSTASY (MDMA) UR NEG (NEG); HEROIN (6-ACETYLMORPHINE) UR NEG (NEG); K2 SPICE UR NEG (NEG)
[2016-04-11 10:06] LABS: OBMETHADONE UR NEG (NEG); PHENCYCLIDINE URINE NEG (NEG)
[2016-04-11] MEDS: RESP: BUDESONIDE 0.5 MG/2 ML NEB NEB SCH (10:11)
[2016-04-11] MEDS: THIAMINE INJ 100 MG in SODIUM CHLORIDE 0.9% INJ 100 ML IV SCH (11:44)
[2016-04-11] MEDS: CHLORHEXIDINE 0.12% (ORAL KIT) 15 ML CUP MT SCH ×2 (11:44→20:00)
[2016-04-11] MEDS: SODIUM CHLOR 0.9% 1000 ML INJ 1,000 ML IV SCH (11:45)
[2016-04-11] MEDS: NICOTINE 14 MG/24 HR PATCH TD SCH (11:46)
[2016-04-11] MEDS: HEPARIN SODIUM - SQ 10,000 UNITS/ML VIAL SQ SCH ×2 (11:46→23:30)
[2016-04-11] MEDS: LACTULOSE SYRUP 20 GM/30 ML CUP PO SCH (11:46)
[2016-04-11] MEDS: SENNOSIDES 8.6 MG TAB PO SCH ×2 (11:46→23:00)
[2016-04-11] MEDS: RIFAXIMIN 550 MG TAB PO SCH ×2 (11:47→21:00)
[2016-04-11] MEDS: FOLIC ACID 1 MG TAB PO SCH (11:47)
[2016-04-11] MEDS: DOCUSATE SODIUM 100 MG/10 ML UDC G-TUBE SCH ×2 (11:47→23:00)
[2016-04-11] MEDS: PANTOPRAZOLE SODIUM 40 MG VIAL IV SCH (11:47)
[2016-04-11] MEDS: SODIUM CHLORIDE 0.9% FLUSH 5 ML FLUSH IV FLUSH SCH ×2 (11:48→21:00)
--- NOTE | 2016-04-11 14:50 | HHI.CCPN ---
Subjective Remarks/Hospital Course The patient was brought in by EMS for seizure. The patient does not have a history of seizure disorder. The patient was recently hospitalized COPD exacerbation, pneumonia, GI bleed and EtOH abuse. Reported by the , the patient got up to use the bedside commode and had a seizure lasting approximately 1 minute. She was transported reported to the hospital. Upon admission to the ED, she has had a second seizure here which lasted approximately 30 seconds. It was a global tonic clonic seizure. The patient had a third seizure, The patient received Ativan IV in repeated doses, and placed on a Precedex infusion. Laboratory and imaging studies were obtained. The patient was noted to have a lactate level 5.3. CT brain imaging no evidence of acute intracranial pathology. Upon my arrival to the ED, the patient was on a nonrebreather mask and nasal cannula, with O2 sat of 100%, lying supine with RASS -3,omn Precdex infusion. The HOB was elevated to 45 degrees. The patient subsequently had another seizure and received additional Ativan IV. Due to the patient's lethargic state recurrent seizure activity, and hiatal hernia, I intubated the patient with RSI and cricoid pressure for airway protection, utilizing Glidescope, no visualization of gastric contents in oropharynx. Repeat chest x-ray, post intubation, was noted to now have right lower lobe consolidation, not previously on initial x-ray upon admission. This most likely represents aspiration. Critical care medicine was consulted for treatment and management. 04/08: Afebrile. Currently awake and alert and following commands. Nods head yes when states okay to extubate. Tube feeding not yet initiated. Weeping from left upper extremity. No BM 04/09: Afebrile. On 25 mcg/kg/m of Diprivan and currently on CPAP trial. No recurrent seizures noted. Positive BM. Noted decreased urine output. 04/10: Afebrile. Extubated today. Currently on Precedex low-dose. Currently Venturi mask. Will wean as tolerated. Quite vocal today. Subjective 04/11: Off Precedex drip. Extubated 04/08 without compensation. Requesting to go home. Weaning off O2. Objective Vital Signs Date Time Temp Pulse Resp B/P Pulse Ox O2 Delivery O2 Flow Rate FiO2 04/11/16 06:00 94 04/11/16 04:00 97.9 20 146/70 98 04/10/16 20:50 Nasal Cannula 3.00 04/10/16 08:12 92 35 Intake and Output 04/10/16 04/10/16 04/11/16 08:00 16:00 00:00 Intake Total 1250 ml 1006 ml 1525 ml Output Total 50 ml 150 ml 600 ml Balance 1200 ml 856 ml 925 ml Result Diagram: 04/11/16 0715 04/11/16 0715 Other Results Microbiology Date/Time Procedure Status Source Growth 04/07/16 06:15 Urine Culture - Final Complete Urine Catheterized Urine Maday Glabrata 04/07/16 06:05 Aerobic Blood Culture - Preliminary Resulted Blood Peripheral NO GROWTH IN 4 DAYS 04/07/16 06:05 Anaerobic Blood Culture - Preliminary Resulted Blood Peripheral NO GROWTH IN 4 DAYS Imaging Last 72 hours Impressions Chest X-Ray 04/10/16 0600 Signed Impressions: Service Date/Time: Sunday, April 10, 2016 04:50 - CONCLUSION: Bilateral areas of consolidation. Some degree of effusion needs to be considered. Rhett Ojeda MD Objective Remarks GENERAL: 60-year-old Critically ill appearing cachectic female, lying in bed in no acute distress SKIN: Warm and dry. Multiple ecchymotic bruising bilateral arms and bilateral eyes HEAD: Atraumatic. Normocephalic. EYES: Pupils equal and round around 3 mm bilaterally and reactive. No scleral icterus. No injection or drainage. ENT: No nasal bleeding or discharge. Mucous membranes pink and moist. NECK: Trachea midline. No JVD. CARDIOVASCULAR: Normal rate, regular rhythm. S1, S2. No S4. Without murmur RESPIRATORY: Slightly obstructive breathing pattern. Coarse breath sounds B/L to auscultation. Breath sounds equal bilaterally. GASTROINTESTINAL: Abdomen soft, non-tender, nondistended. MUSCULOSKELETAL: Extremities 1+ left upper extremity wheezing NEUROLOGICAL: Cranial nerves II through XII grossly intact. Moves all 4 extremities spontaneously. Strength equal symmetric. Normal sensation. Pain and left foot. A/P Assessment and Plan Neurologic/Psych: Toxic encephalopathy versus metabolic encephalopathy Seizures Possible alcohol withdrawal PTSD Neurochecks per ICU protocol 04/07/16 CT brain-no evidence of acute intracranial pathology MRI brain revealed no acute intracranial findings Alcohol withdrawal, seizures previous admission 03/05 04/07 EEG-showed moderate encephalopathy no acute findings Ammonia level down to 37, alcohol level 14, Utox positive for amphetamines Ciwa initiated Librium 25 mg every 6hrs for EtOH Thiamine, folate and multivitamin for EtOH Respiratory: Acute respiratory failure secondary to AMS COPD/ O2 2L home dependency Tobacco abuse Pneumonia/community acquired Nasal cannula to maintain saturations greater than equal to 92% Incentive spirometry while awake Bronchodilator therapy every 6 hours and as needed Pulmicort twice a day Solu-Medrol 40 every 8 Chest xray- right lower lobe consolidation versus atelectasis Nicotine patch 14 mg daily dose Cardiovascular: NSTEMI vs. ACS 2/ amphetamine use Hypotension Maintain MAP>65mmHg Follow-up troponin levels- initial 0.05 in ED-->repeat 0.12 Obtain echo -F/U results no previous imaging form previous hospitalization ASA 325 mg x1 dose Atorvastatin 80 mg/daily for dyslipidemia Repeat EKG upon arrival to ICU 04/07 anterolateral ischemia Cardiology consulted. Recommended nuclear medicine stress test prior to discharge ordered for tomorrow 04/12 Echocardiogram reveals EF 55%. Trace TR. Renal: Insert Diop, monitor hourly urine output -- Strict I/Os FEN/GI: History of recent GI bleed Hiatal hernia Duodenal bulb ulcer Hypokalemia Hyperammonia Bowel regimen-lactulose, senna, Colace Electrolyte replacement per ICU protocol Xifaxan 550 twice a day/lactulose 30 daily for elevated ammonia. Advance diet as tolerated Heme/ID: Lactic acidosis Thrombocytosis Monitor CBC Empiric antibiotics Obtain blood 04/07 no growth to date. Yeast urine. Pending sputum culture Currently on aztreonam, azithromycin and Flagyl day # 5. 1 dose of Diflucan Endocrine: Euglycemic Glucose monitoring per ICU protocol -- SSI Prophylaxis: GI Prophylaxis Protonix IV DVT Prophylaxis -- SCDs Heparin 5000 subcutaneous twice a day Lines: Peripheral IVs 2. Central line if indicated Critical Care: The total care time was 35 minutes. Time to perform other separately billable procedures was not included in the critical care time. Patient is stable from a critical care medicine standpoint. We will assign care to hospitalist in a.m. 04/12 Miguel Lazcano MD Apr 11, 2016 14:50
[2016-04-11] MEDS: AZITHROMYCIN INJ 500 MG in SODIUM CHLOR 0.9% 250 ML INJ 250 ML IV SCH (15:21)
[2016-04-11] MEDS: ATORVASTATIN 80 MG TAB PO SCH (21:00)
[2016-04-12] VITALS (24 sets, daily range): BP systolic 137–168; BP diastolic 80–99; PULSE 86–118; RESP 16–24; TEMP 97.6–98.6; O2SAT 91–99
[2016-04-12] MEDS: chlordiazePOXIDE 25 MG CAP PO SCH ×4 (01:09→22:03)
[2016-04-12] MEDS: metroNIDAZOLE 500 MG INJ 100 ML IV SCH ×3 (01:09→17:43)
[2016-04-12] MEDS: AZTREONAM INJ 2,000 MG in SODIUM CHLORIDE 0.9% INJ 100 ML IV SCH ×3 (01:20→17:38)
[2016-04-12] MEDS: RESP: ALBUTEROL 2.5 MG/3 ML NEB (SCH) INH ×4 (03:29→22:00)
[2016-04-12] MEDS: CHLORHEXIDINE GLUCONATE 2 % 1 PACK (2 CLOTHS) TOP SCH (04:00)
[2016-04-12] MEDS: methylPREDNISolone SOD SUCC 40 MG/1 ML VIAL IV PUSH SCH ×3 (06:34→22:02)
[2016-04-12] MEDS: CHLORHEXIDINE 0.12% (ORAL KIT) 15 ML CUP MT SCH ×2 (08:00→20:00)
[2016-04-12] MEDS: NICOTINE 14 MG/24 HR PATCH TD SCH (08:44)
[2016-04-12] MEDS: LACTULOSE SYRUP 20 GM/30 ML CUP PO SCH (08:44)
[2016-04-12] MEDS: THIAMINE INJ 100 MG in SODIUM CHLORIDE 0.9% INJ 100 ML IV SCH (08:45)
[2016-04-12] MEDS: SODIUM CHLORIDE 0.9% FLUSH 5 ML FLUSH IV FLUSH SCH ×2 (08:45→22:03)
[2016-04-12] MEDS: RIFAXIMIN 550 MG TAB PO SCH ×2 (08:45→22:03)
[2016-04-12] MEDS: PANTOPRAZOLE SODIUM 40 MG VIAL IV SCH (08:45)
[2016-04-12] MEDS: FOLIC ACID 1 MG TAB PO SCH (08:45)
[2016-04-12] MEDS: SENNOSIDES 8.6 MG TAB PO SCH ×3 (08:46→23:00)
[2016-04-12] MEDS: RESP: BUDESONIDE 0.5 MG/2 ML NEB NEB SCH ×2 (10:32→19:57)
[2016-04-12 10:56] LABS: AUTOMATED NEUTROPHIL # 8.7 TH/MM3 (1.8-7.7); BASOPHIL % 0.1 % (0.0-2.0); HEMATOCRIT 34.7 % (35.0-46.0); HEMO FLAGS DIFF FINAL; LYMPH % 1.9 % (9.0-44.0); LYMPHOCYTE # 0.2 TH/MM3 (1.0-4.8); MEAN CELL VOLUME 95.7 FL (80.0-100.0); MEAN CORPUSCULAR HGB CONC 31.4 % (32.0-36.0); MONO % 3.9 % (0.0-8.0); NEUT % 94.1 % (16.0-70.0); PLATELET COUNT 493 TH/MM3 (150-450); RED BLOOD COUNT 3.62 MIL/MM3 (4.00-5.30); RED CELL DISTRIBUTION WIDTH 18.5 % (11.6-17.2); WHITE BLOOD COUNT 9.3 TH/MM3 (4.0-11.0)
[2016-04-12 11:23] LABS: BICARBONATE 35.4 MEQ/L (21.0-32.0); POTASSIUM 4.1 MEQ/L (3.5-5.1)
[2016-04-12] MEDS ORDERED: REGADENOSON INJ 0.4 MG/5 ML SYR ONE (12:57)
--- NOTE | 2016-04-12 14:27 | RADRPT ---
EXAM DATE/TIME: 04/12/2016 12:28 [facility] COMPARISON: No previous studies available for comparison. INDICATIONS : Seizure disorder. Myocardial infarction. DOSE: 25.7 mCi Tc99m Myoview at stress. 8.5 mCi Tc99m Myoview at rest. 0.4 mg Lexiscan STRESS SYMPTOMS: None. EJECTION FRACTION: 65% MEDICAL HISTORY : Chronic obstructive pulmonary disease. Smoker. SURGICAL HISTORY : section. ENCOUNTER: Initial ACUITY: 3 days PAIN SCALE: 0/10 LOCATION: chest TECHNIQUE: The patient underwent pharmacologic stress with infusion of prescribed dose. Continuous ECG tracing was monitored during stress. Gated SPECT imaging was performed after stress and conventional SPECT i maging was performed at rest. The examination was performed on a SPECT/CT scanner, both attenuation and non-corrected datasets were reviewed. FINDINGS: DISTRIBUTION: The maximum perfused segment at stress is in the lateral wall. PERFUSION STUDY: The pattern of perfusion at stress is within normal limits. GATED STUDY: There is intact wall motion and thickening without hypokinetic or dyskinetic segments. CONCLUSION: 1. Unremarkable myocardial perfusion examination. RISK CATEGORY: Low Rylan Morris MD on April 12, 2016 at 14:25 Board Certified Radiologist. This report was verified electronically.
--- NOTE | 2016-04-12 15:10 | HHI.PR ---
Subjective Remarks Patient returned from [facility]. Currently doing well. Sitting in her bed, eating lunch. No acute concerns. at bedside. Objective Vitals Vital Signs Date Time Temp Pulse Resp B/P Pulse Ox O2 Delivery O2 Flow Rate FiO2 04/12/16 15:00 102 04/12/16 14:00 98 04/12/16 11:00 96 04/12/16 11:00 96 04/12/16 11:00 97.8 100 17 150/80 91 04/12/16 10:35 99 Nasal Cannula 2.00 04/12/16 10:00 105 04/12/16 09:00 100 04/12/16 08:00 95 04/12/16 07:00 86 04/12/16 07:00 97.6 90 17 168/88 98 04/12/16 04:20 98.6 93 18 155/84 98 04/12/16 04:00 88 04/12/16 03:35 95 Nasal Cannula 2.00 04/12/16 03:00 93 04/12/16 02:00 92 04/12/16 01:00 90 04/12/16 00:00 98 04/12/16 00:00 98.6 90 18 148/81 98 04/11/16 23:00 94 04/11/16 22:00 92 04/11/16 21:00 90 04/11/16 20:00 92 04/11/16 20:00 98.6 91 18 142/79 98 04/11/16 19:00 94 04/11/16 18:15 96 18 153/87 96 04/11/16 18:00 104 04/11/16 16:00 104 04/11/16 16:00 98.6 104 18 163/94 98 I/O 04/11/16 04/11/16 04/11/16 04/12/16 04/12/16 04/12/16 07:00 15:00 23:00 07:00 15:00 23:00 Intake Total 423 ml 867 ml Output Total 350 ml 325 ml 800 ml Balance 73 ml 542 ml -800 ml IV Total 423 ml 867 ml Output Urine Total 350 ml 325 ml 800 ml # Bowel Movements 0 Result Diagram: 04/12/16 1020 04/12/16 1020 Imaging Last Impressions Myocardial Perfusion Scan Nuc Med 04/12/16 0600 Signed Impressions: Service Date/Time: Tuesday, April 12, 2016 12:28 - CONCLUSION: 1. Unremarkable myocardial perfusion examination. RISK CATEGORY: Low Rylan Morris MD Chest X-Ray 04/10/16 0600 Signed Impressions: Service Date/Time: Sunday, April 10, 2016 04:50 - CONCLUSION: Bilateral areas of consolidation. Some degree of effusion needs to be considered. Rhett Ojeda MD Head CT 04/07/16 0550 Signed Impressions: Service Date/Time: Thursday, April 07, 2016 06:26 - CONCLUSION: 1. No evidence of acute intracranial pathology. No masses are identified. Jarocho Cruz MD Brain MRI 04/07/16 0000 Signed Impressions: Service Date/Time: Thursday, April 07, 2016 12:25 - CONCLUSION: Brain MRI within normal limits. Ramon Saab MD Objective Remarks GENERAL: Alert, NAD. SKIN: Warm and dry. HEAD: Normocephalic. EYES: No scleral icterus. No injection or drainage. NECK: Supple, trachea midline. No JVD or lymphadenopathy. CARDIOVASCULAR: Regular rate and rhythm without murmurs, gallops, or rubs. RESPIRATORY: Breath sounds equal bilaterally. No accessory muscle use. GASTROINTESTINAL: Abdomen soft, non-tender, nondistended. MUSCULOSKELETAL: No cyanosis, or edema. BACK: Nontender without obvious deformity. No CVA tenderness. Procedures 04/07/2016 EEG INTERPRETATION: A mildly abnormal study consistent with a mild encephalopathy. There is some normal sleep activity as well. No seizure focus identified. Echo 04/08/2016 - Left ventricle: The cavity size was normal. Wall thickness was normal. Systolic function was normal. The estimated ejection fraction was in the range of 55% to 60%. Wall motion was normal; there were no regional wall motion abnormalities. - Tricuspid valve: Mild regurgitation. A/P Problem List: (1) Acute encephalopathy ICD Code: G93.40 Status: Acute (2) Respiratory failure, acute and chronic ICD Code: J96.20 Status: Acute (3) Alcohol withdrawal ICD Code: F10.239 Status: Acute (4) NSTEMI (non-ST elevated myocardial infarction) ICD Code: I21.4 Status: Acute Assessment and Plan Ms. Latif is a 60 year old female with a history of COPD, alcohol abuse who was admitted to the ICU on 04/07/2016 due to possible seizure activity at home. Upon admission, in the ED, patient had multiple episodes of seizure activities. Ativan was given, Precedex started. Lactate was 5.3. CT brain unremarkable for any acute findings. Patient was intubated in the ED and CXR showed possibility of aspiration pneumonia. With supportive care, patient improved and tolerated CPAP well and subsequently, on 04/10/2016, patient was extubated and patient was subsequently transferred to [facility] and patient underwent Lexiscan study on 2016. Echo showed EF 55%. - Probable alcohol withdrawal - Acute encephalopathy - toxic versus metabolic. - 04/07/16 CT brain-no evidence of acute intracranial pathology - MRI brain revealed no acute intracranial findings - Alcohol withdrawal, seizures previous admission 03/05 - 04/07/2016 EEG-showed moderate encephalopathy no acute findings - Ammonia level down to 37, alcohol level 14, Utox positive for amphetamines - Continue CIWA protocol. - Librium 25 mg every 6hrs for EtOH - Thiamine, folate and multivitamin for EtOH - Acute respiratory failure - O2 Dependent COPD - Possible aspiration pneumonia versus pneumonitis. - Nasal cannula to maintain saturations greater than equal to 92% - Incentive spirometry while awake - Bronchodilator therapy every 6 hours and as needed - Pulmicort twice a day - Solu-Medrol 40 every 8h - Chest xray- right lower lobe consolidation versus atelectasis - Nicotine patch 14 mg daily dose - Currently on Aztreonam, Azithromycin and Flagyl. - NSTEMI - could be from Amphetamine use. - Cardiology recommended a nuclear stress test. - Continue Aspirin and Atorvastatin - Echo shows EF 55-60%. - Continue Lipitor 80mg QHS, - Hyperammonemia - History of recent GI bleed - Bowel regimen-lactulose, senna, Colace - Xifaxan 550 twice a day/lactulose 30 daily for elevated ammonia. Full code. Heparin SQ. Discharge plan: Discussed with CM. Fraga pending - if negative, we will plan on discharging patient to SNF if it can be arranged. Problem Qualifiers (1) Alcohol withdrawal: Qualified Code: F10.231 - Alcohol withdrawal, with delirium Krysta Ny DO Apr 12, 2016 15:10
[2016-04-12] MEDS: AZITHROMYCIN INJ 500 MG in SODIUM CHLOR 0.9% 250 ML INJ 250 ML IV SCH (16:08)
[2016-04-12] MEDS: HEPARIN SODIUM - SQ 10,000 UNITS/ML VIAL SQ SCH (16:08)
[2016-04-12] MEDS: DOCUSATE SODIUM 100 MG/10 ML UDC G-TUBE SCH ×3 (16:08→23:00)
[2016-04-12] MEDS: ATORVASTATIN 80 MG TAB PO SCH (22:02)
[2016-04-13] VITALS (34 sets, daily range): BP systolic 120–167; BP diastolic 77–103; PULSE 72–108; RESP 16–26; TEMP 98.1–98.9; O2SAT 91–99
[2016-04-13] MEDS: AZTREONAM INJ 2,000 MG in SODIUM CHLORIDE 0.9% INJ 100 ML IV SCH ×3 (03:07→17:21)
[2016-04-13] MEDS: chlordiazePOXIDE 25 MG CAP PO SCH ×4 (03:08→20:00)
[2016-04-13] MEDS: metroNIDAZOLE 500 MG INJ 100 ML IV SCH ×3 (03:08→17:21)
[2016-04-13] MEDS: HEPARIN SODIUM - SQ 10,000 UNITS/ML VIAL SQ SCH ×2 (03:12→12:24)
[2016-04-13] MEDS: CHLORHEXIDINE GLUCONATE 2 % 1 PACK (2 CLOTHS) TOP SCH (04:00)
[2016-04-13] MEDS: RESP: ALBUTEROL 2.5 MG/3 ML NEB (SCH) INH ×4 (04:48→20:14)
[2016-04-13] MEDS: methylPREDNISolone SOD SUCC 40 MG/1 ML VIAL IV PUSH SCH ×2 (06:11→15:16)
[2016-04-13] MEDS: RESP: BUDESONIDE 0.5 MG/2 ML NEB NEB SCH ×2 (08:00→20:14)
[2016-04-13] MEDS: CHLORHEXIDINE 0.12% (ORAL KIT) 15 ML CUP MT SCH ×2 (08:00→20:00)
[2016-04-13] MEDS: LACTULOSE SYRUP 20 GM/30 ML CUP PO SCH (09:00)
[2016-04-13] MEDS: NICOTINE 14 MG/24 HR PATCH TD SCH (09:00)
[2016-04-13] MEDS: SODIUM CHLORIDE 0.9% FLUSH 5 ML FLUSH IV FLUSH SCH (09:00)
[2016-04-13] MEDS: FOLIC ACID 1 MG TAB PO SCH (09:00)
[2016-04-13] MEDS: RIFAXIMIN 550 MG TAB PO SCH ×2 (09:00→20:02)
[2016-04-13 09:13] LABS: BLOOD GAS BASE EXCESS 7.2 mmol/L (-2-2); BLOOD GAS CARBOXYHEMOGLOBIN 1.6 % (0-4); BLOOD GAS HCO3 36 mmol/L (22-26); BLOOD GAS METHEMOGLOBIN 1.2 % (0-2); BLOOD GAS O2 HGB SATURATION 94 % (90-100); BLOOD GAS OXYGEN CONTENT 17.1 Vol % (12.0-20.0); BLOOD GAS PO2 96 mmHg (61-120); BLOOD GAS TOTAL HGB 12.8 G/DL (12.0-16.0); TEMP CORR TO 98.6
[2016-04-13 09:14] LABS: BLOOD GAS PCO2 115 mmHg (38-42)
[2016-04-13 09:19] LABS: CRITICAL VALUE YES; DRAW SITE LT RADIAL; LITER FLOW 6 L/M; NUMBER OF ARTERIAL PUNCTURES 1; OXYGEN DEVICE NASAL CANNULA; STAT YES; ULNAR PULSE Y
[2016-04-13] MEDS: PANTOPRAZOLE SODIUM 40 MG VIAL IV SCH (09:32)
[2016-04-13] MEDS: THIAMINE INJ 100 MG in SODIUM CHLORIDE 0.9% INJ 100 ML IV SCH (09:34)
--- NOTE | 2016-04-13 10:30 | RADRPT ---
EXAM DATE/TIME: 04/13/2016 09:42 [facility] COMPARISON: CHEST SINGLE AP, April 10, 2016, 4:50. INDICATIONS : Respiratory Failure. MEDICAL HISTORY : Chronic obstructive pulmonary disease. Seizures. Asthma SURGICAL HISTORY : section. ENCOUNTER: Initial ACUITY: 1 day PAIN SCORE: Non-responsive. LOCATION: Bilateral chest FINDINGS: Single AP view of the chest. Confluent parenchymal opacity in the right lower lung unchanged. Mild bi lateral hazy basilar lung opacity unchanged. Small bilateral pleural effusions unchanged. Cardiomedia stinal silhouette unchanged. CONCLUSION: No significant interval change. Persistent right lower lung consolidation versus atelectasis, possibl e mild pulmonary edema, and small bilateral pleural effusions. Ramon Saab MD on April 13, 2016 at 10:27 Board Certified Radiologist. This report was verified electronically.
--- NOTE | 2016-04-13 10:37 | HHI.PR ---
Subjective Remarks Follow-up for alcoholism, COPD, acute respiratory failure. RuthT was called this morning due to patient's unresponsiveness. Came to see patient and patient was not responsive to verbal or physical stimuli. Vitals within normal range and stable. Has been afebrile. Had Lexiscan yesterday. Objective Vitals Vital Signs Date Time Temp Pulse Resp B/P Pulse Ox O2 Delivery O2 Flow Rate FiO2 04/13/16 09:25 96 BiPAP 40 04/13/16 09:22 96 40 04/13/16 08:04 91 Nasal Cannula 2.00 04/13/16 07:00 100 04/13/16 06:00 100 04/13/16 05:00 104 04/13/16 04:51 97 Nasal Cannula 2.00 04/13/16 04:00 98.2 101 22 157/95 94 04/13/16 04:00 98 04/13/16 03:00 102 04/13/16 02:00 94 04/13/16 01:00 96 04/13/16 00:00 108 04/12/16 23:00 100 04/12/16 22:00 106 04/12/16 21:00 112 04/12/16 20:38 98.3 113 24 155/99 94 04/12/16 20:00 93 Nasal Cannula 2.00 04/12/16 20:00 112 04/12/16 19:00 116 04/12/16 18:00 118 04/12/16 17:00 111 04/12/16 16:00 95 04/12/16 16:00 98.3 102 16 137/88 98 04/12/16 15:00 102 04/12/16 14:00 98 04/12/16 11:00 96 04/12/16 11:00 96 04/12/16 11:00 97.8 100 17 150/80 91 04/12/16 10:35 99 Nasal Cannula 2.00 I/O 04/12/16 04/12/16 04/12/16 04/13/16 04/13/16 04/13/16 07:00 15:00 23:00 07:00 15:00 23:00 Intake Total 720 ml Output Total 800 ml 700 ml Balance -800 ml 20 ml Intake Oral 220 ml IV Total 500 ml Output Urine Total 800 ml 700 ml # Bowel Movements 2 0 Result Diagram: 04/12/16 1020 04/12/16 1020 Imaging Last Impressions Myocardial Perfusion Scan Nuc Med 04/12/16 0600 Signed Impressions: Service Date/Time: Tuesday, April 12, 2016 12:28 - CONCLUSION: 1. Unremarkable myocardial perfusion examination. RISK CATEGORY: Low Rylan Sophia Morris MD Chest X-Ray 04/10/16 0600 Signed Impressions: Service Date/Time: Sunday, April 10, 2016 04:50 - CONCLUSION: Bilateral areas of consolidation. Some degree of effusion needs to be considered. Rhett Ojeda MD Head CT 04/07/16 0550 Signed Impressions: Service Date/Time: Thursday, April 07, 2016 06:26 - CONCLUSION: 1. No evidence of acute intracranial pathology. No masses are identified. Jarocho Cruz MD Brain MRI 04/07/16 0000 Signed Impressions: Service Date/Time: Thursday, April 07, 2016 12:25 - CONCLUSION: Brain MRI within normal limits. Ramon Saab MD Objective Remarks GENERAL: Unresponsive to verbal or physical stimuli. SKIN: Warm and dry. HEAD: Normocephalic. EYES: No scleral icterus. No injection or drainage. NECK: Supple, trachea midline. No JVD or lymphadenopathy. CARDIOVASCULAR: Regular rate and rhythm without murmurs, gallops, or rubs. RESPIRATORY: Breath sounds equal bilaterally. No accessory muscle use. GASTROINTESTINAL: Abdomen soft, nondistended. MUSCULOSKELETAL: No cyanosis, or edema. Procedures 04/07/2016 EEG INTERPRETATION: A mildly abnormal study consistent with a mild encephalopathy. There is some normal sleep activity as well. No seizure focus identified. Echo 04/08/2016 - Left ventricle: The cavity size was normal. Wall thickness was normal. Systolic function was normal. The estimated ejection fraction was in the range of 55% to 60%. Wall motion was normal; there were no regional wall motion abnormalities. - Tricuspid valve: Mild regurgitation. A/P Problem List: (1) Acute encephalopathy ICD Code: G93.40 Status: Acute (2) Respiratory failure, acute and chronic ICD Code: J96.20 Status: Acute (3) Alcohol withdrawal ICD Code: F10.239 Status: Acute (4) NSTEMI (non-ST elevated myocardial infarction) ICD Code: I21.4 Status: Acute Assessment and Plan Ms. Latif is a 60 year old female with a history of COPD, alcohol abuse who was admitted to the ICU on 04/07/2016 due to possible seizure activity at home. Upon admission, in the ED, patient had multiple episodes of seizure activities. Ativan was given, Precedex started. Lactate was 5.3. CT brain unremarkable for any acute findings. Patient was intubated in the ED and CXR showed possibility of aspiration pneumonia. With supportive care, patient improved and tolerated CPAP well and subsequently, on 04/10/2016, patient was extubated and patient was subsequently transferred to [facility] and patient underwent Lexiscan study on 2016. Echo showed EF 55%. Saeed was called this morning. I arrived at the patient's room soon after Saeed was called. Found patient unresponsive to verbal and physical stimuli. - Acute hypercapnic respiratory failure 04/13/2016. - Patient's unresponsiveness is likely due to CO2 retention. ABG shows 7.13/ 115/96 on 6 L of oxygen via nasal cannula. - We immediately started patient on BiPAP 02/10 on 40% with a goal to titrate O2 down. - CXR stat. If no improvement in one hour on BiPAP, patient may need to be intubated. - ICU attending Dr. Lazcano came to evaluate patient and is aware of this patient's condition. - D/C Librium for now. - Use lowest amount of O2 to maintain O2 sat > 88%. Total critical care time spent over 35 minutes. Other conditions: - Probable alcohol withdrawal - Acute encephalopathy - toxic versus metabolic. - 04/07/16 CT brain-no evidence of acute intracranial pathology - MRI brain revealed no acute intracranial findings - Alcohol withdrawal, seizures previous admission 03/05 - 04/07/2016 EEG-showed moderate encephalopathy no acute findings - Ammonia level down to 37, alcohol level 14, Utox positive for amphetamines - Continue [facility] protocol. - D/C Librium for now. If we re-start, we will start a low dose 10mg Q8hrs. - Thiamine, folate and multivitamin for EtOH - Acute respiratory failure - O2 Dependent COPD - Possible aspiration pneumonia versus pneumonitis. - Nasal cannula to maintain saturations greater than equal to 92% - Incentive spirometry while awake - Bronchodilator therapy every 6 hours and as needed - Pulmicort twice a day - Solu-Medrol 40 every 8h - Chest xray- right lower lobe consolidation versus atelectasis - Nicotine patch 14 mg daily dose - Currently on Aztreonam, Azithromycin and Flagyl. - NSTEMI - could be from Amphetamine use. - Cardiology recommended a nuclear stress test which was unremarkable. - Continue Aspirin and Atorvastatin - Echo shows EF 55-60%. - Continue Lipitor 80mg QHS, - Hyperammonemia - History of recent GI bleed - Bowel regimen-lactulose, senna, Colace - Xifaxan 550 twice a day/lactulose 30 daily for elevated ammonia. Full code. Heparin SQ. Problem Qualifiers (1) Alcohol withdrawal: Qualified Code: F10.231 - Alcohol withdrawal, with delirium Krysta Ny DO Apr 13, 2016 10:37 am
[2016-04-13] MEDS: DOCUSATE SODIUM 100 MG/10 ML UDC G-TUBE SCH ×2 (11:00→23:00)
[2016-04-13] MEDS: SENNOSIDES 8.6 MG TAB PO SCH ×2 (11:00→23:00)
[2016-04-13 11:07] LABS: BLOOD GAS BASE EXCESS 9.3 mmol/L (-2-2); BLOOD GAS CARBOXYHEMOGLOBIN 1.7 % (0-4); BLOOD GAS HCO3 37 mmol/L (22-26); BLOOD GAS O2 HGB SATURATION 95 % (90-100); BLOOD GAS OXYGEN CONTENT 15.6 Vol % (12.0-20.0); BLOOD GAS PCO2 90 mmHg (38-42); BLOOD GAS PO2 97 mmHg (61-120); BLOOD GAS TOTAL HGB 11.6 G/DL (12.0-16.0); TEMP CORR TO 98.6
[2016-04-13 11:12] LABS: CRITICAL VALUE YES; DRAW SITE RT RADIAL; FIO2 40 %; NUMBER OF ARTERIAL PUNCTURES 1; OXYGEN DEVICE BIPAP; STAT NO; ULNAR PULSE PRESENT
[2016-04-13] MEDS ORDERED: FLUMAZENIL 0.5 MG/5 ML VIAL IV PUSH ONE (12:45)
[2016-04-13 13:32] LABS: BLOOD GAS CARBOXYHEMOGLOBIN 1.6 % (0-4); BLOOD GAS HCO3 37 mmol/L (22-26); BLOOD GAS O2 HGB SATURATION 97 % (90-100); BLOOD GAS OXYGEN CONTENT 15.3 Vol % (12.0-20.0); BLOOD GAS PCO2 84 mmHg (38-42); BLOOD GAS PO2 128 mmHg (61-120); BLOOD GAS TOTAL HGB 11.1 G/DL (12.0-16.0); TEMP CORR TO 98.6
[2016-04-13 13:33] LABS: CRITICAL VALUE YES; OXYGEN DEVICE BIPAP
[2016-04-13 13:34] LABS: DRAW SITE RT RADIAL; FIO2 40 %; NUMBER OF ARTERIAL PUNCTURES 1; STAT NO; ULNAR PULSE PRESENT
[2016-04-13] MEDS: AZITHROMYCIN INJ 500 MG in SODIUM CHLOR 0.9% 250 ML INJ 250 ML IV SCH (15:16)
[2016-04-13] MEDS: LORazepam 1 MG TAB PO PRN (20:02)
[2016-04-13] MEDS: ATORVASTATIN 80 MG TAB PO SCH (20:02)
[2016-04-14] VITALS (26 sets, daily range): BP systolic 120–139; BP diastolic 74–84; PULSE 84–108; RESP 16–18; TEMP 98.2–99.1; O2SAT 94–98
[2016-04-14] MEDS: HEPARIN SODIUM - SQ 10,000 UNITS/ML VIAL SQ SCH ×2 (00:33→12:16)
[2016-04-14] MEDS: methylPREDNISolone SOD SUCC 40 MG/1 ML VIAL IV PUSH SCH ×2 (00:33→09:00)
[2016-04-14] MEDS: SODIUM CHLORIDE 0.9% FLUSH 5 ML FLUSH IV FLUSH SCH ×3 (00:34→21:00)
[2016-04-14] MEDS: AZTREONAM INJ 2,000 MG in SODIUM CHLORIDE 0.9% INJ 100 ML IV SCH ×2 (00:35→08:59)
[2016-04-14] MEDS: RESP: ALBUTEROL 2.5 MG/IPRATROPIUM 0.5 MG NEB (PRN) INH ×2 (01:00→22:54)
[2016-04-14] MEDS: metroNIDAZOLE 500 MG INJ 100 ML IV SCH ×2 (02:40→09:26)
[2016-04-14] MEDS: RESP: ALBUTEROL 2.5 MG/3 ML NEB (SCH) INH ×4 (03:55→20:04)
[2016-04-14] MEDS: CHLORHEXIDINE GLUCONATE 2 % 1 PACK (2 CLOTHS) TOP SCH (04:00)
[2016-04-14] MEDS: CHLORHEXIDINE 0.12% (ORAL KIT) 15 ML CUP MT SCH ×2 (08:00→20:00)
[2016-04-14] MEDS: PANTOPRAZOLE SODIUM 40 MG VIAL IV SCH (08:58)
[2016-04-14] MEDS: LACTULOSE SYRUP 20 GM/30 ML CUP PO SCH (08:58)
[2016-04-14] MEDS: THIAMINE INJ 100 MG in SODIUM CHLORIDE 0.9% INJ 100 ML IV SCH (08:58)
[2016-04-14] MEDS: NICOTINE 14 MG/24 HR PATCH TD SCH (08:59)
[2016-04-14] MEDS: RIFAXIMIN 550 MG TAB PO SCH ×2 (09:00→22:34)
[2016-04-14] MEDS: RESP: BUDESONIDE 0.5 MG/2 ML NEB NEB SCH ×2 (09:11→20:04)
[2016-04-14] MEDS: FOLIC ACID 1 MG TAB PO SCH (09:19)
[2016-04-14] MEDS: DOCUSATE SODIUM 100 MG/10 ML UDC G-TUBE SCH ×2 (09:27→22:35)
[2016-04-14] MEDS: SENNOSIDES 8.6 MG TAB PO SCH ×2 (09:27→22:36)
--- NOTE | 2016-04-14 11:16 | HHI.PR ---
Subjective Remarks Follow-up for alcoholism, COPD, acute respiratory failure. Ms. Latif is doing better but feels very lethargic. No fever, chills. Tolerating food well. Objective Vitals Vital Signs Date Time Temp Pulse Resp B/P Pulse Ox O2 Delivery O2 Flow Rate FiO2 04/14/16 10:00 94 Nasal Cannula 1.00 04/14/16 08:00 96 04/14/16 08:00 98.9 96 17 121/74 95 04/14/16 04:21 98.2 88 16 124/81 97 04/14/16 04:00 97 30 04/14/16 04:00 84 04/14/16 03:00 97 04/14/16 02:00 86 04/14/16 01:18 98.2 91 16 120/79 97 04/14/16 01:00 88 04/14/16 01:00 98 30 04/14/16 00:00 90 04/13/16 23:00 97 04/13/16 22:00 96 04/13/16 21:20 97 35 04/13/16 21:00 104 04/13/16 20:45 98.1 96 16 123/77 92 04/13/16 20:16 93 Nasal Cannula 1.00 04/13/16 20:00 100 04/13/16 19:00 80 04/13/16 18:04 98 Nasal Cannula 3.00 04/13/16 18:00 82 04/13/16 17:00 80 04/13/16 16:00 98.3 83 20 120/78 99 04/13/16 16:00 84 04/13/16 15:21 99 35 04/13/16 15:00 80 04/13/16 14:00 78 04/13/16 13:20 98 40 04/13/16 13:00 82 04/13/16 12:00 72 I/O 04/13/16 04/13/16 04/13/16 04/14/16 04/14/16 04/14/16 07:00 15:00 23:00 07:00 15:00 23:00 Intake Total 720 ml 760 ml 600 ml Output Total 700 ml 480 ml 552 ml Balance 20 ml 280 ml 48 ml Intake Oral 220 ml 360 ml 480 ml IV Total 500 ml 400 ml 120 ml Output Urine Total 700 ml 480 ml 550 ml Stool Total 2 ml # Bowel Movements 0 0 Result Diagram: 04/12/16 1020 04/12/16 1020 Imaging Last Impressions Chest X-Ray 04/13/16 0000 Signed Impressions: Service Date/Time: Wednesday, April 13, 2016 09:42 - CONCLUSION: No significant interval change. Persistent right lower lung consolidation versus atelectasis, possible mild pulmonary edema, and small bilateral pleural effusions. Ramon Saab MD Myocardial Perfusion Scan Nuc Med 04/12/16 0600 Signed Impressions: Service Date/Time: Tuesday, April 12, 2016 12:28 - CONCLUSION: 1. Unremarkable myocardial perfusion examination. RISK CATEGORY: Low Rylan Morris MD Head CT 04/07/16 0550 Signed Impressions: Service Date/Time: Thursday, April 07, 2016 06:26 - CONCLUSION: 1. No evidence of acute intracranial pathology. No masses are identified. Jarocho Cruz MD Brain MRI 04/07/16 0000 Signed Impressions: Service Date/Time: Thursday, April 07, 2016 12:25 - CONCLUSION: Brain MRI within normal limits. Ramon Saab MD Objective Remarks GENERAL: Alert, NAD. Appears lethargic. SKIN: Warm and dry. HEAD: Normocephalic. EYES: No scleral icterus. No injection or drainage. NECK: Supple, trachea midline. No JVD or lymphadenopathy. CARDIOVASCULAR: Regular rate and rhythm without murmurs, gallops, or rubs. RESPIRATORY: Breath sounds equal bilaterally. No accessory muscle use. GASTROINTESTINAL: Abdomen soft, nondistended. MUSCULOSKELETAL: No cyanosis, or edema. Procedures 04/07/2016 EEG INTERPRETATION: A mildly abnormal study consistent with a mild encephalopathy. There is some normal sleep activity as well. No seizure focus identified. Echo 04/08/2016 - Left ventricle: The cavity size was normal. Wall thickness was normal. Systolic function was normal. The estimated ejection fraction was in the range of 55% to 60%. Wall motion was normal; there were no regional wall motion abnormalities. - Tricuspid valve: Mild regurgitation. A/P Problem List: (1) Acute encephalopathy ICD Code: G93.40 Status: Acute (2) Respiratory failure, acute and chronic ICD Code: J96.20 Status: Acute (3) Alcohol withdrawal ICD Code: F10.239 Status: Acute (4) NSTEMI (non-ST elevated myocardial infarction) ICD Code: I21.4 Status: Acute Assessment and Plan Ms. Latif is a 60 year old female with a history of COPD, alcohol abuse who was admitted to the ICU on 04/07/2016 due to possible seizure activity at home. Upon admission, in the ED, patient had multiple episodes of seizure activities. Ativan was given, Precedex started. Lactate was 5.3. CT brain unremarkable for any acute findings. Patient was intubated in the ED and CXR showed possibility of aspiration pneumonia. With supportive care, patient improved and tolerated CPAP well and subsequently, on 04/10/2016, patient was extubated and patient was subsequently transferred to [facility] and patient underwent Lexiscan study on 2016. Echo showed EF 55%. - Acute hypercapnic respiratory failure 04/13/2016. - Patient tolerated BiPAP overnight and currently at baseline. - Use supplemental O2 as little as possible in order to increase chance of hypercapnic respiratory failure. - Probable alcohol withdrawal - Acute encephalopathy - toxic versus metabolic. - 04/07/16 CT brain-no evidence of acute intracranial pathology - MRI brain revealed no acute intracranial findings - Alcohol withdrawal, seizures previous admission 03/05 - 04/07/2016 EEG-showed moderate encephalopathy no acute findings - Ammonia level down to 37, alcohol level 14, Utox positive for amphetamines - Continue [facility] protocol. - Continue to hold Librium - Thiamine, folate and multivitamin for EtOH - Acute respiratory failure - O2 Dependent COPD - Possible aspiration pneumonia versus pneumonitis. - Nasal cannula to maintain saturations greater than equal to 92%. Wean off supplemental O2 if possible. - Incentive spirometry while awake - Bronchodilator therapy every 6 hours and as needed - Pulmicort twice a day - Switch steroid to PO prednisone 20mg BID. We will do a quick taper. - Chest xray- right lower lobe consolidation versus atelectasis - Nicotine patch 14 mg daily dose - Patient has received Aztreonam, Azithromycin and Flagyl since 04/07/2016. We will discontinue all abx and observe. - NSTEMI - could be from Amphetamine use. - Cardiology recommended a nuclear stress test which was unremarkable. - Continue Aspirin and Atorvastatin - Echo shows EF 55-60%. - Continue Lipitor 80mg QHS, - Hyperammonemia - History of recent GI bleed - Bowel regimen-lactulose, senna, Colace - Xifaxan 550 twice a day/lactulose 30 daily for elevated ammonia. Full code. Heparin SQ. Discharge plan: Will discuss with CM on 04/15/2016 to see if there is any SNF possibility for this patient. She would benefit from a short term rehab. Problem Qualifiers (1) Alcohol withdrawal: Qualified Code: F10.231 - Alcohol withdrawal, with delirium Krysta Ny DO Apr 14, 2016 11:16
[2016-04-14] MEDS: guaiFENesin E.R. 600 MG TAB PO SCH ×2 (12:21→22:34)
[2016-04-14] MEDS: LORazepam 1 MG TAB PO PRN ×2 (15:41→22:35)
[2016-04-14] MEDS: predniSONE 20 MG TAB PO SCH (22:34)
[2016-04-14] MEDS: ATORVASTATIN 80 MG TAB PO SCH (22:35)
[2016-04-15] VITALS (26 sets, daily range): BP systolic 118–151; BP diastolic 68–89; PULSE 86–108; RESP 18–21; TEMP 97.5–98.7; O2SAT 93–99
[2016-04-15] MEDS: HEPARIN SODIUM - SQ 10,000 UNITS/ML VIAL SQ SCH ×3 (02:28→23:46)
[2016-04-15] MEDS: CHLORHEXIDINE GLUCONATE 2 % 1 PACK (2 CLOTHS) TOP SCH (04:00)
[2016-04-15] MEDS: LORazepam 1 MG TAB PO PRN (04:36)
[2016-04-15] MEDS: RESP: ALBUTEROL 2.5 MG/3 ML NEB (SCH) INH ×2 (04:43→10:00)
[2016-04-15] MEDS: CHLORHEXIDINE 0.12% (ORAL KIT) 15 ML CUP MT SCH ×2 (08:00→20:00)
[2016-04-15] MEDS: SODIUM CHLORIDE 0.9% FLUSH 5 ML FLUSH IV FLUSH SCH ×2 (09:00→20:24)
[2016-04-15] MEDS: RIFAXIMIN 550 MG TAB PO SCH ×2 (09:00→20:21)
[2016-04-15] MEDS: PANTOPRAZOLE SODIUM 40 MG VIAL IV SCH (09:00)
[2016-04-15] MEDS: FOLIC ACID 1 MG TAB PO SCH (09:00)
[2016-04-15] MEDS: NICOTINE 14 MG/24 HR PATCH TD SCH (09:00)
[2016-04-15] MEDS: LACTULOSE SYRUP 20 GM/30 ML CUP PO SCH (09:00)
[2016-04-15] MEDS: THIAMINE HCL 100 MG TAB PO SCH (09:00)
[2016-04-15] MEDS: predniSONE 20 MG TAB PO SCH (09:00)
[2016-04-15] MEDS: guaiFENesin E.R. 600 MG TAB PO SCH ×2 (09:00→20:20)
[2016-04-15] MEDS: REMOVE OLD NICODERM (NICOTINE) PATCH TD SCH (09:00)
[2016-04-15] MEDS: RESP: BUDESONIDE 0.5 MG/2 ML NEB NEB SCH ×2 (10:00→22:24)
[2016-04-15] MEDS: DOCUSATE SODIUM 100 MG/10 ML UDC G-TUBE SCH ×2 (11:00→23:00)
[2016-04-15] MEDS: SENNOSIDES 8.6 MG TAB PO SCH ×2 (11:00→23:00)
[2016-04-15 11:11] LABS: BICARBONATE 40.6 MEQ/L (21.0-32.0); POTASSIUM 3.5 MEQ/L (3.5-5.1)
--- NOTE | 2016-04-15 15:05 | HHI.PR ---
Subjective Remarks Follow-up for alcoholism, COPD, acute respiratory failure. Ms. Latif is currently doing well. She feels much better today. Denies any chest pain, shortness of breath, fever or chills. Tolerating diet well. Inquires about going home versus rehabilitation. Objective Vitals Vital Signs Date Time Temp Pulse Resp B/P Pulse Ox O2 Delivery O2 Flow Rate FiO2 04/15/16 14:00 96 04/15/16 13:00 88 04/15/16 12:00 97.5 92 18 130/73 99 04/15/16 12:00 96 04/15/16 11:00 94 04/15/16 10:00 88 04/15/16 09:00 86 04/15/16 08:00 98.5 93 18 118/68 93 04/15/16 08:00 92 04/15/16 07:00 95 04/15/16 06:00 95 04/15/16 05:00 96 04/15/16 04:47 98.1 95 20 122/70 94 04/15/16 04:00 96 04/15/16 03:00 98 04/15/16 02:00 90 04/15/16 01:00 98 04/15/16 00:12 98.2 100 18 132/83 96 04/15/16 00:00 94 04/14/16 23:00 99 04/14/16 22:00 108 04/14/16 21:00 98 04/14/16 20:35 99.1 98 18 139/79 98 04/14/16 20:04 97 Nasal Cannula 3.00 04/14/16 20:00 98 04/14/16 19:00 103 04/14/16 18:42 90 04/14/16 17:00 96 04/14/16 16:00 98.5 101 18 136/79 97 04/14/16 16:00 96 04/14/16 15:00 102 I/O 04/14/16 04/14/16 04/14/16 04/15/16 04/15/16 04/15/16 07:00 15:00 23:00 07:00 15:00 23:00 Intake Total 600 ml 1400 ml 480 ml Output Total 552 ml 500 ml 700 ml Balance 48 ml 900 ml -220 ml Intake Oral 480 ml 1100 ml 480 ml IV Total 120 ml 300 ml Output Urine Total 550 ml 500 ml 700 ml Stool Total 2 ml # Voids 3 3 # Bowel Movements 2 1 3 Result Diagram: 04/12/16 1020 04/15/16 1016 Imaging Last Impressions Chest X-Ray 04/13/16 0000 Signed Impressions: Service Date/Time: Wednesday, April 13, 2016 09:42 - CONCLUSION: No significant interval change. Persistent right lower lung consolidation versus atelectasis, possible mild pulmonary edema, and small bilateral pleural effusions. Ramon Saab MD Myocardial Perfusion Scan Nuc Med 04/12/16 0600 Signed Impressions: Service Date/Time: Tuesday, April 12, 2016 12:28 - CONCLUSION: 1. Unremarkable myocardial perfusion examination. RISK CATEGORY: Low Rylan Morris MD Head CT 04/07/16 0550 Signed Impressions: Service Date/Time: Thursday, April 07, 2016 06:26 - CONCLUSION: 1. No evidence of acute intracranial pathology. No masses are identified. Jarocho Cruz MD Brain MRI 04/07/16 0000 Signed Impressions: Service Date/Time: Thursday, April 07, 2016 12:25 - CONCLUSION: Brain MRI within normal limits. Ramon Saab MD Objective Remarks GENERAL: Alert, NAD. Appears lethargic. SKIN: Warm and dry. HEAD: Normocephalic. EYES: No scleral icterus. No injection or drainage. NECK: Supple, trachea midline. No JVD or lymphadenopathy. CARDIOVASCULAR: Regular rate and rhythm without murmurs, gallops, or rubs. RESPIRATORY: Breath sounds equal bilaterally. No accessory muscle use. GASTROINTESTINAL: Abdomen soft, nondistended. MUSCULOSKELETAL: No cyanosis. 2+ edema in lower ext. Procedures 04/07/2016 EEG INTERPRETATION: A mildly abnormal study consistent with a mild encephalopathy. There is some normal sleep activity as well. No seizure focus identified. Echo 04/08/2016 - Left ventricle: The cavity size was normal. Wall thickness was normal. Systolic function was normal. The estimated ejection fraction was in the range of 55% to 60%. Wall motion was normal; there were no regional wall motion abnormalities. - Tricuspid valve: Mild regurgitation. A/P Problem List: (1) Acute encephalopathy ICD Code: G93.40 Status: Acute (2) Respiratory failure, acute and chronic ICD Code: J96.20 Status: Acute (3) Alcohol withdrawal ICD Code: F10.239 Status: Acute (4) NSTEMI (non-ST elevated myocardial infarction) ICD Code: I21.4 Status: Acute Assessment and Plan Ms. Latif is a 60 year old female with a history of COPD, alcohol abuse who was admitted to the ICU on 04/07/2016 due to possible seizure activity at home. Upon admission, in the ED, patient had multiple episodes of seizure activities. Ativan was given, Precedex started. Lactate was 5.3. CT brain unremarkable for any acute findings. Patient was intubated in the ED and CXR showed possibility of aspiration pneumonia. With supportive care, patient improved and tolerated CPAP well and subsequently, on 04/10/2016, patient was extubated and patient was subsequently transferred to [facility] and patient underwent Lexiscan study on 2016. Echo showed EF 55%. - Acute hypercapnic respiratory failure 04/13/2016. - Patient did not use BiPAP last night. - Use supplemental O2 as little as possible in order to increase chance of hypercapnic respiratory failure. - Has O2 at home. Advised patient to use minimum O2 to keep O2 sat > 90%. - Probable alcohol withdrawal - Acute encephalopathy - toxic versus metabolic. - 04/07/16 CT brain-no evidence of acute intracranial pathology - MRI brain revealed no acute intracranial findings - Alcohol withdrawal, seizures previous admission 03/05 - 04/07/2016 EEG-showed moderate encephalopathy no acute findings - Ammonia level down to 37, alcohol level 14, Utox positive for amphetamines - Continue [facility] protocol. - Continue to hold Librium - Thiamine, folate and multivitamin for EtOH - Acute respiratory failure - O2 Dependent COPD - Possible aspiration pneumonia versus pneumonitis. - Nasal cannula to maintain saturations greater than equal to 92%. Wean off supplemental O2 if possible. - Incentive spirometry while awake - Bronchodilator therapy every 6 hours and as needed - Pulmicort twice a day -Reduce prednisone 20 mg twice a day to 10 mg twice a day. - Chest xray- right lower lobe consolidation versus atelectasis - Nicotine patch 14 mg daily dose - Patient has received Aztreonam, Azithromycin and Flagyl since 04/07/2016. Discontinued all abx on 04/15/2016. - NSTEMI - could be from Amphetamine use. - Cardiology recommended a nuclear stress test which was unremarkable. - Continue Aspirin and Atorvastatin - Echo shows EF 55-60%. - Continue Lipitor 80mg QHS. - Bilateral lower extremity edema - Probable diastolic congestive heart failure. - Will start patient on Lasix 40mg IV BID. - Switch to PO at the time of discharge. - Hyperammonemia - History of recent GI bleed - Bowel regimen-lactulose, senna, Colace - Xifaxan 550 twice a day/lactulose 30 daily for elevated ammonia. Full code. Heparin SQ. Discharge plan: Discussed with CM. If SNF cannot be arranged, we will likely discharge patient home with home health tomorrow. Problem Qualifiers (1) Alcohol withdrawal: Qualified Code: F10.231 - Alcohol withdrawal, with delirium Krysta Ny DO Apr 15, 2016 15:05
[2016-04-15] MEDS ORDERED: POTASSIUM CHLORIDE 10 MEQ CONTROLLED RELEASE TAB PO ONE (15:30)
[2016-04-15] MEDS ORDERED: FUROSEMIDE 40 MG/4 ML VIAL IV PUSH ONE (15:30)
[2016-04-15] MEDS: LORazepam 2 MG/ML VIAL IV PUSH PRN ×2 (15:46→23:21)
[2016-04-15] MEDS: RESP: ALBUTEROL 2.5 MG/IPRATROPIUM 0.5 MG NEB (PRN) INH (17:54)
[2016-04-15] MEDS: POTASSIUM CHLORIDE 10 MEQ CONTROLLED RELEASE TAB PO SCH (20:21)
[2016-04-15] MEDS: ATORVASTATIN 80 MG TAB PO SCH (20:21)
[2016-04-15] MEDS: predniSONE 10 MG TAB PO SCH (20:21)
[2016-04-16] VITALS (12 sets, daily range): BP systolic 140–156; BP diastolic 77–90; PULSE 80–98; RESP 16–20; TEMP 97.8–98.2; O2SAT 93–98
[2016-04-16] MEDS: CHLORHEXIDINE GLUCONATE 2 % 1 PACK (2 CLOTHS) TOP SCH (04:00)
[2016-04-16] MEDS: RESP: BUDESONIDE 0.5 MG/2 ML NEB NEB SCH (07:49)
[2016-04-16] MEDS: RESP: ALBUTEROL 2.5 MG/IPRATROPIUM 0.5 MG NEB (PRN) INH (07:49)
[2016-04-16] MEDS: CHLORHEXIDINE 0.12% (ORAL KIT) 15 ML CUP MT SCH (08:00)
[2016-04-16] MEDS ORDERED: FUROSEMIDE 40 MG/4 ML VIAL IV PUSH SCH (09:00)
[2016-04-16] MEDS ORDERED: PANT40TA3 PO (09:01)
[2016-04-16] MEDS ORDERED: LIPI80TA PO (09:01)
[2016-04-16] MEDS ORDERED: MEDR4PAK PO (09:01)
[2016-04-16] MEDS ORDERED: FURO1TAB62 PO (09:01)
[2016-04-16] MEDS ORDERED: LACT10SO PO (09:01)
[2016-04-16] MEDS ORDERED: K-TA10TA PO (09:01)
--- NOTE | 2016-04-16 09:05 | HHI.DS ---
Discharge Summary Admission Date Apr 07, 2016 at 9:00 am Discharge Date: Apr 16, 2016 Admitting Diagnosis delirium tremens, alcohol withdrawal with seizure (1) Acute encephalopathy ICD Code: G93.40 Diagnosis: Principal (2) Respiratory failure, acute and chronic ICD Code: J96.20 Diagnosis: Principal (3) Alcohol withdrawal ICD Code: F10.239 Diagnosis: Principal (4) NSTEMI (non-ST elevated myocardial infarction) ICD Code: I21.4 Procedures 04/07/2016 EEG INTERPRETATION: A mildly abnormal study consistent with a mild encephalopathy. There is some normal sleep activity as well. No seizure focus identified. Echo 04/08/2016 - Left ventricle: The cavity size was normal. Wall thickness was normal. Systolic function was normal. The estimated ejection fraction was in the range of 55% to 60%. Wall motion was normal; there were no regional wall motion abnormalities. - Tricuspid valve: Mild regurgitation. Brief History - From Admission The patient was brought in by EMS for seizure. The patient does not have a history of seizure disorder. The patient was recently hospitalized / COPD exacerbation, pneumonia, GI bleed and EtOH abuse. Reported by the , the patient got up to use the bedside commode and had a seizure lasting approximately 1 minute. She was transported reported to the hospital. Upon admission to the ED, she has had a second seizure here which lasted approximately 30 seconds. It was a global tonic clonic seizure. The patient had a third seizure, The patient received Ativan IV in repeated doses, and placed on a Precedex infusion. Laboratory and imaging studies were obtained. The patient was noted to have a lactate level 5.3. CT brain imaging no evidence of acute intracranial pathology. Upon my arrival to the ED, the patient was on a nonrebreather mask and nasal cannula, with O2 sat of 100%, lying supine with RASS -3,omn Precdex infusion. The HOB was elevated to 45 degrees. The patient subsequently had another seizure and received additional Ativan IV. Due to the patient's lethargic state recurrent seizure activity, and hiatal hernia, I intubated the patient with RSI and cricoid pressure for airway protection, utilizing Glidescope, no visualization of gastric contents in oropharynx. Repeat chest x-ray, post intubation, was noted to now have right lower lobe consolidation, not previously on initial x-ray upon admission. This most likely represents aspiration. Critical care medicine was consulted for treatment and management. [facility] Past Medical History Arthritis: No Asthma: Yes Autoimmune Disease: No Anxiety: Yes Depression: Yes Heart Rhythm Problems: No Cancer: No Cardiovascular Problems: No High Cholesterol: No Chest Pain: No Congestive Heart Failure: No COPD: Yes Cerebrovascular Accident: No Coronary Artery Disease: No Diabetes: No Diminished Hearing: No Endocrine: No Gastrointestinal Disorders: Yes GERD: No Genitourinary: No Headaches: No Hiatal Hernia: No Hypertension: No Immune Disorder: No Implanted Vascular Access Dvce: No Kidney Stones: No Musculoskeletal: Yes Neurologic: Yes Psychiatric: Yes (PTSD) Reproductive: No Respiratory: Yes (COPD) Immunizations Current: Yes Renal Failure: No Seizures: Yes Sleep Apnea: No Thyroid Disease: No Ulcer: No Menopausal: Yes : 2 Para: 2 Past Surgical History Abdominal Surgery: Yes () Section: Yes (X1) Thoracic Surgery: Yes (BILATERAL BREAST BIOPSY) Other Surgery: Yes Social History Alcohol Use: Yes (4 BEERS/DAY) Tobacco Use: Yes (1/2-1 PPD) Substance Use: Yes (MARIJUANA OCCASIONALLY) Allergies-Medications (Allergen,Severity, Reaction): Coded Allergies: Penicillin (Verified Allergy, Severe, CHILDHOOD, 04/07/16) Reported Meds & Prescriptions Reported Meds & Active Scripts Active Chlordiazepoxide (Chlordiazepoxide HCl) 5 Mg Cap 5 Mg PO DIRECTED PRN 3 Days 10 mg po twice daily for one day then 5 mg po twice daily for one day then 5 mg po daily for one day then stop. Prednisone 5 Mg Tab 5 Mg PO DIRECTED 10 Days 40 mg po daily for two days then 30 mg po daily for two days then 20 mg po daily for two days the 10 mg po daily for two days then 5 mg po daily for two days then stop. Vitamin B-1 (Thiamine HCl) 100 Mg Tab 100 Mg PO DAILY 30 Days Pantoprazole (Pantoprazole Sodium) 40 Mg Tab 40 Mg PO Q12HR 30 Days Thera/Beta-Carotene (Multiple Vitamin) 1 Tab Tab 1 Tab PO DAILY 30 Days Levaquin (Levofloxacin) 500 Mg Tab 500 Mg PO Q24H 5 Days Folate (Folic Acid) 1 Mg Tab 1 Mg PO DAILY 30 Days Symbicort Inh (Budesonide/Formoterol Fumarate) 160-4.5 Mcg/Act Aero 1 Puff INH BID Spiriva Handihaler (Tiotropium Inh) 18 Mcg Cap 18 Mcg INH DAILY 1 capsule = 18 mcg Walker with Front Wheels (Device) 1 Mis Mis 1 Ea .ROUTE DIRECTED Proair Hfa 8.5 GM Inh (Albuterol Sulfate) 90 Mcg/Act Aer 2 Puff INH Q6H PRN 108 mcg/actuation Albuterol Neb (Albuterol Sulfate) 2.5 Mg/0.5 Ml Neb 2.5 Mg NEB QID NEB Note: The Albuterol Sulfate Inhalation Solution is concentrated and must be diluted. Read complete instructions carefully before using. CBC/BMP: 04/12/16 1020 04/15/16 1016 Significant Findings Laboratory Tests Test 04/13/16 04/13/16 04/13/16 04/15/16 09:10 11:00 13:21 10:16 Blood Gas HCO3 36 mmol/L 37 mmol/L 37 mmol/L (22-26) (22-26) (22-26) Blood Gas Base Excess 7.2 mmol/L 9.3 mmol/L 10.0 mmol/L (-2-2) (-2-2) (-2-2) Arterial Blood pH 7.13 7.23 7.27 (7.380-7.420) (7.380-7.420) (7.380-7.420) Arterial Blood Partial 115 mmHg 90 mmHg (38-42) 84 mmHg (38-42) Pressure CO2 (38-42) Blood Gas Hemoglobin 11.6 G/DL 11.1 G/DL (12.0-16.0) (12.0-16.0) Arterial Blood Partial 128 mmHg Pressure O2 (61-120) Chloride Level 97 MEQ/L (98-107) Carbon Dioxide Level 40.6 MEQ/L (21.0-32.0) Anion Gap 4 MEQ/L (5-15) Creatinine 0.30 MG/DL (0.50-1.00) Random Glucose 128 MG/DL (74-106) Calcium Level 7.6 MG/DL (8.5-10.1) Imaging Last Impressions Chest X-Ray 04/13/16 0000 Signed Impressions: Service Date/Time: Wednesday, April 13, 2016 09:42 - CONCLUSION: No significant interval change. Persistent right lower lung consolidation versus atelectasis, possible mild pulmonary edema, and small bilateral pleural effusions. Ramon Saab MD Myocardial Perfusion Scan Nuc Med 04/12/16 0600 Signed Impressions: Service Date/Time: Tuesday, April 12, 2016 12:28 - CONCLUSION: 1. Unremarkable myocardial perfusion examination. RISK CATEGORY: Low Rylan Morris MD Head CT 04/07/16 0550 Signed Impressions: Service Date/Time: Thursday, April 07, 2016 06:26 - CONCLUSION: 1. No evidence of acute intracranial pathology. No masses are identified. Jarocho Cruz MD Brain MRI 04/07/16 0000 Signed Impressions: Service Date/Time: Thursday, April 07, 2016 12:25 - CONCLUSION: Brain MRI within normal limits. Ramon Saab MD PE at Discharge GENERAL: Alert, NAD. Appears lethargic. SKIN: Warm and dry. HEAD: Normocephalic. EYES: No scleral icterus. No injection or drainage. NECK: Supple, trachea midline. No JVD or lymphadenopathy. CARDIOVASCULAR: Regular rate and rhythm without murmurs, gallops, or rubs. RESPIRATORY: Breath sounds equal bilaterally. No accessory muscle use. GASTROINTESTINAL: Abdomen soft, nondistended. MUSCULOSKELETAL: No cyanosis. 2+ edema in lower ext. Pt update on day of discharge Ms. Latif is doing well. Denies any CP, SOB, fever, chills. Wants to go home. Hospital Course Ms. Latif is a 60 year old female with a history of COPD, alcohol abuse who was admitted to the ICU on 04/07/2016 due to possible seizure activity at home. Upon admission, in the ED, patient had multiple episodes of seizure activities. Ativan was given, Precedex started. Lactate was 5.3. CT brain unremarkable for any acute findings. Patient was intubated in the ED and CXR showed possibility of aspiration pneumonia. With supportive care, patient improved and tolerated CPAP well and subsequently, on 04/10/2016, patient was extubated and patient was subsequently transferred to [facility] and patient underwent Lexiscan study on 2016. Echo showed EF 55%. - Acute hypercapnic respiratory failure 04/13/2016. - Patient did not use BiPAP last night. - Use supplemental O2 as little as possible in order to increase chance of hypercapnic respiratory failure. - Has O2 at home. Advised patient to use minimum O2 to keep O2 sat > 90%. - Probable alcohol withdrawal - Acute encephalopathy - toxic versus metabolic. - 04/07/16 CT brain-no evidence of acute intracranial pathology - MRI brain revealed no acute intracranial findings - Alcohol withdrawal, seizures previous admission 03/05 - 04/07/2016 EEG-showed moderate encephalopathy no acute findings - Ammonia level down to 37, alcohol level 14, Utox positive for amphetamines - Continue CIWA protocol. - Continue to hold Librium - Thiamine, folate and multivitamin for EtOH - Acute respiratory failure - O2 Dependent COPD - Possible aspiration pneumonia versus pneumonitis. - Nasal cannula to maintain saturations greater than equal to 92%. Wean off supplemental O2 if possible. - Incentive spirometry while awake - Bronchodilator therapy every 6 hours and as needed - Pulmicort twice a day - Reduce prednisone 20 mg twice a day to 10 mg twice a day. - Chest xray- right lower lobe consolidation versus atelectasis - Nicotine patch 14 mg daily dose - Patient has received Aztreonam, Azithromycin and Flagyl since 04/07/2016. Discontinued all abx on 04/15/2016. - NSTEMI - could be from Amphetamine use. - Cardiology recommended a nuclear stress test which was unremarkable. - Continue Aspirin and Atorvastatin on discharge. - Echo shows EF 55-60%. - Continue Lipitor 80mg QHS. - Bilateral lower extremity edema - Probable diastolic congestive heart failure. - Continue patient on Lasix 40mg IV BID. - Switch to PO at the time of discharge. - Hyperammonemia - History of recent GI bleed - Bowel regimen-lactulose, senna, Colace - No further GI bleed. Aspirin 81mg Qday can be used Pt Condition on Discharge: Good Discharge Disposition: Discharge to SNF Discharge Time: > 30 minutes Discharge Instructions DIET: Follow Instructions for: As Tolerated, No Restrictions, Low Sodium Diet Activities you can perform: Regular-No Restrictions Follow up Referrals: PCP Follow-up - 1 Week New Medications: Aspirin DR (Aspirin EC) 81 Mg Tabdr 81 MG PO DAILY Blood Clot Prevention #90 Ref 0 TAB Furosemide (Lasix) 20 Mg Tab 20 MG PO DAILY Fluid #30 Ref 0 TAB Lorazepam (Ativan) 0.5 Mg Tab 0.5 MG PO Q8H PRN ANXIETY AND/OR AGITATION #21 Ref 0 TAB Methylprednisolone Dosepak (Medrol Dosepak) 4 Mg Dspk 4 MG PO DIRECTED Per Pharmacist direction #1 Ref 0 DSPK Potassium Chloride ER (K-Tab) 10 Meq Tab 10 MEQ PO DAILY Electrolyte Replacement #30 Ref 0 TAB Atorvastatin (Lipitor) 80 Mg Tab 80 MG PO HS Cholesterol Management #30 TAB Lactulose Liq (Lactulose Liq) 10 Gm/15 Ml Soln 30 ML PO DAILY PRN Constipation Days 30 ML Changed Medications: Pantoprazole (Pantoprazole) 40 Mg Tab 40 MG PO DAILY ppi Days 30 Ref 0 TAB (Changed from: Q12HR) Continued Medications: Albuterol 8.5 GM Inh (Proair Hfa 8.5 GM Inh) 90 Mcg/Act Aer 2 PUFF INH Q6H 108 mcg/actuation PRN SHORTNESS OF BREATH #1 Ref 0 INHALER Albuterol Neb (Albuterol Neb) 2.5 Mg/0.5 Ml Neb 2.5 MG NEB QID NEB Note: The Albuterol Sulfate Inhalation Solution is concentrated and must be diluted. Read complete instructions carefully before using. Breathing Treatment #120 Ref 0 NEBULE Budesonide-Formoterol Inh (Symbicort Inh) 160-4.5 Mcg/Act Aero 1 PUFF INH BID copd #1 Ref 0 INHALER Folic Acid (Folate) 1 Mg Tab 1 MG PO DAILY vitamin Days 30 Ref 0 TAB Multiple Vitamin (Thera/Beta-Carotene) 1 Tab Tab 1 TAB PO DAILY vitamin Days 30 Ref 0 TAB Thiamine (Vitamin B-1) 100 Mg Tab 100 MG PO DAILY vitamin Days 30 Ref 0 TAB Tiotropium Inh (Spiriva Handihaler) 18 Mcg Cap 18 MCG INH DAILY 1 capsule = 18 mcg COPD #1 Ref 0 CAP Discontinued Medications: Chlordiazepoxide (Chlordiazepoxide) 5 Mg Cap 5 MG PO DIRECTED 10 mg po twice daily for one day then 5 mg po twice daily for one day then 5 mg po daily for one day then stop. PRN Anxiety Days 3 Ref 0 CAP Levofloxacin (Levaquin) 500 Mg Tab 500 MG PO Q24H pneumonia Days 5 Ref 0 TAB Prednisone (Prednisone) 5 Mg Tab 5 MG PO DIRECTED 40 mg po daily for two days then 30 mg po daily for two days then 20 mg po daily for two days the 10 mg po daily for two days then 5 mg po daily for two days then stop. copd Days 10 Ref 0 Krysta Brantley DO Apr 16, 2016 09:05
[2016-04-16] MEDS ORDERED: LORA-392 PO (09:06)
[2016-04-16] MEDS ORDERED: ASPI81TA11 PO (09:06)
--- NOTE | 2016-04-16 09:14 | HHI.FF ---
Face to Face Verification Diagnosis: (1) Chronic respiratory failure (2) Alcohol abuse (3) COPD exacerbation (4) Generalized weakness (5) Respiratory failure, acute and chronic (6) NSTEMI (non-ST elevated myocardial infarction) Home Health Nursing Order: Signs/symptoms of disease process Oxygen administration education Nursing assessment with vital signs I have seen patient Chelly Latif on 04/16/16. My clinical findings support the need for the requested home health care services because: Patient has SOB Deconditioned w/ increased weakness Limited ability to care for self Need for psychosocial assistance Impaired cognition/judgement High risk of falls Infection w/ risk of complications I certify that my clinical findings support that this patient is homebound because: Hx COPD- exertion dyspnea/weakness Unsteady gait/balance Unsafe to leave home unassisted Need for psychosocial assistance Unable to use public transportation Krysta Ny DO Apr 16, 2016 9:14 am
[2016-04-16] MEDS: NICOTINE 14 MG/24 HR PATCH TD SCH (10:01)
[2016-04-16] MEDS: guaiFENesin E.R. 600 MG TAB PO SCH (10:01)
[2016-04-16] MEDS: FOLIC ACID 1 MG TAB PO SCH (10:01)
[2016-04-16] MEDS: predniSONE 10 MG TAB PO SCH (10:01)
[2016-04-16] MEDS: POTASSIUM CHLORIDE 10 MEQ CONTROLLED RELEASE TAB PO SCH (10:01)
[2016-04-16] MEDS: THIAMINE HCL 100 MG TAB PO SCH (10:01)
[2016-04-16] MEDS: PANTOPRAZOLE SODIUM 40 MG VIAL IV SCH (10:02)
[2016-04-16] MEDS: SODIUM CHLORIDE 0.9% FLUSH 5 ML FLUSH IV FLUSH SCH (10:02)
[2016-04-16] MEDS: LACTULOSE SYRUP 20 GM/30 ML CUP PO SCH (10:03)
[2016-04-16] MEDS: SENNOSIDES 8.6 MG TAB PO SCH (10:03)
[2016-04-16] MEDS: DOCUSATE SODIUM 100 MG/10 ML UDC G-TUBE SCH (10:03)
[2016-04-16] MEDS ORDERED: WHEEMIS3 (14:20)
== END 2016-04-16 14:58 | disposition home health service (06) | DRG 896 ==
LOC: NEPC 05:36 → NEDA 09:00 → HIMN 12:45 → HCIS 04-11 17:53
PROVIDERS: ADMIT Hospitalist; ATTEND Hospitalist
PROC: 5A1935Z Respiratory Ventilation, Less than 24 Consecutive Hours (ICD-10-PCS; principal; 2016-04-07)
PROC: 0BH17EZ Insertion of Endotracheal Airway into Trachea, Via Natural or Artificial Opening (ICD-10-PCS; 2016-04-07)
PROC: 5A09357 Assistance with Respiratory Ventilation, Less than 24 Consecutive Hours, Continuous Positive Airway Pressure (ICD-10-PCS; 2016-04-13)
DX: F10.231 Alcohol dependence with withdrawal delirium (principal); J96.20 Acute and chronic respiratory failure, unspecified whether with hypoxia or hypercapnia; I21.4 Non-ST elevation (NSTEMI) myocardial infarction; J69.0 Pneumonitis due to inhalation of food and vomit; G93.40 Encephalopathy, unspecified; J44.9 Chronic obstructive pulmonary disease, unspecified; E72.20 Disorder of urea cycle metabolism, unspecified; E87.2 Acidosis; G40.89 Other seizures; I50.30 Unspecified diastolic (congestive) heart failure; K26.9 Duodenal ulcer, unspecified as acute or chronic, without hemorrhage or perforation; Z99.81 Dependence on supplemental oxygen; F32.9 Major depressive disorder, single episode, unspecified; F41.9 Anxiety disorder, unspecified; J45.909 Unspecified asthma, uncomplicated; F43.10 Post-traumatic stress disorder, unspecified; F17.210 Nicotine dependence, cigarettes, uncomplicated; Y90.0 Blood alcohol level of less than 20 mg/100 ml; K44.9 Diaphragmatic hernia without obstruction or gangrene; F12.90 Cannabis use, unspecified, uncomplicated; E78.5 Hyperlipidemia, unspecified; E87.6 Hypokalemia; D75.89 Other specified diseases of blood and blood-forming organs; I07.1 Rheumatic tricuspid insufficiency; T43.621A Poisoning by amphetamines, accidental (unintentional), initial encounter; Y92.9 Unspecified place or not applicable
CPT/HCPCS: 31500; 36600; 70450; 70551; 71010; 76937; 78452; 80048; 80053; 80061; 80076; 80307; 80320; 81001; 82140; 82550; 82805; 83605; 83735; 84100; 84132; 84484; 85007; 85025; 85027; 85610; 85730; 87040; 87086; 87641; 93005; 93017; 93306; 94002; 94003; 94150; 94640; 94664; 95819; 96374; 99292; A9502; C9113; C9399; G0481; J0456; J1450; J1644; J1940; J2060; J2785; J2920; J3010; J3411; J3475; J7030; J7040; J7050; J7512; J7613; J7626; P9047; P9612

== ENCOUNTER 2016-05-12 19:15 | Inpatient (IN) | payer OTHER ==
[~2016-05-12] VITALS: Ht 170.2 cm; Wt 41.0 kg
[~2016-05-12 19:15] MED LIST changes: +ASPI81TA11 PO; -CHLO5CAP3 PO; +FURO1TAB62 PO; +K-TA10TA PO; +LACT10SO PO; -LEVA500T PO; +LIPI80TA PO; +LORA-392 PO; +MEDR4PAK PO; -PRED5TAB PO; -WALKER WHEELS/F1 MIS; +WHEEMIS3
[2016-05-12 19:54] VITALS: PULSE 95; RESP 18; TEMP 97.8; O2SAT 100
[2016-05-12 20:22] VITALS: O2SAT 100
--- NOTE | 2016-05-12 20:25 | PD ---
HPI Chief Complaint: Respiratory Distress Time Seen by Provider: 19:32 Travel History International Travel<30 days: No Contact w/Intl Traveler<30days: No Traveled to known affect area: No History of Present Illness HPI The patient is a 60 year old female who presents to the [facility] emergency department with a history of reportedly a few hours earlier today beginning to experience confusion, a glazed over look in her eyes, and increased shortness of breath. The patient herself is unable to determine exactly why she was brought in by ambulance services. This history is obtained from her significant other at the bedside, Lloyd the patient's other history is also obtained from reviewing the electronic medical record. Her significant other reports that she last took medications this morning. She reports that she does not take medication on a regular basis as she does not want to. The patient is an alcoholic that drinks approximately 4 beers daily. The patient also smokes approximately a half a pack of cigarettes per day in spite of being O2 dependent due to COPD at 2 L daily. The patient reports that she has had 3 beers today. Her significant other denies her having any seizure activity although from reviewing the record she has had a history of seizures that she was admitted to the hospital for related to alcohol withdrawal on April 07, 2016. Due to repeated seizure activity and for airway control the patient was intubated. The patient was also diagnosed with a right lower lobe consolidation during her last admission to the hospital. Her other history is recently consisted of being admitted from April 07 April 03 related to a COPD exacerbation, pneumonia, GI bleed, and alcohol abuse. The patient on arrival and attempts to answer questions and appears to be intoxicated. The patient denies any worsening productivity to her cough. She denies having any chest pain. Her significant other reports that she has not been eating or drinking well for the last 10 days. The patient has a brace in place in the left lower extremity related to a foot injury. The patient's significant other denies any recent fevers, neck pain, chest pain, abdominal pain, vomiting, diarrhea, or urinary symptoms. PFS Past Medical History Narrative Medical The patient's past medical history is significant for COPD, recent pneumonia, history of GI bleed, history of seizure activity related to alcohol withdrawal, history of anxiety disorder, depression, tobacco abuse, alcohol abuse, posttraumatic stress disorder. Arthritis: No Asthma: Yes Autoimmune Disease: No Anxiety: Yes Depression: Yes Heart Rhythm Problems: No Cancer: No Cardiovascular Problems: No High Cholesterol: No Chest Pain: No Congestive Heart Failure: No COPD: Yes Cerebrovascular Accident: No Coronary Artery Disease: No Diabetes: No Diminished Hearing: No Endocrine: No Gastrointestinal Disorders: Yes GERD: No Genitourinary: No Headaches: No Hiatal Hernia: No Hypertension: No Immune Disorder: No Implanted Vascular Access Dvce: No Kidney Stones: No Musculoskeletal: Yes Neurologic: Yes Psychiatric: Yes (PTSD) Reproductive: No Respiratory: Yes (COPD) Immunizations Current: Yes Renal Failure: No Seizures: Yes Sleep Apnea: No Thyroid Disease: No Ulcer: No Tetanus Vaccination: < 5 Years Influenza Vaccination: Yes Menopausal: Yes : 2 Para: 2 Past Surgical History Narrative Surgical The patient's past surgical history is significant for times one, bilateral breast biopsies Abdominal Surgery: Yes () Section: Yes (X1) Thoracic Surgery: Yes (BILATERAL BREAST BIOPSY) Other Surgery: Yes Social History Alcohol Use: Yes (4 BEERS/DAY) Tobacco Use: Yes (1/2-1 PPD) Substance Use: Yes (MARIJUANA OCCASIONALLY) Allergies-Medications (Allergen,Severity, Reaction): Coded Allergies: Penicillin (Verified Allergy, Severe, CHILDHOOD, 05/12/16) Reported Meds & Prescriptions Reported Meds & Active Scripts Active Wheelchair (Device) 1 Mis Mis 1 Ea .ROUTE DIRECTED Aspirin EC (Aspirin) 81 Mg Tabdr 81 Mg PO DAILY Ativan (Lorazepam) 0.5 Mg Tab 0.5 Mg PO Q8H PRN Medrol Dosepak (Methylprednisolone) 4 Mg Dspk 4 Mg PO DIRECTED Per Pharmacist direction K-Tab (Potassium Chloride) 10 Meq Tab 10 Meq PO DAILY Lasix (Furosemide) 20 Mg Tab 20 Mg PO DAILY Lipitor (Atorvastatin Calcium) 80 Mg Tab 80 Mg PO HS Lactulose Liq (Lactulose) 10 Gm/15 Ml Soln 30 Ml PO DAILY PRN 30 Days Pantoprazole (Pantoprazole Sodium) 40 Mg Tab 40 Mg PO DAILY 30 Days Vitamin B-1 (Thiamine HCl) 100 Mg Tab 100 Mg PO DAILY 30 Days Thera/Beta-Carotene (Multiple Vitamin) 1 Tab Tab 1 Tab PO DAILY 30 Days Folate (Folic Acid) 1 Mg Tab 1 Mg PO DAILY 30 Days Symbicort Inh (Budesonide/Formoterol Fumarate) 160-4.5 Mcg/Act Aero 1 Puff INH BID Spiriva Handihaler (Tiotropium Inh) 18 Mcg Cap 18 Mcg INH DAILY 1 capsule = 18 mcg Proair Hfa 8.5 GM Inh (Albuterol Sulfate) 90 Mcg/Act Aer 2 Puff INH Q6H PRN 108 mcg/actuation Albuterol Neb (Albuterol Sulfate) 2.5 Mg/0.5 Ml Neb 2.5 Mg NEB QID NEB Note: The Albuterol Sulfate Inhalation Solution is concentrated and must be diluted. Read complete instructions carefully before using. Review of Systems Except as stated in HPI: all other systems reviewed are Neg General / Constitutional: No: Fever Eyes: No: Visual changes HENT: No: Headaches Cardiovascular: No: Chest Pain or Discomfort Respiratory: No: Shortness of Breath Gastrointestinal: Positive: Loss of Appetite, No: Nausea, Vomiting, Diarrhea, Abdominal Pain Genitourinary: No: Dysuria Musculoskeletal: No: Pain Skin: No Rash Neurologic: Positive: Weakness (generalized weakness), Change in Mentation, No : Focal Abnormalities, Slurred Speech, Sensory Disturbance Psychiatric: No: Depression Endocrine: No: Polydipsia Hematologic/Lymphatic: No: Easy Bruising Physical Exam Narrative General: The patient is a well-developed, cachectic appearing female in no acute distress. Head and Neck exam: Head is normocephalic atraumatic. Eyes: EOMI, pupils are equal round and reactive to light. Nose: Midline septum with pink mucous membranes Mouth: Dentition unremarkable. Tacky mucus membranes. Posterior oropharynx is not erythematous. No tonsillar hypertrophy. Uvula midline. Airway patent. Neck: No palpable lymphadenopathy. No nuchal rigidity. No thyromegaly. Cardiovascular: Regular rate and rhythm without murmurs, gallops, or rubs. Lungs: Clear to auscultation bilaterally. No wheezes, rhonchi, or rales. Abdomen: Soft, without tenderness to palpation in all 4 quadrants of the abdomen. No guarding, rebound, or rigidity. Normal bowel sounds are audible. Extremities: No clubbing, cyanosis, or edema. 2+ pulses in all 4 extremities. The patient on examination of the left leg is noted to have a walking boot in place. This was removed. The patient has no physical abnormality of the foot, 2+ pulses. Less than 3 second capillary refill. Back: No spinous process tenderness to palpation. No costovertebral angle tenderness to palpation. Neurologic Exam: Cranial nerves 2-12 were intact on exam. Strength is 5/5 in all 4 extremities. No sensory deficits noted. The patient is oriented to person, however not place , time, or situation. Skin Exam: No rash noted. Intact skin that is warm and dry. The patient has poor skin turgor noted. Data Data Last Documented VS Vital Signs Date Time Temp Pulse Resp B/P Pulse Ox O2 Delivery O2 Flow Rate FiO2 05/12/16 20:22 100 Nasal Cannula 3 05/12/16 19:54 97.8 95 18 Orders Electrocardiogram (05/12/16 20:16) Complete Blood Count With Diff (05/12/16 20:16) Comprehensive Metabolic Panel (05/12/16 20:16) Creatine Kinase (Cpk) (05/12/16 20:16) Ckmb (Isoenzyme) Profile (05/12/16 20:16) Troponin I (05/12/16 20:16) B-Type Natriuretic Peptide (05/12/16 20:16) Prothrombin Time / Inr (Pt) (05/12/16 20:16) Act Partial Throm Time (Ptt) (05/12/16 20:16) Blood Culture (05/12/16 20:16) Lipase (05/12/16 20:16) Urinalysis - C+S If Indicated (05/12/16 20:16) Magnesium (Mg) (05/12/16 20:16) Ammonia (05/12/16 20:16) Thyroid Stimulating Hormone (05/12/16 20:16) Chest, Single Ap (05/12/16 20:16) Ct Brain W/O Iv Contrast(Rout) (05/12/16 20:16) Iv Access Insert/Monitor (05/12/16 20:16) Ecg Monitoring (05/12/16 20:16) Oximetry (05/12/16 20:16) Drug Screen, Random Urine (05/12/16 20:16) Alcohol (Ethanol) (05/12/16 20:16) Salicylates (Aspirin) (05/12/16 20:16) Tylenol (Acetaminophen) (05/12/16 20:16) Dextrose 50% In Carlito (Vial) Inj (D50w (Vi (05/12/16 20:30) Sodium Chlorid 0.9% 500 Ml Inj (Ns 500 M (05/12/16 22:15) Admit Order (Ed Use Only) (05/12/16 22:18) Vital Signs (Adult) Q4H (05/12/16 22:18) Bedside Glucose ALANNA.AC&HS (05/12/16 22:18) Intake + Output ALANNA.QSHIFT (05/12/16 22:18) Alcohol Withdrawal Asmt-Ciwa Q4HX18 (05/12/16 22:18) ^ Seizure Precautions (05/12/16 22:18) Multivitamin Inj (Mvi-12 Inj)... (05/12/16 22:30) Thiamine Inj (Thiamine Inj) (05/12/16 22:30) Thiamine (Vit B1) (Vitamin B1) (05/16/16 09:00) Consult Cm-Etoh Abuse Dc Plan (05/12/16 ) Flumazenil Inj (Romazicon Inj) (05/12/16 22:30) Lorazepam (Ativan) (05/12/16 22:30) Lorazepam Inj (Ativan Inj) (05/12/16 22:30) Lorazepam (Ativan) (05/12/16 22:30) Lorazepam Inj (Ativan Inj) (05/12/16 22:30) Lorazepam Inj (Ativan Inj) (05/12/16 22:30) Lorazepam Inj (Ativan Inj) (05/12/16 22:30) Haloperidol Inj (Haldol Inj) (05/12/16 22:30) Admit To Inpatient (05/12/16 ) Vital Signs (Adult) Q4H (05/12/16 22:18) Activity Oob With Assistance (05/12/16 22:18) Property Preservation Specialist / Telemetry .CONTINUOUS (05/12/16 22:18) Intake + Output ALANNA.QSHIFT (05/12/16 22:18) Diet Regular Basic (05/13/16 Breakfast) Sodium Chloride 0.9% Flush (Ns Flush) (05/12/16 22:30) Sodium Chloride 0.9% Flush (Ns Flush) (05/13/16 09:00) Ondansetron Inj (Zofran Inj) (05/12/16 22:30) Bisacodyl Supp (Dulcolax Supp) (05/12/16 22:30) Comprehensive Metabolic Panel (05/13/16 06:00) Complete Blood Count With Diff (05/13/16 06:00) Prothrombin Time / Inr (Pt) (05/13/16 06:00) Pharmacologic Contraindication (05/12/16 22:18) Acetaminophen (Tylenol) (05/12/16 22:30) Inpatient Certification (05/12/16 ) Labs Laboratory Tests Test 05/12/16 05/12/16 05/12/16 20:15 21:25 21:55 White Blood Count 7.5 TH/MM3 Red Blood Count 4.32 MIL/MM3 Hemoglobin 13.3 GM/DL Hematocrit 38.5 % Mean Corpuscular Volume 89.2 FL Mean Corpuscular Hemoglobin 30.9 PG Mean Corpuscular Hemoglobin 34.6 % Concent Red Cell Distribution Width 17.2 % Platelet Count 228 TH/MM3 Mean Platelet Volume 6.9 FL Neutrophils (%) (Auto) 79.5 % Lymphocytes (%) (Auto) 11.7 % Monocytes (%) (Auto) 7.9 % Eosinophils (%) (Auto) 0.1 % Basophils (%) (Auto) 0.8 % Neutrophils # (Auto) 6.0 TH/MM3 Lymphocytes # (Auto) 0.9 TH/MM3 Monocytes # (Auto) 0.6 TH/MM3 Eosinophils # (Auto) 0.0 TH/MM3 Basophils # (Auto) 0.1 TH/MM3 CBC Comment DIFF FINAL Differential Comment Prothrombin Time 10.2 SEC Prothromb Time International 0.9 RATIO Ratio Activated Partial 31.2 SEC Thromboplast Time Sodium Level 122 MEQ/L Potassium Level 5.4 MEQ/L Chloride Level 76 MEQ/L Carbon Dioxide Level 32.4 MEQ/L Anion Gap 14 MEQ/L Blood Urea Nitrogen 4 MG/DL Creatinine 0.28 MG/DL Estimat Glomerular Filtration 246 ML/MIN Rate Random Glucose 62 MG/DL Calcium Level 8.4 MG/DL Magnesium Level 1.9 MG/DL Total Bilirubin 0.5 MG/DL Aspartate Amino Transf 200 U/L (AST/SGOT) Alanine Aminotransferase 82 U/L (ALT/SGPT) Alkaline Phosphatase 272 U/L Total Creatine Kinase 91 U/L Troponin I LESS THAN 0.02 NG/ML B-Type Natriuretic Peptide 37 PG/ML Total Protein 7.1 GM/DL Albumin 3.9 GM/DL Lipase 142 U/L Thyroid Stimulating Hormone 1.930 uIU/ML 3rd Gen Acetaminophen Level LESS THAN 2.0 MCG/ML Ethyl Alcohol Level 310 MG/DL Ammonia 40 MCMOL/L Salicylates Level 3.5 MG/DL Urine Color YELLOW Urine Turbidity CLEAR Urine pH 6.5 Urine Specific [place] 1.005 Urine Protein NEG mg/dL Urine Glucose (UA) NEG mg/dL Urine Ketones 10 mg/dL Urine Occult Blood NEG Urine Nitrite NEG Urine Bilirubin NEG Urine Urobilinogen LESS THAN 2.0 MG/DL Urine Leukocyte Esterase NEG Urine RBC 1 /hpf Urine WBC 1 /hpf Urine Squamous Epithelial 2 /hpf Cells Microscopic Urinalysis Comment CULT NOT INDICATED Urine Opiates Screen NEG Urine Barbiturates Screen NEG Urine Amphetamines Screen NEG Urine Benzodiazepines Screen POS Urine Cocaine Screen NEG Urine Cannabinoids Screen NEG MDM Medical Decision Making Medical Screen Exam Complete: Yes Emergency Medical Condition: Yes Medical Record Reviewed: Yes Interpretation(s) Last Impressions Head CT 05/12/162015 Signed Impressions: Service Date/Time: Thursday, May 12, 2016 20:28 - CONCLUSION: Normal examination for a patient of this age. No significant change has occurred. Dutch Fernandez MD Chest X-Ray 05/12/162015 Signed Impressions: Service Date/Time: Thursday, May 12, 2016 20:27 - CONCLUSION: 1. Resolution of previous pleural effusions and near-complete resolution of previous air space disease. No new infiltrate. Dutch Fernandez MD Differential Diagnosis Hepatic encephalopathy, versus other metabolic encephalopathy, versus intracranial abnormality, versus acute alcohol intoxication, versus other substance intoxication, versus recurrent pneumonia, versus hypoxemia related to COPD. Narrative Course During the course of the patients emergency department visit, the patients history, examination, and differential diagnosis were reviewed with the patient. The patient had IV access obtained and blood work sent for analysis. The patient was placed on a playground monitor with oximetry and blood pressure monitoring. An EKG was ordered. The patient's EKG shows a sinus rhythm heart rate of 98, nonspecific T-wave abnormalities, no acute ST segment elevation, T waves inverted in V1. The patient was provided normal saline IV fluid bolus of 500 mL 1. The patients laboratory studies were reviewed and remarkable for a CMP was remarkable for hyponatremia with a sodium of 122, suspected to be related to dehydration, the patient was continued on IV fluid supplementation. Urine drug screen was positive for benzodiazepines. Urinalysis showed 10 ketones consistent with dehydration. CMP is remarkable for LFTs being elevated, ammonia level is 40 consistent with hepatic encephalopathy. Radiology studies were reviewed and remarkable for a chest x-ray showed improvement of air space disease previously seen. CT scan of the brain showed no acute abnormality. The patients results were discussed with the patient, including the plan of care. I explained that further testing and/ or monitoring is indicated based on the patients history, examination, and/ or laboratory findings. Therefore, I recommended admission for additional evaluation. The patient expressed understanding and was agreeable with this plan. The patient was admitted to the hospital in guarded condition and sent to a [facility]. Physician Communication Physician Communication The patient's case was discussed with Dr. Head who did agree to admit the patient for further evaluation and treatment at this time. Diagnosis Primary Impression: Encephalopathy Additional Impressions: Hyponatremia Altered mental state Qualified Code: R41.0 - Disorientation Acute alcohol intoxication Qualified Code: F10.129 - Acute alcohol intoxication, with unspecified complication Admitting Information Admitting Physician Requests: Admit Sofía Black MD May 12, 2016 20:25
[2016-05-12] MEDS ORDERED: DEXTROSE 50% IN WATER 50 ML VIAL(D50) IV PUSH ONE (20:30)
[2016-05-12 20:39] LABS: BASOPHIL # 0.1 TH/MM3 (0-0.2); BASOPHIL % 0.8 % (0.0-2.0); EOSINOPHIL % 0.1 % (0.0-4.0); HEMATOCRIT 38.5 % (35.0-46.0); HEMO FLAGS DIFF FINAL; LYMPH % 11.7 % (9.0-44.0); LYMPHOCYTE # 0.9 TH/MM3 (1.0-4.8); MEAN CELL VOLUME 89.2 FL (80.0-100.0); MEAN CORPUSCULAR HEMOGLOBIN 30.9 PG (27.0-34.0); MEAN CORPUSCULAR HGB CONC 34.6 % (32.0-36.0); MONO % 7.9 % (0.0-8.0); NEUT % 79.5 % (16.0-70.0); PLATELET COUNT 228 TH/MM3 (150-450); RED BLOOD COUNT 4.32 MIL/MM3 (4.00-5.30); RED CELL DISTRIBUTION WIDTH 17.2 % (11.6-17.2); WHITE BLOOD COUNT 7.5 TH/MM3 (4.0-11.0)
[2016-05-12 20:48] LABS: APTT (PATIENT) 31.2 SEC (24.3-30.1); INTERNATIONAL NORMALIZED RATIO 0.9 RATIO; PROTHROMBIN TIME - PATIENT 10.2 SEC (9.8-11.6)
--- NOTE | 2016-05-12 21:01 | RADRPT ---
EXAM DATE/TIME: 05/12/2016 20:28 [facility] COMPARISON: CT BRAIN W/O CONTRAST, April 07, 2016, 6:26. INDICATIONS : Altered mental status. RADIATION DOSE: 36.26 CTDIvol (mGy) MEDICAL HISTORY : Seizures. SURGICAL HISTORY : None. ENCOUNTER: Initial ACUITY: 1 day PAIN SCALE: Non-responsive LOCATION: cranial TECHNIQUE: Multiple contiguous axial images were obtained of the head. Using automated exposure control and adj ustment of the mA and/or kV according to patient size, radiation dose was kept as low as reasonably a chievable to obtain optimal diagnostic quality images. FINDINGS: CEREBRUM: The ventricles are normal for age. No evidence of midline shift, mass lesion, hemorrhage or acute in farction. No extra-axial fluid collections are seen. POSTERIOR FOSSA: The cerebellum and brainstem are intact. The 4th ventricle is midline. The cerebellopontine angle i s unremarkable. EXTRACRANIAL: The visualized portion of the orbits is intact. SKULL: The calvaria is intact. No evidence of skull fracture. CONCLUSION: Normal examination for a patient of this age. No significant change has occurred. Dutch Fernandez MD on May 12, 2016 at 20:57 Board Certified Radiologist. This report was verified electronically.
[2016-05-12 21:02] LABS: ANION GAP 14 MEQ/L (5-15)
--- NOTE | 2016-05-12 21:02 | RADRPT ---
EXAM DATE/TIME: 05/12/2016 20:27 [facility] COMPARISON: CHEST SINGLE AP, April 13, 2016, 9:42. INDICATIONS : Shortness of breath. MEDICAL HISTORY : Chronic obstructive pulmonary disease. Seizures Asthma SURGICAL HISTORY : section. ENCOUNTER: Initial ACUITY: 1 day PAIN SCORE: 0/10 LOCATION: Bilateral chest FINDINGS: Compare April 13. Previous bilateral effusions have resolved. Basilar airspace disease has nearly completely resolved. No new infiltrate. No pneumothorax. Hyperinflation present. Heart size normal. CONCLUSION: 1. Resolution of previous pleural effusions and near-complete resolution of previous air space diseas e. No new infiltrate. Dutch Fernandez MD on May 12, 2016 at 21:00 Board Certified Radiologist. This report was verified electronically.
[2016-05-12 21:20] LABS: ACETAMINOPHEN LESS THAN 2.0 MCG/ML (10.0-30.0); ALKALINE PHOSPHATASE 272 U/L (45-117); ALT (GPT) 82 U/L (10-53); AST (GOT) 200 U/L (15-37); BICARBONATE 32.4 MEQ/L (21.0-32.0); BLOOD UREA NITROGEN 4 MG/DL (7-18); CHLORIDE 76 MEQ/L (98-107); GLOMERULAR FILTRATION RATE 246 ML/MIN (>89); MAGNESIUM 1.9 MG/DL (1.5-2.5); POTASSIUM 5.4 MEQ/L (3.5-5.1); TOTAL BILIRUBIN ADULT 0.5 MG/DL (0.2-1.0)
[2016-05-12 21:37] LABS: CREATINE KINASE 91 U/L (26-192)
[2016-05-12 21:38] LABS: SODIUM (NA) 122 MEQ/L (136-145)
[2016-05-12] MEDS ORDERED: SODIUM CHLORID 0.9% 500 ML INJ 500 ML IV ONE (22:15)
[2016-05-12 22:16] LABS: BLOOD, URINE NEG (NEG); COMMENT (UR) CULT NOT INDICATED; CULTURE IF INDICATED CULT NOT INDICATED; GLUCOSE,URINE NEG (NEG); KETONE, URINE 10 mg/dL (NEG); NITRITE,URINE NEG (NEG); PH, URINE 6.5 (5.0-8.5); SQUAMOUS EPITHELIAL CELL URINE 2 /hpf (0-5); URINE COLOR YELLOW (YELLW/STRAW)
[2016-05-12 22:23] LABS: AMPHETAMINE, URINE NEG (NEG); BARBITURATES, URINE NEG (NEG); COCAINE, URINE NEG (NEG)
[2016-05-12 22:30] VITALS: BP 99/56; PULSE 90; RESP 18; O2SAT 97
[2016-05-12] MEDS ORDERED: ACETAMINOPHEN 325 MG TAB PO PRN (22:30)
[2016-05-12] MEDS ORDERED: LORazepam 2 MG/ML VIAL IV PUSH PRN ×2 (22:30)
[2016-05-12] MEDS ORDERED: BISACODYL 10 MG SUPP PR PRN (22:30)
[2016-05-12] MEDS ORDERED: SODIUM CHLORIDE 0.9% FLUSH 10 ML FLUSH IV FLUSH PRN (22:30)
[2016-05-12] MEDS ORDERED: FLUMAZENIL 0.5 MG/5 ML VIAL IV PUSH PRN (22:30)
[2016-05-12] MEDS ORDERED: HALOPERIDOL LACTATE 5 MG/ML AMP IM PRN (22:30)
[2016-05-12] MEDS ORDERED: ONDANSETRON HCL 4 MG/2 ML VIAL IVP PRN (22:30)
--- NOTE | 2016-05-12 22:39 | HHI.HP ---
[facility] Padmini Chapa MD Admission Diagnosis AMS, hyponatremia, etoh intoxication Diagnoses: (1) Encephalopathy Diagnosis: Principal (2) Alcohol abuse Diagnosis: Principal (3) Hyponatremia Diagnosis: Principal (4) Dehydration Diagnosis: Principal Travel History International Travel<30 Days: No Contact w/Intl Traveler <30 Da: No Traveled to Known Affected Are: No History of Present Illness This is a 60-year-old female with PMH of COPD, Alcohol Abuse, Alcohol Related Seizure, Anxiety, Depression, h/o GI Bleed and Tobacco Abuse who was brought to the ER by EMS secondary to confusion noted by boyfriend and c/o SOB. Pt unable to provide much history, she is unclear why she's here. Boyfriend states pt hasn't been eating, drinking or taking her medication but continues to drink approx 4-5 beers/day. On arrival, pt intoxicated, awake/alert, oriented to person only. BP 99/56, HR 90, O2 sat 97% on 3L NC, Afebrile. CBC unremarkable. Na 122, K+ 5.4, Ammonia 40. Urine Drug Screen positive for Benzo. Alcohol 310. U/a negative. CT Head with no acute findings. CXR with resolution of previous pleural effusion and near-complete resolution of previous airspace disease, no new infiltrate. Previous admit 04/07-04/16/16 for Acute Encephalopathy, Alcohol Withdrawal w/ related Seizure, Acute Hypercapnic Respiratory Failure s/p Intubation and Aspiration PNA s/p IV Abx. Review of Systems Except as stated in HPI: all other systems reviewed are Neg ROS: 14 point review of systems otherwise negative. Past Family Social History Past Medical History PMH: COPD, Alcohol Abuse, Alcohol Related Seizure, Anxiety, Depression, h/o GI Bleed and Tobacco Abuse Past Surgical History PAST SURGICAL HISTORY: , Bilateral Breast Biopsy Allergies: Coded Allergies: Penicillin (Verified Allergy, Severe, CHILDHOOD, 05/12/16) Family History PAST FAMILY HISTORY: Reviewed. No h/o DM or CAD Social History PAST SOCIAL HISTORY: Drinks 4-5 beers/day. Smoeks 1ppd. +Marijuana. Physical Exam Vital Signs Vital Signs Date Time Temp Pulse Resp B/P Pulse Ox O2 Delivery O2 Flow Rate FiO2 05/12/16 20:22 100 Nasal Cannula 3 05/12/16 19:59 100 Nasal Cannula 3 05/12/16 19:54 97.8 95 18 100 Physical Exam PE: GENERAL: Middle-aged thin white female in no acute distress. HEENT: PERRLA, EOMI. No scleral icterus or conjunctival pallor. No lid lag or facial droop. CARDIOVASCULAR: Regular rate and rhythm. No obvious murmurs to auscultation. No chest tenderness to palpation. RESPIRATORY: No obvious rhonchi or wheezing. Clear to auscultation. Breath sounds equal bilaterally. GASTROINTESTINAL: Abdomen soft, non-tender, nondistended. BS normal. MUSCULOSKELETAL: Extremities without clubbing, cyanosis, or edema. No obvious deformities. NEUROLOGICAL: Awake, alert, oriented to person. No focal neurologic deficits. Moving both upper and lower extremities spontaneously. Laboratory Laboratory Tests Test 05/12/16 05/12/16 05/12/16 20:15 21:25 21:55 White Blood Count 7.5 Red Blood Count 4.32 Hemoglobin 13.3 Hematocrit 38.5 Mean Corpuscular Volume 89.2 Mean Corpuscular Hemoglobin 30.9 Mean Corpuscular Hemoglobin 34.6 Concent Red Cell Distribution Width 17.2 Platelet Count 228 Mean Platelet Volume 6.9 Neutrophils (%) (Auto) 79.5 Lymphocytes (%) (Auto) 11.7 Monocytes (%) (Auto) 7.9 Eosinophils (%) (Auto) 0.1 Basophils (%) (Auto) 0.8 Neutrophils # (Auto) 6.0 Lymphocytes # (Auto) 0.9 Monocytes # (Auto) 0.6 Eosinophils # (Auto) 0.0 Basophils # (Auto) 0.1 CBC Comment DIFF FINAL Differential Comment Prothrombin Time 10.2 Prothromb Time International 0.9 Ratio Activated Partial 31.2 Thromboplast Time Sodium Level 122 Potassium Level 5.4 Chloride Level 76 Carbon Dioxide Level 32.4 Anion Gap 14 Blood Urea Nitrogen 4 Creatinine 0.28 Estimat Glomerular Filtration 246 Rate Random Glucose 62 Calcium Level 8.4 Magnesium Level 1.9 Total Bilirubin 0.5 Aspartate Amino Transf 200 (AST/SGOT) Alanine Aminotransferase 82 (ALT/SGPT) Alkaline Phosphatase 272 Total Creatine Kinase 91 Troponin I LESS THAN 0.02 B-Type Natriuretic Peptide 37 Total Protein 7.1 Albumin 3.9 Lipase 142 Thyroid Stimulating Hormone 1.930 3rd Gen Acetaminophen Level LESS THAN 2.0 Ethyl Alcohol Level 310 Ammonia 40 Salicylates Level 3.5 Urine Color YELLOW Urine Turbidity CLEAR Urine pH 6.5 Urine Specific [place] 1.005 Urine Protein NEG Urine Glucose (UA) NEG Urine Ketones 10 Urine Occult Blood NEG Urine Nitrite NEG Urine Bilirubin NEG Urine Urobilinogen LESS THAN 2.0 Urine Leukocyte Esterase NEG Urine RBC 1 Urine WBC 1 Urine Squamous Epithelial 2 Cells Microscopic Urinalysis Comment CULT NOT INDICATED Date/Time Procedure Status Source Growth 05/12/16 21:28 Aerobic Blood Culture Received Blood Peripheral Pending 05/12/16 21:28 Anaerobic Blood Culture Received Blood Peripheral Pending Result Diagram: 05/12/16201405/12/162014 Assessment and Plan Problem List: (1) Encephalopathy ICD Code: G93.40 Status: Acute (2) Alcohol abuse ICD Code: F10.10 Status: Acute (3) Hyponatremia ICD Code: E87.1 Status: Resolved (4) Dehydration ICD Code: E86.0 Status: Acute Assessment and Plan A/P: 1. Encephalopathy: Likely multifactorial-hyponatremia, hyperammonemia, alcohol intoxication and benzo use. CT Head w/ no acute findings, images reviewed by me. Lactulose, neuro checks. 2. Alcohol Abuse: H/o Alcohol Abuse w/ Alcohol Related Seizure. Alcohol 310. Drinks daily. Seizure Precautions, CIWA, MVT/Thiamine/Folate replacement. 3. Hyponatremia: Na 122, likely related to dehydration and alcohol abuse. IVF for hydration, repeat labs for trend. 4. Dehydration: U/a negative for UTI, IVF for hydration, repeat labs in am. Encourage PO intake. 5. DVT Prophylaxis: SCD/Teds. 6. Social work for d/c planning as needed. 7. Case discussed w/ ER physician at length. Physician Certification 2 Midnight Certification Type: Admission for Inpatient Services Order for Inpatient Services The services are ordered in accordance with Medicare regulations or non- Medicare payer requirements, as applicable. In the case of services not specified as inpatient-only, they are appropriately provided as inpatient services in accordance with the 2-midnight benchmark. Estimated LOS (days): 2 days is the estimated time the patient will need to remain in the hospital, assuming treatment plan goals are met and no additional complications. Post-Hospital Plan: Not yet determined Caroline Head MD May 12, 2016 22:39
[2016-05-12] MEDS: LACTULOSE SYRUP 20 GM/30 ML CUP PO SCH (23:27)
[2016-05-12] MEDS: MULTIVITAMIN INJ 10 ML, FOLIC ACID INJ 1 MG in SODIUM CHLORID 0.9% 500 ML INJ 500 ML IV SCH (23:27)
[2016-05-12] MEDS: THIAMINE INJ 100 MG in SODIUM CHLORIDE 0.9% INJ 100 ML IV SCH (23:27)
[2016-05-13] VITALS (13 sets, daily range): BP systolic 92–146; BP diastolic 50–86; PULSE 87–106; RESP 16–20; O2SAT 93–100
[2016-05-13] MEDS: LORazepam 2 MG/ML VIAL IV PUSH PRN ×3 (00:01→14:30)
[2016-05-13 04:06] LABS: AUTOMATED NEUTROPHIL # 4.5 TH/MM3 (1.8-7.7); BASOPHIL # 0.1 TH/MM3 (0-0.2); EOSINOPHIL % 0.5 % (0.0-4.0); HEMATOCRIT 33.2 % (35.0-46.0); HEMO FLAGS DIFF FINAL; LYMPH % 19.9 % (9.0-44.0); LYMPHOCYTE # 1.3 TH/MM3 (1.0-4.8); MEAN CELL VOLUME 90.9 FL (80.0-100.0); MONO % 7.4 % (0.0-8.0); NEUT % 71.2 % (16.0-70.0); PLATELET COUNT 180 TH/MM3 (150-450); RED BLOOD COUNT 3.66 MIL/MM3 (4.00-5.30); WHITE BLOOD COUNT 6.3 TH/MM3 (4.0-11.0)
[2016-05-13 04:12] LABS: PROTHROMBIN TIME - PATIENT 10.7 SEC (9.8-11.6)
[2016-05-13 04:24] LABS: ALKALINE PHOSPHATASE 233 U/L (45-117); ALT (GPT) 71 U/L (10-53); ANION GAP 10 MEQ/L (5-15); AST (GOT) 165 U/L (15-37); BICARBONATE 32.2 MEQ/L (21.0-32.0); BLOOD UREA NITROGEN 3 MG/DL (7-18); CHLORIDE 84 MEQ/L (98-107); GLOMERULAR FILTRATION RATE 437 ML/MIN (>89); POTASSIUM 4.6 MEQ/L (3.5-5.1); SODIUM (NA) 126 MEQ/L (136-145); TOTAL BILIRUBIN ADULT 0.5 MG/DL (0.2-1.0)
[2016-05-13] MEDS: RESP: ALBUTEROL 2.5 MG/IPRATROPIUM 0.5 MG NEB (PRN) NEB ×2 (05:24→20:27)
[2016-05-13] MEDS: LACTULOSE SYRUP 20 GM/30 ML CUP PO SCH ×3 (07:00→23:00)
[2016-05-13] MEDS: SODIUM CHLORIDE 0.9% FLUSH 10 ML FLUSH IV FLUSH SCH ×2 (09:00→21:00)
[2016-05-13] MEDS: LORazepam 1 MG TAB PO PRN ×2 (09:53→14:42)
--- NOTE | 2016-05-13 10:23 | HHI.PR ---
Subjective Remarks Patient seen in follow-up for acute encephalopathy secondary to alcohol abuse, hyponatremia, alcohol intoxication. She has no specific complaints. She is asking for milk and water. Discussed with significant other at bedside. She continued to refuse to go to alcohol rehabilitation. Objective Vitals Vital Signs Date Time Temp Pulse Resp B/P Pulse Ox O2 Delivery O2 Flow Rate FiO2 05/13/16 05:26 99 Nasal Cannula 3.00 05/13/16 05:08 87 18 125/70 99 05/13/16 03:36 101 18 134/74 99 Nasal Cannula 05/13/16 02:02 97 20 92/50 100 Nasal Cannula 2 05/13/16 00:00 94 16 94/50 97 Nasal Cannula 3 05/12/16 22:30 90 18 99/56 97 Nasal Cannula 3 05/12/16 20:22 100 Nasal Cannula 3 05/12/16 19:59 100 Nasal Cannula 3 05/12/16 19:54 97.8 95 18 100 Result Diagram: 05/13/16 0337 05/13/16 0337 Imaging Last Impressions Head CT 05/12/162015 Signed Impressions: Service Date/Time: Thursday, May 12, 2016 20:28 - CONCLUSION: Normal examination for a patient of this age. No significant change has occurred. Dutch Fernandez MD Chest X-Ray 05/12/162015 Signed Impressions: Service Date/Time: Thursday, May 12, 2016 20:27 - CONCLUSION: 1. Resolution of previous pleural effusions and near-complete resolution of previous air space disease. No new infiltrate. Dutch Fernandez MD Objective Remarks GENERAL: Cachectic-looking patient. Frail. CARDIOVASCULAR: Normal rate and regular rhythm without murmurs, gallops, or rubs. RESPIRATORY: Breath sounds equal and clear to auscultation bilaterally. GASTROINTESTINAL: Abdomen soft, non-tender, non-distended. Normal active bowel sounds MUSCULOSKELETAL: Extremities without cyanosis, or edema. NEURO: Alert. Oriented to self only. Can move all extremities spontaneously. PSYCH: Anxious. A/P Problem List: (1) Encephalopathy ICD Code: G93.40 Status: Acute (2) Alcohol abuse ICD Code: F10.10 Status: Acute (3) Hyponatremia ICD Code: E87.1 Status: Resolved (4) Dehydration ICD Code: E86.0 Status: Acute Assessment and Plan 60-year-old female with Acute Encephalopathy: Likely multifactorial-hyponatremia, hyperammonemia, alcohol intoxication and benzo use. CT Head w/ no acute findings. Lactulose, neuro checks. - Continue supportive care. The patient and her significant other were advised on the need for her to seek inpatient treatment for alcohol rehabilitation. Patient is on a self destructive path based on my previous encounters with her. - We'll consult psychiatry for assistance. Significant other is inquiring about [facility] acting the patient. Alcohol Abuse: H/o Alcohol Abuse w/ Alcohol Related Seizure. Alcohol 310. Drinks daily. Seizure Precautions, CIWA, MVT/Thiamine/Folate replacement. Hyponatremia: Na 122 on presentation, likely related to dehydration and alcohol abuse. Improving with IV fluid. Continue to monitor. Dehydration: IV fluid as above. Encourage PO intake. DVT Prophylaxis: SCD/Teds. Meggan Norris MD May 13, 2016 10:23
--- NOTE | 2016-05-13 17:35 | EKG ---
Date Performed: 05/13/2016 Time Performed: 00:30:44 PTAGE: 60 years EKG: Sinus rhythm RIGHT ATRIAL ENLARGEMENT NONSPECIFIC T-WAVE ABNORMALITY Rate has increased since prior tracing. ST-T changes in V2, V3, and V4 compared to prior tracing. Clinical corrolation is suggested. ABNORMAL ECG PREVIOUS TRACING : 04/07/2016 13.54 DOCTOR: Emmanuel Ye Interpretating Date/Time 05/13/2016 17:35:37
[2016-05-14] VITALS (10 sets, daily range): BP systolic 117–148; BP diastolic 76–95; PULSE 84–106; RESP 18–20; TEMP 97.9–98.8; O2SAT 94–100
[2016-05-14] MEDS: THIAMINE INJ 100 MG in SODIUM CHLORIDE 0.9% INJ 100 ML IV SCH ×2 (00:43→23:35)
[2016-05-14] MEDS: MULTIVITAMIN INJ 10 ML, FOLIC ACID INJ 1 MG in SODIUM CHLORID 0.9% 500 ML INJ 500 ML IV SCH ×2 (00:43→23:36)
[2016-05-14 06:01] LABS: HEMATOCRIT 31.5 % (35.0-46.0); MEAN CELL VOLUME 90.8 FL (80.0-100.0); MEAN CORPUSCULAR HEMOGLOBIN 29.6 PG (27.0-34.0); MEAN CORPUSCULAR HGB CONC 32.6 % (32.0-36.0); PLATELET COUNT 123 TH/MM3 (150-450); RED BLOOD COUNT 3.47 MIL/MM3 (4.00-5.30); REVIEW FLAG FINAL; WHITE BLOOD COUNT 5.2 TH/MM3 (4.0-11.0)
[2016-05-14] MEDS: LACTULOSE SYRUP 20 GM/30 ML CUP PO SCH ×3 (06:07→23:00)
[2016-05-14] MEDS: LORazepam 1 MG TAB PO PRN (06:07)
[2016-05-14 06:42] LABS: ALKALINE PHOSPHATASE 200 U/L (45-117); ALT (GPT) 53 U/L (10-53); ANION GAP 7 MEQ/L (5-15); AST (GOT) 86 U/L (15-37); BICARBONATE 34.3 MEQ/L (21.0-32.0); BLOOD UREA NITROGEN 4 MG/DL (7-18); CHLORIDE 86 MEQ/L (98-107); GLOMERULAR FILTRATION RATE 505 ML/MIN (>89); INDIRECT BILIRUBIN 0.4 MG/DL (0.0-0.8); POTASSIUM 3.9 MEQ/L (3.5-5.1); SODIUM (NA) 127 MEQ/L (136-145); TOTAL BILIRUBIN ADULT 0.8 MG/DL (0.2-1.0)
[2016-05-14] MEDS: LORazepam 2 MG/ML VIAL IV PUSH PRN ×4 (10:16→20:46)
--- NOTE | 2016-05-14 11:13 | HHI.PR ---
Subjective Remarks Patient is still scoring high per CIWA. She is requiring IV Ativan frequently. Discussed with significant other at bedside. He is looking into alcohol rehabilitation with the insurance company. Objective Vitals Vital Signs Date Time Temp Pulse Resp B/P Pulse Ox O2 Delivery O2 Flow Rate FiO2 05/14/16 06:00 102 05/14/16 05:00 84 05/14/16 04:00 98.4 88 19 130/86 94 05/14/16 01:45 98.4 87 20 117/76 100 05/14/16 01:45 90 05/13/16 23:49 89 20 121/67 99 Nasal Cannula 2 05/13/16 20:29 96 Nasal Cannula 2.00 05/13/16 19:09 97 16 96 Nasal Cannula 05/13/16 19:09 97 122/69 97 Nasal Cannula 3 05/13/16 14:29 103 146/86 93 Nasal Cannula 3 05/13/16 12:53 94 Nasal Cannula 3 05/13/16 12:50 96 Nasal Cannula 3 05/13/16 12:48 99 137/69 95 Nasal Cannula 3 I/O 05/13/16 05/13/16 05/13/16 05/14/16 05/14/16 05/14/16 07:00 15:00 23:00 07:00 15:00 23:00 Intake Total 475 ml Balance 475 ml Intake IV Total 475 ml # Voids 3 # Bowel Movements 1 Result Diagram: 05/14/16 0545 05/14/16 0542 Objective Remarks GENERAL: Cachectic-looking patient. Frail. CARDIOVASCULAR: Normal rate and regular rhythm without murmurs, gallops, or rubs. RESPIRATORY: Breath sounds equal and clear to auscultation bilaterally. GASTROINTESTINAL: Abdomen soft, non-tender, non-distended. Normal active bowel sounds MUSCULOSKELETAL: Extremities without cyanosis, or edema. NEURO: Alert. Oriented to self only. Can move all extremities spontaneously. Tremulous. PSYCH: Anxious. A/P Problem List: (1) Encephalopathy ICD Code: G93.40 Status: Acute (2) Alcohol abuse ICD Code: F10.10 Status: Acute (3) Hyponatremia ICD Code: E87.1 Status: Resolved (4) Dehydration ICD Code: E86.0 Status: Acute Assessment and Plan 60-year-old female with Acute Encephalopathy: Likely multifactorial-hyponatremia, hyperammonemia, alcohol intoxication and benzo use. CT Head w/ no acute findings. Lactulose, neuro checks. - Continue supportive care. The patient and her significant other were advised on the need for her to seek inpatient treatment for alcohol rehabilitation. Patient is on a self destructive path based on my previous encounters with her. -Appreciate psychiatry following. Alcohol Abuse: H/o Alcohol Abuse w/ Alcohol Related Seizure. Alcohol 310 on admission. Drinks daily. Seizure Precautions, CIWA, MVT/Thiamine/Folate replacement. Hyponatremia: Na 122 on presentation, likely related to dehydration and alcohol abuse. Improving with IV fluid. Continue to monitor. Dehydration: IV fluid as above. Encourage PO intake. DVT Prophylaxis: SCD/Teds. Meggan Norris MD May 14, 2016 11:13
--- NOTE | 2016-05-14 13:33 | PD.CONS ---
Provisional Diagnosis Admission Date May 12, 2016 at 22:21 [place] I. Alcohol-induced mood disorder, alcohol use disorder [place] II. Deferred [place] III. Alcohol withdrawal, COPD, hyponatremia [place] IV. Continues use of alcohol [place] V. 55 History of Present Illness Service Psychiatry Consult Requested By Primary Care Physician Padmini Chapa MD HPI The patient is a 60-year-old woman, domicile with , unemployed , on SSI, with psychiatric history of anxiety, PTSD, previous psychiatric hospitalizations, no previous suicidal attempts, severe alcohol use disorder, history of delirium tremens, multiple rehabilitations programs, medical history of COPD, Alcohol Related Seizure, Anxiety, delirium tremens, h/o GI Bleed who was brought to the ER by EMS secondary to confusion noted by boyfriend and c/o SOB. Pt unable to provide much history, she is unclear why she's here. Boyfriend states pt hasn't been eating, drinking or taking her medication but continues to drink approx 4-5 beers/day. On arrival, pt intoxicated, awake/alert, oriented to person only. BP 99/56, HR 90, O2 sat 97% on 3L NC, Afebrile. CBC unremarkable. Na 122, K+ 5.4, Ammonia 40. Urine Drug Screen positive for Benzo. Alcohol 310. U/a negative. CT Head with no acute findings. CXR with resolution of previous pleural effusion and near-complete resolution of previous airspace disease, no new infiltrate. She was previously admitted on 04/07-04/16/16 for Acute Encephalopathy, Alcohol Withdrawal w/ related Seizure, Acute Hypercapnic Respiratory Failure s/p Intubation and Aspiration PNA. Patient was consulted to psychiatry for request of . Patient was seen for psychiatric evaluation, she was in her bed, lethargic, sedated, confused, poorly cooperative with evaluation. She says that all the information about her can be asked to her . Patient denies depressive symptoms, she denies suicidal and homicidal ideation, she denies visual and auditory hallucinations. Patient knows that she is in [place], but she doesn't know the date. Her Austyn Kang, states that he [facility] acted the patient with the idea of bringing her to the hospital and admitted in her in a detox/rehabilitation program. Initially the patient didn't even want to come to the hospital. He says that the patient has been taking "a lot of beers" every day and she cannot control herself anymore. He says that she uses alcohol as a way to escape from her past and issues of her life that are very traumatic. He says that she has been diagnosed with PTSD and anxiety, but she has not been able to be compliant with medications and follow-up due to her alcoholism. He understands the patient does not need a psychiatric admission, but help for her alcoholism. Review of Systems ROS Limitations: Altered Mental Status, Unresponsive, Uncooperative, Speech Impaired Past Family Social History Coded Allergies: Penicillin (Verified Allergy, Severe, CHILDHOOD, 05/12/16) Active Scripts Aspirin DR (Aspirin EC)81 Mg Tabdr81 Mg PO DAILY #90 TAB Ref 0 Prov:Krysta Ny DO 04/16/16 Lorazepam (Ativan)0.5 Mg Tab0.5 Mg PO Q8H PRN (ANXIETY AND/OR AGITATION) #21 TAB Ref 0 Prov:Krysta Ny DO 04/16/16 Methylprednisolone Dosepak (Medrol Dosepak)4 Mg Dspk4 Mg PO DIRECTED #1 DSPK Ref 0 Per Pharmacist direction Prov:Krysta Ny DO 04/16/16 Potassium Chloride ER (K-Tab)10 Meq Tab10 Meq PO DAILY #30 TAB Ref 0 Prov:Krysta Ny DO 04/16/16 Furosemide (Lasix)20 Mg Tab20 Mg PO DAILY #30 TAB Ref 0 Prov:Krysta Ny DO 04/16/16 Atorvastatin (Lipitor)80 Mg Tab80 Mg PO HS #30 TAB Prov:Krysta Ny DO 04/16/16 Lactulose Liq 10 Gm/15 Ml Soln30 Ml PO DAILY PRN (Constipation) 30 Days Prov:Krysta Ny DO 04/16/16 Pantoprazole 40 Mg Tab40 Mg PO DAILY 30 Days Ref 0 Prov:Krysta Ny DO 04/16/16 Thiamine (Vitamin B-1)100 Mg Pgc303 Mg PO DAILY 30 Days Ref 0 Prov:Jonah Soni MD 04/03/16 Multiple Vitamin (Thera/Beta-Carotene)1 Tab Tab1 Tab PO DAILY 30 Days Ref 0 Prov:Jonah Soni MD 04/03/16 Folic Acid (Folate)1 Mg Tab1 Mg PO DAILY 30 Days Ref 0 Prov:Jonah Soni MD 04/03/16 Budesonide-Formoterol Inh (Symbicort Inh)160-4.5 Mcg/Act Aero1 Puff INH BID #1 INHALER Ref 0 Prov:Jonah Soni MD 04/03/16 Tiotropium Inh (Spiriva Handihaler)18 Mcg Cap18 Mcg INH DAILY #1 CAP Ref 0 1 capsule = 18 mcg Prov:Jonah Soni MD 04/03/16 Albuterol 8.5 GM Inh (Proair Hfa 8.5 GM Inh)90 Mcg/Act Aer2 Puff INH Q6H PRN ( SHORTNESS OF BREATH) #1 INHALER Ref 0 108 mcg/actuation Prov:Manuel Pena MD 02/07/16 Albuterol Neb 2.5 Mg/0.5 Ml Neb2.5 Mg NEB QID NEB #120 NEBULE Ref 0 Note: The Albuterol Sulfate Inhalation Solution is concentrated and must be diluted. Read complete instructions carefully before using. Prov:Manuel Pena MD 12/31/15 Current Medications Medications (Trade) Dose Ordered Sig/Lemuel Route Start Time Stop Time Status Last Admin Multivitamins 10 ml/Folic Acid 1 mg/Sodium Chloride 510.2 ml @ 125 mls/hr Q24H IV 05/12/16 22:30 05/17/16 22:29 05/14/16 00:43 (Thiamine Inj/NS Inj) 101 ml @ 100 mls/hr Q24H IV 05/12/16 22:30 05/15/16 22:29 05/14/16 00:43 (Vitamin B1) 100 mg DAILY PO 05/16/16 09:00 (Romazicon Inj) 0.2 mg Q1M PRN IV PUSH 05/12/16 22:30 (Ativan) 1 mg Q4H PRN PO 05/12/16 22:30 05/14/16 06:07 (Ativan Inj) 1 mg Q4H PRN IV PUSH 05/12/16 22:30 05/13/16 00:01 (Ativan) 2 mg Q2H PRN PO 05/12/16 22:30 (Ativan Inj) 2 mg Q2H PRN IV PUSH 05/12/16 22:30 05/14/16 10:16 (Ativan Inj) 2 mg Q1H PRN IV PUSH 05/12/16 22:30 (Ativan Inj) 2 mg Q15M PRN IV PUSH 05/12/16 22:30 (Haldol Inj) 2 mg Q15M PRN IM 05/12/16 22:30 (NS Flush) 2 ml UNSCH PRN IV FLUSH 05/12/16 22:30 (NS Flush) 2 ml BID IV FLUSH 05/13/16 09:00 05/13/16 09:00 (Zofran Inj) 4 mg Q6H PRN IVP 05/12/16 22:30 05/13/16 00:02 (Dulcolax Supp) 10 mg DAILY PRN MI 05/12/16 22:30 (Tylenol) 650 mg Q6H PRN PO 05/12/16 22:30 (Lactulose Liq) 30 ml Q8H PO 05/12/16 23:00 05/14/16 06:07 (Habitrol 14 Mg Patch.24 Hr) 1 patch DAILY TD 05/14/16 11:00 Miscellaneous Information 1 HS TD 05/14/16 21:00 Social History Patient lives with her in [place], she has been living in [place] for 19 months, she was born in [place], she has 2 kids, she is unemployed, supported by [employer], 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 Physical Exam Vital Signs Vital Signs Date Time Temp Pulse Resp B/P Pulse Ox O2 Delivery O2 Flow Rate FiO2 05/14/16 11:47 98 05/14/16 04:00 98.4 19 130/86 94 05/13/16 23:49 Nasal Cannula 2 Lab Results Wbc's 5.2, GgB 3.4, HCT 35, urine test is negative, BAL 310, toxicology is positive for benzodiazepines, NA 137, K3.9, BUN 7, creatinine 0.15, AST 86, ALT 52, ammonia and 28 Mental Status Examination Appearance woman, very skinny, [facility], fair hygiene, poorly cooperative , sedated Speech: Other (slurred speech) Thought Process: Logical, Linear Thought Content: Unremarkable Attention and Concentration: Abnormal Suicidal Ideation: No Previous Suicide Attempts: No Homicidal Ideation: No Previous Homicide Attempts: No Insight: Poor Judgement: Poor Affect: Sad Mood: Sad Motor Activity: Normal gait Assessment & Plan Problem List: (1) Alcohol abuse with alcohol-induced mood disorder Assessment & Plan: At the moment of this evaluation the patient is sedated, poorly cooperative with the evaluation, distant, falling asleep often, however she denies depressive symptoms, she denies suicidal or homicidal ideation, she denies visual and auditory hallucinations. As per patient has been drinking a significant amount of alcohol every day and he wants to commit her for detox/rehabilitation program. He was explained that Musa act would be inappropriate for that specific reason because the patient does not meet criteria for psychiatric admission at this moment. She will really benefit of a comprehensive rehabilitation program after detoxing of alcohol. I agree to continue [facility] protocol. We'll follow-up the patient was awake in the floor. ICD Code: F10.14 Assessment & Plan Estimated LOS: Sae Pabon MD May 14, 2016 13:33
[2016-05-14] MEDS: NICOTINE 14 MG/24 HR PATCH TD SCH (18:45)
[2016-05-14] MEDS: SODIUM CHLORIDE 0.9% FLUSH 10 ML FLUSH IV FLUSH SCH (20:46)
[2016-05-14] MEDS: REMOVE OLD NICODERM (NICOTINE) PATCH TD SCH (21:00)
[2016-05-15] VITALS (17 sets, daily range): BP systolic 102–130; BP diastolic 69–89; PULSE 80–107; RESP 16–18; TEMP 97.8–99.4; O2SAT 97–100
[2016-05-15] MEDS: LORazepam 2 MG TAB PO PRN ×3 (06:18→22:35)
[2016-05-15] MEDS: LACTULOSE SYRUP 20 GM/30 ML CUP PO SCH ×3 (06:18→22:40)
[2016-05-15 07:10] LABS: POTASSIUM 3.2 MEQ/L (3.5-5.1)
[2016-05-15 07:23] LABS: HEMATOCRIT 29.1 % (35.0-46.0); MEAN CELL VOLUME 91.4 FL (80.0-100.0); MEAN CORPUSCULAR HEMOGLOBIN 29.7 PG (27.0-34.0); MEAN CORPUSCULAR HGB CONC 32.5 % (32.0-36.0); PLATELET COUNT 100 TH/MM3 (150-450); RED BLOOD COUNT 3.18 MIL/MM3 (4.00-5.30); REVIEW FLAG FINAL; WHITE BLOOD COUNT 3.1 TH/MM3 (4.0-11.0)
[2016-05-15] MEDS ORDERED: POTASSIUM CHLORIDE 20 MEQ CONTROLLED RELEASE TAB PO ONE (08:45)
[2016-05-15] MEDS: NICOTINE 14 MG/24 HR PATCH TD SCH (09:03)
[2016-05-15] MEDS: SODIUM CHLORIDE 0.9% FLUSH 10 ML FLUSH IV FLUSH SCH ×2 (09:07→21:00)
--- NOTE | 2016-05-15 12:38 | HHI.PR ---
Subjective Remarks Patient inquired about going home. Apparently she is refusing to go to alcohol rehabilitation again. She can barely stay awake today. Discussed with at bedside who is still trying to convince her to go to alcohol rehabilitation. Objective Vitals Vital Signs Date Time Temp Pulse Resp B/P Pulse Ox O2 Delivery O2 Flow Rate FiO2 05/15/16 12:21 94 05/15/16 11:00 80 05/15/16 11:00 98.9 104 17 119/81 98 05/15/16 07:30 98.4 102 17 130/83 100 05/15/16 07:00 100 05/15/16 04:00 97.8 89 18 111/73 99 05/14/16 23:58 98.2 90 18 127/83 99 05/14/16 20:00 97.9 18 126/82 100 05/14/16 20:00 104 05/14/16 16:00 98.8 106 20 128/84 99 05/14/16 16:00 106 I/O 05/14/16 05/14/16 05/14/16 05/15/16 05/15/16 05/15/16 07:00 15:00 23:00 07:00 15:00 23:00 Intake Total 475 ml Balance 475 ml Intake IV Total 475 ml # Voids 3 # Bowel Movements 1 Result Diagram: 05/15/1613 05/15/16512 Objective Remarks GENERAL: Cachectic-looking patient. Frail. CARDIOVASCULAR: Normal rate and regular rhythm without murmurs, gallops, or rubs. RESPIRATORY: Breath sounds equal and clear to auscultation bilaterally. GASTROINTESTINAL: Abdomen soft, non-tender, non-distended. Normal active bowel sounds MUSCULOSKELETAL: Extremities without cyanosis, or edema. NEURO: Alert. Oriented to self and place. Can move all extremities spontaneously. Tremulous. PSYCH: Somnolent. A/P Problem List: (1) Encephalopathy ICD Code: G93.40 Status: Acute (2) Alcohol abuse ICD Code: F10.10 Status: Acute (3) Hyponatremia ICD Code: E87.1 Status: Resolved (4) Dehydration ICD Code: E86.0 Status: Acute Assessment and Plan 60-year-old female with Acute Encephalopathy: Likely multifactorial-hyponatremia, hyperammonemia, alcohol intoxication and benzo use. CT Head w/ no acute findings. Lactulose, neuro checks. - Continue supportive care. The patient and her significant other were advised on the need for her to seek inpatient treatment for alcohol rehabilitation. Patient is on a self destructive path based on my previous encounters with her. -Appreciate psychiatry following. Alcohol Abuse: H/o Alcohol Abuse w/ Alcohol Related Seizure. Alcohol 310 on admission. Drinks daily. Seizure Precautions, CIWA, MVT/Thiamine/Folate replacement. Hyponatremia: Na 122 on presentation, likely related to dehydration and alcohol abuse. Improving with IV fluid. Continue to monitor. Dehydration: IV fluid as above. Encourage PO intake. DVT Prophylaxis: SCD/Teds. Discharge Planning Anticipate discharge in 24-48 hours either to a halfway facility or home. PT consulted Meggan Norris MD May 15, 2016 12:38
[2016-05-15] MEDS: LORazepam 1 MG TAB PO PRN ×2 (13:28→17:05)
[2016-05-15] MEDS ORDERED: PLEASE DISCONTINUE PREVIOUS SUPPLEMENTAL SCALE INSULIN ORDERS ONE (17:00)
[2016-05-15] MEDS ORDERED: GLUCAGON 1 MG/ML VIAL OTHER PRN (17:00)
[2016-05-15] MEDS ORDERED: DEXTROSE 50% IN WATER 50 ML VIAL(D50) IV PUSH PRN (17:00)
[2016-05-15] MEDS: LOW DOSE INSULIN NOVOLOG SUPPLEMENTAL SCALE SQ SCH (17:06)
[2016-05-15] MEDS: RESP: ALBUTEROL 2.5 MG/IPRATROPIUM 0.5 MG NEB (PRN) NEB (17:26)
[2016-05-15] MEDS: REMOVE OLD NICODERM (NICOTINE) PATCH TD SCH (21:00)
[2016-05-15] MEDS: MULTIVITAMIN INJ 10 ML, FOLIC ACID INJ 1 MG in SODIUM CHLORID 0.9% 500 ML INJ 500 ML IV SCH (22:50)
[2016-05-16] VITALS (17 sets, daily range): BP systolic 113–136; BP diastolic 74–89; PULSE 72–106; RESP 16–20; TEMP 97.6–98.8; O2SAT 98–100
[2016-05-16] MEDS: LORazepam 2 MG TAB PO PRN ×3 (00:37→23:36)
[2016-05-16] MEDS: LACTULOSE SYRUP 20 GM/30 ML CUP PO SCH ×3 (06:29→23:00)
[2016-05-16] MEDS: LOW DOSE INSULIN NOVOLOG SUPPLEMENTAL SCALE SQ SCH ×4 (06:29→20:50)
[2016-05-16 07:02] LABS: HEMATOCRIT 28.6 % (35.0-46.0); MEAN CELL VOLUME 91.9 FL (80.0-100.0); MEAN CORPUSCULAR HEMOGLOBIN 30.4 PG (27.0-34.0); MEAN CORPUSCULAR HGB CONC 33.1 % (32.0-36.0); PLATELET COUNT 120 TH/MM3 (150-450); RED BLOOD COUNT 3.11 MIL/MM3 (4.00-5.30); RED CELL DISTRIBUTION WIDTH 16.7 % (11.6-17.2); REVIEW FLAG FINAL; WHITE BLOOD COUNT 3.6 TH/MM3 (4.0-11.0)
[2016-05-16 07:21] LABS: ANION GAP 3 MEQ/L (5-15); BICARBONATE 34.8 MEQ/L (21.0-32.0); BLOOD UREA NITROGEN 3 MG/DL (7-18); CHLORIDE 97 MEQ/L (98-107); GLOMERULAR FILTRATION RATE 505 ML/MIN (>89); POTASSIUM 3.8 MEQ/L (3.5-5.1); SODIUM (NA) 135 MEQ/L (136-145)
[2016-05-16] MEDS: NICOTINE 14 MG/24 HR PATCH TD SCH (09:36)
[2016-05-16] MEDS: THIAMINE HCL 100 MG TAB PO SCH (09:37)
[2016-05-16] MEDS ORDERED: LORA-392 PO (09:54)
--- NOTE | 2016-05-16 09:56 | HHI.DCPOC ---
Discharge Care Plan Diagnosis: (1) Alcohol abuse with alcohol-induced mood disorder (2) alcohol dependency (3) Volume depletion (4) Hypokalemia (5) Anxiety disorder, unspecified (6) Encephalopathy (7) Hyponatremia Goals to Promote Your Health * To prevent worsening of your condition and complications * To maintain your health at the optimal level Directions to Meet Your Goals Take your medications as prescribed Follow your dietary instruction Follow activity as directed Keep your appointments as scheduled Take your immunizations and boosters as scheduled If your symptoms worsen call your PCP, if no PCP go to Urgent Care Center or Emergency Room Smoking is Dangerous to Your Health. Avoid second hand smoke Call the 24-hour hour crisis hotline for domestic abuse at Meggan Norris MD May 16, 2016 09:56
--- NOTE | 2016-05-16 10:02 | HHI.DS ---
Discharge Summary Admission Date May 12, 2016 at 22:21 Discharge Date: May 16, 2016 Admitting Diagnosis AMS, hyponatremia, etoh intoxication (1) Encephalopathy ICD Code: G93.40 (2) Alcohol abuse ICD Code: F10.10 (3) Hyponatremia ICD Code: E87.1 (4) Dehydration ICD Code: E86.0 Procedures None Brief History - From Admission This is a 60-year-old female with PMH of COPD, Alcohol Abuse, Alcohol Related Seizure, Anxiety, Depression, h/o GI Bleed and Tobacco Abuse who was brought to the ER by EMS secondary to confusion noted by boyfriend and c/o SOB. Pt unable to provide much history, she is unclear why she's here. Boyfriend states pt hasn't been eating, drinking or taking her medication but continues to drink approx 4-5 beers/day. On arrival, pt intoxicated, awake/alert, oriented to person only. BP 99/56, HR 90, O2 sat 97% on 3L NC, Afebrile. CBC unremarkable. Na 122, K+ 5.4, Ammonia 40. Urine Drug Screen positive for Benzo. Alcohol 310. U/a negative. CT Head with no acute findings. CXR with resolution of previous pleural effusion and near-complete resolution of previous airspace disease, no new infiltrate. Previous admit 04/07-04/16/16 for Acute Encephalopathy, Alcohol Withdrawal w/ related Seizure, Acute Hypercapnic Respiratory Failure s/p Intubation and Aspiration PNA s/p IV Abx. CBC/BMP: 05/16/16 0536 05/16/16 0556 Significant Findings Laboratory Tests Test 05/14/16 05/14/16 05/15/16 05/16/16 05:42 05:45 05:13 05:36 Sodium Level 127 MEQ/L 132 MEQ/L (136-145) (136-145) Chloride Level 86 MEQ/L 94 MEQ/L (98-107) (98-107) Carbon Dioxide Level 34.3 MEQ/L 33.0 MEQ/L (21.0-32.0) (21.0-32.0) Blood Urea Nitrogen 4 MG/DL (7-18) 2 MG/DL (7-18) Creatinine LESS THAN 0.15 0.16 MG/DL MG/DL (0.50-1.00) (0.50-1.00) Direct Bilirubin 0.4 MG/DL (0.0-0.2) Aspartate Amino Transf 86 U/L (15-37) (AST/SGOT) Alkaline Phosphatase 200 U/L (45-117) Total Protein 6.0 GM/DL (6.4-8.2) Albumin 3.2 GM/DL (3.4-5.0) Red Blood Count 3.47 MIL/MM3 3.18 MIL/MM3 3.11 MIL/MM3 (4.00-5.30) (4.00-5.30) (4.00-5.30) Hemoglobin 10.3 GM/DL 9.5 GM/DL 9.5 GM/DL (11.6-15.3) (11.6-15.3) (11.6-15.3) Hematocrit 31.5 % 29.1 % 28.6 % (35.0-46.0) (35.0-46.0) (35.0-46.0) Platelet Count 123 TH/MM3 100 TH/MM3 120 TH/MM3 (150-450) (150-450) (150-450) Mean Platelet Volume 6.8 FL (7.0-11.0) White Blood Count 3.1 TH/MM3 3.6 TH/MM3 (4.0-11.0) (4.0-11.0) Potassium Level 3.2 MEQ/L (3.5-5.1) Calcium Level 8.0 MG/DL (8.5-10.1) Test 05/16/16 05:56 Sodium Level 135 MEQ/L (136-145) Chloride Level 97 MEQ/L (98-107) Carbon Dioxide Level 34.8 MEQ/L (21.0-32.0) Anion Gap 3 MEQ/L (5-15) Blood Urea Nitrogen 3 MG/DL (7-18) Creatinine LESS THAN 0.15 MG/DL (0.50-1.00) Calcium Level 8.1 MG/DL (8.5-10.1) PE at Discharge GENERAL: Cachectic-looking patient. Frail. CARDIOVASCULAR: Normal rate and regular rhythm without murmurs, gallops, or rubs. RESPIRATORY: Breath sounds equal and clear to auscultation bilaterally. GASTROINTESTINAL: Abdomen soft, non-tender, non-distended. Normal active bowel sounds MUSCULOSKELETAL: Extremities without cyanosis, or edema. NEURO: Alert. Oriented to self and place. Can move all extremities spontaneously. Tremulous. PSYCH: Somnolent. Hospital Course 60-year-old female admitted and treated for the following: Acute Encephalopathy: Likely multifactorial-hyponatremia, hyperammonemia, alcohol intoxication and benzo use. CT Head w/ no acute findings. Patient improved with supportive care and alcohol withdrawal treatment per [facility] protocol. Based on my previous encounter with this patient, she appeared to be on a salt self-destructive path with alcohol dependence. She was followed by psychiatry who agreed the best course for her would be a comprehensive alcohol rehabilitation program. Acute encephalopathy resolved. The patient is discharged to go to an inpatient alcohol rehabilitation facility from the hospital. She was counseled extensively on the detrimental effects of alcohol on her health. She agreed to go to rehabilitation. Her is very supportive and understanding the need to follow through with the recommendations. Alcohol Abuse: H/o Alcohol Abuse w/ Alcohol Related Seizure. Alcohol 310 on admission. Drinks daily. Patient treated per [facility] protocol, MVT/Thiamine/ Folate replacement. Anxiety/insomnia: Likely related to alcohol dependence as above. Ativan as needed. Hyponatremia: Na 122 on presentation, likely related to dehydration and alcohol abuse. Improved and stabilized with IV fluid. Dehydration: Patient was treated IV fluid as above for volume repletion. Pt Condition on Discharge: Stable Discharge Disposition: Discharge Home Discharge Time: <= 30 minutes Discharge Instructions DIET: Follow Instructions for: As Tolerated, No Restrictions Activities you can perform: Regular-No Restrictions Follow up Referrals: Referral with Alcohol Rehab inpatient Changed Medications: Lorazepam (Ativan) 0.5 Mg Tab 0.5 MG PO Q8H PRN ANXIETY AND/OR INSOMNIA #20 Ref 0 TAB (Changed from: 21) Continued Medications: Albuterol 8.5 GM Inh (Proair Hfa 8.5 GM Inh) 90 Mcg/Act Aer 2 PUFF INH Q6H 108 mcg/actuation PRN SHORTNESS OF BREATH #1 Ref 0 INHALER Albuterol Neb (Albuterol Neb) 2.5 Mg/0.5 Ml Neb 2.5 MG NEB QID NEB Note: The Albuterol Sulfate Inhalation Solution is concentrated and must be diluted. Read complete instructions carefully before using. Breathing Treatment #120 Ref [address] (Aspirin EC) 81 Mg Tabdr 81 MG PO DAILY Blood Clot Prevention #90 Ref 0 TAB Atorvastatin (Lipitor) 80 Mg Tab 80 MG PO HS Cholesterol Management #30 TAB Budesonide-Formoterol Inh (Symbicort Inh) 160-4.5 Mcg/Act Aero 1 PUFF INH BID copd #1 Ref 0 INHALER Folic Acid (Folate) 1 Mg Tab 1 MG PO DAILY vitamin Days 30 Ref 0 TAB Lactulose Liq (Lactulose Liq) 10 Gm/15 Ml Soln 30 ML PO DAILY PRN Constipation Days 30 ML Multiple Vitamin (Thera/Beta-Carotene) 1 Tab Tab 1 TAB PO DAILY vitamin Days 30 Ref 0 TAB Pantoprazole (Pantoprazole) 40 Mg Tab 40 MG PO DAILY ppi Days 30 Ref 0 TAB Thiamine (Vitamin B-1) 100 Mg Tab 100 MG PO DAILY vitamin Days 30 Ref 0 TAB Discontinued Medications: Furosemide (Lasix) 20 Mg Tab 20 MG PO DAILY Fluid #30 Ref 0 TAB Methylprednisolone Dosepak (Medrol Dosepak) 4 Mg Dspk 4 MG PO DIRECTED Per Pharmacist direction #1 Ref 0 DSPK Potassium Chloride ER (K-Tab) 10 Meq Tab 10 MEQ PO DAILY Electrolyte Replacement #30 Ref 0 TAB Tiotropium Inh (Spiriva Handihaler) 18 Mcg Cap 18 MCG INH DAILY 1 capsule = 18 mcg COPD #1 Ref 0 CAP Meggan Norris MD May 16, 2016 10:02 18 MCG INH DAILY 1 capsule = 18 mcg COPD #1 Ref 0 CAP Meggan Norris MD May 16, 2016 10:02
[2016-05-16] MEDS: LORazepam 1 MG TAB PO PRN ×2 (12:03→16:05)
--- NOTE | 2016-05-16 13:53 | HHI.PR ---
Subjective Remarks Patient agreeable to go to rehab. DW her insurance company. Scoring better on [employer]. Did not sleep well last night. Objective Vitals Vital Signs Date Time Temp Pulse Resp B/P Pulse Ox O2 Delivery O2 Flow Rate FiO2 05/16/16 12:26 98.0 90 20 136/86 98 05/16/16 12:00 100 05/16/16 12:00 72 05/16/16 08:00 98.8 91 16 128/75 100 05/16/16 08:00 90 05/16/16 06:00 85 05/16/16 05:00 84 05/16/16 04:00 82 05/16/16 03:00 98.7 88 16 113/74 99 05/16/16 03:00 90 05/16/16 02:00 94 05/16/16 01:00 106 05/16/16 00:00 91 05/15/16 23:00 98.5 100 16 126/89 99 05/15/16 23:00 92 05/15/16 22:00 99 05/15/16 21:00 104 05/15/16 20:00 97 05/15/16 19:00 98.9 99 16 102/69 99 05/15/16 19:00 96 05/15/16 18:01 101 05/15/16 17:26 99 Nasal Cannula 2.00 05/15/16 17:10 101 05/15/16 16:47 102 05/15/16 15:30 99.4 97 18 122/79 97 05/15/16 15:30 90 05/15/16 14:03 103 I/O 05/15/16 05/15/16 05/15/16 05/16/16 05/16/16 05/16/16 07:00 15:00 23:00 07:00 15:00 23:00 Intake Total 480 ml 690 ml Output Total 302 ml 551 ml Balance 178 ml 139 ml Intake Oral 480 ml 240 ml IV Total 450 ml Output Urine Total 300 ml 550 ml Stool Total 2 ml 1 ml # Voids 7 Result Diagram: 05/16/16 0536 05/16/16 0556 Objective Remarks GENERAL: Cachectic-looking patient. Frail. CARDIOVASCULAR: Normal rate and regular rhythm without murmurs, gallops, or rubs. RESPIRATORY: Breath sounds equal and clear to auscultation bilaterally. GASTROINTESTINAL: Abdomen soft, non-tender, non-distended. Normal active bowel sounds MUSCULOSKELETAL: Extremities without cyanosis, or edema. NEURO: Alert. Oriented to self and place. Can move all extremities spontaneously. Tremulous. PSYCH: Calm. Procedures None A/P Problem List: (1) Encephalopathy ICD Code: G93.40 Status: Acute (2) Alcohol abuse ICD Code: F10.10 Status: Acute (3) Hyponatremia ICD Code: E87.1 Status: Resolved (4) Dehydration ICD Code: E86.0 Status: Acute Assessment and Plan 60-year-old female with Acute Encephalopathy: Likely multifactorial-hyponatremia, hyperammonemia, alcohol intoxication and benzo use. CT Head w/ no acute findings. Patient improving with supportive care and alcohol withdrawal treatment per [facility] protocol. Based on my previous encounter with this patient, she appeared to be on a salt self-destructive path with alcohol dependence. She was followed by psychiatry who agreed the best course for her would be a comprehensive alcohol rehabilitation program. Acute encephalopathy resolved. Plan for discharge tomorrow to an inpatient alcohol rehabilitation facility from the hospital. She was counseled extensively on the detrimental effects of alcohol on her health. She agreed to go to rehabilitation. Her is very supportive and understanding the need to follow through with the recommendations. Alcohol Abuse: H/o Alcohol Abuse w/ Alcohol Related Seizure. Alcohol 310 on admission. Drinks daily. Patient treated per [facility] protocol, MVT/Thiamine/ Folate replacement. Anxiety/insomnia: Likely related to alcohol dependence as above. Ativan as needed. Hyponatremia: Na 122 on presentation, likely related to dehydration and alcohol abuse. Improved and stabilized with IV fluid. Dehydration: Patient was treated IV fluid as above for volume repletion. Discharge Planning Anticipate discharge tomorrow. PT consulted Meggan Norris MD May 16, 2016 13:53
[2016-05-16] MEDS: SODIUM CHLORIDE 0.9% FLUSH 10 ML FLUSH IV FLUSH SCH ×2 (16:11→20:50)
[2016-05-16] MEDS: REMOVE OLD NICODERM (NICOTINE) PATCH TD SCH (20:50)
[2016-05-16] MEDS: MULTIVITAMIN INJ 10 ML, FOLIC ACID INJ 1 MG in SODIUM CHLORID 0.9% 500 ML INJ 500 ML IV SCH (23:36)
[2016-05-17] VITALS (11 sets, daily range): BP systolic 116–118; BP diastolic 69–70; PULSE 81–103; RESP 20–22; TEMP 98; O2SAT 98–99
[2016-05-17] MEDS: LOW DOSE INSULIN NOVOLOG SUPPLEMENTAL SCALE SQ SCH (06:57)
[2016-05-17] MEDS: LACTULOSE SYRUP 20 GM/30 ML CUP PO SCH (06:57)
[2016-05-17] MEDS: LORazepam 2 MG TAB PO PRN (07:44)
[2016-05-17] MEDS: NICOTINE 14 MG/24 HR PATCH TD SCH (09:56)
[2016-05-17] MEDS: SODIUM CHLORIDE 0.9% FLUSH 10 ML FLUSH IV FLUSH SCH (09:57)
[2016-05-17] MEDS: THIAMINE HCL 100 MG TAB PO SCH (09:57)
--- NOTE | 2016-05-17 12:34 | HHI.FF ---
Face to Face Verification Diagnosis: (1) alcohol dependency (2) Volume depletion (3) Alcohol abuse with alcohol-induced mood disorder (4) Physical deconditioning Physical Therapy Order: Evaluate and Treat, Improve ambulation, Strength and gait training Home Health Nursing Order: Medical education Signs/symptoms of disease process Medication education-adverse effect Nursing assessment with vital signs I have seen patient Chelly Latif on 05/17/16. My clinical findings support the need for the requested home health care services because: Ltd mobility - disease progression Deconditioned w/ increased weakness Limited ability to care for self High risk of falls I certify that my clinical findings support that this patient is homebound because: Unsteady gait/balance Unsafe to leave home unassisted Meggan Norris MD May 17, 2016 12:34
[2016-05-17] MEDS ORDERED: WHEEMIS3 (12:37)
[2016-05-17] MEDS ORDERED: WALKER WHEELS/F1 MIS (12:37)
--- NOTE | 2016-05-17 12:58 | HHI.DS ---
Discharge Summary Admission Date May 12, 2016 at 22:21 Discharge Date: May 17, 2016 Admitting Diagnosis AMS, hyponatremia, etoh intoxication (1) Encephalopathy ICD Code: G93.40 (2) Alcohol abuse ICD Code: F10.10 (3) Hyponatremia ICD Code: E87.1 (4) Dehydration ICD Code: E86.0 Procedures None Brief History - From Admission History of present illness from the admitting physician This is a 60-year-old female with PMH of COPD, Alcohol Abuse, Alcohol Related Seizure, Anxiety, Depression, h/o GI Bleed and Tobacco Abuse who was brought to the ER by EMS secondary to confusion noted by boyfriend and c/o SOB. Pt unable to provide much history, she is unclear why she's here. Boyfriend states pt hasn't been eating, drinking or taking her medication but continues to drink approx 4-5 beers/day. On arrival, pt intoxicated, awake/alert, oriented to person only. BP 99/56, HR 90, O2 sat 97% on 3L NC, Afebrile. CBC unremarkable. Na 122, K+ 5.4, Ammonia 40. Urine Drug Screen positive for Benzo. Alcohol 310. U/a negative. CT Head with no acute findings. CXR with resolution of previous pleural effusion and near-complete resolution of previous airspace disease, no new infiltrate. Previous admit 04/07-04/16/16 for Acute Encephalopathy, Alcohol Withdrawal w/ related Seizure, Acute Hypercapnic Respiratory Failure s/p Intubation and Aspiration PNA s/p IV Abx. CBC/BMP: 05/16/16 0536 05/16/16 0556 Significant Findings Laboratory Tests Test 05/15/16 05/16/16 05/16/16 05:13 05:36 05:56 White Blood Count 3.1 TH/MM3 3.6 TH/MM3 (4.0-11.0) (4.0-11.0) Red Blood Count 3.18 MIL/MM3 3.11 MIL/MM3 (4.00-5.30) (4.00-5.30) Hemoglobin 9.5 GM/DL 9.5 GM/DL (11.6-15.3) (11.6-15.3) Hematocrit 29.1 % 28.6 % (35.0-46.0) (35.0-46.0) Platelet Count 100 TH/MM3 120 TH/MM3 (150-450) (150-450) Sodium Level 132 MEQ/L 135 MEQ/L (136-145) (136-145) Potassium Level 3.2 MEQ/L (3.5-5.1) Chloride Level 94 MEQ/L 97 MEQ/L (98-107) (98-107) Carbon Dioxide Level 33.0 MEQ/L 34.8 MEQ/L (21.0-32.0) (21.0-32.0) Blood Urea Nitrogen 2 MG/DL (7-18) 3 MG/DL (7-18) Creatinine 0.16 MG/DL LESS THAN 0.15 (0.50-1.00) MG/DL (0.50-1.00) Calcium Level 8.0 MG/DL 8.1 MG/DL (8.5-10.1) (8.5-10.1) Anion Gap 3 MEQ/L (5-15) Imaging Last Impressions Head CT 05/12/162015 Signed Impressions: Service Date/Time: Thursday, May 12, 2016 20:28 - CONCLUSION: Normal examination for a patient of this age. No significant change has occurred. Dutch Fernandez MD Chest X-Ray 05/12/162015 Signed Impressions: Service Date/Time: Thursday, May 12, 2016 20:27 - CONCLUSION: 1. Resolution of previous pleural effusions and near-complete resolution of previous air space disease. No new infiltrate. Dutch Fernandez MD PE at Discharge GENERAL: Cachectic-looking patient. Frail. CARDIOVASCULAR: Normal rate and regular rhythm without murmurs, gallops, or rubs. RESPIRATORY: Breath sounds equal and clear to auscultation bilaterally. GASTROINTESTINAL: Abdomen soft, non-tender, non-distended. Normal active bowel sounds MUSCULOSKELETAL: Extremities without cyanosis, or edema. NEURO: Alert. Oriented to self and place. Can move all extremities spontaneously. Tremulous. PSYCH: Calm. Pt update on day of discharge Patient reports she is feeling okay. She requested to be discharged. Refused usp facility placement. Patient is agreeable to go to alcohol rehabilitation facility on discharge. Discussed with her at bedside. Hospital Course 60-year-old female admitted and treated for the following: Acute Encephalopathy: Likely multifactorial-hyponatremia, hyperammonemia, alcohol intoxication and benzo use. CT Head w/ no acute findings. Patient improved with supportive care and alcohol withdrawal treatment per [facility] protocol. Based on my previous encounter with this patient, she appeared to be on a salt self-destructive path with alcohol dependence. She was followed by psychiatry who agreed the best course for her would be a comprehensive alcohol rehabilitation program. Acute encephalopathy resolved. The patient is discharged to go to an inpatient alcohol rehabilitation facility from the hospital. She was counseled extensively on the detrimental effects of alcohol on her health. She agreed to go to rehabilitation. Her is very supportive and understanding the need to follow through with the recommendations. Alcohol Abuse: H/o Alcohol Abuse w/ Alcohol Related Seizure. Alcohol 310 on admission. Drinks daily. Patient treated per [facility] protocol, MVT/Thiamine/ Folate replacement. Physical deconditioning: Secondary to chronic alcohol dependence. Patient evaluated by physical therapy. SNF was recommended but the patient refused. DME ordered. Anxiety/insomnia: Likely related to alcohol dependence as above. Ativan as needed. Hyponatremia: Na 122 on presentation, likely related to dehydration and alcohol abuse. Improved and stabilized with IV fluid. Dehydration: Patient was treated IV fluid as above for volume repletion. Pt Condition on Discharge: Stable Discharge Disposition: Disch w/ Home Health Serv Discharge Time: <= 30 minutes Discharge Instructions DIET: Follow Instructions for: As Tolerated, No Restrictions Activities you can perform: Regular-No Restrictions Follow up Referrals: Referral with Alcohol Rehab inpatient New Medications: Walker with Front Wheels (Walker with Front Wheels) 1 Mis Mis 1 EA .ROUTE DIRECTED #1 Ref 0 EA Wheelchair (Wheelchair) 1 Mis Mis 1 EA .ROUTE DIRECTED #1 Ref 0 EA Changed Medications: Lorazepam (Ativan) 0.5 Mg Tab 0.5 MG PO Q8H PRN ANXIETY AND/OR INSOMNIA #20 Ref 0 TAB (Changed from: 21) Continued Medications: Albuterol 8.5 GM Inh (Proair Hfa 8.5 GM Inh) 90 Mcg/Act Aer 2 PUFF INH Q6H 108 mcg/actuation PRN SHORTNESS OF BREATH #1 Ref 0 INHALER Albuterol Neb (Albuterol Neb) 2.5 Mg/0.5 Ml Neb 2.5 MG NEB QID NEB Note: The Albuterol Sulfate Inhalation Solution is concentrated and must be diluted. Read complete instructions carefully before using. Breathing Treatment #120 Ref [address] (Aspirin EC) 81 Mg Tabdr 81 MG PO DAILY Blood Clot Prevention #90 Ref 0 TAB Atorvastatin (Lipitor) 80 Mg Tab 80 MG PO HS Cholesterol Management #30 TAB Budesonide-Formoterol Inh (Symbicort Inh) 160-4.5 Mcg/Act Aero 1 PUFF INH BID copd #1 Ref 0 INHALER Folic Acid (Folate) 1 Mg Tab 1 MG PO DAILY vitamin Days 30 Ref 0 TAB Lactulose Liq (Lactulose Liq) 10 Gm/15 Ml Soln 30 ML PO DAILY PRN Constipation Days 30 ML Multiple Vitamin (Thera/Beta-Carotene) 1 Tab Tab 1 TAB PO DAILY vitamin Days 30 Ref 0 TAB Pantoprazole (Pantoprazole) 40 Mg Tab 40 MG PO DAILY ppi Days 30 Ref 0 TAB Thiamine (Vitamin B-1) 100 Mg Tab 100 MG PO DAILY vitamin Days 30 Ref 0 TAB Discontinued Medications: Furosemide (Lasix) 20 Mg Tab 20 MG PO DAILY Fluid #30 Ref 0 TAB Methylprednisolone Dosepak (Medrol Dosepak) 4 Mg Dspk 4 MG PO DIRECTED Per Pharmacist direction #1 Ref 0 DSPK Potassium Chloride ER (K-Tab) 10 Meq Tab 10 MEQ PO DAILY Electrolyte Replacement #30 Ref 0 TAB Tiotropium Inh (Spiriva Handihaler) 18 Mcg Cap 18 MCG INH DAILY 1 capsule = 18 mcg COPD #1 Ref 0 Meggan Duque MD May 17, 2016 12:58
== END 2016-05-17 13:43 | disposition home or self-care (01) | DRG 442 ==
LOC: NEPE 19:15 → NEDA 22:21 → NEDH 05-13 02:45 → HCIS 05-14 01:19
PROVIDERS: ADMIT Family Medicine; ATTEND Family Medicine
DX: K72.90 Hepatic failure, unspecified without coma (principal); E87.1 Hypo-osmolality and hyponatremia; G31.2 Degeneration of nervous system due to alcohol; E72.20 Disorder of urea cycle metabolism, unspecified; R56.9 Unspecified convulsions; J44.9 Chronic obstructive pulmonary disease, unspecified; F10.229 Alcohol dependence with intoxication, unspecified; E86.0 Dehydration; J45.909 Unspecified asthma, uncomplicated; G47.00 Insomnia, unspecified; F17.210 Nicotine dependence, cigarettes, uncomplicated; F43.10 Post-traumatic stress disorder, unspecified; Z87.01 Personal history of pneumonia (recurrent); Z99.81 Dependence on supplemental oxygen
CPT/HCPCS: 70450; 71010; 76937; 80048; 80053; 80076; 80307; 81001; 82140; 82550; 82948; 83690; 83735; 83880; 84443; 84484; 85025; 85027; 85610; 85730; 87040; 93005; 94640; 94664; J1815; J2060; J2405; J3411; J7040

== ENCOUNTER 2016-05-27 15:34 | Emergency (ER) | payer OTHER ==
[~2016-05-27 15:34] MED LIST changes: -FURO1TAB62 PO; -K-TA10TA PO; -MEDR4PAK PO; -SPIRCAP INH; +WALKER WHEELS/F1 MIS
[2016-05-27] MEDS ORDERED: FLUMAZENIL 0.5 MG/5 ML VIAL IV PUSH PRN (16:00)
[2016-05-27] MEDS ORDERED: LORazepam 1 MG TAB PO PRN (16:00)
[2016-05-27] MEDS ORDERED: LORazepam 2 MG/ML VIAL IV PUSH PRN ×4 (16:00)
[2016-05-27 16:14] VITALS: BP 142/82; PULSE 112; RESP 19; TEMP 98.8; O2SAT 87
[2016-05-27 18:37] VITALS: BP 150/87; PULSE 89; RESP 18; O2SAT 80
[2016-05-27 19:03] LABS: BASOPHIL # 0.2 TH/MM3 (0-0.2); BASOPHIL % 2.1 % (0.0-2.0); EOSINOPHIL # 0.5 TH/MM3 (0-0.4); EOSINOPHIL % 5.3 % (0.0-4.0); HEMATOCRIT 35.1 % (35.0-46.0); HEMO FLAGS DIFF FINAL; LYMPH % 17.3 % (9.0-44.0); LYMPHOCYTE # 1.6 TH/MM3 (1.0-4.8); MEAN CELL VOLUME 94.1 FL (80.0-100.0); MEAN CORPUSCULAR HEMOGLOBIN 30.4 PG (27.0-34.0); MEAN CORPUSCULAR HGB CONC 32.3 % (32.0-36.0); MONO % 8.6 % (0.0-8.0); NEUT % 66.7 % (16.0-70.0); PLATELET COUNT 432 TH/MM3 (150-450); RED BLOOD COUNT 3.74 MIL/MM3 (4.00-5.30); RED CELL DISTRIBUTION WIDTH 17.6 % (11.6-17.2)
[2016-05-27 19:20] LABS: ANION GAP 10 MEQ/L (5-15); AST (GOT) 29 U/L (15-37); BICARBONATE 38.3 MEQ/L (21.0-32.0); BLOOD UREA NITROGEN 3 MG/DL (7-18); CHLORIDE 85 MEQ/L (98-107); GLOMERULAR FILTRATION RATE 178 ML/MIN (>89); POTASSIUM 4.1 MEQ/L (3.5-5.1); SODIUM (NA) 133 MEQ/L (136-145)
[2016-05-27 19:23] LABS: ACETAMINOPHEN LESS THAN 2.0 MCG/ML (10.0-30.0); ALKALINE PHOSPHATASE 165 U/L (45-117); ALT (GPT) 26 U/L (10-53); TOTAL BILIRUBIN ADULT 0.3 MG/DL (0.2-1.0)
[2016-05-27 19:27] VITALS: PULSE 104; RESP 18; O2SAT 83
[2016-05-27 19:48] VITALS: PULSE 101; RESP 17; O2SAT 91
[2016-05-27 22:00] VITALS: BP 135/69; PULSE 93; RESP 17; O2SAT 100
[2016-05-27] MEDS: LORazepam 2 MG TAB PO PRN (22:56)
--- NOTE | 2016-05-28 01:24 | PD ---
HPI Chief Complaint: Psychiatric Symptoms Time Seen by Provider: 01:16 Travel History International Travel<30 days: No Contact w/Intl Traveler<30days: No Traveled to known affect area: No History of Present Illness HPI 60-year-old white female presents to emergency department under [place] act by [employer]. The patient had expressed suicidal thoughts to her home health nurse. She initially had stated that she wanted to she wanted to hang herself then she proceeded state that she wanted to be shot. The patient states that she suffers from depression at times. She has thoughts of self-harm neck, go on a monthly basis. She states that she's been treated for depression in the past with shots. She also endorses chronic alcohol abuse and drinks a daily basis. The patient now on exam states that she does not feel suicidal. She merely would like to rest. Patient is on O2 2 L for chronic COPD. She has chronic shortness of breath. She states that she has not had alcohol today. She denies any toxic ingestions. She does complaining of resolving left foot metatarsal fracture. PFSH Past Medical History Narrative Medical O2 dependent COPD, recent pneumonia, history of GI bleed, history of seizure activity related to alcohol withdrawal, history of anxiety disorder, depression , tobacco abuse, alcohol abuse, posttraumatic stress disorder. Arthritis: No Asthma: Yes Autoimmune Disease: No Anxiety: Yes Depression: Yes Heart Rhythm Problems: No Cancer: No Cardiovascular Problems: No High Cholesterol: No Chest Pain: No Congestive Heart Failure: No COPD: Yes Cerebrovascular Accident: No Coronary Artery Disease: No Diabetes: No Diminished Hearing: No Endocrine: No Gastrointestinal Disorders: Yes GERD: No Genitourinary: No Headaches: No Hiatal Hernia: No Hypertension: No Immune Disorder: No Implanted Vascular Access Dvce: No Kidney Stones: No Musculoskeletal: Yes Neurologic: Yes Psychiatric: Yes (PTSD) Reproductive: No Respiratory: Yes (COPD) Immunizations Current: Yes Renal Failure: No Seizures: Yes Sleep Apnea: No Thyroid Disease: No Ulcer: No ?: Not Menopausal: Yes : 2 Para: 2 Past Surgical History Narrative Surgical , breast biopsies Abdominal Surgery: Yes () Section: Yes (X1) Thoracic Surgery: Yes (BILATERAL BREAST BIOPSY) Other Surgery: Yes Social History Alcohol Use: Yes Tobacco Use: Yes Substance Use: No Allergies-Medications (Allergen,Severity, Reaction): Coded Allergies: Penicillin (Verified Allergy, Severe, CHILDHOOD, 05/12/16) Reported Meds & Prescriptions Reported Meds & Active Scripts Active Walker with Front Wheels (Device) 1 Mis Mis 1 Ea .ROUTE DIRECTED Wheelchair (Device) 1 Mis Mis 1 Ea .ROUTE DIRECTED Ativan (Lorazepam) 0.5 Mg Tab 0.5 Mg PO Q8H PRN Aspirin EC (Aspirin) 81 Mg Tabdr 81 Mg PO DAILY Lipitor (Atorvastatin Calcium) 80 Mg Tab 80 Mg PO HS Lactulose Liq (Lactulose) 10 Gm/15 Ml Soln 30 Ml PO DAILY PRN 30 Days Pantoprazole (Pantoprazole Sodium) 40 Mg Tab 40 Mg PO DAILY 30 Days Vitamin B-1 (Thiamine HCl) 100 Mg Tab 100 Mg PO DAILY 30 Days Thera/Beta-Carotene (Multiple Vitamin) 1 Tab Tab 1 Tab PO DAILY 30 Days Folate (Folic Acid) 1 Mg Tab 1 Mg PO DAILY 30 Days Symbicort Inh (Budesonide/Formoterol Fumarate) 160-4.5 Mcg/Act Aero 1 Puff INH BID Proair Hfa 8.5 GM Inh (Albuterol Sulfate) 90 Mcg/Act Aer 2 Puff INH Q6H PRN 108 mcg/actuation Albuterol Neb (Albuterol Sulfate) 2.5 Mg/0.5 Ml Neb 2.5 Mg NEB QID NEB Note: The Albuterol Sulfate Inhalation Solution is concentrated and must be diluted. Read complete instructions carefully before using. Review of Systems ROS Limitations: Poor Historian Except as stated in HPI: all other systems reviewed are Neg Cardiovascular: Positive: Chest Pain or Discomfort Respiratory: Positive: Cough, Shortness of Breath (chronic O2 dependent COPD) Gastrointestinal: Positive: Nausea, Vomiting Psychiatric: Positive: Depression, Suicidal Ideations (now resolved), Mood Disorder, Substance Abuse (alcohol), No: Anxiety, Homicidal Ideation Physical Exam Narrative GENERAL: Older than stated age white female in no acute distress. She is thin and cachectic. She is on O2 by nasal cannula SKIN: Warm and dry. Patient has multiple areas of bruising to the upper extremities in various stages of healing. I see no open sores or lesions HEAD: Normocephalic and atraumatic. EYES: No scleral icterus. No injection or drainage. ENT: No nasal drainage noted. Mucous membranes pink. Airway patent. NECK: Supple, trachea midline. Moves head freely without obvious discomfort. CARDIOVASCULAR: Regular rate and rhythm without murmurs, gallops, or rubs. RESPIRATORY: Breath sounds decreased but equal bilaterally. No respiratory distress. GASTROINTESTINAL: Abdomen soft, non-tender, nondistended. EXTREMITIES: No cyanosis or edema. BACK: Nontender without obvious deformity. No CVA tenderness. NEURO: Patient is alert and oriented but somnolent on exam. Speech is slow and somewhat mumbled and is hard to understand no sensorimotor deficits. Nonfocal. PSYCH: No delusions. No auditory or visual hallucinations. Data Data Last Documented VS Vital Signs Date Time Temp Pulse Resp B/P Pulse Ox O2 Delivery O2 Flow Rate FiO2 05/27/16 22:00 93 17 135/69 100 Nasal Cannula 2 05/27/16 16:14 98.8 Orders Complete Blood Count With Diff (05/27/16 15:58) Comprehensive Metabolic Panel (05/27/16 15:58) Psych Screen (05/27/16 15:58) Drug Screen, Random Urine (05/27/16 15:58) Alcohol (Ethanol) (05/27/16 15:58) Salicylates (Aspirin) (05/27/16 16:00) Alcohol Withdrawal Asmt-Ciwa ONCE (05/27/16 16:00) Flumazenil Inj (Romazicon Inj) (05/27/16 16:00) Lorazepam (Ativan) (05/27/16 16:00) Lorazepam Inj (Ativan Inj) (05/27/16 16:00) Lorazepam (Ativan) (05/27/16 16:00) Lorazepam Inj (Ativan Inj) (05/27/16 16:00) Lorazepam Inj (Ativan Inj) (05/27/16 16:00) Lorazepam Inj (Ativan Inj) (05/27/16 16:00) Diet Regular Basic (05/27/16 Dinner) Tylenol (Acetaminophen) (05/27/16 15:58) Diet Regular Basic (05/28/16 Breakfast) Labs Laboratory Tests Test 05/27/16 17:50 White Blood Count 9.0 TH/MM3 Red Blood Count 3.74 MIL/MM3 Hemoglobin 11.4 GM/DL Hematocrit 35.1 % Mean Corpuscular Volume 94.1 FL Mean Corpuscular Hemoglobin 30.4 PG Mean Corpuscular Hemoglobin 32.3 % Concent Red Cell Distribution Width 17.6 % Platelet Count 432 TH/MM3 Mean Platelet Volume 6.9 FL Neutrophils (%) (Auto) 66.7 % Lymphocytes (%) (Auto) 17.3 % Monocytes (%) (Auto) 8.6 % Eosinophils (%) (Auto) 5.3 % Basophils (%) (Auto) 2.1 % Neutrophils # (Auto) 6.0 TH/MM3 Lymphocytes # (Auto) 1.6 TH/MM3 Monocytes # (Auto) 0.8 TH/MM3 Eosinophils # (Auto) 0.5 TH/MM3 Basophils # (Auto) 0.2 TH/MM3 CBC Comment DIFF FINAL Differential Comment Sodium Level 133 MEQ/L Potassium Level 4.1 MEQ/L Chloride Level 85 MEQ/L Carbon Dioxide Level 38.3 MEQ/L Anion Gap 10 MEQ/L Blood Urea Nitrogen 3 MG/DL Creatinine 0.37 MG/DL Estimat Glomerular Filtration 178 ML/MIN Rate Random Glucose 127 MG/DL Calcium Level 9.0 MG/DL Total Bilirubin 0.3 MG/DL Aspartate Amino Transf 29 U/L (AST/SGOT) Alanine Aminotransferase 26 U/L (ALT/SGPT) Alkaline Phosphatase 165 U/L Total Protein 7.3 GM/DL Albumin 3.7 GM/DL Salicylates Level 2.2 MG/DL Acetaminophen Level LESS THAN 2.0 MCG/ML Ethyl Alcohol Level LESS THAN 3 MG/DL MDM Medical Decision Making Medical Screen Exam Complete: Yes Emergency Medical Condition: Yes Medical Record Reviewed: Yes Differential Diagnosis MDM: High Differential diagnoses: Schizophrenia, schizoaffective disorder, bipolar, anxiety, depression, adjustment reaction, mood disorder NOS, ODD, depressive disorder NOS, dementia, dementia with agitation, psychosis NOS, substance induced mood disorder, intermittent explosive disorder, Asperger syndrome, infection,electrolyte abnormality, malingering. Narrative Course Mental health screening discussed with the patient. Psychiatric screen ordered. The patient is been medically cleared. The patient has eaten and drank crystallite. This is depressive disorder, alcoholism Diagnosis Primary Impression: Depressive disorder Additional Impression: Alcohol dependency Condition: Stable Dutch Fox May 28, 2016 01:24
[2016-05-28 02:00] VITALS: BP 112/62; PULSE 90; RESP 17; O2SAT 100
[2016-05-28] MEDS: LORazepam 2 MG TAB PO PRN (06:04)
[2016-05-28 10:00] VITALS: BP 160/92; PULSE 102; RESP 18; O2SAT 94
[2016-05-28] MEDS ORDERED: TETANUS/DIPHTHERIA TOXOID ADULT 0.5 ML VIAL IM ONE (10:30)
--- NOTE | 2016-05-28 10:33 | PD ---
Physical Exam Date Seen by Provider: May 28, 2016 Time Seen by Provider: 10:29 Narrative I was asked by the physiotherapy assistant, Dainlo, to evaluation the patient after a fall that just occurred. Patient states she was trying to make it to the door when she lost her balance and fell. She denies any shortness breath, chest pain , headache, dizziness before the fall. The patient hit her face against the floor. She complains of a headache. She does have a small laceration to the left forehead. No active bleeding. She denies any neck pain or back pain. No chest pain or abdominal pain. No vomiting. She is unsure of her tetanus immunization is up-to-date. The patient has already been medically cleared for psychiatric evaluation by previous provider. I reevaluated the patient after the fall but just occurred. GENERAL: Thin female patient, on chronic oxygen. Afebrile. SKIN: Focused skin assessment warm/dry. HEAD: Normocephalic. Patient has 1.5 cm linear laceration to the left forehead without active bleeding. EYES: No scleral icterus. No injection or drainage. NECK: Supple, trachea midline. No JVD or lymphadenopathy. CARDIOVASCULAR: Regular rate and rhythm without murmurs, gallops, or rubs. Left pedal pulse 2+. RESPIRATORY: Breath sounds equal bilaterally. No accessory muscle use. Lungs sounds diminished throughout. GASTROINTESTINAL: Abdomen soft, non-tender, nondistended. MUSCULOSKELETAL: No cyanosis, or edema. BACK: Nontender without obvious deformity. No CVA tenderness. No midline spinal tenderness. Data Data Last Documented VS Vital Signs Date Time Temp Pulse Resp B/P Pulse Ox O2 Delivery O2 Flow Rate FiO2 05/28/16 15:58 98.4 112 22 132/69 97 Nasal Cannula 2 Orders Complete Blood Count With Diff (05/27/16 15:58) Comprehensive Metabolic Panel (05/27/16 15:58) Psych Screen (05/27/16 15:58) Drug Screen, Random Urine (05/27/16 15:58) Alcohol (Ethanol) (05/27/16 15:58) Salicylates (Aspirin) (05/27/16 16:00) Alcohol Withdrawal Asmt-Ciwa ONCE (05/27/16 16:00) Flumazenil Inj (Romazicon Inj) (05/27/16 16:00) Lorazepam (Ativan) (05/27/16 16:00) Lorazepam Inj (Ativan Inj) (05/27/16 16:00) Lorazepam (Ativan) (05/27/16 16:00) Lorazepam Inj (Ativan Inj) (05/27/16 16:00) Lorazepam Inj (Ativan Inj) (05/27/16 16:00) Lorazepam Inj (Ativan Inj) (05/27/16 16:00) Diet Regular Basic (05/27/16 Dinner) Tylenol (Acetaminophen) (05/27/16 15:58) Diet Regular Basic (05/28/16 Breakfast) Diet Regular Basic (05/28/16 Lunch) Ct Brain W/O Iv Contrast(Rout) (05/28/16 ) Tetanus/Diphtheria Tox Adult (Tetanus/Di (05/28/16 10:30) Albuterol-Ipratropium Neb (Duoneb Neb) (05/28/16 10:45) Hip, Uni(Ap&Lat) W Ap Pelvis (05/28/16 ) Ct Hip W/O Contrast (05/28/16 ) Labs Laboratory Tests Test 05/27/16 17:50 White Blood Count 9.0 TH/MM3 Red Blood Count 3.74 MIL/MM3 Hemoglobin 11.4 GM/DL Hematocrit 35.1 % Mean Corpuscular Volume 94.1 FL Mean Corpuscular Hemoglobin 30.4 PG Mean Corpuscular Hemoglobin 32.3 % Concent Red Cell Distribution Width 17.6 % Platelet Count 432 TH/MM3 Mean Platelet Volume 6.9 FL Neutrophils (%) (Auto) 66.7 % Lymphocytes (%) (Auto) 17.3 % Monocytes (%) (Auto) 8.6 % Eosinophils (%) (Auto) 5.3 % Basophils (%) (Auto) 2.1 % Neutrophils # (Auto) 6.0 TH/MM3 Lymphocytes # (Auto) 1.6 TH/MM3 Monocytes # (Auto) 0.8 TH/MM3 Eosinophils # (Auto) 0.5 TH/MM3 Basophils # (Auto) 0.2 TH/MM3 CBC Comment DIFF FINAL Differential Comment Sodium Level 133 MEQ/L Potassium Level 4.1 MEQ/L Chloride Level 85 MEQ/L Carbon Dioxide Level 38.3 MEQ/L Anion Gap 10 MEQ/L Blood Urea Nitrogen 3 MG/DL Creatinine 0.37 MG/DL Estimat Glomerular Filtration 178 ML/MIN Rate Random Glucose 127 MG/DL Calcium Level 9.0 MG/DL Total Bilirubin 0.3 MG/DL Aspartate Amino Transf 29 U/L (AST/SGOT) Alanine Aminotransferase 26 U/L (ALT/SGPT) Alkaline Phosphatase 165 U/L Total Protein 7.3 GM/DL Albumin 3.7 GM/DL Salicylates Level 2.2 MG/DL Acetaminophen Level LESS THAN 2.0 MCG/ML Ethyl Alcohol Level LESS THAN 3 MG/DL [facility] Medical Record Reviewed: Yes Supervised Visit with ADY: No Interpretation(s) Last Impressions Lower Extremity CT 05/28/16 0000 Signed Impressions: Service Date/Time: Saturday, May 28, 2016 13:54 - CONCLUSION: Comminuted left proximal femur fracture at the level of the greater trochanter. Wallace Mullins MD Hip and Pelvis X-Ray 05/28/16 0000 Signed Impressions: Service Date/Time: Saturday, May 28, 2016 12:34 - CONCLUSION: Left greater trochanter fracture is suspected. Wallace Mullins MD Head CT 05/28/16 0000 Signed Impressions: Service Date/Time: Saturday, May 28, 2016 11:26 - CONCLUSION: Normal examination for a patient of this age. Wallace Mullins MD Differential Diagnosis Laceration versus abrasion versus intracranial abnormality versus closed head injury Narrative Course 60-year-old female is in the emergency department for psychiatric evaluation. She already been medically cleared by previous provider. I was asked to evaluate the patient after she fell after losing her balance this morning. She denies any preceding symptoms. Patient does have a small laceration to the left forehead. Patient gives verbal consent for repair of this. CT of the brain is ordered and pending. Tetanus immunization is updated. When I returned to repair laceration, patient is also complaining of left hip pain. She has full range of motion, no obvious deformity. X-ray of the left hip with pelvis is ordered and pending. CT of the brain is normal. X-ray of the left hip with pelvis shows left greater trochanter fracture is suspected. CT of the left hip is completed which shows comminuted left proximal femur fracture at the level of the greater trochanter. I discussed the case and findings with my attending physician, Dr. Burt. [id number] - Dr. Rehman is paged for consultation. [id number] - I spoke with Dr. Beach, orthopedist who reviewed images. He states this is a nonoperative fracture. She should be discharged with a rolling walker with toe touch walking. Patient is medically cleared. Procedures Procedure Narrative LACERATION LOCATION: Left forehead LENGTH: 1.5 cm NUMBER OF STITCHES/BOB: Dermabond REPAIR: The area of the laceration was prepped with Betadine and sterilely draped. The wound was copiously irrigated and explored without evidence of foreign body, tendon injury or neurovascular injury. The wound was closed using dermabond. This was a single layer repair. A sterile dressing was applied. The patient was advised to keep the dressing clean and dry. Patient tolerated the procedure well. 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 Toe touch walking. Follow up with Dr. Beach, orthopedist. Return to the emergency department for any acute, worsening of symptoms. Med/Other Pt SpecificInfo: Prescription(s) given Scripts Walker Rolling/GetGo 1 Mis Mis #1 Ea .route As Directed Prov:Gema Molina 05/28/16 Disposition: 01 DISCHARGE HOME Condition: Stable Gema Molina May 28, 2016 10:33
[2016-05-28] MEDS ORDERED: RESP: ALBUTEROL 2.5 MG/IPRATROPIUM 0.5 MG NEB (PRN) NEB (10:45)
--- NOTE | 2016-05-28 11:45 | RADRPT ---
EXAM DATE/TIME: 05/28/2016 11:26 [facility] COMPARISON: CT BRAIN W/O CONTRAST, May 12, 2016, 20:28. INDICATIONS : Trauma. Fell today. RADIATION DOSE: 56.36 CTDIvol (mGy) MEDICAL HISTORY : Seizures. SURGICAL HISTORY : None. ENCOUNTER: Initial ACUITY: 1 day PAIN SCALE: 5/10 LOCATION: cranial TECHNIQUE: Multiple contiguous axial images were obtained of the head. Using automated exposure control and adj ustment of the mA and/or kV according to patient size, radiation dose was kept as low as reasonably a chievable to obtain optimal diagnostic quality images. FINDINGS: CEREBRUM: The ventricles are normal for age. No evidence of midline shift, mass lesion, hemorrhage or acute in farction. No extra-axial fluid collections are seen. POSTERIOR FOSSA: The cerebellum and brainstem are intact. The 4th ventricle is midline. The cerebellopontine angle i s unremarkable. EXTRACRANIAL: The visualized portion of the orbits is intact. SKULL: The calvaria is intact. No evidence of skull fracture. CONCLUSION: Normal examination for a patient of this age. Wallace Mullins MD on May 28, 2016 at 11:44 Board Certified Radiologist. This report was verified electronically.
--- NOTE | 2016-05-28 13:05 | RADRPT ---
EXAM DATE/TIME: 05/28/2016 12:34 [facility] COMPARISON: No previous studies available for comparison. INDICATIONS : Fall, left hip pain. MEDICAL HISTORY : None. SURGICAL HISTORY : None. ENCOUNTER: Initial ACUITY: 2 days PAIN SCORE: 5/10 LOCATION: Left hip FINDINGS: Diffuse decreased bone mineralization. There is a mildly displaced fracture of the left proximal femu r at the level of the greater trochanter identified. CONCLUSION: Left greater trochanter fracture is suspected. Wallace Mullins MD on May 28, 2016 at 13:03 Board Certified Radiologist. This report was verified electronically.
--- NOTE | 2016-05-28 14:26 | RADRPT ---
EXAM DATE/TIME: 05/28/2016 13:54 [facility] COMPARISON: No previous studies available for comparison. INDICATIONS : Left hip pain RADIATION DOSE: 6.21 CTDIvol (mGy) MEDICAL HISTORY : None SURGICAL HISTORY : None. ENCOUNTER: Initial ACUITY: 1 day PAIN SCALE: 5/10 LOCATION: Left hip TECHNIQUE: Volumetric scanning of the hip was performed. Using automated exposure control and adjustment of the mA and/or kV according to patient size, radiation dose was kept as low as reasonably achievable to o btain optimal diagnostic quality images. FINDINGS: The examination demonstrates a mildly displaced fracture of the left femur at the level of the greate r trochanter, comminuted and the parents. Femoral neck is intact. CONCLUSION: Comminuted left proximal femur fracture at the level of the greater trochanter. Wallace Mullins MD on May 28, 2016 at 14:24 Board Certified Radiologist. This report was verified electronically.
[2016-05-28 15:23] VITALS: BP 132/61; PULSE 107; RESP 18; TEMP 97.4; O2SAT 97
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
[2016-05-28 15:58] VITALS: BP 132/69; PULSE 112; RESP 22; TEMP 98.4; O2SAT 97
[2016-05-28] MEDS ORDERED: GETGO ROLLING W1 MI1 ×2 (16:26→16:28)
[2016-05-28] MEDS ORDERED: IBUPROFEN 600 MG TAB PO ONE (18:00)
== END 2016-05-28 18:57 | disposition home or self-care (01) ==
LOC: NEPJ 15:34 → NEPC 05-28 18:57
DX: F10.14 Alcohol abuse with alcohol-induced mood disorder (principal); S01.81XA Laceration without foreign body of other part of head, initial encounter; S72.112D Displaced fracture of greater trochanter of left femur, subsequent encounter for closed fracture with routine healing; J44.9 Chronic obstructive pulmonary disease, unspecified; J45.909 Unspecified asthma, uncomplicated; R64 Cachexia; Z23 Encounter for immunization; Z99.81 Dependence on supplemental oxygen; Z87.891 Personal history of nicotine dependence; W19.XXXA Unspecified fall, initial encounter; Y93.9 Activity, unspecified; Y92.9 Unspecified place or not applicable; Y99.8 Other external cause status
CPT/HCPCS: 12011; 70450; 73502; 73700; 80053; 80307; 85025; 90471; 90714; 96374; 96376; 99284; J2060

== ENCOUNTER → 2016-09-09 | Outpatient (CLI) | payer OTHER ==
[~2016-09-09] MED LIST changes: +GETGO ROLLING W1 MI1; +MORPHINE SULFATE 4 MG/ML INJ IV PUSH ONE; +ONDANSETRON HCL 4 MG/2 ML VIAL IV PUSH ONE
== END ==
LOC: HEDF 12:39
DX: T20.29XA Burn of second degree of multiple sites of head, face, and neck, initial encounter (principal); R06.02 Shortness of breath; J02.9 Acute pharyngitis, unspecified; Z99.81 Dependence on supplemental oxygen; X08.8XXA Exposure to other specified smoke, fire and flames, initial encounter; Y99.8 Other external cause status
CPT/HCPCS: A0431; A0436; J2270; J2405

== ENCOUNTER 2017-03-31 08:23 | Inpatient (IN) | payer OTHER ==
[~2017-03-31] VITALS: Ht 167.6 cm; Wt 37.9 kg
[2017-03-31] VITALS (8 sets, daily range): BP systolic 111–126; BP diastolic 70–81; PULSE 93–102; RESP 15–33; TEMP 97.7–98.2; O2SAT 95–98
[~2017-03-31 08:23] MED LIST changes: -ASPI81TA11 PO; +ASPI81TA23 PO; -MORPHINE SULFATE 4 MG/ML INJ IV PUSH ONE; -ONDANSETRON HCL 4 MG/2 ML VIAL IV PUSH ONE
--- NOTE | 2017-03-31 08:37 | PD ---
HPI Chief Complaint: Shortness of breath, low blood sugar Time Seen by Provider: 08:32 Travel History International Travel<30 days: No Contact w/Intl Traveler<30days: No Traveled to known affect area: No History of Present Illness HPI 61-year-old female patient with history of alcohol abuse, depression, asthma, presents to the ER today brought in by EMS for worsening shortness of breath. They state that she was moving good air and had started her on duo nebs. They had done a blood sugar on her and it was 44. However, she was not given any medications because she did not have an IV. She currently is fairly disoriented and in respiratory distress in the ER. Modifying Factors: None Associated Signs & Symptoms: Shortness of breath, disorientation Risk Factors: Low blood sugar, asthma PFSH Past Medical History Arthritis: No Asthma: Yes Autoimmune Disease: No Anxiety: Yes Depression: Yes Heart Rhythm Problems: No Cancer: No Cardiovascular Problems: No High Cholesterol: No Chest Pain: No Congestive Heart Failure: No COPD: Yes Cerebrovascular Accident: No Coronary Artery Disease: No Diabetes: No Diminished Hearing: No Endocrine: No Gastrointestinal Disorders: Yes GERD: No Genitourinary: No Headaches: No Hiatal Hernia: No Hypertension: No Immune Disorder: No Implanted Vascular Access Dvce: No Kidney Stones: No Musculoskeletal: Yes Neurologic: Yes Psychiatric: Yes (PTSD) Reproductive: No Respiratory: Yes (COPD) Immunizations Current: Yes Renal Failure: No Seizures: Yes Sleep Apnea: No Thyroid Disease: No Ulcer: No Menopausal: Yes : 2 Para: 2 Past Surgical History Abdominal Surgery: Yes () Section: Yes (X1) Thoracic Surgery: Yes (BILATERAL BREAST BIOPSY) Other Surgery: Yes Social History Alcohol Use: Yes Tobacco Use: Yes Substance Use: No Allergies-Medications (Allergen,Severity, Reaction): Coded Allergies: penicillin G (Unverified Allergy, Severe, CHILDHOOD, 10/01/16) Reported Meds & Prescriptions Reported Meds & Active Scripts Active Walker with Front Wheels (Device) 1 Mis Mis 1 Ea .ROUTE DIRECTED Wheelchair (Device) 1 Mis Mis 1 Ea .ROUTE DIRECTED Ativan (Lorazepam) 0.5 Mg Tab 0.5 Mg PO Q8H PRN Proair Hfa 8.5 GM Inh (Albuterol Sulfate) 90 Mcg/Act Aer 2 Puff INH Q6H PRN 108 mcg/actuation Albuterol Neb (Albuterol Sulfate) 2.5 Mg/0.5 Ml Neb 2.5 Mg NEB QID NEB Note: The Albuterol Sulfate Inhalation Solution is concentrated and must be diluted. Read complete instructions carefully before using. Reported Zolpidem (Zolpidem Tartrate) 10 Mg Tab 10 Mg PO HS PRN Ipratropium Neb (Ipratropium [place]) 0.5 Mg/2.5 Ml Amp 0.5 Mg NEB Q4HR NEB PRN Proctocort Rectal 1% (Hydrocortisone Rectal 1%) 1% Cream 1 Applic RECTAL Q6H PRN Diphenhydramine (Diphenhydramine HCl) 25 Mg Cap 25 Mg PO HS PRN Review of Systems Except as stated in HPI: all other systems reviewed are Neg Physical Exam Narrative GENERAL: Cachectic elderly white female patient currently in moderate respiratory distress. Awake, alert, mildly disoriented. SKIN: Focused skin assessment warm/dry. HEAD: Atraumatic. Normocephalic. EYES: Pupils equal and round. No scleral icterus. No injection or drainage. ENT: No nasal bleeding or discharge. Mucous membranes pink and moist. NECK: Trachea midline. No JVD. CARDIOVASCULAR: Regular rate and rhythm. No murmur appreciated. RESPIRATORY: Notable accessory muscle use. Decreased throughout notable. Breath sounds equal bilaterally. GASTROINTESTINAL: Abdomen soft, non-tender, nondistended. Hepatic and splenic margins not palpable. MUSCULOSKELETAL: No obvious deformities. No clubbing. No cyanosis. No edema. NEUROLOGICAL: Awake and alert. No obvious cranial nerve deficits. Motor grossly within normal limits. Normal speech. PSYCHIATRIC: Anxious mood and affect; insight and judgment poor. Data Data Last Documented VS Vital Signs Date Time Temp Pulse Resp B/P (MAP) Pulse Ox O2 Delivery O2 Flow Rate FiO2 03/31/17 08:51 97.7 102 25 124/77 (93) Nasal Cannula 2.00 03/31/17 08:50 96 Orders Orders Complete Blood Count With Diff (03/31/17 08:32) Comprehensive Metabolic Panel (03/31/17 08:32) Magnesium (Mg) (03/31/17 08:32) Iv Access Insert/Monitor (03/31/17 08:32) Electrocardiogram (03/31/17 08:32) Ecg Monitoring (03/31/17 08:32) Oximetry (03/31/17 08:32) Oxygen Administration (03/31/17 08:32) Chest, Single Ap (03/31/17 08:32) Sodium Chloride 0.9% Flush (Ns Flush) (03/31/17 08:45) Methylprednisolone So Succ Inj (Solumedr (03/31/17 08:45) Albuterol-Ipratropium Neb (Duoneb Neb) (03/31/17 08:45) Dextrose 50% In Carlito (Vial) Inj (D50w (Vi (03/31/17 08:45) Dextrose 50% In Carlito (Syr) Inj (D50w (Syr (03/31/17 08:40) Lorazepam Inj (Ativan Inj) (03/31/17 09:00) Sodium Chlor 0.9% 1000 Ml Inj (Ns 1000 M (03/31/17 10:00) Alcohol (Ethanol) (03/31/17 10:22) Admit Order (Ed Use Only) (03/31/17 10:22) Labs Laboratory Tests Test 03/31/17 08:41 White Blood Count 10.3 TH/MM3 Red Blood Count 2.85 MIL/MM3 Hemoglobin 9.4 GM/DL Hematocrit 28.4 % Mean Corpuscular Volume 99.8 FL Mean Corpuscular Hemoglobin 33.2 PG Mean Corpuscular Hemoglobin Concent 33.2 % Red Cell Distribution Width 16.4 % Platelet Count 717 TH/MM3 Mean Platelet Volume 6.5 FL Neutrophils (%) (Auto) 82.1 % Lymphocytes (%) (Auto) 8.6 % Monocytes (%) (Auto) 8.2 % Eosinophils (%) (Auto) 0.5 % Basophils (%) (Auto) 0.6 % Neutrophils # (Auto) 8.5 TH/MM3 Lymphocytes # (Auto) 0.9 TH/MM3 Monocytes # (Auto) 0.8 TH/MM3 Eosinophils # (Auto) 0.1 TH/MM3 Basophils # (Auto) 0.1 TH/MM3 CBC Comment DIFF FINAL Differential Comment Blood Urea Nitrogen 4 MG/DL Creatinine 0.26 MG/DL Random Glucose 33 MG/DL Total Protein 6.6 GM/DL Albumin 2.3 GM/DL Calcium Level 8.0 MG/DL Magnesium Level 1.6 MG/DL Alkaline Phosphatase 253 U/L Aspartate Amino Transf (AST/SGOT) 38 U/L Alanine Aminotransferase (ALT/SGPT) 16 U/L Total Bilirubin 0.2 MG/DL Sodium Level 121 MEQ/L Potassium Level 3.5 MEQ/L Chloride Level 80 MEQ/L Carbon Dioxide Level 26.5 MEQ/L Anion Gap 15 MEQ/L Estimat Glomerular Filtration Rate 267 ML/MIN MDM Medical Decision Making Medical Screen Exam Complete: Yes Emergency Medical Condition: Yes Medical Record Reviewed: Yes Interpretation(s) Laboratory Tests Test 03/31/17 08:41 Red Blood Count 2.85 MIL/MM3 (4.00-5.30) Hemoglobin 9.4 GM/DL (11.6-15.3) Hematocrit 28.4 % (35.0-46.0) Platelet Count 717 TH/MM3 (150-450) Mean Platelet Volume 6.5 FL (7.0-11.0) Neutrophils (%) (Auto) 82.1 % (16.0-70.0) Lymphocytes (%) (Auto) 8.6 % (9.0-44.0) Monocytes (%) (Auto) 8.2 % (0.0-8.0) Neutrophils # (Auto) 8.5 TH/MM3 (1.8-7.7) Lymphocytes # (Auto) 0.9 TH/MM3 (1.0-4.8) Blood Urea Nitrogen 4 MG/DL (7-18) Creatinine 0.26 MG/DL (0.50-1.00) Random Glucose 33 MG/DL (74-106) Albumin 2.3 GM/DL (3.4-5.0) Calcium Level 8.0 MG/DL (8.5-10.1) Alkaline Phosphatase 253 U/L (45-117) Aspartate Amino Transf (AST/SGOT) 38 U/L (15-37) Sodium Level 121 MEQ/L (136-145) Chloride Level 80 MEQ/L (98-107) Last 24 hours Impressions Chest X-Ray 03/31/17 0832 Signed Impressions: Service Date/Time: Friday, March 31, 2017 08:36 - CONCLUSION: 1. Changes of obstructive pulmonary disease with progressive biapical bullous change. 2. New 1.5 cm nodular opacity in the right upper lobe. Recommend CT examination for better characterization. Willem Hameed MD Differential Diagnosis Shortness of breath, altered mental status: Hypoglycemia versus metabolic issues versus hepatic failure versus versus sepsis versus pneumonia versus COPD exacerbation Narrative Course Patient was given IV fluids, Solu-Medrol, dextrose, and nebulizers in the ER. She was also given Ativan due to her anxiety after giving the nebulizer. Vital signs are improved in the ER. She was given juice for her hypoglycemia as well. Her blood sugar is improved in the ER. Her lab work shows significant hyponatremia as well. At this point, my plan would be to admit her for further treatment. Case was discussed with Dr. Garnica for admission. Diagnosis Primary Impression: Hyponatremia Additional Impressions: COPD exacerbation Hypoglycemia Admitting Information Admitting Physician Requests: Admit Kim Lawson MD Mar 31, 2017 08:37
[2017-03-31] MEDS ORDERED: DEXTROSE 50% IN WATER 50 ML SYRINGE ONE (08:40)
[2017-03-31] MEDS ORDERED: SODIUM CHLORIDE 0.9% FLUSH 10 ML FLUSH IVF PRN (08:45)
[2017-03-31] MEDS ORDERED: methylPREDNISolone SOD SUCC 125 MG/2 ML VIAL IV PUSH ONE (08:45)
[2017-03-31] MEDS ORDERED: DEXTROSE 50% IN WATER 50 ML VIAL(D50) IV PUSH ONE (08:45)
[2017-03-31] MEDS: RESP: ALBUTEROL 2.5 MG/IPRATROPIUM 0.5 MG NEB (SCH) INH ×2 (08:59→20:04)
[2017-03-31] MEDS ORDERED: LORazepam 2 MG/ML VIAL IV PUSH ONE (09:00)
--- NOTE | 2017-03-31 09:12 | RADRPT ---
EXAM DATE/TIME: 03/31/2017 08:36 [facility] COMPARISON: CHEST SINGLE AP, May 12, 2016, 20:27. INDICATIONS : Short of breath, weakness MEDICAL HISTORY : Chronic obstructive pulmonary disease. seizures, asthma SURGICAL HISTORY : section. ENCOUNTER: Initial ACUITY: 1 day PAIN SCORE: Non-responsive. LOCATION: Bilateral chest FINDINGS: Lungs are hyperexpanded with biapical bullous change and scarring. There is a new 1.5 cm nodular opac ity noted in the right upper lobe. Cardiomediastinal contours are within normal limits. Remainder of the exam is unchanged. CONCLUSION: 1. Changes of obstructive pulmonary disease with progressive biapical bullous change. 2. New 1.5 cm nodular opacity in the right upper lobe. Recommend CT examination for better characteri zation. Willem Hameed MD on March 31, 2017 at 9:07 Board Certified Radiologist. This report was verified electronically.
[2017-03-31 09:18] LABS: AUTOMATED NEUTROPHIL # 8.5 TH/MM3 (1.8-7.7); BASOPHIL # 0.1 TH/MM3 (0-0.2); BASOPHIL % 0.6 % (0.0-2.0); EOSINOPHIL # 0.1 TH/MM3 (0-0.4); EOSINOPHIL % 0.5 % (0.0-4.0); HEMATOCRIT 28.4 % (35.0-46.0); HEMOGLOBIN 9.4 GM/DL (11.6-15.3); LYMPH % 8.6 % (9.0-44.0); LYMPHOCYTE # 0.9 TH/MM3 (1.0-4.8); MEAN CELL VOLUME 99.8 FL (80.0-100.0); MEAN CORPUSCULAR HEMOGLOBIN 33.2 PG (27.0-34.0); MEAN CORPUSCULAR HGB CONC 33.2 % (32.0-36.0); MEAN PLATELET VOLUME 6.5 FL (7.0-11.0); MONO % 8.2 % (0.0-8.0); MONOCYTE # 0.8 TH/MM3 (0-0.9); NEUT % 82.1 % (16.0-70.0); PLATELET COUNT 717 TH/MM3 (150-450); RED BLOOD COUNT 2.85 MIL/MM3 (4.00-5.30); RED CELL DISTRIBUTION WIDTH 16.4 % (11.6-17.2); WHITE BLOOD COUNT 10.3 TH/MM3 (4.0-11.0)
[2017-03-31] MEDS ORDERED: PROC1CRE2 RECTAL (09:32)
[2017-03-31] MEDS ORDERED: IPRA0.02 NEB (09:32)
[2017-03-31] MEDS ORDERED: ZOLP10TA3 PO (09:32)
[2017-03-31] MEDS ORDERED: DIPH25CA PO (09:32)
[2017-03-31 09:40] LABS: ALBUMIN 2.3 GM/DL (3.4-5.0); ALKALINE PHOSPHATASE 253 U/L (45-117); ALT (GPT) 16 U/L (10-53); AST (GOT) 38 U/L (15-37); BICARBONATE 26.5 MEQ/L (21.0-32.0); BLOOD UREA NITROGEN 4 MG/DL (7-18); CHLORIDE 80 MEQ/L (98-107); CREATININE 0.26 MG/DL (0.50-1.00); GLOMERULAR FILTRATION RATE 267 ML/MIN (>89); MAGNESIUM 1.6 MG/DL (1.5-2.5); TOTAL BILIRUBIN ADULT 0.2 MG/DL (0.2-1.0); TOTAL PROTEIN 6.6 GM/DL (6.4-8.2)
[2017-03-31 09:43] LABS: GLUCOSE,RANDOM 33 MG/DL (74-106); SODIUM (NA) 121 MEQ/L (136-145)
[2017-03-31] MEDS ORDERED: SODIUM CHLOR 0.9% 1000 ML INJ 1,000 ML IV ONE (10:00)
[2017-03-31] MEDS ORDERED: MAGNESIUM HYDROXIDE SUSP 30 ML CUP PO PRN (10:30)
[2017-03-31] MEDS ORDERED: LACTULOSE SYRUP 20 GM/30 ML CUP PO PRN (10:30)
[2017-03-31] MEDS ORDERED: MORPHINE SULFATE 2 MG/ML INJ IV PUSH PRN (10:30)
[2017-03-31] MEDS ORDERED: cloNIDine HCL 0.1 MG TAB PO PRN (10:30)
[2017-03-31] MEDS ORDERED: METOCLOPRAMIDE HCL 10 MG/2 ML VIAL IV PUSH PRN (10:30)
[2017-03-31] MEDS ORDERED: SENNOSIDES 8.6 MG TAB PO PRN (10:30)
[2017-03-31] MEDS ORDERED: IBUPROFEN 400 MG TAB PO PRN (10:30)
[2017-03-31] MEDS ORDERED: LORazepam 1 MG TAB PO PRN (10:30)
[2017-03-31] MEDS ORDERED: LORazepam 2 MG/ML VIAL IV PUSH PRN ×3 (10:30)
[2017-03-31] MEDS ORDERED: NALOXONE HCL 0.4 MG/ML AMP IV PUSH PRN (10:30)
[2017-03-31] MEDS ORDERED: FLUMAZENIL 0.5 MG/5 ML VIAL IV PUSH PRN ×2 (10:30)
[2017-03-31] MEDS ORDERED: ACETAMINOPHEN 325 MG TAB PO PRN (10:30)
[2017-03-31] MEDS ORDERED: ONDANSETRON HCL 4 MG/2 ML VIAL IVP PRN (10:30)
[2017-03-31] MEDS ORDERED: BISACODYL 10 MG SUPP RECTAL PRN (10:30)
[2017-03-31] MEDS ORDERED: MORPHINE SULFATE 4 MG/ML INJ IV PUSH PRN (10:30)
[2017-03-31] MEDS ORDERED: SODIUM CHLORIDE 0.9% FLUSH 10 ML FLUSH IV FLUSH PRN ×2 (10:30)
[2017-03-31] MEDS: MULTIVITAMINS/MINERALS THERAPEUTIC TAB PO SCH (11:00)
[2017-03-31] MEDS: guaiFENesin E.R. 600 MG TAB PO SCH ×2 (11:00→21:17)
[2017-03-31 11:02] LABS: TROPONIN I LESS THAN 0.02 NG/ML (0.02-0.05)
[2017-03-31] MEDS: NICOTINE 21 MG/24 HR PATCH TD SCH (11:59)
[2017-03-31] MEDS: THIAMINE HCL 100 MG TAB PO SCH (12:00)
[2017-03-31] MEDS ORDERED: RESP: ALBUTEROL 2.5 MG/IPRATROPIUM 0.5 MG NEB (PRN) INH (12:00)
[2017-03-31] MEDS ORDERED: RESP: ALBUTEROL 2.5 MG/IPRATROPIUM 0.5 MG NEB (PRN) NEB (12:00)
[2017-03-31] MEDS: FOLIC ACID 1 MG TAB PO SCH (12:00)
[2017-03-31] MEDS: AZITHROMYCIN 250 MG TAB PO SCH (12:00)
[2017-03-31] MEDS ORDERED: RESP: ALBUTEROL 2.5 MG/IPRATROPIUM 0.5 MG NEB (SCH) INH (12:00)
[2017-03-31] MEDS: PANTOPRAZOLE SOD 40 MG DELAYED RELEASE TAB PO SCH (12:00)
[2017-03-31 12:38] LABS: AMORPHOUS SEDIMENT, URINE OCC; BILIRUBIN, URINE NEG (NEG); BLOOD, URINE NEG (NEG); GLUCOSE,URINE TRACE mg/dL (NEG); HYALINE CAST, URINE 1 /lpf (RARE); KETONE, URINE 10 mg/dL (NEG); MUCUS URINE FEW /lpf (OCC); NITRITE,URINE NEG (NEG); PH, URINE 6.5 (5.0-8.5); URINE COLOR LIGHT-YELLOW (YELLW/STRAW); URINE LEUKOCYTE ESTERASE NEG (NEG)
[2017-03-31 12:40] LABS: BACTERIA, URINE MANY /hpf
[2017-03-31] MEDS: LORazepam 2 MG/ML VIAL IV PUSH PRN ×2 (13:13→17:14)
[2017-03-31] MEDS: methylPREDNISolone SOD SUCC 125 MG/2 ML VIAL IV PUSH SCH ×2 (13:13→21:17)
[2017-03-31] MEDS: cefTRIAXone INJ 1,000 MG in SODIUM CHLORIDE 0.9% INJ 100 ML IV SCH (13:13)
--- NOTE | 2017-03-31 14:15 | HHI.HP ---
[facility]Staff Admission Diagnosis Hypoglycemia/COPD exacerbation/altered mental status/hyponatremia Diagnoses: Chief Complaint: Shortness of breath and low blood sugar Travel History International Travel<30 Days: No Contact w/Intl Traveler <30 Da: No Traveled to Known Affected Are: No History of Present Illness Patient is a 61-year-old female with an extensive history of alcohol abuse, depression, asthma and extensive tobacco abuse still actively smoking and severe cachexia who had recently been under the care of [facility] hospice. Patient presented today with increasing shortness of breath. Patient was seen by EMS and they stated she was not moving good air severe therefore was started on DuoNeb's. She had a blood sugar done in the field that was only noted to be 44 patient did not have an active IV and therefore did not kidney medications. In the field on the way in patient is in some degree of respiratory distress. Will be admitted be placed on steroids as well as antibiotics and duo nebs and Mucinex and incentive spirometry we'll place her on supplements. We'll ask physical therapy and occupational therapy to eval and treat we'll reconsult hospice to evaluate her. Also found to have severe hyponatremia Patient will be made a full admission Review of Systems Constitutional: COMPLAINS OF: Fatigue, Weight loss, DENIES: Diaphoretic episodes, Fever, Weight gain, Chills, Dizziness, Change in appetite, Night Sweats Endocrine: DENIES: Abnorml menstrual pattern, Heat/cold intolerance, Polydipsia , Polyuria Eyes: DENIES: Blurred vision, Diplopia, Eye inflammation, Eye pain, Vision loss Ears, nose, mouth, throat: DENIES: Tinnitus, Hearing loss, Vertigo, Nasal discharge, Oral lesions Respiratory: COMPLAINS OF: Cough, Wheezing, Shortness of breath, DENIES: Apneas , Snoring Cardiovascular: COMPLAINS OF: Dyspnea on Exertion, DENIES: Chest pain, Palpitations, Syncope, PND, Lower Extremity Edema, Orthopnea Gastrointestinal: DENIES: Abdominal pain, Black stools, Bloody stools, Constipation, Diarrhea, Nausea, Vomiting, Difficulty Swallowing Genitourinary: DENIES: Abnormal vaginal bleeding, Dysmenorrhea, Dyspareunia, Sexual dysfunction, Urinary frequency Musculoskeletal: DENIES: Joint pain, Muscle aches, Stiffness, Joint Swelling, Back pain, Neck pain Integumentary: DENIES: Abnormal pigmentation, Pruritus, Rash, Nail changes, Breast masses, Breast skin changes, Nipple discharge Hematologic/lymphatic: DENIES: Bruising, Lymphadenopathy Immunologic/allergic: DENIES: Eczema, Urticaria Neurologic: COMPLAINS OF: Abnormal gait, Localized weakness, Poor Balance, DENIES: Headache, Paresthesias, Seizures, Speech Problems Psychiatric: COMPLAINS OF: Anxiety, Confusion, Depression, DENIES: Mood changes , Hallucinations, Agitation, Suicidal Ideation, Homicidal Ideation, Delusions Except as stated in HPI: all other systems reviewed are Neg Past Family Social History Past Medical History Asthma and tobacco abuse and COPD Anxiety and depression Noncompliance Severe cachexia Alcohol abuse extensive Tobacco abuse extensive History of PTSD History of seizures probably from alcohol withdrawal Past Surgical History History of section Bilateral breast biopsy Reported Medications Reported Meds & Active Scripts Active Walker with Front Wheels (Device) 1 Mis Mis 1 Ea .ROUTE DIRECTED Wheelchair (Device) 1 Mis Mis 1 Ea .ROUTE DIRECTED Ativan (Lorazepam) 0.5 Mg Tab 0.5 Mg PO Q8H PRN Proair Hfa 8.5 GM Inh (Albuterol Sulfate) 90 Mcg/Act Aer 2 Puff INH Q6H PRN 108 mcg/actuation Albuterol Neb (Albuterol Sulfate) 2.5 Mg/0.5 Ml Neb 2.5 Mg NEB QID NEB Note: The Albuterol Sulfate Inhalation Solution is concentrated and must be diluted. Read complete instructions carefully before using. Reported Zolpidem (Zolpidem Tartrate) 10 Mg Tab 10 Mg PO HS PRN Ipratropium Neb (Ipratropium [place]) 0.5 Mg/2.5 Ml Amp 0.5 Mg NEB Q4HR NEB PRN Proctocort Rectal 1% (Hydrocortisone Rectal 1%) 1% Cream 1 Applic RECTAL Q6H PRN Diphenhydramine (Diphenhydramine HCl) 25 Mg Cap 25 Mg PO HS PRN Allergies: Coded Allergies: penicillin G (Unverified Allergy, Severe, CHILDHOOD, 10/01[birth year]16) Active Ordered Medications Current Medications Sodium Chloride (NS Flush) 2 ml UNSCH PRN IVF FLUSH AFTER USING IV ACCESS Last administered on 03/31/17at 08:47; Start 03/31/17 at 08:45; Stop 03/31/17 at 12:03 ; Status DC Methylprednisolone Sodium Succinate (SoluMEDROL INJ) 125 mg ONCE ONCE IV PUSH Last administered on 03/31/17at 09:11; Start 03/31/17 at 08:45; Stop 03/31/17 at 08:46; Status DC Albuterol/ Ipratropium (Duoneb Neb) 1 ampule Q15M INH Last administered on 03/31at 08:59; Start 03/31/17 at 08:45; Stop 03/31/17 at 09:01; Status DC Dextrose (D50w (Vial) Inj) 50 ml ONCE ONCE IV PUSH Last administered on at 08:46; Start 03/31/17 at 08:45; Stop 03/31/17 at 08:46; Status DC Dextrose (D50w (Syr) Inj) 50 ml STK-MED ONCE .ROUTE ; Start 03/31/17 at 08:40; Stop 03/31/17 at 08:41; Status DC Lorazepam (Ativan Inj) 1 mg ONCE ONCE IV PUSH Last administered on 03/31/17at 09:12; Start 03/31/17 at 09:00; Stop 03/31/17 at 09:01; Status DC Sodium Chloride 1,000 ml @ 999 mls/hr BOLUS ONCE IV Last administered on 03/31at 09:52; Start 03/31/17 at 10:00; Stop 03/31/17 at 11:00; Status DC Sodium Chloride (NS Flush) 2 ml UNSCH PRN IV FLUSH FLUSH AFTER USING IV ACCESS ; Start 03/31/17 at 10:30 Sodium Chloride (NS Flush) 2 ml BID IV FLUSH ; Start 03/31/17 at 21:00 Acetaminophen (Tylenol) 650 mg Q4H PRN PO TEMP > 100.4; Start 03/31/17 at 10:30 Ondansetron HCl (Zofran Inj) 4 mg Q6H PRN IVP NAUSEA OR VOMITING; Start at 10:30 Metoclopramide HCl (Reglan Inj) 5 mg Q6H PRN IV PUSH NAUSEA OR VOMITING; Start 03/31/17 at 10:30 Ibuprofen (Motrin) 400 mg Q6H PRN PO PAIN SCALE 1 TO 2; Start 03/31/17 at 10:30 Oxycodone HCl (Roxicodone) 10 mg Q4H PRN PO PAIN SCALE 6 TO 10; Start 03/31/17 at 10:30 Morphine Sulfate (Morphine Inj) 2 mg Q3H PRN IV PUSH Pain 3-5; if unable to take PO; Start 03/31/17 at 10:30 Morphine Sulfate (Morphine Inj) 4 mg Q3H PRN IV PUSH Pain 6-10;if unable to take PO; Start 03/31/17 at 10:30 Oxycodone HCl (Roxicodone) 5 mg Q4H PRN PO PAIN SCALE 3 TO 5; Start 03/31/17 at 10:30 Naloxone HCl (Narcan Inj) 0.4 mg UNSCH PRN IV PUSH SEE LABEL COMMENTS; Start at 10:30 Senna/Docusate Sodium (Ida-Colace) 1 tab BID PO ; Start 03/31/17 at 21:00 Magnesium Hydroxide (Milk Of Magnesia Liq) 30 ml Q12H PRN PO Mild constipation ; Start 03/31/17 at 10:30 Sennosides (Senokot) 17.2 mg Q12H PRN PO Moderate constipation; Start 03/31/17 at 10:30 Bisacodyl (Dulcolax Supp) 10 mg DAILY PRN RECTAL SEVERE CONSITIPATION; Start at 10:30 Lactulose (Lactulose Liq) 30 ml DAILY PRN PO SEVERE CONSITIPATION; Start at 10:30 Flumazenil (Romazicon Inj) 0.2 mg Q1M PRN IV PUSH SEE LABEL COMMENTS; Start 02/03 at 10:30 Lorazepam (Ativan) 1 mg Q4H PRN PO CIWA 8 - 10; Start 03/31/17 at 10:30 Lorazepam (Ativan Inj) 1 mg Q4H PRN IV PUSH CIWA 8 - 10; Start 03/31/17 at 10: 30 Lorazepam (Ativan) 2 mg Q2H PRN PO CIWA 11-14; Start 03/31/17 at 10:30 Lorazepam (Ativan Inj) 2 mg Q2H PRN IV PUSH CIWA 11-14; Start 03/31/17 at 10:30 Lorazepam (Ativan Inj) 2 mg Q1H PRN IV PUSH CIWA 15-20 Last administered on 02/03at 13:13; Start 03/31/17 at 10:30 Lorazepam (Ativan Inj) 2 mg Q15M PRN IV PUSH CIWA > 20; Start 03/31/17 at 10:30 Sodium Chloride (NS Flush) 2 ml UNSCH PRN IV FLUSH FLUSH AFTER USING IV ACCESS ; Start 03/31/17 at 10:30; Stop 03/31/17 at 10:43; Status DC Sodium Chloride (NS Flush) 2 ml BID IV FLUSH ; Start 03/31/17 at 21:00; Stop 02/03 at 21:00; Status DC Folic Acid (Folate) 1 mg DAILY PO Last administered on 03/31/17at 12:00; Start 03/31/17 at 11:00; Stop 04/05/17 at 10:59 Thiamine HCl (Vitamin B1) 100 mg DAILY PO Last administered on 03/31/17at 12:00 ; Start 03/31/17 at 11:00 Multivitamins/ Minerals Therapeutic (Theragran M Tab) 1 tab DAILY PO ; Start 02/03 at 11:00; Stop 04/05/17 at 10:59 Pantoprazole Sodium (Protonix) 40 mg DAILY PO Last administered on 03/31/17at 12 :00; Start 03/31/17 at 11:00 Clonidine (Catapres) 0.1 mg Q6H PRN PO SEE LABEL COMMENTS; Start 03/31/17 at 10 :30 Flumazenil (Romazicon Inj) 0.2 mg Q1M PRN IV PUSH SEE LABEL COMMENTS; Start 02/03 at 10:30; Stop 03/31/17 at 10:43; Status DC Guaifenesin (Mucinex Er) 600 mg BID PO ; Start 03/31/17 at 11:00 Albuterol/ Ipratropium (Duoneb Neb) 1 ampule Q4HR NEB INH ; Start 03/31/17 at 12:00; Stop 03/31/17 at 12:00; Status DC Albuterol/ Ipratropium (Duoneb Neb) 1 ampule Q6HR NEB INH ; Start 03/31/17 at 16:00 Methylprednisolone Sodium Succinate (SoluMEDROL INJ) 60 mg Q6H IV PUSH Last administered on 03/31/17at 13:13; Start 03/31/17 at 15:00 Ceftriaxone Sodium 1000 mg/ Sodium Chloride 100 ml @ 200 mls/hr Q24H IV Last administered on 03/31/17at 13:13; Start 03/31/17 at 13:00 Nicotine (Habitrol 21 Mg Patch.24 Hr) 1 patch DAILY TD Last administered on 02/03at 11:59; Start 03/31/17 at 12:00 Azithromycin (Zithromax) 500 mg Q24H PO Last administered on 03/31/17at 12:00; Start 03/31/17 at 11:00; Stop 04/03/17 at 10:59 Albuterol/ Ipratropium (Duoneb Neb) 1 ampule Q4HR NEB PRN NEB SHORTNESS OF BREATH; Start 03/31/17 at 12:00; Stop 03/31/17 at 12:00; Status DC Albuterol/ Ipratropium (Duoneb Neb) 1 ampule Q4HR NEB PRN INH SHORTNESS OF BREATH; Start 03/31/17 at 12:00 Family History Tobacco and alcohol abuse Social History Extensive tobacco abuse still smoking extensively Alcohol abuse drinks beer every day minimum of 4 Physical Exam Vital Signs Vital Signs Date Time Temp Pulse Resp B/P (MAP) Pulse Ox O2 Delivery O2 Flow Rate FiO2 03/31/17 12:25 97.9 97 15 126/73 (90) 95 03/31/17 12:21 03/31/17 08:51 97.7 102 25 124/77 (93) Nasal Cannula 2.00 03/31/17 08:50 93 33 124/77 (93) 96 Nasal Cannula 2.00 03/31/17 08:50 94 Nasal Cannula 2.00 03/31/17 08:45 98 Nasal Cannula 2.00 Physical Exam GENERAL: This is a very cachectic patient, not well-developed patient, in mild to moderate distress. SKIN: No rashes, ecchymoses or lesions. Cool and dry. HEAD: Atraumatic. Normocephalic. No temporal or scalp tenderness. EYES: Pupils equal round and reactive. Extraocular motions intact. No scleral icterus. No injection or drainage. ENT: Nose without bleeding, purulent drainage or septal hematoma. Throat without erythema, tonsillar hypertrophy or exudate. Uvula midline. Airway patent. NECK: Trachea midline. No JVD or lymphadenopathy. Supple, nontender, no meningeal signs. CARDIOVASCULAR: Regular rate and rhythm without murmurs, gallops, or rubs. S1 and S2 no S3 or S4 RESPIRATORY: Breath sounds equal bilaterally. No, rales. Coarse breath sounds bilaterally with some wheezes GASTROINTESTINAL: Abdomen soft, non-tender, nondistended. No hepato-splenomegaly , or palpable masses. No guarding. MUSCULOSKELETAL: Extremities without clubbing, cyanosis, or edema. No joint tenderness, effusion, or edema noted. No calf tenderness. Negative Homans sign bilaterally. NEUROLOGICAL: Awake and alert. Cranial nerves II through XII intact. Motor and sensory grossly within normal limits. 4 out of 5 muscle strength in all muscle groups. Normal speech. Insight and judgment is limited Mood and behavior is not appropriate Laboratory Laboratory Tests Test 03/31/17 08:41 03/31/17 12:05 03/31/17 12:10 White Blood Count 10.3 Red Blood Count 2.85 Hemoglobin 9.4 Hematocrit 28.4 Mean Corpuscular Volume 99.8 Mean Corpuscular Hemoglobin 33.2 Mean Corpuscular Hemoglobin Concent 33.2 Red Cell Distribution Width 16.4 Platelet Count 717 Mean Platelet Volume 6.5 Neutrophils (%) (Auto) 82.1 Lymphocytes (%) (Auto) 8.6 Monocytes (%) (Auto) 8.2 Eosinophils (%) (Auto) 0.5 Basophils (%) (Auto) 0.6 Neutrophils # (Auto) 8.5 Lymphocytes # (Auto) 0.9 Monocytes # (Auto) 0.8 Eosinophils # (Auto) 0.1 Basophils # (Auto) 0.1 CBC Comment DIFF FINAL Differential Comment Blood Urea Nitrogen 4 Creatinine 0.26 Random Glucose 33 Total Protein 6.6 Albumin 2.3 Calcium Level 8.0 Magnesium Level 1.6 1.5 Alkaline Phosphatase 253 Aspartate Amino Transf (AST/SGOT) 38 Alanine Aminotransferase (ALT/SGPT) 16 Total Bilirubin 0.2 Sodium Level 121 Potassium Level 3.5 Chloride Level 80 Carbon Dioxide Level 26.5 Anion Gap 15 Estimat Glomerular Filtration Rate 267 Total Creatine Kinase 171 Troponin I LESS THAN 0.02 Ethyl Alcohol Level 36 Ammonia 16 Urine Color LIGHT-YELLOW Urine Turbidity HAZY Urine pH 6.5 Urine Specific [place] 1.008 Urine Protein NEG Urine Glucose (UA) TRACE Urine Ketones 10 Urine Occult Blood NEG Urine Nitrite NEG Urine Bilirubin NEG Urine Urobilinogen LESS THAN 2.0 Urine Leukocyte Esterase NEG Urine RBC LESS THAN 1 Urine WBC 1 Urine Amorphous Sediment OCC Urine Bacteria MANY Urine Hyaline Casts 1 Urine Mucus FEW Microscopic Urinalysis Comment CULTURE INDICATED Urine Opiates Screen NEG Urine Barbiturates Screen NEG Urine Amphetamines Screen NEG Urine Benzodiazepines Screen NEG Urine Cocaine Screen NEG Urine Cannabinoids Screen NEG Date/Time Source Procedure Growth Status 03/31/17 12:10 Urine Clean Catch Urine Culture Pending Received Result Diagram: 03/31/17 0841 03/31/1741 Imaging Last Impressions Chest X-Ray 03/31/1732 Signed Impressions: Service Date/Time: Friday, March 31, 2017 08:36 - CONCLUSION: 1. Changes of obstructive pulmonary disease with progressive biapical bullous change. 2. New 1.5 cm nodular opacity in the right upper lobe. Recommend CT examination for better characterization. Willem Hameed MD Capsravan VTE Risk Assessment Caprini VTE Risk Assessment: Mod/High Risk (score >= 2) Caprini Risk Assessment Model Point Value = 1 Point Value = 2 Point Value = 3 Point Value = 5 Age 41-60 Minor surgery BMI > 25 kg/m2 Swollen legs Varicose veins or History of unexplained or recurrent spontaneous Oral contraceptives or hormone replacement Sepsis (< 1 month) Serious lung disease, including pneumonia (< 1 month) Abnormal pulmonary function Acute myocardial infarction Congestive heart failure (< 1 month) History of inflammatory bowel disease Medical patient at bed rest Age 61-74 Arthroscopic surgery Major open surgery (> 45 min) Laparoscopic surgery (> 45 min) Malignancy Confined to bed (> 72 hours) Immobilizing plaster cast Central venous access Age >= 75 History of VTE Family history of VTE Factor V Leiden Prothrombin [id number] Lupus anticoagulant Anticardiolipin antibodies Elevated serum homocysteine Heparin-induced thrombocytopenia Other congenital or acquired thrombophilia Stroke (< 1 month) Elective arthroplasty Hip, pelvis, or leg fracture Acute spinal cord injury (< 1 month) Prophylaxis Regimen Total Risk Factor Score Risk Level Prophylaxis Regimen 0-1 Low Early ambulation 2 Moderate Order ONE of the following: *Sequential Compression Device (SCD) *Heparin 5000 units SQ BID 3-4 Higher Order ONE of the following medications: *Heparin 5000 units SQ TID *Enoxaparin/Lovenox 40 mg SQ daily (WT < 150 kg, CrCl > 30 mL/min) *Enoxaparin/Lovenox 30 mg SQ daily (WT < 150 kg, CrCl > 10-29 mL/min) *Enoxaparin/Lovenox 30 mg SQ BID (WT < 150 kg, CrCl > 30 mL/min) AND/OR *Sequential Compression Device (SCD) 5 or more Highest Order ONE of the following medications: *Heparin 5000 units SQ TID (Preferred with Epidurals) *Enoxaparin/Lovenox 40 mg SQ daily (WT < 150 kg, CrCl > 30 mL/min) *Enoxaparin/Lovenox 30 mg SQ daily (WT < 150 kg, CrCl > 10-29 mL/min) *Enoxaparin/Lovenox 30 mg SQ BID (WT < 150 kg, CrCl > 30 mL/min) AND *Sequential Compression Device (SCD) Assessment and Plan Assessment and Plan Severe hyponatremia more than likely secondary to her alcohol abuse and alcohol intake will replace with fluids and salt tabs and she is able to tolerate Altered mental status possibly secondary to hypoglycemia and alcohol abuse COPD exacerbation continue on DuoNeb's and Mucinex incentive spirometry and steroids Right upper lobe nodular opacity will get CT evaluation of the chest Hypoglycemia due to malnutrition Severe cachexia and failure to thrive with severe protein calorie malnutrition had recently been under the care of hospice prior to coming into the hospital Tobacco abuse still smoking --smoking cessation recommended will continue on a NicoDerm patch Generalized weakness and debility we'll get physical therapy and occupational therapy to eval and treat GI and DVT prophylaxis Code Status Full code at this time Discussed Condition With Patient and family and RN and emergency room physician Physician Certification 2 Midnight Certification Type: Admission for Inpatient Services Order for Inpatient Services The services are ordered in accordance with Medicare regulations or non- Medicare payer requirements, as applicable. In the case of services not specified as inpatient-only, they are appropriately provided as inpatient services in accordance with the 2-midnight benchmark. Estimated LOS (days): 3 days is the estimated time the patient will need to remain in the hospital, assuming treatment plan goals are met and no additional complications. Post-Hospital Plan: Not yet determined Sheldon Garnica DO Mar 31, 2017 14:15
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
[2017-03-31 18:49] LABS: PHOSPHORUS 2.5 MG/DL (2.5-4.9)
[2017-03-31 18:51] LABS: TROPONIN I LESS THAN 0.02 NG/ML (0.02-0.05)
[2017-03-31] MEDS ORDERED: SODIUM CHLORIDE 0.9% FLUSH 10 ML FLUSH IV FLUSH SCH (21:00)
[2017-03-31] MEDS: DOCUSATE SODIUM 50 MG/SENNA 8.6 MG TAB PO SCH (21:17)
[2017-03-31] MEDS: LORazepam 2 MG TAB PO PRN ×2 (21:18→23:08)
[2017-03-31] MEDS: SODIUM CHLORIDE 0.9% FLUSH 10 ML FLUSH IV FLUSH SCH (21:18)
[2017-03-31] MEDS: REMOVE OLD NICODERM (NICOTINE) PATCH T-DERMAL SCH (21:19)
[2017-04-01] VITALS (10 sets, daily range): BP systolic 100–114; BP diastolic 59–80; PULSE 81–105; RESP 18–20; TEMP 97.4–98.1; O2SAT 94–100
[2017-04-01] MEDS: methylPREDNISolone SOD SUCC 125 MG/2 ML VIAL IV PUSH SCH ×3 (02:53→15:37)
[2017-04-01] MEDS: RESP: ALBUTEROL 2.5 MG/IPRATROPIUM 0.5 MG NEB (SCH) INH ×4 (04:18→20:57)
[2017-04-01 08:07] LABS: AUTOMATED NEUTROPHIL # 14.4 TH/MM3 (1.8-7.7); BASOPHIL # 0.1 TH/MM3 (0-0.2); BASOPHIL % 0.5 % (0.0-2.0); HEMATOCRIT 30.7 % (35.0-46.0); LYMPH % 1.9 % (9.0-44.0); LYMPHOCYTE # 0.3 TH/MM3 (1.0-4.8); MEAN CELL VOLUME 101.1 FL (80.0-100.0); MEAN CORPUSCULAR HEMOGLOBIN 32.8 PG (27.0-34.0); MEAN CORPUSCULAR HGB CONC 32.5 % (32.0-36.0); MEAN PLATELET VOLUME 6.7 FL (7.0-11.0); MONO % 2.1 % (0.0-8.0); MONOCYTE # 0.3 TH/MM3 (0-0.9); NEUT % 95.5 % (16.0-70.0); PLATELET COUNT 601 TH/MM3 (150-450); RED BLOOD COUNT 3.04 MIL/MM3 (4.00-5.30); RED CELL DISTRIBUTION WIDTH 16.4 % (11.6-17.2); WHITE BLOOD COUNT 15.1 TH/MM3 (4.0-11.0)
[2017-04-01] MEDS ORDERED: DEXTROSE 50% IN WATER 50 ML VIAL(D50) IV PUSH PRN (08:15)
[2017-04-01] MEDS ORDERED: GLUCAGON 1 MG/ML VIAL OTHER PRN (08:15)
[2017-04-01 08:35] LABS: ALBUMIN 2.3 GM/DL (3.4-5.0); AST (GOT) 32 U/L (15-37); BICARBONATE 29.9 MEQ/L (21.0-32.0); BLOOD UREA NITROGEN 3 MG/DL (7-18); CALCIUM 7.8 MG/DL (8.5-10.1); CHLORIDE 90 MEQ/L (98-107); CREATININE 0.26 MG/DL (0.50-1.00); GLOMERULAR FILTRATION RATE 267 ML/MIN (>89); GLUCOSE,RANDOM 182 MG/DL (74-106); MAGNESIUM 1.9 MG/DL (1.5-2.5); SODIUM (NA) 128 MEQ/L (136-145)
[2017-04-01] MEDS: NICOTINE 21 MG/24 HR PATCH TD SCH (08:37)
[2017-04-01] MEDS: PANTOPRAZOLE SOD 40 MG DELAYED RELEASE TAB PO SCH (08:38)
[2017-04-01] MEDS: FOLIC ACID 1 MG TAB PO SCH (08:38)
[2017-04-01] MEDS: MULTIVITAMINS/MINERALS THERAPEUTIC TAB PO SCH (08:38)
[2017-04-01] MEDS: THIAMINE HCL 100 MG TAB PO SCH (08:38)
[2017-04-01] MEDS: guaiFENesin E.R. 600 MG TAB PO SCH ×2 (08:38→21:48)
[2017-04-01] MEDS: DOCUSATE SODIUM 50 MG/SENNA 8.6 MG TAB PO SCH ×2 (08:38→21:49)
[2017-04-01] MEDS: SODIUM CHLORIDE 0.9% FLUSH 10 ML FLUSH IV FLUSH SCH ×2 (08:39→21:49)
[2017-04-01 08:58] LABS: BANDS 3 % (0-6); LYMPHOCYTES 1 % (9-44); MONOCYTES 2 % (0-8); NEUTROPHIL # MANUAL DIFF 14.6 TH/MM3 (1.8-7.7); POLYS (SEG NEUTROPHILS) 94 % (16-70)
[2017-04-01 09:13] LABS: ALKALINE PHOSPHATASE 221 U/L (45-117); ALT (GPT) 19 U/L (10-53); PHOSPHORUS 2.8 MG/DL (2.5-4.9); TOTAL BILIRUBIN ADULT 0.2 MG/DL (0.2-1.0); TOTAL PROTEIN 6.5 GM/DL (6.4-8.2)
[2017-04-01] MEDS: AZITHROMYCIN 250 MG TAB PO SCH (10:49)
[2017-04-01] MEDS ORDERED: LORazepam 1 MG TAB PO ONE (11:30)
[2017-04-01] MEDS: INSULIN ASPART SUPPLEMENTAL SCALE SQ SCH ×3 (12:18→21:47)
[2017-04-01] MEDS ORDERED: IOHEXOL 350 MG/ML 10 ML VIAL (for RAD DIAG) IVCONTRAST ONE (15:13)
[2017-04-01] MEDS: cefTRIAXone INJ 1,000 MG in SODIUM CHLORIDE 0.9% INJ 100 ML IV SCH (15:37)
[2017-04-01 16:12] LABS: HEMOGLOBIN A1C 3.8 % (4.3-6.0)
--- NOTE | 2017-04-01 17:05 | RADRPT ---
EXAM DATE/TIME: 04/01/2017 15:12 [facility] COMPARISON: CHEST SINGLE AP, March 31, 2017, 8:36. INDICATIONS : Short of breath, mass. IV CONTRAST: 69 cc Omnipaque 350 (iohexol) IV RADIATION DOSE: 5.90 CTDIvol (mGy) MEDICAL HISTORY : Chronic obstructive pulmonary disease. Emphysema. SURGICAL HISTORY : None. ENCOUNTER: Initial ACUITY: 1 day PAIN SCALE: 4/10 LOCATION: Bilateral chest TECHNIQUE: Volumetric scanning of the chest was performed. Using automated exposure control and adjustment of t he mA and/or kV according to patient size, radiation dose was kept as low as reasonably achievable to obtain optimal diagnostic quality images. DICOM format image data is available electronically for review and comparison. Follow-up recommendations for detected pulmonary nodules are based at a minimum on nodule size and pa tient risk factors according to Fleischner Society Guidelines. FINDINGS: LUNGS: Severe emphysematous changes with scarring most prominent in the right base. Nonspecific 6mm nodule i n the superior segment of the right lower lobe. PLEURA: Questionable nodule identified on plain film corresponds to a focal area pleural thickening anterolat erally in the right upper hemithorax measuring 2.3 x 2.0 cm.. MEDIASTINUM: The heart and great vessels demonstrate no acute abnormality. There is no mediastinal or hilar lymph adenopathy. AXILLAE: Within normal limits. No lymphadenopathy. SKELETAL: Within normal limits for patient age. MISCELLANEOUS: The visualized upper abdominal organs demonstrate no acute abnormality. CONCLUSION: 1. Diffuse emphysematous changes, most prominent in the right apex. Associated parenchymal scarring m ost prominent in the right base. 2. Nonspecific 6mm nodule in the superior segment of the right lower lobe. 3. Focal area of pleural thickening anterolaterally in the right upper hemithorax measuring 2.3 x 2.0 cm. This corresponds to the questionable nodular density identified on plain film. Again, findings a re nonspecific. Giovani Trevizo MD on April 01, 2017 at 16:48 Board Certified Radiologist. This report was verified electronically.
[2017-04-01] MEDS: LORazepam 0.5 MG TAB PO PRN (18:45)
--- NOTE | 2017-04-01 19:01 | HHI.PR ---
Subjective Remarks Follow up for hypoglycemia, COPD exacerbation, pulmonary nodule. Patient is doing well. However, she appears to be very anxious. No fever, chills. Has supp O2 at home. Wants to go home today. Objective Vitals Vital Signs Date Time Temp Pulse Resp B/P (MAP) Pulse Ox O2 Delivery O2 Flow Rate FiO2 04/01/17 16:47 98.1 100 18 100/59 (73) 98 04/01/17 15:29 99 Nasal Cannula 2.00 04/01/17 12:31 97.7 105 20 114/68 (83) 97 04/01/17 08:32 98 Nasal Cannula 2.00 04/01/17 08:03 97.5 88 20 109/66 (80) 98 04/01/17 05:19 97.4 81 18 107/66 (80) 100 04/01/17 00:15 85 04/01/17 00:02 97.4 95 18 108/69 (82) 94 03/31/17 20:33 98.1 95 18 111/81 (91) 98 03/31/17 20:20 101 03/31/17 20:06 96 Nasal Cannula 2.00 I/O 03/31/17 03/31/17 03/31/17 04/01/17 04/01/17 04/01/17 07:00 15:00 23:00 07:00 15:00 23:00 Intake Total 240 ml 660 ml Output Total 895 ml 950 ml Balance -655 ml -290 ml Intake Oral 240 ml 660 ml Output Urine Total 895 ml 950 ml # Bowel Movements 1 4 Result Diagram: 04/01/17 0720 04/01/17 0720 Imaging Last Impressions Chest X-Ray 03/31/17 0832 Signed Impressions: Service Date/Time: Friday, March 31, 2017 08:36 - CONCLUSION: 1. Changes of obstructive pulmonary disease with progressive biapical bullous change. 2. New 1.5 cm nodular opacity in the right upper lobe. Recommend CT examination for better characterization. Willem Hameed MD Chest CT 03/31/17 0000 Signed Impressions: Service Date/Time: Saturday, April 01, 2017 15:12 - CONCLUSION: 1. Diffuse emphysematous changes, most prominent in the right apex. Associated parenchymal scarring most prominent in the right base. 2. Nonspecific 6mm nodule in the superior segment of the right lower lobe. 3. Focal area of pleural thickening anterolaterally in the right upper hemithorax measuring 2.3 x 2.0 cm. This corresponds to the questionable nodular density identified on plain film. Again , findings are nonspecific. Giovani Trevizo MD Objective Remarks GENERAL: Alert, Oriented x 3, NAD. Cachectic appearance. SKIN: Warm and dry. HEAD: Normocephalic. EYES: No scleral icterus. No injection or drainage. NECK: Supple, trachea midline. No JVD or lymphadenopathy. CARDIOVASCULAR: Regular rate and rhythm without murmurs, gallops, or rubs. RESPIRATORY: Poor air entry. No appreciable wheezing. No accessory muscle use. GASTROINTESTINAL: Abdomen soft, non-tender, nondistended. MUSCULOSKELETAL: No cyanosis, or edema. BACK: Nontender without obvious deformity. No CVA tenderness. A/P Problem List: (1) COPD exacerbation ICD Code: J44.1 - Chronic obstructive pulmonary disease with (acute) exacerbation Status: Acute (2) Pulmonary nodule, right ICD Code: R91.1 - Solitary pulmonary nodule (3) Hypoglycemia ICD Code: E16.2 - Hypoglycemia, unspecified Status: Acute Assessment and Plan Ms. Latif is a 61-year-old female with an extensive history of alcohol abuse, depression, asthma and extensive tobacco abuse still actively smoking and severe cachexia who had recently been under the care of [facility]. She was admitted to the hospital due to shortness of breath. COPD exacerbation - Patient is currently on 2L of O2 via NC. She has Suppl O2 at home. - D/C Ceftriaxone and Azithromycin and start Levaquin 750mg Qday X 7 days. - Continue DuoNeb PRN. - Start Symbicort. On discharge we will continue Symbicort as well as Spiriva. - Patient is being followed by [facility]. - Anxiety - Ativan PO PRN. Pulmonary nodule - right lung - Reviewed CT chest images - shows emphysematous changes and right lung nodule. - Right lung nodule about 6mm. We recommend CT chest in 6 months to follow this nodule. - Patient should also follow up with a physiotherapy practice manager in the outpatient setting. Hypoglycemia - Probably due to nutritional deficits. - Patient is encouraged to increase calorie intake and consume Ensure as well. Full code. SCDs. Probable discharge in the AM on 04/02/2017. Krysta Ny DO Apr 01, 2017 19:01
--- NOTE | 2017-04-01 19:22 | EKG ---
Date Performed: 03/31/2017 Time Performed: 08:56:22 PTAGE: 61 years EKG: Sinus rhythm POSSIBLE RIGHT ATRIAL ENLARGEMENT ST DEVIATION AND MODERATE T-WAVE ABNORMALITY, CONSIDER ANTERIOR IS CHEMIA ABNORMAL ECG Since the prior tracing, there has been no significant change PREVIOUS TRACING : 05/13/2016 00.30 DOCTOR: Peter Brown Interpretating Date/Time 04/01/2017 19:21:33
[2017-04-01] MEDS: predniSONE 20 MG TAB PO SCH (21:48)
[2017-04-01] MEDS: REMOVE OLD NICODERM (NICOTINE) PATCH T-DERMAL SCH (21:56)
[2017-04-01] MEDS: BUDESONIDE-FORMOTEROL 160/4.5 MCG INHALER INH SCH (22:16)
[2017-04-02] VITALS: BP 113/72; PULSE 93; RESP 18; TEMP 98; O2SAT 100
[2017-04-02 03:23] VITALS: O2SAT 97
[2017-04-02 04:00] VITALS: BP 115/71; PULSE 93; RESP 18; TEMP 98.2; O2SAT 100
[2017-04-02 07:51] VITALS: BP 121/73; PULSE 90; RESP 18; TEMP 97.8; O2SAT 100
[2017-04-02] MEDS: INSULIN ASPART SUPPLEMENTAL SCALE SQ SCH ×2 (08:15→12:17)
[2017-04-02] MEDS ORDERED: LEVOFLOXACIN 750 MG TAB PO SCH (09:00)
[2017-04-02] MEDS: RESP: ALBUTEROL 2.5 MG/IPRATROPIUM 0.5 MG NEB (SCH) INH ×2 (10:00→15:33)
[2017-04-02] MEDS: PANTOPRAZOLE SOD 40 MG DELAYED RELEASE TAB PO SCH (10:07)
[2017-04-02] MEDS: predniSONE 20 MG TAB PO SCH (10:07)
[2017-04-02] MEDS: MULTIVITAMINS/MINERALS THERAPEUTIC TAB PO SCH (10:07)
[2017-04-02] MEDS: FOLIC ACID 1 MG TAB PO SCH (10:08)
[2017-04-02] MEDS: NICOTINE 21 MG/24 HR PATCH TD SCH (10:08)
[2017-04-02] MEDS: THIAMINE HCL 100 MG TAB PO SCH (10:08)
[2017-04-02] MEDS: guaiFENesin E.R. 600 MG TAB PO SCH (10:08)
[2017-04-02] MEDS: BUDESONIDE-FORMOTEROL 160/4.5 MCG INHALER INH SCH (10:09)
[2017-04-02] MEDS: SODIUM CHLORIDE 0.9% FLUSH 10 ML FLUSH IV FLUSH SCH (10:09)
[2017-04-02] MEDS: DOCUSATE SODIUM 50 MG/SENNA 8.6 MG TAB PO SCH (10:09)
[2017-04-02 10:40] VITALS: O2SAT 99
[2017-04-02 11:45] VITALS: BP 108/61; PULSE 96; RESP 17; TEMP 98.2; O2SAT 99
[2017-04-02] MEDS ORDERED: FOLI1TAB6 PO ×2 (12:00→15:31)
[2017-04-02] MEDS ORDERED: ALBUAER3 INH ×2 (12:00→15:31)
[2017-04-02] MEDS ORDERED: SYMB160A INH ×3 (12:00→15:31)
[2017-04-02] MEDS ORDERED: THIA100 PO ×2 (12:00→15:31)
[2017-04-02] MEDS ORDERED: LEVA750T9 PO ×2 (12:00→15:31)
[2017-04-02] MEDS ORDERED: LORA-392 PO ×2 (12:00→15:31)
[2017-04-02] MEDS ORDERED: SPIRCAP INH ×2 (12:02→15:31)
[2017-04-02] MEDS ORDERED: PRED20 PO ×2 (12:03→15:31)
--- NOTE | 2017-04-02 12:17 | HHI.DS ---
Discharge Summary Admission Date Mar 31, 2017 at 10:24 Discharge Date: Apr 02, 2017 Admitting Diagnosis Hypoglycemia/COPD exacerbation/altered mental status/hyponatremia (1) COPD exacerbation ICD Code: J44.1 - Chronic obstructive pulmonary disease with (acute) exacerbation Status: Acute (2) Pulmonary nodule, right ICD Code: R91.1 - Solitary pulmonary nodule (3) Hypoglycemia ICD Code: E16.2 - Hypoglycemia, unspecified Status: Acute Procedures None. Brief History - From Admission Patient is a 61-year-old female with an extensive history of alcohol abuse, depression, asthma and extensive tobacco abuse still actively smoking and severe cachexia who had recently been under the care of [facility]. Patient presented today with increasing shortness of breath. Patient was seen by EMS and they stated she was not moving good air severe therefore was started on DuoNeb's. She had a blood sugar done in the field that was only noted to be 44 patient did not have an active IV and therefore did not kidney medications. In the field on the way in patient is in some degree of respiratory distress. Will be admitted be placed on steroids as well as antibiotics and duo nebs and Mucinex and incentive spirometry we'll place her on supplements. We'll ask physical therapy and occupational therapy to eval and treat we'll reconsult hospice to evaluate her. Also found to have severe hyponatremia Patient will be made a full admission CBC/BMP: 04/01/17 0720 04/01/17 0720 Significant Findings Laboratory Tests Test 03/31/17 08:41 03/31/17 12:05 03/31/17 12:10 03/31/17 18:00 Red Blood Count 2.85 MIL/MM3 (4.00-5.30) Hemoglobin 9.4 GM/DL (11.6-15.3) Hematocrit 28.4 % (35.0-46.0) Platelet Count 717 TH/MM3 (150-450) Mean Platelet Volume 6.5 FL (7.0-11.0) Neutrophils (%) (Auto) 82.1 % (16.0-70.0) Lymphocytes (%) (Auto) 8.6 % (9.0-44.0) Monocytes (%) (Auto) 8.2 % (0.0-8.0) Neutrophils # (Auto) 8.5 TH/MM3 (1.8-7.7) Lymphocytes # (Auto) 0.9 TH/MM3 (1.0-4.8) Blood Urea Nitrogen 4 MG/DL (7-18) Creatinine 0.26 MG/DL (0.50-1.00) Random Glucose 33 MG/DL (74-106) Albumin 2.3 GM/DL (3.4-5.0) Calcium Level 8.0 MG/DL (8.5-10.1) Alkaline Phosphatase 253 U/L (45-117) Aspartate Amino Transf (AST/SGOT) 38 U/L (15-37) Sodium Level 121 MEQ/L (136-145) Chloride Level 80 MEQ/L (98-107) Troponin I LESS THAN 0.02 NG/ML LESS THAN 0.02 NG/ML Ethyl Alcohol Level 36 MG/DL (0-5) Urine Turbidity HAZY (CLEAR) Urine Ketones 10 mg/dL (NEG) Urine Bacteria MANY /hpf (NONE) Urine Mucus FEW /lpf (OCC) Total Creatine Kinase 268 U/L (26-192) Creatine Kinase MB 5.9 NG/ML (0.5-3.6) Test 04/01/17 07:20 White Blood Count 15.1 TH/MM3 (4.0-11.0) Red Blood Count 3.04 MIL/MM3 (4.00-5.30) Hemoglobin 10.0 GM/DL (11.6-15.3) Hematocrit 30.7 % (35.0-46.0) Mean Corpuscular Volume 101.1 FL (80.0-100.0) Platelet Count 601 TH/MM3 (150-450) Mean Platelet Volume 6.7 FL (7.0-11.0) Neutrophils (%) (Auto) 95.5 % (16.0-70.0) Lymphocytes (%) (Auto) 1.9 % (9.0-44.0) Neutrophils # (Auto) 14.4 TH/MM3 (1.8-7.7) Lymphocytes # (Auto) 0.3 TH/MM3 (1.0-4.8) Neutrophils % (Manual) 94 % (16-70) Lymphocytes % 1 % (9-44) Neutrophils # (Manual) 14.6 TH/MM3 (1.8-7.7) Platelet Estimate HIGH (NORMAL) Blood Urea Nitrogen 3 MG/DL (7-18) Creatinine 0.26 MG/DL (0.50-1.00) Random Glucose 182 MG/DL (74-106) Albumin 2.3 GM/DL (3.4-5.0) Calcium Level 7.8 MG/DL (8.5-10.1) Alkaline Phosphatase 221 U/L (45-117) Sodium Level 128 MEQ/L (136-145) Chloride Level 90 MEQ/L (98-107) Hemoglobin A1c 3.8 % (4.3-6.0) Imaging Last Impressions Chest X-Ray 03/31/17 0832 Signed Impressions: Service Date/Time: Friday, March 31, 2017 08:36 - CONCLUSION: 1. Changes of obstructive pulmonary disease with progressive biapical bullous change. 2. New 1.5 cm nodular opacity in the right upper lobe. Recommend CT examination for better characterization. Willem Hameed MD Chest CT 03/31/17 0000 Signed Impressions: Service Date/Time: Saturday, April 01, 2017 15:12 - CONCLUSION: 1. Diffuse emphysematous changes, most prominent in the right apex. Associated parenchymal scarring most prominent in the right base. 2. Nonspecific 6mm nodule in the superior segment of the right lower lobe. 3. Focal area of pleural thickening anterolaterally in the right upper hemithorax measuring 2.3 x 2.0 cm. This corresponds to the questionable nodular density identified on plain film. Again , findings are nonspecific. Giovnai Trevizo MD PE at Discharge GENERAL: Alert, Oriented x 3, NAD. Cachectic appearance. SKIN: Warm and dry. HEAD: Normocephalic. EYES: No scleral icterus. No injection or drainage. NECK: Supple, trachea midline. No JVD or lymphadenopathy. CARDIOVASCULAR: Regular rate and rhythm without murmurs, gallops, or rubs. RESPIRATORY: Poor air entry. No appreciable wheezing. No accessory muscle use. GASTROINTESTINAL: Abdomen soft, non-tender, nondistended. MUSCULOSKELETAL: No cyanosis, or edema. BACK: Nontender without obvious deformity. No CVA tenderness. Pt update on day of discharge Patient is doing well. Less anxious today. No fever, chills. Hospital Course Ms. Latif is a 61-year-old female with an extensive history of alcohol abuse, depression, asthma and extensive tobacco abuse still actively smoking and severe cachexia who had recently been under the care of [facility]. She was admitted to the hospital due to shortness of breath. COPD exacerbation - Patient is currently on 2L of O2 via NC. She has Suppl O2 at home. - D/C Ceftriaxone and Azithromycin and start Levaquin 750mg Qday X 7 days. - Continue DuoNeb PRN. - Start Symbicort. On discharge we will continue Symbicort as well as Spiriva. - Patient is being followed by [facility]. - Anxiety - Ativan PO PRN. Pulmonary nodule - right lung - Reviewed CT chest images - shows emphysematous changes and right lung nodule. - Right lung nodule about 6mm. We recommend CT chest in 6 months to follow this nodule. - Patient should also follow up with a linen checker in the outpatient setting. - Discussed extensively with patient and patient's regarding COPD, lung nodule. Hypoglycemia - Probably due to nutritional deficits. - Patient is encouraged to increase calorie intake and consume Ensure as well. Full code. SCDs. Pt Condition on Discharge: Good Discharge Disposition: Hospice/ Home Discharge Time: > 30 minutes Discharge Instructions DIET: Follow Instructions for: As Tolerated, No Restrictions Activities you can perform: Regular-No Restrictions Follow up Referrals: PCP Follow-up - 1 Week New Orders: CT THORAX W/O CONTRAST (CHEST) - 6 Months New Medications: Budesonide-Formoterol Inh (Symbicort Inh) 160-4.5 Mcg/Act Aero 1 PUFF INH Q12HR, #1 INHALER 3 Refills Prednisone (Prednisone) 20 Mg Tab 20 MG PO BID for Inflammation, #8 TAB 0 Refills Tiotropium Inh (Spiriva Handihaler) 18 Mcg Cap 18 MCG INH DAILY for COPD, #30 CAP 3 Refills 1 capsule = 18 mcg Folic Acid (Folic Acid) 1 Mg Tablet 1 MG PO DAILY for vitamin, #30 TAB Levofloxacin (Levaquin) 750 Mg Tablet 750 MG PO DAILY for Infection, #5 TAB Thiamine HCl (Gnp Vitamin B-1) 100 Mg Tab 100 MG PO DAILY for Vitamin, #30 TAB Continued Medications: Albuterol 8.5 GM Inh (Proair Hfa 8.5 GM Inh) 90 Mcg/Act Aer 2 PUFF INH Q6H PRN for SHORTNESS OF BREATH, #1 INHALER 3 Refills (This prescription has been renewed) 108 mcg/actuation Albuterol Neb (Albuterol Neb) 2.5 Mg/0.5 Ml Neb 2.5 MG NEB QID NEB for Breathing Treatment, #120 NEBULE 0 Refills Note: The Albuterol Sulfate Inhalation Solution is concentrated and must be diluted. Read complete instructions carefully before using. Diphenhydramine (Diphenhydramine) 25 Mg Cap 25 MG PO HS PRN for INSOMNIA, CAP 0 Refills Hydrocortisone Rectal 1% (Proctocort Rectal 1%) 1% Cream 1 APPLIC RECTAL Q6H PRN for PAIN/INFLAMMATION, #1 TUBE 0 Refills Ipratropium Neb (Ipratropium Neb) 0.5 Mg/2.5 Ml Amp 0.5 MG NEB Q4HR NEB PRN for SHORTNESS OF BREATH, #180 NEBULE 0 Refills Lorazepam (Ativan) 0.5 Mg Tab 0.5 MG PO Q8H PRN for ANXIETY AND/OR INSOMNIA, #20 TAB 0 Refills (This prescription has been renewed) Zolpidem (Zolpidem) 10 Mg Tab 10 MG PO HS PRN for INSOMNIA, TAB 0 Refills Krysta Ny DO Apr 02, 2017 12:17
[2017-04-02] MEDS: LORazepam 0.5 MG TAB PO PRN (13:53)
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
== END 2017-04-02 17:00 | disposition hospice, home (50) | DRG 190 ==
LOC: NEPE 08:23 → NEDA 10:24 → N05A 12:33
PROVIDERS: ADMIT Hospitalist; ATTEND Hospitalist
DX: J44.1 Chronic obstructive pulmonary disease with (acute) exacerbation (principal); E43 Unspecified severe protein-calorie malnutrition; R64 Cachexia; E87.1 Hypo-osmolality and hyponatremia; Z68.1 Body mass index [BMI] 19.9 or less, adult; R63.4 Abnormal weight loss; E16.2 Hypoglycemia, unspecified; R91.1 Solitary pulmonary nodule; F17.210 Nicotine dependence, cigarettes, uncomplicated; F32.9 Major depressive disorder, single episode, unspecified; F10.10 Alcohol abuse, uncomplicated; Y90.1 Blood alcohol level of 20-39 mg/100 ml; F41.9 Anxiety disorder, unspecified; F43.10 Post-traumatic stress disorder, unspecified; R41.82 Altered mental status, unspecified
CPT/HCPCS: 71045; 71260; 76937; 80053; 80307; 81001; 82140; 82550; 82552; 82948; 83036; 83735; 84100; 84439; 84443; 84484; 85007; 85025; 85027; 87086; 93005; 94150; 94640; 94664; 96361; 96374; 96375; J0696; J1815; J2060; J2930; J7030; J7512; Q9967